=== PATIENT | male | born 1945 | race Caucasian/White ===

== ENCOUNTER 2016-04-12 14:01 | Inpatient (IN) | payer MEDICARE, OTHER ==
[~2016-04-12] VITALS: Ht 170.2 cm; Wt 56.4 kg
[2016-04-12] MEDS ORDERED: ADV50050 INHALATION (14:33)
[2016-04-12] MEDS ORDERED: ALBU2.5V3 NEB (14:33)
[2016-04-12] MEDS ORDERED: ASPI81TA3 PO (14:33)
[2016-04-12] MEDS ORDERED: ATOR10TA65 PO (14:33)
[2016-04-12] MEDS ORDERED: IPRA30SP NS (14:34)
[2016-04-12] MEDS ORDERED: CHOL100062 PO (14:36)
[2016-04-12] MEDS ORDERED: [UNRECOGNIZED DRUG - CODE] PO (14:36)
[2016-04-12] MEDS ORDERED: FLUT9.9S NASAL (14:36)
[2016-04-12] MEDS ORDERED: GUAI-637 PO (14:37)
[2016-04-12] MEDS ORDERED: IBUP-1542 PO (14:37)
[2016-04-12] MEDS ORDERED: IPRA3AMP INHALATION (14:39)
[2016-04-12] MEDS ORDERED: ENOX40DI14 SC (14:39)
[2016-04-12] MEDS ORDERED: METO25TA7 PO (14:40)
[2016-04-12] MEDS ORDERED: POLY17PO6 PO (14:40)
[2016-04-12] MEDS ORDERED: SENN-53 PO (14:41)
[2016-04-12] MEDS ORDERED: PROT946L PO (14:41)
[2016-04-12] MEDS ORDERED: MULTI PO (14:41)
[2016-04-12] MEDS ORDERED: TAMS0.4C2 PO (14:42)
--- NOTE | 2016-04-12 14:42 | ERA ---
ER Documentation Chief Complaint Date/Time DATE: 04/12/16 TIME: 14:38 Chief Complaint BIB RA FOR EVAL OF SOB. HPI The patient is 70-year-old male, presenting with acute on chronic dyspnea for the last 2 days. He normally uses 1-2 L nasal cannula due to his chronic hypoxemia from COPD. He complains of worsening cough, denies fever, chills, neck pain, chest pain, abdominal pain, vomiting, diarrhea, constipation. He used to to smoke until 6 months ago Past medical history:[place] of skin, history of DVT, dyslipidemia, BPH, anemia , GERD, rheumatoid arthritis, anxiety, hypertension, COPD Past surgical history: Right pleurodesis, left femur ROS All systems reviewed and are negative except as per history of present illness. Medications Home Meds Reported Medications Tamsulosin Hcl* (Tamsulosin Hcl*) 0.4 Mg Cap.er.24h, 0.4 MG PO HS, CAP 04/12/16 Sennosides* (Senna Lax*) 8.6 Mg Tablet, 2 TAB PO BID, TAB 04/12/16 Protein Supplement (Promod) 946 Ml Liquid, 30 ML PO BID 04/12/16 Multivitamins* (Theragran*) 1 Tab Tab, 1 TAB PO DAILY, TAB 04/12/16 Polyethylene Glycol* (Miralax*) 17 Gm Powd.pack, 17 GM PO DAILY, #30 PACKET 04/12/16 Metoprolol Succinate* (Toprol XL*) 25 Mg Tab.sr.24h, 25 MG PO DAILY, #30 TAB HOLD IF SBP<110, HR<60 04/12/16 Enoxaparin Sodium* (Lovenox*) 40 Mg/0.4 Ml Syringe, 40 MG SC DAILY, SYR 04/12/16 Ipratropium-Albuterol (Ipratropium-Albuterol) 0.5-3 Mg/3 Ml Ampul.neb, 1 VIAL INHALATION Q4 Y for WHEEZING AND SOB, #30 VIAL 04/12/16 Ibuprofen* (Ibuprofen*) 600 Mg Tablet, 600 MG PO Q6H Y for PAIN, TAB 04/12/16 Guaifenesin* (Robitussin*) 100 Mg/5 Ml Syrup, 600 MG PO Q12 Y for COUGH, ML 04/12/16 Fluticasone Propionate (Flonase Allergy Relief) 9.9 Ml [place].susp, 1 SPRAY NASAL BID, #1 BOTTLE TO EACH NOSTRIL 04/12/16 Cholecalciferol* (Vitamin D3*) 1,000 Unit Tablet, 1000 UNIT PO DAILY, TAB 04/12/16 Lactose-Free Food (Boost Plus) 237 Ml Liquid, 474 ML PO BID 04/12/16 Ipratropium Leon (Ipratropium Leon) 30 Ml [place], 2 SPRAY NS QID, SPRAY 04/12/16 Aspirin* (Aspirin* Chew) 81 Mg Tab.chew, 81 MG PO DAILY, TAB.CHEW 04/12/16 Atorvastatin Calcium (Atorvastatin Calcium) 10 Mg Tablet, 10 MG PO QHS, #30 TAB 04/12/16 Albuterol Sulfate* (Albuterol Sulfate* Neb) 0.083%-3 Ml Neb, 1.25 MG NEB Q4 Y for WHEEZING AND SOB, #30 VIAL 04/12/16 Salmeterol Xinaf-Fluticasone* (Advair*) 500/50 Diskus Inhaler, 1 INH INHALATION BID, #1 INHALER 04/12/16 Allergies Allergies: Coded Allergies: Penicillins (Verified Allergy, Severe, 04/12/16) PMhx/Soc Hx Alcohol Use: No Hx Substance Use: No Hx Tobacco Use: Yes Smoking Status: Former smoker Physical Exam Vitals Vital Signs Date Time Temp Pulse Resp B/P Pulse Ox O2 Delivery O2 Flow Rate FiO2 04/12/16 15:00 Nasal Cannula 2 04/12/16 14:10 98.2 74 19 132/122 100 Nasal Cannula 2.0 04/12/16 14:10 Nasal Cannula 2.0 04/12/16 14:07 98.2 118 19 141/85 100 Physical Exam Const: No acute distress. Head: Atraumatic. Eyes: Normal Conjunctiva. ENT: Normal External Ears, Nose and Mouth. Neck: Full range of motion. No meningismus. Resp: Mild bilateral expiratory wheezing Cardio: Regular rate and rhythm, no murmurs. Abd: Soft, non distended, normal bowel sounds, non tender. Skin: No petechiae or rashes. Back: No midline or flank tenderness. Ext: No cyanosis, or edema. Neur: Awake and alert. No focal deficit Psych: Normal Mood and Affect. Result Diagram: 04/12/16 1500 04/12/16 1500 Results 24 hrs Laboratory Tests Test 04/12/16 14:42 04/12/16 15:00 04/12/16 15:50 Arterial Blood HCO3 33.8mmol/L Arterial Blood Base Excess 6.3mmol/L Arterial Blood Oxygen Saturation 97.7mmHG [place] Test ACCEPTAB Arterial Blood Gas Puncture Site Right Radial Arterial Blood Carboxyhemoglobin 0.3% Arterial Blood Date Drawn 04/12/2016 2:46:11 PM Arterial Blood Methemoglobin 0.3% Arterial Blood pCO2 (Temp correct) 61.0mmhg Arterial Blood pH (Temp corrected) 7.361 Arterial Blood pO2 (Temp corrected) 107.4mmHG Blood Gas A-a O2 Differential 13.0mmHg Blood Gas Modality NASAL CANNULA Blood Gas Notified Time 04/12/2016 2:54:44 PM Blood Gas Notified Whom JLD Blood Gas Specimen Source Blood arterial Blood Gas Temperature 37.0C FiO2 27.0% Oxyhemoglobin Percent 97.1% Total Hemoglobin 14.2g/dl Activated Partial Thromboplast Time 32.4Sec Alanine Aminotransferase (ALT/SGPT) 16IU/L Albumin 3.8g/dl Albumin/Globulin Ratio 1.02 Alkaline Phosphatase 73IU/L Anion Gap 14 Aspartate Amino Transf (AST/SGOT) 23IU/L Basophils # 0.010^3/ul Basophils % 0.2% Blood Morphology Comment Blood Urea Nitrogen 29mg/dl Calcium Level 10.0mg/dl Carbon Dioxide Level 37mmol/L Chloride Level 99mmol/L Creatinine 0.90mg/dl Direct Bilirubin 0.00mg/dl Eosinophils # 0.410^3/ul Eosinophils % 4.8% Globulin 3.70g/dl Glucose Level 145mg/dl Hematocrit 40.4% Hemoglobin 13.4g/dl INR International Normalized Ratio 0.98 Indirect Bilirubin 0.1mg/dl Lactic Acid Level 1.6mmol/L Lymphocytes # 1.210^3/ul Lymphocytes % 13.8% Mean Corpuscular Hemoglobin 31.2pg Mean Corpuscular Hemoglobin Concent 33.1g/dl Mean Corpuscular Volume 94.1fl Mean Platelet Volume 9.1fl Monocytes # 1.110^3/ul Monocytes % 11.8% Neutrophils # 6.210^3/ul Neutrophils % 69.4% Nucleated Red Blood Cells # 0.010^3/ul Nucleated Red Blood Cells % 0.0/100WBC Platelet Count 34321^3/UL Potassium Level 4.9mmol/L Prothrombin Time 13.0Sec Prothrombin Time Ratio 1.0 Red Blood Count 4.2910^6/ul Red Cell Distribution Width 15.2% Sodium Level 145mmol/L Total Bilirubin 0.1mg/dl Total Protein 7.5g/dl Troponin I < 0.012ng/ml White Blood Count 9.010^3/ul Urine Bilirubin NEGATIVE Urine Clarity SLIGHTLY CLOUDY Urine Color LT. YELLOW Urine Glucose NEGATIVE% Urine Hemoglobin TRACE Urine Ketones NEGATIVE Urine Leukocyte Esterase 3+ Urine Microscopic RBC Pending Urine Microscopic WBC Pending Urine Nitrite POSITIVE Urine Specific [place] 1.020 Urine Total Protein TRACE Urine Urobilinogen 0.2 E.U./dL Urine pH 6.0 Current Medications Medications (Trade) Dose Ordered Sig/Wally Route PRN Reason Start Time Stop Time Status Last Admin Dose Admin Levalbuterol (Xopenex Neb) 1.25 mg ONCE ONCE HHN 04/12/16 16:00 04/12/16 16:01 DC Ipratropium Leon (Atrovent 0.02% (Neb)) 0.5 mg ONCE ONCE HHN 04/12/16 16:00 04/12/16 16:01 DC Methylprednisolone Sodium Succinate 125 mg 125 mg ONCE ONCE IV 04/12/16 16:00 04/12/16 16:01 DC Levofloxacin/ Dextrose (Levaquin 750 Mg/ D5W 150 ml (Pmx)) 150 ml @ 100 mls/hr ONCE ONCE IVPB 04/12/16 16:00 04/12/16 17:29 Procedures/MDM EKG: Read by emergency physician Rate/Rhythm: Sinus tachycardia 108 beats per min QRS, ST, T-waves: No ST elevation, no T wave inversion, PVC, septal Q waves Impression: Abnormal EKG [place] [id number] Radiology Main Line: [phone] DIAGNOSTIC IMAGING REPORT Patient: STEFANY OCONNOR : 1945 Age: 70 Sex: M MR #: [id number] DOS: 04/12/16 1442 Ordering MD: REX COBB MD Location: E/R Room/Bed: PROCEDURE: XR Chest. CLINICAL INDICATION: Shortness of breath. Sepsis. TECHNIQUE: Single frontal view. COMPARISON: None. FINDINGS: The lungs are hyperinflated. There is mild scarring at the right lung base. The lungs are otherwise clear. The heart size is normal. There is calcification in the aorta consistent with atherosclerosis. There is no pleural effusion. There is no pneumothorax. IMPRESSION: 1. Hyperinflated lungs. 2. Mild scarring at the right lung base. 3. Atherosclerosis. 4. Otherwise normal chest x-ray. RPTAT: QQ .Josh Dupont MD, MD Date Time Electronically viewed and signed by .Josh Dupont MD, MD on 04/12/2016 15:11 .R/ CC: REX COBB MD MEDICAL MAKING DECISION: The patient is a 70-year-old male, presenting with acute hypercapnic hypoxemic respiratory failure, acute severe exacerbation. He was treated with Levaquin IV, Atrovent 0.5 mg and Xopenex 1.25 mg nebulizer and Solu-Medrol multiple family IV with good response. The differential diagnoses considered include but are not limited to asthma, COPD, pneumonia, pulmonary embolus, pleural effusion, congestive heart failure. Critical Care: Time: 35 minutes excluding all billable procedures. Treatments/Evaluations: Close monitoring and treatment of unstable vital signs, cardiorespiratory, and neurologic status, while maintaining tight balance of fluid, respiratory, and cardiac interventions. Departure Diagnosis: Primary Impression: Respiratory failure with hypoxia and hypercapnia Additional Impressions: COPD exacerbation Anemia Condition: Stable Comments I discussed the findings with the patient. I discussed the patient with the on- call hospitalist Dr. Rider who was made aware of the lab, the treatment, the patient condition. The patient is admitted to telemetry at 4:15 PM REX COBB MD Apr 12, 2016 14:42
[2016-04-12 14:54] LABS: Allen Test ACCEPTAB; Arterial Base Excess 6.3 mmol/L (-3.0-3); Arterial COHb 0.3 % (0.0-3.0); Arterial Fraction of Oxyhgb 97.1 % (93.0-99.0); Arterial HCO3 33.8 mmol/L (22.0-26.0); Arterial MetHb 0.3 % (0.0-1.5); Arterial Total Hemglobin 14.2 g/dl (12.0-18.0); MODE NASAL CANNULA
--- NOTE | 2016-04-12 15:12 | RADRPT ---
PROCEDURE: XR Chest. CLINICAL INDICATION: Shortness of breath. Sepsis. TECHNIQUE: Single frontal view. COMPARISON: None. FINDINGS: The lungs are hyperinflated. There is mild scarring at the right lung base. The lungs are otherwis e clear. The heart size is normal. There is calcification in the aorta consistent with atherosclerosis. There is no pleural effusion. There is no pneumothorax. IMPRESSION: 1. Hyperinflated lungs. 2. Mild scarring at the right lung base. 3. Atherosclerosis. 4. Otherwise normal chest x-ray. RPTAT: QQ .Josh Dupont MD, Date Time Electronically viewed and signed by .Josh Dupont MD, on 04/12/2016 15:11 .R/
[2016-04-12 15:18] LABS: BASOPHILS % 0.2 % (0.0-2.0); EOSINOPHILS # 0.4 10^3/ul (0.0-0.5); EOSINOPHILS % 4.8 % (0.0-7.0); HEMATOCRIT 40.4 % (42.0-52.0); HEMOGLOBIN 13.4 g/dl (14.0-18.0); LYMPHOCYTES # 1.2 10^3/ul (0.8-2.9); LYMPHOCYTES % 13.8 % (15.0-51.0); MEAN CORPUSCULAR HEMOGLOBIN 31.2 pg (29.0-33.0); MEAN CORPUSCULAR HGB CONC 33.1 g/dl (32.0-37.0); MEAN CORPUSCULAR VOLUME 94.1 fl (82.0-101.0); MEAN PLATELET VOLUME 9.1 fl (7.4-10.4); MONOCYTE # 1.1 10^3/ul (0.3-0.9); MONOCYTES % 11.8 % (0.0-11.0); NEUTROPHIL # 6.2 10^3/ul (1.6-7.5); NEUTROPHILS % 69.4 % (39.0-77.0); PLATELET COUNT 294 10^3/UL (140-440); RED BLOOD COUNT 4.29 10^6/ul (4.70-6.10); RED CELL DISTRIBUTION WIDTH 15.2 % (11.5-14.5)
[2016-04-12 15:21] LABS: CONDITION 1; LH ANALYZER COMMENTS 1
[2016-04-12 15:26] LABS: ALBUMIN 3.8 g/dl (3.3-4.9); CHLORIDE 99 mmol/L (97-110)
[2016-04-12 15:27] LABS: INR 0.98; POTASSIUM 4.9 mmol/L (3.5-5.1); SODIUM 145 mmol/L (135-144)
[2016-04-12 15:28] LABS: PARTIAL THROMBOPLASTIN TIME 32.4 Sec (25.0-35.0)
[2016-04-12 15:29] LABS: ALBUMIN/GLOBULIN RATIO 1.02; ANION GAP 14 (8-16); ASPARTATE AMINO TRANSFERASE 23 IU/L (15-46); BILIRUBIN,INDIRECT 0.1 mg/dl (0-1.1); BILIRUBIN,TOTAL 0.1 mg/dl (0.2-1.3); BLOOD UREA NITROGEN 29 mg/dl (7-20); CARBON DIOXIDE 37 mmol/L (21-31); TOTAL PROTEIN 7.5 g/dl (6.1-8.1)
[2016-04-12 15:30] LABS: ALANINE AMINOTRANSFERASE 16 IU/L (13-69); ALKALINE PHOSPHATASE 73 IU/L (42-121); GLUCOSE 145 mg/dl (70-220)
[2016-04-12 15:43] LABS: TROPONIN-I < 0.012 ng/ml (0.00-0.12)
[2016-04-12] MEDS ORDERED: METHYLPREDNISOLONE 125 MG INJ IV ONE (16:00)
[2016-04-12] MEDS ORDERED: LEVALBUTEROL (NEB) 1.25 MG/0.5 ML AMP HHN ONE (16:00)
[2016-04-12] MEDS ORDERED: LEVOFLOXACIN 750MG/D5W (PMX) 150 ML IVPB ONE (16:00)
[2016-04-12] MEDS ORDERED: IPRATROPIUM (NEB) 0.5 MG/2.5 ML AMP HHN ONE (16:00)
[2016-04-12 16:07] LABS: ADD UMIC YES; URINE BILIRUBIN (Dip) NEGATIVE (NEGATIVE); URINE BLOOD (Dip) TRACE (NEGATIVE); URINE COLOR LT. YELLOW (YELLOW); URINE GLUCOSE (Dip) NEGATIVE (NEGATIVE); URINE KETONES (Dip) NEGATIVE (NEGATIVE); URINE LEUKOCYTE ESTERASE (Dip) 3+ (NEGATIVE); URINE NITRITE (Dip) POSITIVE (NEGATIVE); URINE TOTAL PROTEIN (Dip) TRACE (NEGATIVE); URINE UROBILINOGEN (Dip) 0.2 E.U./dL (0.1-1.0)
[2016-04-12 16:17] LABS: BACTERIA,URINE RARE; SQUAMOUS EPITHELIAL CELL,UR FEW; URINE RBCS 0-2 /HPF (0)
[2016-04-12] MEDS ORDERED: morphine 2 MG INJ IV PRN (20:00)
[2016-04-12] MEDS ORDERED: NACL 0.9% 3 ML SYG IV SCH (20:00)
[2016-04-12] MEDS ORDERED: ZOLPIDEM 5 MG TAB PO PRN (20:00)
[2016-04-12] MEDS ORDERED: DOCUSATE SODIUM 100 MG CAP PO PRN (20:00)
[2016-04-12] MEDS ORDERED: IBUPROFEN 600 MG TAB PO PRN (20:00)
[2016-04-12] MEDS ORDERED: ALBUTEROL/IPRATROPIUM (NEB) 3 ML AMP HHN PRN (20:00)
[2016-04-12] MEDS ORDERED: ACETAMINOPHEN 325 MG TAB PO PRN (20:00)
[2016-04-12] MEDS ORDERED: HYDROCODONE/APAP (5/325) TAB PO PRN (20:00)
[2016-04-12] MEDS ORDERED: ONDANSETRON 4 MG INJ IV PRN (20:00)
[2016-04-12 20:02] VITALS: TEMP 98.4
--- NOTE | 2016-04-12 20:41 | HP ---
DATE OF ADMISSION: 04/12/2016 CHIEF COMPLAINT: Shortness of breath. HISTORY OF PRESENT ILLNESS: The patient is a 70-year-old male with a history of COPD. The patient a nursing home facility. The patient presents with progressively worsening shortness of breath o arlette the past 2 weeks. He states that he has been worse over the past week. He has had hospitalizat ions for COPD exacerbation in the past. He does have a history of smoking. He has no other complai nts at this time. PAST MEDICAL HISTORY: COPD and rapid heart rate. PAST SURGICAL HISTORY: 1. Metal plate in his leg. 2. Pleurodesis. HOME MEDICATIONS: 1. Albuterol. 2. Aspirin. 3. Lipitor. 4. Vitamin D. 5. Lovenox. 6. Flonase. 7. Robitussin. 8. Ibuprofen. 9. Atrovent. 10. Metoprolol. 11. Multivitamin. 12. Advair. 13. Flomax. ALLERGIES: PENICILLIN. FAMILY HISTORY: Rheumatoid arthritis. SOCIAL HISTORY: Denies any alcohol or drug abuse. Does have a history of smoking and resides in a SNF. REVIEW OF SYSTEMS: A 12-point review of systems negative except that listed in HPI. PHYSICAL EXAMINATION: VITAL SIGNS: Temperature is 98.1, pulse 70, respiration is 18, BP is 125/98, saturation 100% on 2 l iters. GENERAL: No acute distress, alert and oriented. HEENT: Normocephalic, atraumatic. LUNGS: Clear to auscultation. CARDIOVASCULAR: Regular rate and rhythm. ABDOMEN: Nondistended, nontender, soft. EXTREMITIES: No clubbing, cyanosis, edema. SKIN: Grayish discoloration. LABORATORIES: White count 7.9, hemoglobin 15.4, platelets 294. Chemistry: Sodium is 145, potassiu m is 2.9, carbon dioxide 37, BUN is 29, lactic acid is 0.7, total bilirubin is 0.1. INR 0.98. UA, nitrites positive, WBC greater than 50. DIAGNOSTICS: Chest x-ray shows hyperinflated lungs, mild scarring in the right lung base, atheroscl erosis, otherwise normal chest x-ray. ASSESSMENT AND PLAN 1. Chronic obstructive pulmonary disease exacerbation. The patient has progressively worsening braydon rtness of breath with mucus production. Will treat for chronic obstructive of pulmonary exacerbatio n with antibiotics. Will get an influenza screen. No indication for steroids at this time. The pa tient is not wheezing. 2. Tachycardia, continue Toprol-XL 3. Benign prostatic hypertrophy. Continue Flomax. 4. Prophylaxis, Lovenox. Dictated By: CLIFFORD ZAPIEN MD BS/NTS Conf#: [id number] DID#: [id number]
[2016-04-12 20:45] VITALS: BP 127/68; PULSE 112; RESP 22
[2016-04-12 20:50] VITALS: PULSE 111
[2016-04-12 21:00] VITALS: Ht 170.2 cm; Wt 56.4 kg
[2016-04-12] MEDS ORDERED: LACTOSE FREE FOOD PO SCH (21:00)
[2016-04-12] MEDS: FLUTICASONE 0.05% 16 GM NAS SPRAY NASAL SCH (21:00)
[2016-04-12] MEDS: ATORVASTATIN 10 MG TAB PO SCH ×2 (21:00→22:36)
[2016-04-12] MEDS: IPRATROPIUM 0.03% 30 ML NASAL SPRAY NASAL SCH (21:00)
[2016-04-12] MEDS ORDERED: NON-FORMULARY/PATIENT OWN MED (Protein Supplement (Promod) 30 ML) PO SCH (21:00)
[2016-04-12] MEDS: METHYLPREDNISOLONE 125 MG INJ IV SCH (22:36)
[2016-04-12] MEDS: TAMSULOSIN (SR) 0.4 MG CAP PO SCH (22:36)
[2016-04-12] MEDS: SENNA TAB PO SCH (22:37)
[2016-04-12] MEDS: SALMETEROL/FLUTICASONE 500/50 INHA INH SCH (23:18)
[2016-04-13] VITALS (13 sets, daily range): BP systolic 114–126; BP diastolic 61–75; PULSE 96–110; RESP 18–21
[2016-04-13] MEDS ORDERED: IPRATROPIUM (NEB) 0.5 MG/2.5 ML AMP HHN SCH (01:00)
[2016-04-13] MEDS: METHYLPREDNISOLONE 125 MG INJ IV SCH ×3 (05:39→21:40)
[2016-04-13 07:49] LABS: BASOPHILS % 0.1 % (0.0-2.0); HEMATOCRIT 37.9 % (42.0-52.0); HEMOGLOBIN 12.8 g/dl (14.0-18.0); LYMPHOCYTES # 0.6 10^3/ul (0.8-2.9); LYMPHOCYTES % 9.6 % (15.0-51.0); MEAN CORPUSCULAR HEMOGLOBIN 31.6 pg (29.0-33.0); MEAN CORPUSCULAR HGB CONC 33.8 g/dl (32.0-37.0); MEAN CORPUSCULAR VOLUME 93.7 fl (82.0-101.0); MEAN PLATELET VOLUME 9.1 fl (7.4-10.4); MONOCYTE # 0.1 10^3/ul (0.3-0.9); MONOCYTES % 1.6 % (0.0-11.0); NEUTROPHIL # 5.9 10^3/ul (1.6-7.5); NEUTROPHILS % 88.7 % (39.0-77.0); PLATELET COUNT 304 10^3/UL (140-440); RED BLOOD COUNT 4.05 10^6/ul (4.70-6.10); RED CELL DISTRIBUTION WIDTH 15.1 % (11.5-14.5); UNCORRECTED WBC 6.7 10^3/ul (4.8-10.8); WHITE BLOOD COUNT 6.7 10^3/ul (4.8-10.8)
[2016-04-13 07:53] LABS: POTASSIUM 5.4 mmol/L (3.5-5.1)
[2016-04-13 07:55] LABS: CONDITION 1; CREATININE 0.92 mg/dl (0.61-1.24); LH ANALYZER COMMENTS 1
[2016-04-13 07:56] LABS: PHOSPHORUS 3.6 mg/dl (2.5-4.9)
[2016-04-13 07:57] LABS: CALCIUM 9.7 mg/dl (8.4-10.2); MAGNESIUM 2.1 mg/dl (1.7-2.5)
[2016-04-13] MEDS: FLUTICASONE 0.05% 16 GM NAS SPRAY NASAL SCH ×2 (09:00→21:00)
[2016-04-13] MEDS: ENOXAPARIN 40 MG/0.4 ML SYG SC SCH (09:00)
[2016-04-13] MEDS: IPRATROPIUM 0.03% 30 ML NASAL SPRAY NASAL SCH ×4 (09:00→21:00)
[2016-04-13] MEDS: SALMETEROL/FLUTICASONE 500/50 INHA INH SCH ×2 (09:00→21:37)
[2016-04-13] MEDS: METOPROLOL (XL) 25 MG TAB PO SCH (09:03)
[2016-04-13] MEDS: ASPIRIN 81 MG TAB PO SCH (09:03)
[2016-04-13] MEDS: MULTIVITAMINS THERAPEUTIC TAB PO SCH (09:03)
[2016-04-13] MEDS: CHOLECALCIFEROL 1,000 UNIT TAB PO SCH (09:03)
[2016-04-13] MEDS: SENNA TAB PO SCH ×2 (09:04→21:37)
[2016-04-13] MEDS: POLYETHYLENE GLYCOL 17 GM PACKET PO SCH (09:04)
[2016-04-13] MEDS: GUAIFENESIN LA 600 MG TABSR PO PRN (14:20)
[2016-04-13] MEDS ORDERED: PSEUDOEPHEDRINE 30 MG TAB PO PRN (15:00)
--- NOTE | 2016-04-13 15:09 | PN ---
Date/Time of Note Date/Time of Note DATE: 04/13/16 TIME: 15:05 Assessment/Plan VTE Prophylaxis VTE Prophylaxis Intervention: LMWH Lines/Catheters [facility] Urinary Cath still in place: No Assessment/Plan Chief Complaint/Hosp Course 1. Chronic obstructive pulmonary disease exacerbation -cont Steroids and Abx 2. Tachycardia -continue Toprol-XL 3. Benign prostatic hypertrophy - Continue Flomax. 4. Prophylaxis-Lovenox Dispo- Likely DC in AM Problems: Subjective 24 Hr Interval Summary Respiratory: shortness of breath Exam/Review of Systems Vital Signs Vitals Vital Signs Date Time Temp Pulse Resp B/P Pulse Ox O2 Delivery O2 Flow Rate FiO2 04/13/16 12:32 97.9 112 20 114/68 97 04/13/16 10:44 Nasal Cannula 2.0 04/12/16 23:31 28 Intake and Output 04/12/16 04/12/16 04/13/16 15:00 23:00 07:00 Intake Total 250 ml Output Total 500 ml Balance -250 ml Exam Constitutional: alert, oriented Respiratory: clear to auscultation Cardiovascular: regular rate and rhythm Gastrointestinal: non-tender, soft, No distended Musculoskeletal: nl extremities to inspection Results Result Diagram: 04/13/16 0640 04/13/16 0640 Results 24 hrs Laboratory Tests Test 04/12/16 15:50 04/12/16 17:40 04/12/16 21:23 04/13/16 06:40 Urine Bacteria RARE Urine Bilirubin NEGATIVE Urine Clarity SLIGHTLY CLOUDY Urine Color LT. YELLOW Urine Glucose NEGATIVE Urine Hemoglobin TRACE Urine Ketones NEGATIVE Urine Leukocyte Esterase 3+ H Urine Microscopic RBC 0-2 Urine Microscopic WBC >50 Urine Nitrite POSITIVE H Urine Specific [place] 1.020 Urine Squamous Epithelial Cells FEW Urine Total Protein TRACE Urine Urobilinogen 0.2 E.U./dL Urine pH 6.0 Lactic Acid Level 0.7 1.2 Anion Gap 17 H Basophils # 0.0 Basophils % 0.1 Blood Morphology Comment Blood Urea Nitrogen 31 H Calcium Level 9.7 Carbon Dioxide Level 31 Chloride Level 99 Creatinine 0.92 Eosinophils # 0.0 Eosinophils % 0.0 Glucose Level 119 Hematocrit 37.9 L Hemoglobin 12.8 L Hemoglobin A1c 5.3 Lymphocytes # 0.6 L Lymphocytes % 9.6 L Magnesium Level 2.1 Mean Corpuscular Hemoglobin 31.6 Mean Corpuscular Hemoglobin Concent 33.8 Mean Corpuscular Volume 93.7 Mean Platelet Volume 9.1 Monocytes # 0.1 L Monocytes % 1.6 Neutrophils # 5.9 Neutrophils % 88.7 H Nucleated Red Blood Cells # 0.0 Nucleated Red Blood Cells % 0.0 Phosphorus Level 3.6 Platelet Count 304 Potassium Level 5.4 H Red Blood Count 4.05 L Red Cell Distribution Width 15.1 H Sodium Level 142 White Blood Count 6.7 # Medications Medications Current Medications Ondansetron HCl (Zofran Inj) 4 mg Q6H PRN IV NAUSEA AND/OR VOMITING; Start at 20:00 Acetaminophen (Tylenol Tab) 650 mg Q6H PRN PO PAIN LEVEL 1-3 OR FEVER; Start at 20:00 Acetaminophen/ Hydrocodone Bitart ([place] (5/325)) 1 tab Q6H PRN PO MODERATE PAIN LEVEL 4-6; Start 04/12/16 at 20:00 Morphine Sulfate (morphine) 2 mg Q4H PRN IV SEVERE PAIN LEVEL 7-10; Start 04/12 at 20:00 Docusate Sodium (Colace) 100 mg Q12H PRN PO CONSTIPATION; Start 04/12/16 at 20: 00 Zolpidem Tartrate (Ambien) 5 mg QHS PRN PO SLEEP; Start 04/12/16 at 20:00 Enoxaparin Sodium (Lovenox) 40 mg DAILY SC ; Start 04/13/16 at 09:00 Methylprednisolone Sodium Succinate 60 mg 60 mg Q8 IV Last administered on 04/13 14:15; Admin Dose 60 MG; Start 04/12/16 at 22:00 Levofloxacin/ Dextrose (Levaquin 500mg/ D5W 100 ml (Pmx)) 100 ml @ 100 mls/hr Q24H IVPB ; Start 04/13/16 at 16:00 Aspirin (Aspirin) 81 mg DAILY PO Last administered on 04/13/16 09:03; Admin Dose 81 MG; Start 04/13/16 at 09:00 Atorvastatin Calcium (Lipitor) 10 mg QHS PO ; Start 04/12/16 at 21:00 Cholecalciferol (Vitamin D) 1,000 unit DAILY PO Last administered on 04/13/16 09:03; Admin Dose 1,000 UNIT; Start 04/13/16 at 09:00 Fluticasone Propionate (Flonase 0.05% Nasal) 1 spray BID NASAL ; Start 04/12/16 at 21:00 Guaifenesin (Mucinex) 600 mg Q12H PRN PO COUGH Last administered on 04/13/16 14:20; Admin Dose 600 MG; Start 04/12/16 at 21:00 Ibuprofen (Motrin) 600 mg Q6H PRN PO PAIN; Start 04/12/16 at 20:00 Ipratropium [place] (Atrovent Nasal) 2 spray QID NASAL ; Start 04/12/16 at 21:00 Metoprolol Succinate (Toprol Xl) 25 mg DAILY PO Last administered on 04/13/16 09:03; Admin Dose 25 MG; Start 04/13/16 at 09:00 Multivitamins Therapeutic (Theragran) 1 tab DAILY PO Last administered on 09:03; Admin Dose 1 TAB; Start 04/13/16 at 09:00 Polyethylene Glycol (Miralax) 17 gm DAILY PO Last administered on 04/13/16 09: 04; Admin Dose 17 GM; Start 04/13/16 at 09:00 Salmeterol Xinafoate/ Fluticasone (Advair 500/50 Diskus) 1 inh BID INH Last administered on 04/12/16 23:18; Admin Dose 1 INH; Start 04/12/16 at 21:00 Senna (Senokot) 2 tab BID PO Last administered on 04/13/16 09:04; Admin Dose 2 TAB; Start 04/12/16 at 21:00 Tamsulosin HCl (Flomax) 0.4 mg HS PO Last administered on 04/12/16 22:36; Admin Dose 0.4 MG; Start 04/12/16 at 21:00 Pseudoephedrine HCl (Sudogest) 30 mg Q4H PRN PO COUGH; Start 04/13/16 at 15:00 CLIFFORD ZAPIEN Apr 13, 2016 15:09
[2016-04-13] MEDS: LEVOFLOXACIN 500MG/D5W (PMX) 100 ML IVPB SCH (15:40)
[2016-04-13] MEDS: ATORVASTATIN 10 MG TAB PO SCH ×2 (21:00→21:37)
[2016-04-13] MEDS: TAMSULOSIN (SR) 0.4 MG CAP PO SCH (21:37)
[2016-04-13] MEDS: LEVALBUTEROL (NEB) 1.25 MG/0.5 ML AMP HHN PRN (21:54)
[2016-04-13] MEDS: IPRATROPIUM (NEB) 0.5 MG/2.5 ML AMP HHN PRN (21:54)
[2016-04-14] VITALS (11 sets, daily range): BP systolic 110–127; BP diastolic 60–69; PULSE 72–101; RESP 18–20
[2016-04-14] MEDS: METHYLPREDNISOLONE 125 MG INJ IV SCH ×3 (05:24→20:51)
[2016-04-14 06:16] LABS: POTASSIUM 4.9 mmol/L (3.5-5.1)
[2016-04-14 06:19] LABS: CALCIUM 9.3 mg/dl (8.4-10.2); CREATININE 0.92 mg/dl (0.61-1.24)
[2016-04-14] MEDS: CHOLECALCIFEROL 1,000 UNIT TAB PO SCH (08:54)
[2016-04-14] MEDS: ASPIRIN 81 MG TAB PO SCH (08:54)
[2016-04-14] MEDS: MULTIVITAMINS THERAPEUTIC TAB PO SCH (08:54)
[2016-04-14] MEDS: SENNA TAB PO SCH ×2 (08:54→20:50)
[2016-04-14] MEDS: POLYETHYLENE GLYCOL 17 GM PACKET PO SCH (08:55)
[2016-04-14] MEDS: METOPROLOL (XL) 25 MG TAB PO SCH (08:55)
[2016-04-14] MEDS: FLUTICASONE 0.05% 16 GM NAS SPRAY NASAL SCH ×2 (09:00→20:53)
[2016-04-14] MEDS: ENOXAPARIN 40 MG/0.4 ML SYG SC SCH (09:00)
[2016-04-14] MEDS: SALMETEROL/FLUTICASONE 500/50 INHA INH SCH ×2 (09:00→20:50)
[2016-04-14] MEDS: IPRATROPIUM 0.03% 30 ML NASAL SPRAY NASAL SCH ×4 (09:00→20:53)
[2016-04-14] MEDS: GUAIFENESIN LA 600 MG TABSR PO PRN (09:02)
--- NOTE | 2016-04-14 15:31 | PN ---
Date/Time of Note Date/Time of Note DATE: 04/14/16 TIME: 15:29 Assessment/Plan VTE Prophylaxis VTE Prophylaxis Intervention: LMWH Lines/Catheters IV Catheter Type (from Nrs): Saline Lock Urinary Cath still in place: No Assessment/Plan Chief Complaint/Hosp Course 1. Chronic obstructive pulmonary disease exacerbation -cont Steroids and Abx 2. Tachycardia -continue Toprol-XL 3. Benign prostatic hypertrophy - Continue Flomax. 4. Prophylaxis-Lovenox Dispo- pt would like to go to Health [facility] or [place] Problems: Subjective 24 Hr Interval Summary Respiratory: shortness of breath Exam/Review of Systems Vital Signs Vitals Vital Signs Date Time Temp Pulse Resp B/P Pulse Ox O2 Delivery O2 Flow Rate FiO2 04/14/16 15:11 2.0 04/14/16 12:03 101 04/14/16 11:54 97.7 19 123/68 97 04/14/16 08:00 Nasal Cannula 04/12/16 23:31 28 Intake and Output 04/13/16 04/13/16 04/14/16 15:00 23:00 07:00 Intake Total 300 ml 800 ml Output Total 200 ml 900 ml Balance 100 ml -100 ml Exam Constitutional: alert, oriented Respiratory: clear to auscultation Cardiovascular: regular rate and rhythm Gastrointestinal: soft, No distended Musculoskeletal: nl extremities to inspection Results Result Diagram: 04/13/16 0640 04/14/16 0524 Results 24 hrs Laboratory Tests Test 04/14/16 05:24 Anion Gap 15 Blood Urea Nitrogen 43 #H Calcium Level 9.3 Carbon Dioxide Level 33 H Chloride Level 98 Creatinine 0.92 Glucose Level 118 Potassium Level 4.9 Sodium Level 141 Medications Medications Current Medications Ondansetron HCl (Zofran Inj) 4 mg Q6H PRN IV NAUSEA AND/OR VOMITING; Start at 20:00 Acetaminophen (Tylenol Tab) 650 mg Q6H PRN PO PAIN LEVEL 1-3 OR FEVER; Start at 20:00 Acetaminophen/ Hydrocodone Bitart ([place] (5/325)) 1 tab Q6H PRN PO MODERATE PAIN LEVEL 4-6; Start 04/12/16 at 20:00 Morphine Sulfate (morphine) 2 mg Q4H PRN IV SEVERE PAIN LEVEL 7-10; Start 04/12 at 20:00 Docusate Sodium (Colace) 100 mg Q12H PRN PO CONSTIPATION; Start 04/12/16 at 20: 00 Zolpidem Tartrate (Ambien) 5 mg QHS PRN PO SLEEP; Start 04/12/16 at 20:00 Enoxaparin Sodium (Lovenox) 40 mg DAILY SC ; Start 04/13/16 at 09:00 Methylprednisolone Sodium Succinate 60 mg 60 mg Q8 IV Last administered on 04/14 14:18; Admin Dose 60 MG; Start 04/12/16 at 22:00 Levofloxacin/ Dextrose (Levaquin 500mg/ D5W 100 ml (Pmx)) 100 ml @ 100 mls/hr Q24H IVPB Last administered on 04/13/16 15:40; Admin Dose 100 MLS/HR; Start at 16:00 Aspirin (Aspirin) 81 mg DAILY PO Last administered on 04/14/16 08:54; Admin Dose 81 MG; Start 04/13/16 at 09:00 Atorvastatin Calcium (Lipitor) 10 mg QHS PO ; Start 04/12/16 at 21:00 Cholecalciferol (Vitamin D) 1,000 unit DAILY PO Last administered on 04/14/16 08:54; Admin Dose 1,000 UNIT; Start 04/13/16 at 09:00 Fluticasone Propionate (Flonase 0.05% Nasal) 1 spray BID NASAL ; Start 04/12/16 at 21:00 Guaifenesin (Mucinex) 600 mg Q12H PRN PO COUGH Last administered on 04/14/16 09:02; Admin Dose 600 MG; Start 04/12/16 at 21:00 Ibuprofen (Motrin) 600 mg Q6H PRN PO PAIN; Start 04/12/16 at 20:00 Ipratropium [place] (Atrovent Nasal) 2 spray QID NASAL ; Start 04/12/16 at 21:00 Metoprolol Succinate (Toprol Xl) 25 mg DAILY PO Last administered on 04/14/16 08:55; Admin Dose 25 MG; Start 04/13/16 at 09:00 Multivitamins Therapeutic (Theragran) 1 tab DAILY PO Last administered on 08:54; Admin Dose 1 TAB; Start 04/13/16 at 09:00 Polyethylene Glycol (Miralax) 17 gm DAILY PO Last administered on 04/14/16 08: 55; Admin Dose 17 GM; Start 04/13/16 at 09:00 Salmeterol Xinafoate/ Fluticasone (Advair 500/50 Diskus) 1 inh BID INH Last administered on 04/13/16 21:37; Admin Dose 1 INH; Start 04/12/16 at 21:00 Senna (Senokot) 2 tab BID PO Last administered on 04/14/16 08:54; Admin Dose 2 TAB; Start 04/12/16 at 21:00 Tamsulosin HCl (Flomax) 0.4 mg HS PO Last administered on 04/13/16 21:37; Admin Dose 0.4 MG; Start 04/12/16 at 21:00 Pseudoephedrine HCl (Sudogest) 30 mg Q4H PRN PO COUGH Last administered on 04/13 15:30; Admin Dose 30 MG; Start 04/13/16 at 15:00 CLIFFORD ZAPIEN Apr 14, 2016 15:31
[2016-04-14] MEDS: LEVOFLOXACIN 500MG/D5W (PMX) 100 ML IVPB SCH (16:09)
[2016-04-14] MEDS: TAMSULOSIN (SR) 0.4 MG CAP PO SCH (20:50)
[2016-04-14] MEDS: ATORVASTATIN 10 MG TAB PO SCH (20:50)
[2016-04-15] VITALS (11 sets, daily range): BP systolic 113–124; BP diastolic 60–73; PULSE 66–103; RESP 17–19
[2016-04-15] MEDS: METHYLPREDNISOLONE 125 MG INJ IV SCH (05:40)
[2016-04-15] MEDS: FLUTICASONE 0.05% 16 GM NAS SPRAY NASAL SCH ×2 (09:00→21:00)
[2016-04-15] MEDS: ENOXAPARIN 40 MG/0.4 ML SYG SC SCH (09:00)
[2016-04-15] MEDS: IPRATROPIUM 0.03% 30 ML NASAL SPRAY NASAL SCH ×4 (09:00→21:00)
[2016-04-15] MEDS: POLYETHYLENE GLYCOL 17 GM PACKET PO SCH (09:29)
[2016-04-15] MEDS: SALMETEROL/FLUTICASONE 500/50 INHA INH SCH ×3 (09:29→22:57)
[2016-04-15] MEDS: GUAIFENESIN LA 600 MG TABSR PO PRN (09:29)
[2016-04-15] MEDS: SENNA TAB PO SCH ×2 (09:30→21:05)
[2016-04-15] MEDS: MULTIVITAMINS THERAPEUTIC TAB PO SCH (09:31)
[2016-04-15] MEDS: METOPROLOL (XL) 25 MG TAB PO SCH (09:31)
[2016-04-15] MEDS: ASPIRIN 81 MG TAB PO SCH (09:31)
[2016-04-15] MEDS: CHOLECALCIFEROL 1,000 UNIT TAB PO SCH (09:31)
--- NOTE | 2016-04-15 13:20 | PN ---
Date/Time of Note Date/Time of Note DATE: 04/15/16 TIME: 13:18 Assessment/Plan VTE Prophylaxis VTE Prophylaxis Intervention: LMWH Lines/Catheters IV Catheter Type (from Nrs): Saline Lock Urinary Cath still in place: No Assessment/Plan Chief Complaint/Hosp Course 1. Chronic obstructive pulmonary disease exacerbation-stable -pt appears to have progression of underlying Emphysema and there is no further e/o an acute component and so will DC Abx and Steroids 2. Tachycardia -continue Toprol-XL 3. Benign prostatic hypertrophy - Continue Flomax. 4. Prophylaxis-Lovenox Dispo- pt would like to go to another [facility] or [place] Problems: Subjective 24 Hr Interval Summary Respiratory: shortness of breath Exam/Review of Systems Vital Signs Vitals Vital Signs Date Time Temp Pulse Resp B/P Pulse Ox O2 Delivery O2 Flow Rate FiO2 04/15/16 12:03 68 04/15/16 11:46 97.9 18 124/73 100 04/15/16 08:20 Nasal Cannula 2.0 04/12/16 23:31 28 Intake and Output 04/14/16 04/14/16 04/15/16 15:00 23:00 07:00 Intake Total 1000 ml 240 ml Output Total 500 ml 400 ml Balance 500 ml -160 ml Exam Constitutional: alert, oriented Respiratory: clear to auscultation Cardiovascular: regular rate and rhythm Gastrointestinal: soft, No distended Musculoskeletal: nl extremities to inspection Results Result Diagram: 04/13/16 0640 04/14/16 0524 Medications Medications Current Medications Ondansetron HCl (Zofran Inj) 4 mg Q6H PRN IV NAUSEA AND/OR VOMITING; Start at 20:00 Acetaminophen (Tylenol Tab) 650 mg Q6H PRN PO PAIN LEVEL 1-3 OR FEVER; Start at 20:00 Acetaminophen/ Hydrocodone Bitart ([place] (5/325)) 1 tab Q6H PRN PO MODERATE PAIN LEVEL 4-6; Start 04/12/16 at 20:00 Morphine Sulfate (morphine) 2 mg Q4H PRN IV SEVERE PAIN LEVEL 7-10; Start 04/12 at 20:00 Docusate Sodium (Colace) 100 mg Q12H PRN PO CONSTIPATION; Start 04/12/16 at 20: 00 Zolpidem Tartrate (Ambien) 5 mg QHS PRN PO SLEEP; Start 04/12/16 at 20:00 Enoxaparin Sodium (Lovenox) 40 mg DAILY SC ; Start 04/13/16 at 09:00 Methylprednisolone Sodium Succinate 60 mg 60 mg Q8 IV Last administered on 04/15 05:40; Admin Dose 60 MG; Start 04/12/16 at 22:00 Levofloxacin/ Dextrose (Levaquin 500mg/ D5W 100 ml (Pmx)) 100 ml @ 100 mls/hr Q24H IVPB Last administered on 04/14/16 16:09; Admin Dose 100 MLS/HR; Start at 16:00 Aspirin (Aspirin) 81 mg DAILY PO Last administered on 04/15/16 09:31; Admin Dose 81 MG; Start 04/13/16 at 09:00 Atorvastatin Calcium (Lipitor) 10 mg QHS PO Last administered on 04/14/16 20: 50; Admin Dose 10 MG; Start 04/12/16 at 21:00 Cholecalciferol (Vitamin D) 1,000 unit DAILY PO Last administered on 04/15/16 09:31; Admin Dose 1,000 UNIT; Start 04/13/16 at 09:00 Fluticasone Propionate (Flonase 0.05% Nasal) 1 spray BID NASAL ; Start 04/12/16 at 21:00 Guaifenesin (Mucinex) 600 mg Q12H PRN PO COUGH Last administered on 04/15/16 09:29; Admin Dose 600 MG; Start 04/12/16 at 21:00 Ibuprofen (Motrin) 600 mg Q6H PRN PO PAIN; Start 04/12/16 at 20:00 Ipratropium [place] (Atrovent Nasal) 2 spray QID NASAL ; Start 04/12/16 at 21:00 Metoprolol Succinate (Toprol Xl) 25 mg DAILY PO Last administered on 04/15/16 09:31; Admin Dose 25 MG; Start 04/13/16 at 09:00 Multivitamins Therapeutic (Theragran) 1 tab DAILY PO Last administered on 09:31; Admin Dose 1 TAB; Start 04/13/16 at 09:00 Polyethylene Glycol (Miralax) 17 gm DAILY PO Last administered on 04/15/16 09: 29; Admin Dose 17 GM; Start 04/13/16 at 09:00 Salmeterol Xinafoate/ Fluticasone (Advair 500/50 Diskus) 1 inh BID INH Last administered on 04/15/16 09:29; Admin Dose 1 INH; Start 04/12/16 at 21:00 Senna (Senokot) 2 tab BID PO Last administered on 04/15/16 09:30; Admin Dose 2 TAB; Start 04/12/16 at 21:00 Tamsulosin HCl (Flomax) 0.4 mg HS PO Last administered on 04/14/16 20:50; Admin Dose 0.4 MG; Start 04/12/16 at 21:00 Pseudoephedrine HCl (Sudogest) 30 mg Q4H PRN PO COUGH Last administered on 04/13 15:30; Admin Dose 30 MG; Start 04/13/16 at 15:00 CLIFFORD ZAPIEN Apr 15, 2016 13:20
[2016-04-15] MEDS: IPRATROPIUM (NEB) 0.5 MG/2.5 ML AMP HHN PRN (15:47)
[2016-04-15] MEDS: LEVALBUTEROL (NEB) 1.25 MG/0.5 ML AMP HHN PRN (15:48)
[2016-04-15] MEDS: ATORVASTATIN 10 MG TAB PO SCH (21:05)
[2016-04-15] MEDS: TAMSULOSIN (SR) 0.4 MG CAP PO SCH (21:05)
[2016-04-16 08:02] VITALS: BP 119/70; RESP 20
[2016-04-16] MEDS: SALMETEROL/FLUTICASONE 500/50 INHA INH SCH ×2 (08:51→21:21)
[2016-04-16] MEDS: SENNA TAB PO SCH ×2 (08:51→21:21)
[2016-04-16] MEDS: MULTIVITAMINS THERAPEUTIC TAB PO SCH (08:52)
[2016-04-16] MEDS: METOPROLOL (XL) 25 MG TAB PO SCH (08:52)
[2016-04-16] MEDS: ASPIRIN 81 MG TAB PO SCH ×2 (08:52→08:58)
[2016-04-16] MEDS: CHOLECALCIFEROL 1,000 UNIT TAB PO SCH (08:52)
[2016-04-16] MEDS: POLYETHYLENE GLYCOL 17 GM PACKET PO SCH (08:53)
[2016-04-16] MEDS: FLUTICASONE 0.05% 16 GM NAS SPRAY NASAL SCH ×2 (08:53→21:00)
[2016-04-16] MEDS: ENOXAPARIN 40 MG/0.4 ML SYG SC SCH (08:54)
[2016-04-16] MEDS: IPRATROPIUM 0.03% 30 ML NASAL SPRAY NASAL SCH ×4 (11:13→21:00)
--- NOTE | 2016-04-16 18:28 | PN ---
Date/Time of Note Date/Time of Note DATE: 04/16/16 TIME: 18:27 Assessment/Plan VTE Prophylaxis VTE Prophylaxis Intervention: LMWH Lines/Catheters IV Catheter Type (from Nrs): Saline Lock Urinary Cath still in place: No Assessment/Plan Chief Complaint/Hosp Course 1. Chronic obstructive pulmonary disease exacerbation-stable -pt appears to have progression of underlying Emphysema and there is no further e/o an acute component and so have DC'd Abx and Steroids 2. Tachycardia -continue Toprol-XL 3. Benign prostatic hypertrophy - Continue Flomax. 4. Prophylaxis-Lovenox Dispo- pt would like to go to another SNF or [place] to arrange Problems: Subjective 24 Hr Interval Summary Respiratory: shortness of breath Exam/Review of Systems Vital Signs Vitals Vital Signs Date Time Temp Pulse Resp B/P Pulse Ox O2 Delivery O2 Flow Rate FiO2 04/16/16 18:03 2.0 04/16/16 08:02 98.2 93 20 119/70 100 04/16/16 08:00 Nasal Cannula 04/15/16 15:54 28 Intake and Output 04/15/16 04/15/16 04/16/16 15:00 23:00 07:00 Intake Total 950 ml 480 ml Output Total 350 ml 800 ml 200 ml Balance -350 ml 150 ml 280 ml Exam Constitutional: alert Respiratory: clear to auscultation Cardiovascular: regular rate and rhythm Gastrointestinal: soft, No distended Musculoskeletal: nl extremities to inspection Results Result Diagram: 04/13/16 0640 04/14/16 0524 Medications Medications Current Medications Ondansetron HCl (Zofran Inj) 4 mg Q6H PRN IV NAUSEA AND/OR VOMITING; Start at 20:00 Acetaminophen (Tylenol Tab) 650 mg Q6H PRN PO PAIN LEVEL 1-3 OR FEVER; Start at 20:00 Acetaminophen/ Hydrocodone Bitart ([place] (5/325)) 1 tab Q6H PRN PO MODERATE PAIN LEVEL 4-6; Start 04/12/16 at 20:00 Morphine Sulfate (morphine) 2 mg Q4H PRN IV SEVERE PAIN LEVEL 7-10; Start 04/12 at 20:00 Docusate Sodium (Colace) 100 mg Q12H PRN PO CONSTIPATION; Start 04/12/16 at 20: 00 Zolpidem Tartrate (Ambien) 5 mg QHS PRN PO SLEEP; Start 04/12/16 at 20:00 Enoxaparin Sodium (Lovenox) 40 mg DAILY SC ; Start 04/13/16 at 09:00 Aspirin (Aspirin) 81 mg DAILY PO Last administered on 04/15/16 09:31; Admin Dose 81 MG; Start 04/13/16 at 09:00 Atorvastatin Calcium (Lipitor) 10 mg QHS PO Last administered on 04/15/16 21: 05; Admin Dose 10 MG; Start 04/12/16 at 21:00 Cholecalciferol (Vitamin D) 1,000 unit DAILY PO Last administered on 04/16/16 08:52; Admin Dose 1,000 UNIT; Start 04/13/16 at 09:00 Fluticasone Propionate (Flonase 0.05% Nasal) 1 spray BID NASAL ; Start 04/12/16 at 21:00 Guaifenesin (Mucinex) 600 mg Q12H PRN PO COUGH Last administered on 04/15/16 09:29; Admin Dose 600 MG; Start 04/12/16 at 21:00 Ibuprofen (Motrin) 600 mg Q6H PRN PO PAIN; Start 04/12/16 at 20:00 Ipratropium [place] (Atrovent Nasal) 2 spray QID NASAL Last administered on 11:13; Admin Dose 2 SPRAY; Start 04/12/16 at 21:00 Metoprolol Succinate (Toprol Xl) 25 mg DAILY PO Last administered on 04/16/16 08:52; Admin Dose 25 MG; Start 04/13/16 at 09:00 Multivitamins Therapeutic (Theragran) 1 tab DAILY PO Last administered on 08:52; Admin Dose 1 TAB; Start 04/13/16 at 09:00 Polyethylene Glycol (Miralax) 17 gm DAILY PO Last administered on 04/15/16 09: 29; Admin Dose 17 GM; Start 04/13/16 at 09:00 Salmeterol Xinafoate/ Fluticasone (Advair 500/50 Diskus) 1 inh BID INH Last administered on 04/16/16 08:51; Admin Dose 1 INH; Start 04/12/16 at 21:00 Senna (Senokot) 2 tab BID PO Last administered on 04/16/16 08:51; Admin Dose 2 TAB; Start 04/12/16 at 21:00 Tamsulosin HCl (Flomax) 0.4 mg HS PO Last administered on 04/15/16 21:05; Admin Dose 0.4 MG; Start 04/12/16 at 21:00 Pseudoephedrine HCl (Sudogest) 30 mg Q4H PRN PO COUGH Last administered on 04/13 15:30; Admin Dose 30 MG; Start 04/13/16 at 15:00 CLIFFORD ZAPIEN Apr 16, 2016 18:28
[2016-04-16] MEDS: LEVALBUTEROL (NEB) 1.25 MG/0.5 ML AMP HHN PRN ×2 (19:32→23:29)
[2016-04-16] MEDS: IPRATROPIUM (NEB) 0.5 MG/2.5 ML AMP HHN PRN ×2 (19:32→23:29)
[2016-04-16 20:05] VITALS: BP 146/67; RESP 18
[2016-04-16] MEDS: ATORVASTATIN 10 MG TAB PO SCH (21:21)
[2016-04-16] MEDS: TAMSULOSIN (SR) 0.4 MG CAP PO SCH (21:21)
[2016-04-17 07:58] VITALS: BP 125/67; RESP 18
[2016-04-17] MEDS: FLUTICASONE 0.05% 16 GM NAS SPRAY NASAL SCH ×2 (09:00→20:59)
[2016-04-17] MEDS: ENOXAPARIN 40 MG/0.4 ML SYG SC SCH (09:00)
[2016-04-17] MEDS: IPRATROPIUM 0.03% 30 ML NASAL SPRAY NASAL SCH ×4 (09:00→20:59)
[2016-04-17] MEDS: SALMETEROL/FLUTICASONE 500/50 INHA INH SCH ×2 (09:32→20:58)
[2016-04-17] MEDS: CHOLECALCIFEROL 1,000 UNIT TAB PO SCH (09:33)
[2016-04-17] MEDS: MULTIVITAMINS THERAPEUTIC TAB PO SCH (09:33)
[2016-04-17] MEDS: ASPIRIN 81 MG TAB PO SCH (09:33)
[2016-04-17] MEDS: SENNA TAB PO SCH ×2 (09:33→21:00)
[2016-04-17] MEDS: POLYETHYLENE GLYCOL 17 GM PACKET PO SCH (09:33)
[2016-04-17] MEDS: METOPROLOL (XL) 25 MG TAB PO SCH (09:34)
[2016-04-17] MEDS: IPRATROPIUM (NEB) 0.5 MG/2.5 ML AMP HHN PRN (12:34)
[2016-04-17] MEDS: LEVALBUTEROL (NEB) 1.25 MG/0.5 ML AMP HHN PRN (12:34)
[2016-04-17] MEDS: ALBUTEROL/IPRATROPIUM (NEB) 3 ML AMP HHN SCH ×2 (15:00→20:26)
--- NOTE | 2016-04-17 15:30 | PN ---
DATE: 04/17/2016 TIME OF EVALUATION: 1430 SUBJECTIVE DATA: Still having dyspnea. Denies any chest pain. OBJECTIVE DATA: VITAL SIGNS: Temperature 97.9, pulse rate 92, respiratory rate 20, blood pressure 125/67, oxygen saturation 98% on low flow O2. GENERAL: This is a frail looking male patient lying in bed in mild respiratory distress. HEENT: Head normocephalic and atraumatic. Eyes: Anicteric sclerae. Conjunctivae clear. ENT: Nasal septum is midline. Oral mucosa is dry. NECK: Supple. No JVD noticed. RESPIRATORY: Bilaterally diminished breath sounds. Use of accessory muscles of respiration. CARDIAC: Regular rate and rhythm. No obvious murmurs heard. ABDOMEN: Soft, nontender and nondistended. Bowel sounds positive in all 4 quadrants. GENITOURINARY: Deferred. EXTREMITIES: No cyanosis. No edema. Peripheral pulses are palpable. NEUROLOGIC: The patient is awake, alert and oriented. Cranial nerves are grossly intact. LABORATORY AND DIAGNOSTIC DATA: None from today. ASSESSMENT AND PLAN: 1. Chronic obstructive pulmonary disease exacerbation. The patient will be continued on inhaled bronchodilators. The patient will also be started on tapering dose of steroids. 2. Sinus tachycardia. Resolved with beta lakeisha therapy. 3. Benign prostatic hypertrophy. Continue Flomax. 4. Dyslipidemia. Continue statin. 5. Fluid, electrolytes and nutrition. Continue regular diet. 6. Deep venous thrombosis prophylaxis. Subcutaneous Lovenox. 7. Gastrointestinal prophylaxis. Histamine 2 receptor blockers. PLAN: Continue tapering dose of steroids. Continue supplemental oxygen and inhaled bronchodilators. The plan is to discharge the patient to a senior care facility when stable. Case discussed with Dr. Aguilar. LARA AGUILAR MD, AM/LESLIE Conf#: [id number] DID#: [id number] MTDD
[2016-04-17] MEDS: METHYLPREDNISOLONE 125 MG INJ IV SCH ×2 (16:15→21:51)
[2016-04-17 19:45] VITALS: BP 135/72; RESP 17
[2016-04-17] MEDS: ATORVASTATIN 10 MG TAB PO SCH (20:59)
[2016-04-17] MEDS: TAMSULOSIN (SR) 0.4 MG CAP PO SCH (20:59)
[2016-04-17] MEDS: FAMOTIDINE 20 MG TAB PO SCH (21:00)
[2016-04-18] MEDS: METHYLPREDNISOLONE 125 MG INJ IV SCH (05:31)
[2016-04-18 05:39] LABS: CHOL/HDL RATIO 3.2 RATIO; MAGNESIUM 2.1 mg/dl (1.7-2.5); PHOSPHORUS 3.5 mg/dl (2.5-4.9)
[2016-04-18 05:51] LABS: BASOPHILS % 0.1 % (0.0-2.0); HEMATOCRIT 37.5 % (42.0-52.0); HEMOGLOBIN 12.5 g/dl (14.0-18.0); LYMPHOCYTES # 0.6 10^3/ul (0.8-2.9); LYMPHOCYTES % 5.8 % (15.0-51.0); MEAN CORPUSCULAR HEMOGLOBIN 31.6 pg (29.0-33.0); MEAN CORPUSCULAR HGB CONC 33.4 g/dl (32.0-37.0); MEAN CORPUSCULAR VOLUME 94.6 fl (82.0-101.0); MEAN PLATELET VOLUME 9.5 fl (7.4-10.4); MONOCYTE # 0.3 10^3/ul (0.3-0.9); MONOCYTES % 2.7 % (0.0-11.0); NEUTROPHIL # 10.1 10^3/ul (1.6-7.5); NEUTROPHILS % 91.4 % (39.0-77.0); PLATELET COUNT 276 10^3/UL (140-440); RED BLOOD COUNT 3.97 10^6/ul (4.70-6.10); UNCORRECTED WBC 11.1 10^3/ul (4.8-10.8); WHITE BLOOD COUNT 11.1 10^3/ul (4.8-10.8)
[2016-04-18 05:52] LABS: ALBUMIN 3.2 g/dl (3.3-4.9); POTASSIUM 5.2 mmol/L (3.5-5.1)
[2016-04-18 05:54] LABS: CONDITION 1; CREATININE 0.67 mg/dl (0.61-1.24); LH ANALYZER COMMENTS 1; SUSPECT 1
[2016-04-18 05:55] LABS: ALBUMIN/GLOBULIN RATIO 1.06; TOTAL PROTEIN 6.2 g/dl (6.1-8.1)
[2016-04-18 06:06] LABS: THYROID STIMULATING HORMONE 0.575 MIU/L (0.465-4.680)
[2016-04-18 08:01] VITALS: BP 118/80; RESP 18
[2016-04-18] MEDS: ALBUTEROL/IPRATROPIUM (NEB) 3 ML AMP HHN SCH ×3 (08:42→15:22)
[2016-04-18] MEDS: FAMOTIDINE 20 MG TAB PO SCH ×2 (08:56→22:27)
[2016-04-18] MEDS: IPRATROPIUM 0.03% 30 ML NASAL SPRAY NASAL SCH ×5 (08:56→21:00)
[2016-04-18] MEDS: POLYETHYLENE GLYCOL 17 GM PACKET PO SCH (08:56)
[2016-04-18] MEDS: CHOLECALCIFEROL 1,000 UNIT TAB PO SCH (08:56)
[2016-04-18] MEDS: SENNA TAB PO SCH ×2 (08:56→22:27)
[2016-04-18] MEDS: MULTIVITAMINS THERAPEUTIC TAB PO SCH (08:56)
[2016-04-18] MEDS: FLUTICASONE 0.05% 16 GM NAS SPRAY NASAL SCH ×3 (08:56→09:51)
[2016-04-18] MEDS: ASPIRIN 81 MG TAB PO SCH (08:56)
[2016-04-18] MEDS: SALMETEROL/FLUTICASONE 500/50 INHA INH SCH ×3 (08:57→09:51)
[2016-04-18] MEDS: ENOXAPARIN 40 MG/0.4 ML SYG SC SCH ×3 (08:59→09:52)
[2016-04-18] MEDS: METOPROLOL (XL) 25 MG TAB PO SCH (09:09)
[2016-04-18] MEDS ORDERED: NA POLYST SULFON 15 GM/60 ML BTL PO ONE (11:30)
--- NOTE | 2016-04-18 11:43 | PN ---
Date/Time of Note Date/Time of Note DATE: 04/18/16 TIME: 11:42 Assessment/Plan VTE Prophylaxis VTE Prophylaxis Intervention: LMWH Lines/Catheters IV Catheter Type (from [facility]): Saline Lock Urinary Cath still in place: No Assessment/Plan Chief Complaint/Hosp Course 1. Chronic obstructive pulmonary disease exacerbation. The patient will be continued on inhaled bronchodilators and tapering dose of steroids. 2. Sinus tachycardia. Resolved with beta lakeisha therapy. 3. Benign prostatic hypertrophy. Continue Flomax. 4. Dyslipidemia. Continue statin. 5. Fluid, electrolytes and nutrition. Continue regular diet. 6. Deep venous thrombosis prophylaxis. Subcutaneous Lovenox. 7. Gastrointestinal prophylaxis. Histamine 2 receptor blockers. PLAN: Give a single dose of Kayexalate for hyperkalemia. Continue tapering dose of steroids. Continue supplemental oxygen and inhaled bronchodilators. The patient is stable to be discharged to a long term facility. Case discussed with Dr. Connell. Problems: Subjective 24 Hr Interval Summary Free Text/Dictation Vital signs stable. Exam/Review of Systems Vital Signs Vitals Vital Signs Date Time Temp Pulse Resp B/P Pulse Ox O2 Delivery O2 Flow Rate FiO2 04/18/16 08:44 90 18 97 Nasal Cannula 1.5 04/18/16 08:01 97.9 118/80 04/15/16 15:54 28 Intake and Output 04/17/16 04/17/16 04/18/16 15:00 23:00 07:00 Intake Total 1610 ml 360 ml Output Total 800 ml 500 ml Balance 810 ml -140 ml Exam GENERAL: This is a frail looking male patient lying in bed in mild respiratory distress. HEENT: Head normocephalic and atraumatic. Eyes: Anicteric sclerae. Conjunctivae clear. ENT: Nasal septum is midline. Oral mucosa is dry. NECK: Supple. No JVD noticed. RESPIRATORY: Bilaterally diminished breath sounds. Use of accessory muscles of respiration. CARDIAC: Regular rate and rhythm. No obvious murmurs heard. ABDOMEN: Soft, nontender and nondistended. Bowel sounds positive in all 4 quadrants. GENITOURINARY: Deferred. EXTREMITIES: No cyanosis. No edema. Peripheral pulses are palpable. NEUROLOGIC: The patient is awake, alert and oriented. Cranial nerves are grossly intact. Results Result Diagram: 04/18/165 1/24/17 0425 Results 24 hrs Laboratory Tests Test 04/18/16 04:25 Alanine Aminotransferase (ALT/SGPT) 25 Albumin 3.2 L Albumin/Globulin Ratio 1.06 Alkaline Phosphatase 56 Anion Gap 13 Aspartate Amino Transf (AST/SGOT) 28 Basophils # 0.0 Basophils % 0.1 Blood Morphology Comment Blood Urea Nitrogen 30 H Calcium Level 9.0 Carbon Dioxide Level 33 H Chloride Level 99 Cholesterol Level 128 Cholesterol/HDL Ratio 3.2 Creatinine 0.67 Direct Bilirubin 0.00 Eosinophils # 0.0 Eosinophils % 0.0 Free Thyroxine 1.25 Globulin 3.00 Glucose Level 143 HDL Cholesterol 40 Hematocrit 37.5 L Hemoglobin 12.5 L Hemoglobin A1c 5.3 Indirect Bilirubin 0.0 LDL Cholesterol, Calculated 76 Lymphocytes # 0.6 L Lymphocytes % 5.8 L Magnesium Level 2.1 Mean Corpuscular Hemoglobin 31.6 Mean Corpuscular Hemoglobin Concent 33.4 Mean Corpuscular Volume 94.6 Mean Platelet Volume 9.5 Monocytes # 0.3 Monocytes % 2.7 Neutrophils # 10.1 H Neutrophils % 91.4 H Nucleated Red Blood Cells # 0.0 Nucleated Red Blood Cells % 0.0 Phosphorus Level 3.5 Platelet Count 276 Potassium Level 5.2 H Red Blood Count 3.97 L Red Cell Distribution Width 15.0 H Sodium Level 140 Thyroid Stimulating Hormone (TSH) 0.575 Total Bilirubin 0.0 L Total Protein 6.2 Triglycerides Level 61 White Blood Count 11.1 #H Medications Medications Current Medications Ondansetron HCl (Zofran Inj) 4 mg Q6H PRN IV NAUSEA AND/OR VOMITING; Start at 20:00 Acetaminophen (Tylenol Tab) 650 mg Q6H PRN PO PAIN LEVEL 1-3 OR FEVER; Start at 20:00 Acetaminophen/ Hydrocodone Bitart ([place] (5/325)) 1 tab Q6H PRN PO MODERATE PAIN LEVEL 4-6; Start 04/12/16 at 20:00 Morphine Sulfate (morphine) 2 mg Q4H PRN IV SEVERE PAIN LEVEL 7-10; Start 04/12 at 20:00 Docusate Sodium (Colace) 100 mg Q12H PRN PO CONSTIPATION; Start 04/12/16 at 20: 00 Zolpidem Tartrate (Ambien) 5 mg QHS PRN PO SLEEP; Start 04/12/16 at 20:00 Enoxaparin Sodium (Lovenox) 40 mg DAILY SC ; Start 04/13/16 at 09:00 Aspirin (Aspirin) 81 mg DAILY PO Last administered on 04/18/16 08:56; Admin Dose 81 MG; Start 04/13/16 at 09:00 Atorvastatin Calcium (Lipitor) 10 mg QHS PO Last administered on 04/16/16 21: 21; Admin Dose 10 MG; Start 04/12/16 at 21:00 Cholecalciferol (Vitamin D) 1,000 unit DAILY PO Last administered on 04/18/16 08:56; Admin Dose 1,000 UNIT; Start 04/13/16 at 09:00 Fluticasone Propionate (Flonase 0.05% Nasal) 1 spray BID NASAL ; Start 04/12/16 at 21:00 Guaifenesin (Mucinex) 600 mg Q12H PRN PO COUGH Last administered on 04/15/16 09:29; Admin Dose 600 MG; Start 04/12/16 at 21:00 Ibuprofen (Motrin) 600 mg Q6H PRN PO PAIN; Start 04/12/16 at 20:00 Ipratropium [place] (Atrovent Nasal) 2 spray QID NASAL Last administered on 20:59; Admin Dose 2 SPRAY; Start 04/12/16 at 21:00 Metoprolol Succinate (Toprol Xl) 25 mg DAILY PO Last administered on 04/18/16 09:09; Admin Dose 25 MG; Start 04/13/16 at 09:00 Multivitamins Therapeutic (Theragran) 1 tab DAILY PO Last administered on 08:56; Admin Dose 1 TAB; Start 04/13/16 at 09:00 Polyethylene Glycol (Miralax) 17 gm DAILY PO Last administered on 04/18/16 08: 56; Admin Dose 17 GM; Start 04/13/16 at 09:00 Salmeterol Xinafoate/ Fluticasone (Advair 500/50 Diskus) 1 inh BID INH Last administered on 04/17/16 20:58; Admin Dose 1 INH; Start 04/12/16 at 21:00 Senna (Senokot) 2 tab BID PO Last administered on 04/18/16 08:56; Admin Dose 2 TAB; Start 1/18/17 at 21:00 Tamsulosin HCl (Flomax) 0.4 mg HS PO Last administered on 04/17/16 20:59; Admin Dose 0.4 MG; Start 04/12/16 at 21:00 Pseudoephedrine HCl (Sudogest) 30 mg Q4H PRN PO COUGH Last administered on 04/13 15:30; Admin Dose 30 MG; Start 04/13/16 at 15:00 Famotidine (Pepcid) 20 mg BID PO Last administered on 04/18/16 08:56; Admin Dose 20 MG; Start 04/17/16 at 21:00 Prednisone (Prednisone) 40 mg DAILY PO ; Start 04/19/16 at 09:00 LARA CHOWDHURY NP Apr 18, 2016 11:43
--- NOTE | 2016-04-18 11:45 | PDOCDIS ---
Discharge Instructions DIAGNOSIS Discharge Diagnosis: COPD exacerbation CONDITION Patient Condition: Stable HOME CARE INSTRUCTIONS: Diet Instructions: RegularSpecial Diet: REGULAR OTHER ORDERS: Other Orders: 1. Regular diet as tolerated. 2. Medications as per medication list. 3. Activities as tolerated. LARA CHOWDHURY NP Apr 18, 2016 11:45
[2016-04-18] MEDS ORDERED: PRED20 PO (11:48)
[2016-04-18] MEDS ORDERED: LEVA1.2523 HHN (11:48)
[2016-04-18] MEDS ORDERED: IPRA3AMP HHN (11:48)
[2016-04-18] MEDS ORDERED: Ipratropium 0.02% (Neb) HHN (11:48)
[2016-04-18] MEDS ORDERED: Hydrocodone/Apap (5/325) PO (11:48)
[2016-04-18] MEDS ORDERED: ZOLP5TAB6 PO (11:48)
[2016-04-18] MEDS: LEVALBUTEROL (NEB) 1.25 MG/0.5 ML AMP HHN SCH (19:25)
[2016-04-18] MEDS: IPRATROPIUM (NEB) 0.5 MG/2.5 ML AMP HHN SCH (19:26)
[2016-04-18 20:03] VITALS: BP 128/75; RESP 18
[2016-04-18] MEDS: IPRATROPIUM (NEB) 0.5 MG/2.5 ML AMP HHN PRN (21:05)
[2016-04-18] MEDS: LEVALBUTEROL (NEB) 1.25 MG/0.5 ML AMP HHN PRN (21:05)
[2016-04-18] MEDS: TAMSULOSIN (SR) 0.4 MG CAP PO SCH (22:26)
[2016-04-18] MEDS: ATORVASTATIN 10 MG TAB PO SCH (22:27)
[2016-04-19] MEDS: LEVALBUTEROL (NEB) 1.25 MG/0.5 ML AMP HHN SCH ×4 (01:56→20:00)
[2016-04-19] MEDS: IPRATROPIUM (NEB) 0.5 MG/2.5 ML AMP HHN SCH ×4 (01:56→20:00)
[2016-04-19 06:06] LABS: BASOPHILS % 0.2 % (0.0-2.0); EOSINOPHILS # 0.1 10^3/ul (0.0-0.5); EOSINOPHILS % 0.5 % (0.0-7.0); HEMATOCRIT 35.2 % (42.0-52.0); LYMPHOCYTES # 1.9 10^3/ul (0.8-2.9); LYMPHOCYTES % 13.9 % (15.0-51.0); MEAN CORPUSCULAR HEMOGLOBIN 31.8 pg (29.0-33.0); MEAN CORPUSCULAR HGB CONC 34.1 g/dl (32.0-37.0); MEAN CORPUSCULAR VOLUME 93.2 fl (82.0-101.0); MEAN PLATELET VOLUME 9.4 fl (7.4-10.4); MONOCYTE # 1.8 10^3/ul (0.3-0.9); MONOCYTES % 13.6 % (0.0-11.0); NEUTROPHIL # 9.7 10^3/ul (1.6-7.5); NEUTROPHILS % 71.8 % (39.0-77.0); PLATELET COUNT 269 10^3/UL (140-440); RED BLOOD COUNT 3.78 10^6/ul (4.70-6.10); RED CELL DISTRIBUTION WIDTH 15.1 % (11.5-14.5); UNCORRECTED WBC 13.5 10^3/ul (4.8-10.8); WHITE BLOOD COUNT 13.5 10^3/ul (4.8-10.8)
[2016-04-19 06:20] LABS: CONDITION 1; LH ANALYZER COMMENTS 1
[2016-04-19 06:24] LABS: POTASSIUM 4.2 mmol/L (3.5-5.1)
[2016-04-19 06:27] LABS: CREATININE 0.81 mg/dl (0.61-1.24)
[2016-04-19 06:29] LABS: PHOSPHORUS 3.5 mg/dl (2.5-4.9)
[2016-04-19 07:30] VITALS: BP 128/72; RESP 18
[2016-04-19] MEDS: CHOLECALCIFEROL 1,000 UNIT TAB PO SCH (08:35)
[2016-04-19] MEDS: FLUTICASONE 0.05% 16 GM NAS SPRAY NASAL SCH ×4 (08:35→21:48)
[2016-04-19] MEDS: SALMETEROL/FLUTICASONE 500/50 INHA INH SCH ×2 (08:35→21:47)
[2016-04-19] MEDS: MULTIVITAMINS THERAPEUTIC TAB PO SCH (08:35)
[2016-04-19] MEDS: ASPIRIN 81 MG TAB PO SCH (08:35)
[2016-04-19] MEDS: FAMOTIDINE 20 MG TAB PO SCH ×2 (08:35→21:48)
[2016-04-19] MEDS: IPRATROPIUM 0.03% 30 ML NASAL SPRAY NASAL SCH ×6 (08:35→21:48)
[2016-04-19] MEDS: SENNA TAB PO SCH ×2 (08:36→21:49)
[2016-04-19] MEDS: POLYETHYLENE GLYCOL 17 GM PACKET PO SCH (08:36)
[2016-04-19] MEDS: ENOXAPARIN 40 MG/0.4 ML SYG SC SCH (08:37)
[2016-04-19] MEDS: METOPROLOL (XL) 25 MG TAB PO SCH (08:38)
[2016-04-19] MEDS: predniSONE 20 MG TAB PO SCH (08:46)
[2016-04-19] MEDS: LEVALBUTEROL (NEB) 1.25 MG/0.5 ML AMP HHN PRN (10:39)
[2016-04-19] MEDS: IPRATROPIUM (NEB) 0.5 MG/2.5 ML AMP HHN PRN (10:39)
--- NOTE | 2016-04-19 11:23 | PN ---
Date/Time of Note Date/Time of Note DATE: 04/19/16 TIME: 11:21 Assessment/Plan VTE Prophylaxis VTE Prophylaxis Intervention: LMWH Lines/Catheters IV [facility]from [facility] Saline Lock Urinary Cath still in place: No Assessment/Plan Chief Complaint/Hosp Course 1. Chronic obstructive pulmonary disease exacerbation. The patient will be continued on inhaled bronchodilators and tapering dose of steroids. 2. Sinus tachycardia. Resolved with beta lakeisha therapy. 3. Benign prostatic hypertrophy. Continue Flomax. 4. Dyslipidemia. Continue statin. 5. Fluid, electrolytes and nutrition. Continue regular diet. 6. Deep venous thrombosis prophylaxis. Subcutaneous Lovenox. 7. Gastrointestinal prophylaxis. Histamine 2 receptor blockers. PLAN: Continue tapering dose of steroids. Continue supplemental oxygen and inhaled bronchodilators. The patient is stable to be discharged to a group home facility. Case discussed with Dr. Connell. Problems: Subjective 24 Hr Interval Summary Free Text/Dictation Awaiting placement. Vital signs stable. Exam/Review of Systems Vital Signs Vitals Vital Signs Date Time Temp Pulse Resp B/P Pulse Ox O2 Delivery O2 Flow Rate FiO2 04/19/16 10:40 93 18 99 Nasal Cannula 1.5 04/19/16 07:30 98.8 128/72 04/15/16 15:54 28 Intake and Output 04/18/16 04/18/16 04/19/16 15:00 23:00 07:00 Intake Total 1420 ml 350 ml Output Total 500 ml Balance 1420 ml -150 ml Exam GENERAL: This is a frail looking male patient lying in bed in mild respiratory distress. HEENT: Head normocephalic and atraumatic. Eyes: Anicteric sclerae. Conjunctivae clear. ENT: Nasal septum is midline. Oral mucosa is dry. NECK: Supple. No JVD noticed. RESPIRATORY: Bilaterally diminished breath sounds. Use of accessory muscles of respiration. CARDIAC: Regular rate and rhythm. No obvious murmurs heard. ABDOMEN: Soft, nontender and nondistended. Bowel sounds positive in all 4 quadrants. GENITOURINARY: Deferred. EXTREMITIES: No cyanosis. No edema. Peripheral pulses are palpable. NEUROLOGIC: The patient is awake, alert and oriented. Cranial nerves are grossly in Results Result Diagram: 04/19/16 0500 04/19/16 0500 Results 24 hrs Laboratory Tests Test 04/19/16 05:00 Anion Gap 9 Basophils # 0.0 Basophils % 0.2 Blood Morphology Comment Blood Urea Nitrogen 39 H Calcium Level 9.0 Carbon Dioxide Level 36 H Chloride Level 101 Creatinine 0.81 Eosinophils # 0.1 Eosinophils % 0.5 Glucose Level 84 # Hematocrit 35.2 L Hemoglobin 12.0 L Lymphocytes # 1.9 Lymphocytes % 13.9 L Magnesium Level 2.0 Mean Corpuscular Hemoglobin 31.8 Mean Corpuscular Hemoglobin Concent 34.1 Mean Corpuscular Volume 93.2 Mean Platelet Volume 9.4 Monocytes # 1.8 H Monocytes % 13.6 H Neutrophils # 9.7 H Neutrophils % 71.8 Nucleated Red Blood Cells # 0.0 Nucleated Red Blood Cells % 0.0 Phosphorus Level 3.5 Platelet Count 269 Potassium Level 4.2 Red Blood Count 3.78 L Red Cell Distribution Width 15.1 H Sodium Level 142 White Blood Count 13.5 #H Medications Medications Current Medications Ondansetron HCl (Zofran Inj) 4 mg Q6H PRN IV NAUSEA AND/OR VOMITING; Start at 20:00 Acetaminophen (Tylenol Tab) 650 mg Q6H PRN PO PAIN LEVEL 1-3 OR FEVER; Start at 20:00 Acetaminophen/ Hydrocodone Bitart ([place] (5/325)) 1 tab Q6H PRN PO MODERATE PAIN LEVEL 4-6; Start 04/12/16 at 20:00 Morphine Sulfate (morphine) 2 mg Q4H PRN IV SEVERE PAIN LEVEL 7-10; Start 04/12 at 20:00 Docusate Sodium (Colace) 100 mg Q12H PRN PO CONSTIPATION; Start 04/12/16 at 20: 00 Zolpidem Tartrate (Ambien) 5 mg QHS PRN PO SLEEP; Start 04/12/16 at 20:00 Enoxaparin Sodium (Lovenox) 40 mg DAILY SC ; Start 04/13/16 at 09:00 Aspirin (Aspirin) 81 mg DAILY PO Last administered on 04/19/16 08:35; Admin Dose 81 MG; Start 04/13/16 at 09:00 Atorvastatin Calcium (Lipitor) 10 mg QHS PO Last administered on 04/18/16 22: 27; Admin Dose 10 MG; Start 04/12/16 at 21:00 Cholecalciferol (Vitamin D) 1,000 unit DAILY PO Last administered on 04/19/16 08:35; Admin Dose 1,000 UNIT; Start 04/13/16 at 09:00 Fluticasone Propionate (Flonase 0.05% Nasal) 1 spray BID NASAL ; Start 04/12/16 at 21:00 Guaifenesin (Mucinex) 600 mg Q12H PRN PO COUGH Last administered on 04/15/16 09:29; Admin Dose 600 MG; Start 04/12/16 at 21:00 Ibuprofen (Motrin) 600 mg Q6H PRN PO PAIN; Start 04/12/16 at 20:00 Ipratropium [place] (Atrovent Nasal) 2 spray QID NASAL Last administered on 20:59; Admin Dose 2 SPRAY; Start 04/12/16 at 21:00 Metoprolol Succinate (Toprol Xl) 25 mg DAILY PO Last administered on 04/19/16 08:38; Admin Dose 25 MG; Start 04/13/16 at 09:00 Multivitamins Therapeutic (Theragran) 1 tab DAILY PO Last administered on 08:35; Admin Dose 1 TAB; Start 04/13/16 at 09:00 Polyethylene Glycol (Miralax) 17 gm DAILY PO Last administered on 04/18/16 08: 56; Admin Dose 17 GM; Start 04/13/16 at 09:00 Salmeterol Xinafoate/ Fluticasone (Advair 500/50 Diskus) 1 inh BID INH Last administered on 04/19/16 08:35; Admin Dose 1 INH; Start 04/12/16 at 21:00 Senna (Senokot) 2 tab BID PO Last administered on 04/19/16 08:36; Admin Dose 2 TAB; Start 04/12/16 at 21:00 Tamsulosin HCl (Flomax) 0.4 mg HS PO Last administered on 04/18/16 22:26; Admin Dose 0.4 MG; Start 04/12/16 at 21:00 Pseudoephedrine HCl (Sudogest) 30 mg Q4H PRN PO COUGH Last administered on 04/13 15:30; Admin Dose 30 MG; Start 04/13/16 at 15:00 Famotidine (Pepcid) 20 mg BID PO Last administered on 04/19/16 08:35; Admin Dose 20 MG; Start 04/17/16 at 21:00 Prednisone (Prednisone) 40 mg DAILY PO Last administered on 04/19/16 08:46; Admin Dose 40 MG; Start 04/19/16 at 09:00 LARA CHOWDHURY NP Apr 19, 2016 11:23
[2016-04-19 20:12] VITALS: BP 145/69; RESP 18
[2016-04-19] MEDS: ATORVASTATIN 10 MG TAB PO SCH (21:49)
[2016-04-19] MEDS: TAMSULOSIN (SR) 0.4 MG CAP PO SCH (21:49)
[2016-04-20] MEDS: IPRATROPIUM (NEB) 0.5 MG/2.5 ML AMP HHN SCH ×5 (02:00→20:34)
[2016-04-20] MEDS: LEVALBUTEROL (NEB) 1.25 MG/0.5 ML AMP HHN SCH ×4 (02:00→20:34)
[2016-04-20 08:19] VITALS: BP 149/79; RESP 20
[2016-04-20] MEDS: POLYETHYLENE GLYCOL 17 GM PACKET PO SCH (08:53)
[2016-04-20] MEDS: IPRATROPIUM 0.03% 30 ML NASAL SPRAY NASAL SCH ×4 (08:53→21:00)
[2016-04-20] MEDS: FLUTICASONE 0.05% 16 GM NAS SPRAY NASAL SCH ×2 (08:53→21:00)
[2016-04-20] MEDS: ENOXAPARIN 40 MG/0.4 ML SYG SC SCH (08:54)
[2016-04-20] MEDS: SENNA TAB PO SCH ×2 (08:55→21:54)
[2016-04-20] MEDS: predniSONE 20 MG TAB PO SCH (08:55)
[2016-04-20] MEDS: ASPIRIN 81 MG TAB PO SCH (08:55)
[2016-04-20] MEDS: MULTIVITAMINS THERAPEUTIC TAB PO SCH (08:57)
[2016-04-20] MEDS: SALMETEROL/FLUTICASONE 500/50 INHA INH SCH ×2 (08:57→21:54)
[2016-04-20] MEDS: FAMOTIDINE 20 MG TAB PO SCH ×2 (08:57→21:54)
[2016-04-20] MEDS: METOPROLOL (XL) 25 MG TAB PO SCH (08:57)
[2016-04-20] MEDS: CHOLECALCIFEROL 1,000 UNIT TAB PO SCH (08:57)
--- NOTE | 2016-04-20 14:15 | PN ---
Date/Time of Note Date/Time of Note DATE: 04/20/16 TIME: 14:14 Assessment/Plan VTE Prophylaxis VTE Prophylaxis Intervention: LMWH Lines/Catheters IV Catheter Type (from [facility]): Saline Lock Urinary Cath still in place: No Assessment/Plan Chief Complaint/Hosp Course 1. Chronic obstructive pulmonary disease exacerbation. The patient will be continued on inhaled bronchodilators and tapering dose of steroids. 2. Sinus tachycardia. Resolved with beta lakeisha therapy. 3. Benign prostatic hypertrophy. Continue Flomax. 4. Dyslipidemia. Continue statin. 5. Fluid, electrolytes and nutrition. Continue regular diet. 6. Deep venous thrombosis prophylaxis. Subcutaneous Lovenox. 7. Gastrointestinal prophylaxis. Histamine 2 receptor blockers. PLAN: Continue tapering dose of steroids. Continue supplemental oxygen and inhaled bronchodilators. The patient is stable to be discharged to a care home facility. Case discussed with Dr. Connell. Problems: Subjective 24 Hr Interval Summary Free Text/Dictation "Feeling better." Exam/Review of Systems Vital Signs Vitals Vital Signs Date Time Temp Pulse Resp B/P Pulse Ox O2 Delivery O2 Flow Rate FiO2 04/20/16 13:44 1.5 04/20/16 13:41 92 22 98 Nasal Cannula 04/20/16 08:19 98.2 149/79 Intake and Output 04/19/16 04/19/16 04/20/16 14:59 22:59 06:59 Intake Total 960 ml 640 ml Output Total 1300 ml 800 ml Balance -340 ml -160 ml Exam GENERAL: This is a frail looking male patient lying in bed in mild respiratory distress. HEENT: Head normocephalic and atraumatic. Eyes: Anicteric sclerae. Conjunctivae clear. ENT: Nasal septum is midline. Oral mucosa is dry. NECK: Supple. No JVD noticed. RESPIRATORY: Bilaterally diminished breath sounds. Use of accessory muscles of respiration. CARDIAC: Regular rate and rhythm. No obvious murmurs heard. ABDOMEN: Soft, nontender and nondistended. Bowel sounds positive in all 4 quadrants. GENITOURINARY: Deferred. EXTREMITIES: No cyanosis. No edema. Peripheral pulses are palpable. NEUROLOGIC: The patient is awake, alert and oriented. Cranial nerves are grossly normal. Results Result Diagram: 04/19/16 0500 04/19/16 0500 Medications Medications Current Medications Ondansetron HCl (Zofran Inj) 4 mg Q6H PRN IV NAUSEA AND/OR VOMITING; Start at 20:00 Acetaminophen (Tylenol Tab) 650 mg Q6H PRN PO PAIN LEVEL 1-3 OR FEVER; Start at 20:00 Acetaminophen/ Hydrocodone Bitart ([place] (5/325)) 1 tab Q6H PRN PO MODERATE PAIN LEVEL 4-6; Start 04/12/16 at 20:00 Morphine Sulfate (morphine) 2 mg Q4H PRN IV SEVERE PAIN LEVEL 7-10; Start 04/12 at 20:00 Docusate Sodium (Colace) 100 mg Q12H PRN PO CONSTIPATION; Start 04/12/16 at 20: 00 Zolpidem Tartrate (Ambien) 5 mg QHS PRN PO SLEEP; Start 04/12/16 at 20:00 Enoxaparin Sodium (Lovenox) 40 mg DAILY SC ; Start 04/13/16 at 09:00 Aspirin (Aspirin) 81 mg DAILY PO Last administered on 04/20/16 08:55; Admin Dose 81 MG; Start 04/13/16 at 09:00 Atorvastatin Calcium (Lipitor) 10 mg QHS PO Last administered on 04/19/16 21: 49; Admin Dose 10 MG; Start 04/12/16 at 21:00 Cholecalciferol (Vitamin D) 1,000 unit DAILY PO Last administered on 04/20/16 08:57; Admin Dose 1,000 UNIT; Start 04/13/16 at 09:00 Fluticasone Propionate (Flonase 0.05% Nasal) 1 spray BID NASAL ; Start 04/12/16 at 21:00 Guaifenesin (Mucinex) 600 mg Q12H PRN PO COUGH Last administered on 04/15/16 09:29; Admin Dose 600 MG; Start 04/12/16 at 21:00 Ibuprofen (Motrin) 600 mg Q6H PRN PO PAIN; Start 04/12/16 at 20:00 Ipratropium [place] (Atrovent Nasal) 2 spray QID NASAL Last administered on 20:59; Admin Dose 2 SPRAY; Start 04/12/16 at 21:00 Metoprolol Succinate (Toprol Xl) 25 mg DAILY PO Last administered on 04/20/16 08:57; Admin Dose 25 MG; Start 04/13/16 at 09:00 Multivitamins Therapeutic (Theragran) 1 tab DAILY PO Last administered on 08:57; Admin Dose 1 TAB; Start 04/13/16 at 09:00 Polyethylene Glycol (Miralax) 17 gm DAILY PO Last administered on 04/18/16 08: 56; Admin Dose 17 GM; Start 04/13/16 at 09:00 Salmeterol Xinafoate/ Fluticasone (Advair 500/50 Diskus) 1 inh BID INH Last administered on 04/20/16 08:57; Admin Dose 1 INH; Start 04/12/16 at 21:00 Senna (Senokot) 2 tab BID PO Last administered on 04/20/16 08:55; Admin Dose 2 TAB; Start 04/12/16 at 21:00 Tamsulosin HCl (Flomax) 0.4 mg HS PO Last administered on 04/19/16 21:49; Admin Dose 0.4 MG; Start 04/12/16 at 21:00 Pseudoephedrine HCl (Sudogest) 30 mg Q4H PRN PO COUGH Last administered on 04/13 15:30; Admin Dose 30 MG; Start 04/13/16 at 15:00 Famotidine (Pepcid) 20 mg BID PO Last administered on 04/20/16 08:57; Admin Dose 20 MG; Start 04/17/16 at 21:00 Prednisone (Prednisone) 40 mg DAILY PO Last administered on 04/20/16 08:55; Admin Dose 40 MG; Start 04/19/16 at 09:00 LARA CHOWDHURY NP Apr 20, 2016 14:15
[2016-04-20] MEDS ORDERED: LEVALBUTEROL (HFA) 15 GM INHALER INH PRN (16:00)
[2016-04-20 20:06] VITALS: BP 136/73; RESP 21
[2016-04-20] MEDS: TAMSULOSIN (SR) 0.4 MG CAP PO SCH (21:55)
[2016-04-20] MEDS: ATORVASTATIN 10 MG TAB PO SCH (21:55)
[2016-04-21] MEDS: IPRATROPIUM (NEB) 0.5 MG/2.5 ML AMP HHN SCH ×4 (01:56→19:50)
[2016-04-21] MEDS: LEVALBUTEROL (NEB) 1.25 MG/0.5 ML AMP HHN SCH ×4 (01:56→19:50)
[2016-04-21 07:23] VITALS: BP 138/72; RESP 20
[2016-04-21] MEDS: FLUTICASONE 0.05% 16 GM NAS SPRAY NASAL SCH ×2 (09:00→20:32)
[2016-04-21] MEDS: POLYETHYLENE GLYCOL 17 GM PACKET PO SCH (09:00)
[2016-04-21] MEDS: IPRATROPIUM 0.03% 30 ML NASAL SPRAY NASAL SCH ×4 (09:00→20:32)
[2016-04-21] MEDS ORDERED: predniSONE 20 MG TAB PO SCH (09:00)
[2016-04-21] MEDS: ENOXAPARIN 40 MG/0.4 ML SYG SC SCH (09:00)
[2016-04-21] MEDS: ASPIRIN 81 MG TAB PO SCH (09:16)
[2016-04-21] MEDS: SENNA TAB PO SCH ×2 (09:16→20:33)
[2016-04-21] MEDS: MULTIVITAMINS THERAPEUTIC TAB PO SCH (09:16)
[2016-04-21] MEDS: SALMETEROL/FLUTICASONE 500/50 INHA INH SCH ×2 (09:17→20:32)
[2016-04-21] MEDS: METOPROLOL (XL) 25 MG TAB PO SCH (09:17)
[2016-04-21] MEDS: FAMOTIDINE 20 MG TAB PO SCH ×2 (09:17→20:33)
[2016-04-21] MEDS: CHOLECALCIFEROL 1,000 UNIT TAB PO SCH (09:17)
--- NOTE | 2016-04-21 13:54 | PN ---
Date/Time of Note Date/Time of Note DATE: 04/21/16 TIME: 13:53 Assessment/Plan VTE Prophylaxis VTE Prophylaxis Intervention: LMWH Lines/Catheters IV Catheter Type (from [facility]): Saline Lock Urinary Cath still in place: No Assessment/Plan Chief Complaint/Hosp Course 1. Chronic obstructive pulmonary disease exacerbation. The patient will be continued on inhaled bronchodilators and tapering dose of steroids. 2. Sinus tachycardia. Resolved with beta lakeisha therapy. 3. Benign prostatic hypertrophy. Continue Flomax. 4. Dyslipidemia. Continue statin. 5. Fluid, electrolytes and nutrition. Continue regular diet. 6. Deep venous thrombosis prophylaxis. Subcutaneous Lovenox. 7. Gastrointestinal prophylaxis. Histamine 2 receptor blockers. PLAN: Continue tapering dose of steroids. Continue supplemental oxygen and inhaled bronchodilators. The patient is stable to be [facility]. Case discussed with Dr. Connell. Problems: Subjective 24 Hr Interval Summary Free Text/Dictation Denies an complaints. Awaiting placement. Exam/Review of Systems Vital Signs Vitals Vital Signs Date Time Temp Pulse Resp B/P Pulse Ox O2 Delivery O2 Flow Rate FiO2 04/21/16 09:00 Nasal Cannula 2.0 04/21/16 07:23 98.6 80 20 138/72 96 Intake and Output 04/20/16 04/20/16 04/21/16 15:00 23:00 07:00 Intake Total 1140 ml 660 ml Output Total 900 ml 500 ml Balance 240 ml 160 ml Exam GENERAL: This is a frail looking male patient lying in bed in mild respiratory distress. HEENT: Head normocephalic and atraumatic. Eyes: Anicteric sclerae. Conjunctivae clear. ENT: Nasal septum is midline. Oral mucosa is dry. NECK: Supple. No JVD noticed. RESPIRATORY: Bilaterally diminished breath sounds. Use of accessory muscles of respiration. CARDIAC: Regular rate and rhythm. No obvious murmurs heard. ABDOMEN: Soft, nontender and nondistended. Bowel sounds positive in all 4 quadrants. GENITOURINARY: Deferred. EXTREMITIES: No cyanosis. No edema. Peripheral pulses are palpable. NEUROLOGIC: The patient is awake, alert and oriented. Cranial nerves are grossly normal. Results Result Diagram: 04/19/16 0500 04/19/16 0500 Medications Medications Current Medications Ondansetron HCl (Zofran Inj) 4 mg Q6H PRN IV NAUSEA AND/OR VOMITING; Start 1/ 18/17 at 20:00 Acetaminophen (Tylenol Tab) 650 mg Q6H PRN PO PAIN LEVEL 1-3 OR FEVER; Start at 20:00 Acetaminophen/ Hydrocodone Bitart ([place] (5/325)) 1 tab Q6H PRN PO MODERATE PAIN LEVEL 4-6; Start 04/12/16 at 20:00 Morphine Sulfate (morphine) 2 mg Q4H PRN IV SEVERE PAIN LEVEL 7-10; Start 04/12 at 20:00 Docusate Sodium (Colace) 100 mg Q12H PRN PO CONSTIPATION; Start 04/12/16 at 20: 00 Zolpidem Tartrate (Ambien) 5 mg QHS PRN PO SLEEP; Start 04/12/16 at 20:00 Enoxaparin Sodium (Lovenox) 40 mg DAILY SC ; Start 04/13/16 at 09:00 Aspirin (Aspirin) 81 mg DAILY PO Last administered on 04/21/16 09:16; Admin Dose 81 MG; Start 04/13/16 at 09:00 Atorvastatin Calcium (Lipitor) 10 mg QHS PO Last administered on 04/20/16 21: 55; Admin Dose 10 MG; Start 04/12/16 at 21:00 Cholecalciferol (Vitamin D) 1,000 unit DAILY PO Last administered on 04/21/16 09:17; Admin Dose 1,000 UNIT; Start 04/13/16 at 09:00 Fluticasone Propionate (Flonase 0.05% Nasal) 1 spray BID NASAL ; Start 04/12/16 at 21:00 Guaifenesin (Mucinex) 600 mg Q12H PRN PO COUGH Last administered on 04/15/16 09:29; Admin Dose 600 MG; Start 04/12/16 at 21:00 Ibuprofen (Motrin) 600 mg Q6H PRN PO PAIN; Start 04/12/16 at 20:00 Ipratropium [place] (Atrovent Nasal) 2 spray QID NASAL Last administered on 20:59; Admin Dose 2 SPRAY; Start 04/12/16 at 21:00 Metoprolol Succinate (Toprol Xl) 25 mg DAILY PO Last administered on 04/21/16 09:17; Admin Dose 25 MG; Start 04/13/16 at 09:00 Multivitamins Therapeutic (Theragran) 1 tab DAILY PO Last administered on 09:16; Admin Dose 1 TAB; Start 04/13/16 at 09:00 Polyethylene Glycol (Miralax) 17 gm DAILY PO Last administered on 04/18/16 08: 56; Admin Dose 17 GM; Start 04/13/16 at 09:00 Salmeterol Xinafoate/ Fluticasone (Advair 500/50 Diskus) 1 inh BID INH Last administered on 04/21/16 09:17; Admin Dose 1 INH; Start 04/12/16 at 21:00 Senna (Senokot) 2 tab BID PO Last administered on 04/21/16 09:16; Admin Dose 2 TAB; Start 04/12/16 at 21:00 Tamsulosin HCl (Flomax) 0.4 mg HS PO Last administered on 04/20/16 21:55; Admin Dose 0.4 MG; Start 04/12/16 at 21:00 Pseudoephedrine HCl (Sudogest) 30 mg Q4H PRN PO COUGH Last administered on 04/13 15:30; Admin Dose 30 MG; Start 04/13/16 at 15:00 Famotidine (Pepcid) 20 mg BID PO Last administered on 04/21/16 09:17; Admin Dose 20 MG; Start 04/17/16 at 21:00 Prednisone (Prednisone) 10 mg DAILY PO ; Start 04/22/16 at 09:00 LARA CHOWDHURY NP Apr 21, 2016 13:54
[2016-04-21 20:18] VITALS: BP 135/73; RESP 20
[2016-04-21] MEDS: TAMSULOSIN (SR) 0.4 MG CAP PO SCH (20:33)
[2016-04-21] MEDS: ATORVASTATIN 10 MG TAB PO SCH (20:34)
[2016-04-21] MEDS: GUAIFENESIN LA 600 MG TABSR PO PRN (20:42)
[2016-04-22] MEDS: LEVALBUTEROL (NEB) 1.25 MG/0.5 ML AMP HHN SCH ×4 (01:24→20:10)
[2016-04-22] MEDS: IPRATROPIUM (NEB) 0.5 MG/2.5 ML AMP HHN SCH ×4 (01:24→20:09)
[2016-04-22 07:24] VITALS: BP 112/61; RESP 20
[2016-04-22] MEDS: SENNA TAB PO SCH ×2 (08:23→20:00)
[2016-04-22] MEDS: CHOLECALCIFEROL 1,000 UNIT TAB PO SCH (08:23)
[2016-04-22] MEDS: ASPIRIN 81 MG TAB PO SCH (08:23)
[2016-04-22] MEDS: MULTIVITAMINS THERAPEUTIC TAB PO SCH (08:23)
[2016-04-22] MEDS: SALMETEROL/FLUTICASONE 500/50 INHA INH SCH ×2 (08:23→20:01)
[2016-04-22] MEDS: METOPROLOL (XL) 25 MG TAB PO SCH (08:24)
[2016-04-22] MEDS: FAMOTIDINE 20 MG TAB PO SCH ×2 (08:24→20:01)
[2016-04-22] MEDS: ENOXAPARIN 40 MG/0.4 ML SYG SC SCH (08:25)
[2016-04-22] MEDS: POLYETHYLENE GLYCOL 17 GM PACKET PO SCH (08:25)
[2016-04-22] MEDS: FLUTICASONE 0.05% 16 GM NAS SPRAY NASAL SCH ×2 (08:25→20:01)
[2016-04-22] MEDS: IPRATROPIUM 0.03% 30 ML NASAL SPRAY NASAL SCH ×4 (08:26→20:01)
[2016-04-22] MEDS: predniSONE 10 MG TAB PO SCH (08:34)
--- NOTE | 2016-04-22 11:42 | PN ---
Date/Time of Note Date/Time of Note DATE: 04/22/16 TIME: 11:40 Assessment/Plan VTE Prophylaxis VTE Prophylaxis Intervention: LMWH Lines/Catheters IV [facility] Saline Lock Urinary Cath still in place: No Assessment/Plan Chief Complaint/Hosp Course 1. Chronic obstructive pulmonary disease exacerbation. The patient will be continued on inhaled bronchodilators and tapering dose of steroids. 2. Sinus tachycardia. Resolved with beta lakeisha therapy. 3. Benign prostatic hypertrophy. Continue Flomax. 4. Dyslipidemia. Continue statin. 5. Fluid, electrolytes and nutrition. Continue regular diet. 6. Deep venous thrombosis prophylaxis. Subcutaneous Lovenox. 7. Gastrointestinal prophylaxis. Histamine 2 receptor blockers. PLAN: Continue tapering dose of steroids. Continue supplemental oxygen and inhaled bronchodilators. The patient is stable to be discharged to a care home facility. Case discussed with Dr. Connell. Problems: Subjective 24 Hr Interval Summary Free Text/Dictation Vital signs stable. Exam/Review of Systems Vital Signs Vitals Vital Signs Date Time Temp Pulse Resp B/P Pulse Ox O2 Delivery O2 Flow Rate FiO2 04/22/16 11:33 Nasal Cannula 2.0 04/22/16 08:23 82 18 100 04/22/16 07:24 97.2 112/61 Intake and Output 04/21/16 04/21/16 04/22/16 15:00 23:00 07:00 Intake Total 700 ml 320 ml Output Total 400 ml Balance 700 ml -80 ml Exam GENERAL: This is a frail looking male patient lying in bed in mild respiratory distress. HEENT: Head normocephalic and atraumatic. Eyes: Anicteric sclerae. Conjunctivae clear. ENT: Nasal septum is midline. Oral mucosa is dry. NECK: Supple. No JVD noticed. RESPIRATORY: Bilaterally diminished breath sounds. Minimal use of accessory muscles of respiration. CARDIAC: Regular rate and rhythm. No obvious murmurs heard. ABDOMEN: Soft, nontender and nondistended. Bowel sounds positive in all 4 quadrants. GENITOURINARY: Deferred. EXTREMITIES: No cyanosis. No edema. Peripheral pulses are palpable. NEUROLOGIC: The patient is awake, alert and oriented. Cranial nerves are grossly normal. Results Result Diagram: 04/19/16 0500 04/19/16 0500 Medications Medications Current Medications Ondansetron HCl (Zofran Inj) 4 mg Q6H PRN IV NAUSEA AND/OR VOMITING; Start at 20:00 Acetaminophen (Tylenol Tab) 650 mg Q6H PRN PO PAIN LEVEL 1-3 OR FEVER; Start at 20:00 Acetaminophen/ Hydrocodone Bitart ([place] (5/325)) 1 tab Q6H PRN PO MODERATE PAIN LEVEL 4-6; Start 04/12/16 at 20:00 Morphine Sulfate (morphine) 2 mg Q4H PRN IV SEVERE PAIN LEVEL 7-10; Start 04/12 at 20:00 Docusate Sodium (Colace) 100 mg Q12H PRN PO CONSTIPATION; Start 04/12/16 at 20: 00 Zolpidem Tartrate (Ambien) 5 mg QHS PRN PO SLEEP; Start 04/12/16 at 20:00 Enoxaparin Sodium (Lovenox) 40 mg DAILY SC ; Start 04/13/16 at 09:00 Aspirin (Aspirin) 81 mg DAILY PO Last administered on 04/22/16 08:23; Admin Dose 81 MG; Start 04/13/16 at 09:00 Atorvastatin Calcium (Lipitor) 10 mg QHS PO Last administered on 04/20/16 21: 55; Admin Dose 10 MG; Start 04/12/16 at 21:00 Cholecalciferol (Vitamin D) 1,000 unit DAILY PO Last administered on 04/22/16 08:23; Admin Dose 1,000 UNIT; Start 04/13/16 at 09:00 Fluticasone Propionate (Flonase 0.05% Nasal) 1 spray BID NASAL ; Start 04/12/16 at 21:00 Guaifenesin (Mucinex) 600 mg Q12H PRN PO COUGH Last administered on 04/21/16 20:42; Admin Dose 600 MG; Start 04/12/16 at 21:00 Ibuprofen (Motrin) 600 mg Q6H PRN PO PAIN; Start 04/12/16 at 20:00 Ipratropium [place] (Atrovent Nasal) 2 spray QID NASAL Last administered on 20:59; Admin Dose 2 SPRAY; Start 04/12/16 at 21:00 Metoprolol Succinate (Toprol Xl) 25 mg DAILY PO Last administered on 04/22/16 08:24; Admin Dose 25 MG; Start 04/13/16 at 09:00 Multivitamins Therapeutic (Theragran) 1 tab DAILY PO Last administered on 08:23; Admin Dose 1 TAB; Start 04/13/16 at 09:00 Polyethylene Glycol (Miralax) 17 gm DAILY PO Last administered on 04/18/16 08: 56; Admin Dose 17 GM; Start 04/13/16 at 09:00 Salmeterol Xinafoate/ Fluticasone (Advair 500/50 Diskus) 1 inh BID INH Last administered on 04/22/16 08:23; Admin Dose 1 INH; Start 04/12/16 at 21:00 Senna (Senokot) 2 tab BID PO Last administered on 04/22/16 08:23; Admin Dose 2 TAB; Start 04/12/16 at 21:00 Tamsulosin HCl (Flomax) 0.4 mg HS PO Last administered on 04/21/16 20:33; Admin Dose 0.4 MG; Start 04/12/16 at 21:00 Pseudoephedrine HCl (Sudogest) 30 mg Q4H PRN PO COUGH Last administered on 04/13 15:30; Admin Dose 30 MG; Start 04/13/16 at 15:00 Famotidine (Pepcid) 20 mg BID PO Last administered on 04/22/16 08:24; Admin Dose 20 MG; Start 04/17/16 at 21:00 Prednisone (Prednisone) 10 mg DAILY PO Last administered on 04/22/16 08:34; Admin Dose 10 MG; Start 04/22/16 at 09:00 LARA CHOWDHURY NP Apr 22, 2016 11:42
[2016-04-22] MEDS ORDERED: LORAZEPAM 2 MG INJ IV PRN (13:30)
[2016-04-22 19:19] VITALS: BP 143/70; RESP 18
[2016-04-22] MEDS: TAMSULOSIN (SR) 0.4 MG CAP PO SCH (20:00)
[2016-04-22] MEDS: ATORVASTATIN 10 MG TAB PO SCH (20:00)
[2016-04-23] MEDS: LEVALBUTEROL (NEB) 1.25 MG/0.5 ML AMP HHN SCH ×3 (01:54→14:13)
[2016-04-23] MEDS: IPRATROPIUM (NEB) 0.5 MG/2.5 ML AMP HHN SCH ×3 (01:54→14:13)
[2016-04-23 07:43] VITALS: BP 131/69; RESP 16
[2016-04-23] MEDS: SALMETEROL/FLUTICASONE 500/50 INHA INH SCH ×2 (08:36→20:04)
[2016-04-23] MEDS: CHOLECALCIFEROL 1,000 UNIT TAB PO SCH (08:37)
[2016-04-23] MEDS: SENNA TAB PO SCH ×2 (08:37→20:05)
[2016-04-23] MEDS: predniSONE 10 MG TAB PO SCH (08:37)
[2016-04-23] MEDS: FAMOTIDINE 20 MG TAB PO SCH (08:37)
[2016-04-23] MEDS: ASPIRIN 81 MG TAB PO SCH (08:37)
[2016-04-23] MEDS: MULTIVITAMINS THERAPEUTIC TAB PO SCH (08:37)
[2016-04-23] MEDS: FLUTICASONE 0.05% 16 GM NAS SPRAY NASAL SCH ×2 (08:39→20:04)
[2016-04-23] MEDS: IPRATROPIUM 0.03% 30 ML NASAL SPRAY NASAL SCH ×4 (08:39→20:04)
[2016-04-23] MEDS: ENOXAPARIN 40 MG/0.4 ML SYG SC SCH (08:39)
[2016-04-23] MEDS: METOPROLOL (XL) 25 MG TAB PO SCH (08:39)
[2016-04-23] MEDS: POLYETHYLENE GLYCOL 17 GM PACKET PO SCH (08:39)
[2016-04-23] MEDS: GUAIFENESIN LA 600 MG TABSR PO PRN (19:11)
[2016-04-23 19:54] VITALS: BP 137/83; RESP 20
[2016-04-23] MEDS: TAMSULOSIN (SR) 0.4 MG CAP PO SCH (20:04)
[2016-04-23] MEDS: ATORVASTATIN 10 MG TAB PO SCH (20:04)
--- NOTE | 2016-04-24 07:02 | DS ---
DATE OF ADMISSION: 04/12/2016 DATE OF DISCHARGE: 04/23/2016 FINAL DIAGNOSES: 1. Chronic obstructive pulmonary disease exacerbation. 2. Sinus tachycardia, resolved. 3. Benign prostatic hypertrophy. 4. Dyslipidemia. 5. Essential hypertension. 6. Acute on chronic respiratory failure, hypoxic and hypercapnic, secondary to chronic obstructive pulmonary disease exacerbation. HOSPITAL COURSE: This is a 70-year-old male with past medical history of COPD who uses oxygen continuously, essential hypertension and dyslipidemia, who stays in a long-term facility and was brought to the emergency room because of worsening shortness of breath. The patient has history of multiple hospitalizations because of chronic obstructive pulmonary disease exacerbation. Provided the patient's history of present illness and his comorbidities, a clinical decision was made to admit the patient to inpatient setting to have him further evaluated. The patient was admitted to inpatient medical/surgical floor. The patient was maintained on supplemental oxygen. The patient was started on inhaled bronchodilators around the clock and on a p.r.n. basis. The patient was started on empiric antibiotics for any underlying tracheobronchitis. The patient's respiratory status improved with treatment strategies. The patient has underlying sinus tachycardia that resolved further with initiation of beta lakeisha therapy. The patient also has underlying hypertension that is well controlled with beta blockers. He also has history of benign prostatic hypertrophy. The patient was maintained on Flomax for the same. The patient has history of dyslipidemia. The patient was continued on statins for the same. The patient's symptomatology improved and the patient was clinically stable to be discharged on 04/18/2016. However, the patient did not want to go back to the same long-term facility. Instead, the patient was asking for a long-term facility close to his residence at [place]. The patient also had discussed stringent requirements regarding the assisted menu. Because of this, placement of this patient was very difficult. Finally, the patient has a bed available at [facility] in [place]. The patient initially resisted to go there because it was not close to his residence. Nevertheless, after talking to the patient, he finally agreed to go to the long-term facility. The patient had a stable hospital course. The patient was cleared to be discharged back to a long-term facility. DISCHARGE DISPOSITION/PLAN: The patient will be discharged back to a long-term facility. The patient will take medications as per medication list. Activities will be as tolerated. The patient will continue to use oxygen 24/7. The patient was instructed to follow up with her primary care physician in 2 weeks. He was instructed to follow a regular, preferably low-cholesterol diet. The patient verbalized understanding of his discharge instructions. CONDITION AT DISCHARGE: Stable. DISCHARGE MEDICATIONS: 1. Atrovent 0.5 mg mL inhaled q.4 to q.6 hours around the clock while awake. 2. Xopenex 1.25 mg HHN q.4 hours p.r.n. shortness of breath. 3. Ambien 5 mg p.o. at bedtime p.r.n. sleep. 4. [place] 5/325 one tablet p.o. q.6 hours p.r.n. moderate pain. 5. Aspirin 81 mg p.o. daily. 6. Atorvastatin 10 mg p.o. at bedtime. 7. Cholecalciferol 1000 units p.o. daily. 8. Lovenox 40 mg subcutaneous daily. 9. Toprol-XL 25 mg p.o. daily. 10. Multivitamins 1 tablet p.o. daily. 11. Polyethylene glycol 17 gram powder pack p.o. daily. 12. Advair Diskus 500/50 one inhalation b.i.d. 13. Senna-Lax 2 tablets p.o. b.i.d. 14. Tamsulosin 0.4 mg p.o. at bedtime. PERTINENT LABORATORY AND DIAGNOSTIC DATA: 1. Chest x-ray on admission. Hyperinflated lungs. Mild scarring at the right lung base. Atherosclerosis. Otherwise, normal chest x-ray. 2. ABG that was done on low-flow O2, pH 7.361, pCO2 of 61.0, pO2 of 61.0, oxygen saturation 97.7, base excess 6.3 3. Latest CBC: WBC 13.5, hemoglobin 12.0, hematocrit 35.2, platelet count 269. 4. Latest BMP: Sodium 142, potassium 4.2, chloride 101, carbon dioxide 36, anion gap 9, BUN 39, creatinine 0.84, glucose 84, calcium 9.0, phosphorus 2.7, magnesium 2.0. 5. Fasting Lipid Panel: Triglycerides 61, total cholesterol 128, LDL 76, HDL 40. 6. Hemoglobin A1c 5.3. The case and management of this patient was fully discussed with Dr. Aguilar. Approximately 40 minutes was spent on coordinating discharge on this patient. LARA AGUILAR MD, AM/LESLIE Conf#: [id number] DID#: [id number] MTDD
== END 2016-04-23 20:20 | DRG 190 ==
LOC: E/R 14:01 → MS4 16:15 → PP2 04-15 20:02
PROVIDERS: ADMIT Internal Medicine; ATTEND Internal Medicine
PROC: 3E0F73Z Introduction of Anti-inflammatory into Respiratory Tract, Via Natural or Artificial Opening (ICD-10-PCS; principal; 2016-04-16)
PROC: 3E0F7GC Introduction of Other Therapeutic Substance into Respiratory Tract, Via Natural or Artificial Opening (ICD-10-PCS; 2016-04-17)
DX: J44.1 Chronic obstructive pulmonary disease with (acute) exacerbation (principal); J96.21 Acute and chronic respiratory failure with hypoxia; R00.0 Tachycardia, unspecified; N40.0 Benign prostatic hyperplasia without lower urinary tract symptoms; E78.5 Hyperlipidemia, unspecified; I10 Essential (primary) hypertension; Z79.82 Long term (current) use of aspirin
CPT/HCPCS: 36415; 36600; 71010; 80048; 80053; 80061; 81001; 81003; 82803; 83036; 83605; 83735; 84100; 84439; 84443; 84484; 85025; 85610; 85730; 87040; 87081; 87086; 93005; 94640; 94664; 96374; 96375; J1650; J1956; J2060; J2930; J7512

== ENCOUNTER 2016-05-19 15:19 | Inpatient (IN) | payer MEDICARE, OTHER ==
[~2016-05-19] VITALS: Ht 170.2 cm; Wt 56.0 kg
[~2016-05-19 15:19] MED LIST: ADV50050 INHALATION; ASPI81TA3 PO; ATOR10TA65 PO; CHOL100062 PO; ENOX40DI14 SC; FLUT9.9S NASAL; GUAI-637 PO; Hydrocodone/Apap (5/325) PO; IPRA30SP NS; IPRA3AMP HHN; Ipratropium 0.02% (Neb) HHN; LEVA1.2523 HHN; METO25TA7 PO; MULTI PO; POLY17PO6 PO; PROT946L PO; SENN-53 PO; TAMS0.4C2 PO; ZOLP5TAB6 PO; [UNRECOGNIZED DRUG - CODE] PO
[2016-05-19] MEDS ORDERED: ALBUTEROL 0.5% (NEB) 2.5 MG/0.5 ML AMP INH STA (15:38)
[2016-05-19] MEDS ORDERED: IPRATROPIUM (NEB) 0.5 MG/2.5 ML AMP INH STA (15:38)
[2016-05-19] MEDS ORDERED: LEVOFLOXACIN 750MG/D5W (PMX) 150 ML IVPB STA (15:38)
[2016-05-19] MEDS ORDERED: SOD CHLORIDE 0.9% 1,000 ML IV STA (15:38)
[2016-05-19] MEDS ORDERED: SOD CHLORIDE 0.9% 100 ML ONE (15:48)
[2016-05-19] MEDS ORDERED: IOHEXOL 100 ML ONE (15:48)
[2016-05-19] MEDS ORDERED: DEXAMETHASONE 10 MG/ML 1 ML INJ IV ONE (16:00)
[2016-05-19 16:03] LABS: ADD SCAN DIFF NO
[2016-05-19 16:05] LABS: ABNORMAL IP MESSAGE 1; HEMOGLOBIN 13.4 g/dl (14.0-18.0); MEAN CORPUSCULAR HEMOGLOBIN 30.1 pg (29.0-33.0); MEAN CORPUSCULAR HGB CONC 31.9 g/dl (32.0-37.0); MEAN CORPUSCULAR VOLUME 94.4 fl (82.0-101.0); MEAN PLATELET VOLUME 10.4 fl (7.4-10.4); PLATELET COUNT 267 10^3/UL (140-415); RED BLOOD COUNT 4.45 10^6/ul (4.70-6.10); RED CELL DISTRIBUTION WIDTH 13.6 % (11.5-14.5); WHITE BLOOD COUNT 9.4 10^3/ul (4.8-10.8)
--- NOTE | 2016-05-19 16:10 | ERA ---
ER Documentation Chief Complaint Date/Time DATE: 05/19/16 TIME: 16:09 Chief Complaint cough/ congestion x 10 days HPI Patient is a pleasant 70-year-old male who reports cough and congestion for the last 10 days. He states it has worsened over the last 2-3 days and particularly worse last night. He says he occasionally coughs up clear phlegm. He does not know if he has been running a fever or not. He has had a sore throat and runny nose as well. [facility] is currently [facility] the [facility]. He denies any earache although he has had nausea but no vomiting. He has not had any diarrhea. He does not know if he has been around anyone who has been ill. He says he feels like he should have been seen sooner than this. He has had respiratory distress in the past and states this is not his worst episode. He has been on steroids in the past but has not currently been on steroids. The remainder review systems are negative. ROS All systems reviewed and are negative except as per history of present illness. Medications Home Meds Active Scripts Zolpidem Tartrate* (Zolpidem Tartrate*) 5 Mg Tablet, 5 MG PO QHS Y for SLEEP for 30 Days, TAB Prov:LARA CHOWDHURY NP 04/18/16 Levalbuterol Hcl* (Xopenex*) 1.25 Mg/0.5 Ml Vial.neb, 1.25 MG HHN Q4H RESP THERAPY Y for SHORTNESS OF BREATH for 30 Days Prov:LARA CHOWDHURY NP 04/18/16 Ipratropium-Albuterol (Ipratropium-Albuterol) 0.5-3 Mg/3 Ml Ampul.neb, 3 ML HHN Q6HWA RESP THERAPY for 30 Days Prov:LARA CHOWDHURY NP 04/18/16 [Ipratropium 0.02% (Neb)] 0.5 MG/2.5 ML NEBU No Conflict Check, 0.5 MG HHN Q4H RESP THERAPY Y for SHORTNESS OF BREATH for 30 Days Prov:LARA CHOWDHURY NP 04/18/16 [Hydrocodone/Apap (5/325)] 1 TAB TAB No Conflict Check, 1 TAB PO Q6H Y for MODERATE PAIN LEVEL 4-6 for 30 Days Prov:LARA CHOWDHURY NP 04/18/16 Reported Medications Tamsulosin Hcl* (Tamsulosin Hcl*) 0.4 Mg Cap.er.24h, 0.4 MG PO HS, CAP 04/12/16 Sennosides* (Senna Lax*) 8.6 Mg Tablet, 2 TAB PO BID, TAB 04/12/16 Protein Supplement (Promod) 946 Ml Liquid, 30 ML PO BID 04/12/16 Multivitamins* (Theragran*) 1 Tab Tab, 1 TAB PO DAILY, TAB 04/12/16 Polyethylene Glycol* (Miralax*) 17 Gm Powd.pack, 17 GM PO DAILY, #30 PACKET 04/12/16 Metoprolol Succinate* (Toprol XL*) 25 Mg Tab.sr.24h, 25 MG PO DAILY, #30 TAB HOLD IF SBP<110, HR<60 04/12/16 Enoxaparin Sodium* (Lovenox*) 40 Mg/0.4 Ml Syringe, 40 MG SC DAILY, SYR 04/12/16 Guaifenesin* (Robitussin*) 100 Mg/5 Ml Syrup, 600 MG PO Q12 Y for COUGH, ML 04/12/16 Fluticasone Propionate (Flonase Allergy Relief) 9.9 Ml [place].susp, 1 SPRAY NASAL BID, #1 BOTTLE TO EACH NOSTRIL 04/12/16 Cholecalciferol* (Vitamin D3*) 1,000 Unit Tablet, 1000 UNIT PO DAILY, TAB 04/12/16 Lactose-Free Food (Boost Plus) 237 Ml Liquid, 474 ML PO BID 04/12/16 Ipratropium [place] (Ipratropium [place]) 30 Ml [place], 2 SPRAY NS QID, SPRAY 04/12/16 Aspirin* (Aspirin* Chew) 81 Mg Tab.chew, 81 MG PO DAILY, TAB.CHEW 04/12/16 Atorvastatin Calcium (Atorvastatin Calcium) 10 Mg Tablet, 10 MG PO QHS, #30 TAB 04/12/16 Salmeterol Xinaf-Fluticasone* (Advair*) 500/50 Diskus Inhaler, 1 INH INHALATION BID, #1 INHALER 04/12/16 Allergies Allergies: Coded Allergies: Penicillins (Verified Allergy, Severe, 05/19/16) PMhx/Soc History of Surgery: Yes (joint implants) Anesthesia Reaction: No Hx Neurological Disorder: No Hx Respiratory Disorders: Yes (ARF with hypoxia, ARF with Hypercapnia, COPD) Hx Cardiac Disorders: Yes (HTN) Hx Psychiatric Problems: No Hx Miscellaneous Medical Probl: Yes (Hyperlipidemia, BPH, PROTEIN CALORIE MALNUTRITION) Hx Alcohol Use: No Hx Substance Use: No Hx Tobacco Use: Yes Smoking Status: Light tobacco smoker FmHx Family History: coronary disease Physical Exam Vitals Vital Signs Date Time Temp Pulse Resp B/P Pulse Ox O2 Delivery O2 Flow Rate FiO2 05/19/16 16:34 108 22 97 Nasal Cannula 2.0 28 05/19/16 16:04 Nasal Cannula 05/19/16 15:29 98.6 118 20 125/74 98 Physical Exam Const: [] Well-developed well-nourished male sitting on the bed with mild to moderate respiratory distress. Most notable he has a silver discoloration to his skin which is from prior silver treatment in the 40s. Head: Atraumatic normocephalic Eyes: Normal Conjunctiva ENT: Normal External Ears, Nose and Mouth. Neck: Full range of motion..~ No meningismus. Resp: Patient has decreased breath sounds throughout with prolonged expiratory phase. He has pursed lip breathing. He has mild retractions. Cardio: Regular rate and rhythm, no murmurs Abd: Soft, non tender, non distended. Normal bowel sounds Skin: No petechiae or rashes Back: No midline or flank tenderness Ext: Silver discoloration to the skin., or edema Neur: Awake and alert, oriented 3, GCS equals 15, moves all extremities equally Psych: Normal Mood and Affect Result Diagram: 05/19/16 1600 05/19/16 1600 Results 24 hrs Laboratory Tests Test 05/19/16 15:38 05/19/16 16:00 Arterial Blood HCO3 30.2mmol/L Arterial Blood Base Excess 2.8mmol/L Arterial Blood Oxygen Saturation 91.6mmHG [place] Test ACCEPTAB Arterial Blood Gas Puncture Site Left Radial Arterial Blood Carboxyhemoglobin 0.2% Arterial Blood Date Drawn 05/19/2016 6:24:20 PM Arterial Blood Methemoglobin 0.4% Arterial Blood pCO2 (Temp correct) 58.9mmhg Arterial Blood pH (Temp corrected) 7.328 Arterial Blood pO2 (Temp corrected) 63.9mmHG Blood Gas A-a O2 Differential 59.0mmHg Blood Gas Modality NASAL CANNULA Blood Gas Notified Time 05/19/2016 6:33:23 PM Blood Gas Notified Whom ab Blood Gas Specimen Source Blood arterial Blood Gas Temperature 37.0C FiO2 27.0% Oxyhemoglobin Percent 91.1% Total Hemoglobin 13.7g/dl Activated Partial Thromboplast Time 32.0Sec Alanine Aminotransferase (ALT/SGPT) 22IU/L Albumin 3.8g/dl Albumin/Globulin Ratio 1.05 Alkaline Phosphatase 73IU/L Anion Gap 17 Aspartate Amino Transf (AST/SGOT) 37IU/L Band Neutrophils % 4.0% Blood Urea Nitrogen 22mg/dl Calcium Level 9.8mg/dl Carbon Dioxide Level 34mmol/L Chloride Level 92mmol/L Creatinine 0.85mg/dl Direct Bilirubin 0.00mg/dl Eosinophils # 0.110^3/ul Eosinophils % 1.0% Globulin 3.60g/dl Glucose Level 103mg/dl Hematocrit 42.0% Hemoglobin 13.4g/dl INR International Normalized Ratio 0.95 Indirect Bilirubin 0.1mg/dl Large Platelets FEW Lymphocytes # 1.410^3/ul Lymphocytes % 15.0% Mean Corpuscular Hemoglobin 30.1pg Mean Corpuscular Hemoglobin Concent 31.9g/dl Mean Corpuscular Volume 94.4fl Mean Platelet Volume 10.4fl Monocytes # 1.410^3/ul Monocytes % 15.0% Neutrophils # 6.110^3/ul Neutrophils % 65.0% Platelet Count 58676^3/UL Platelet Estimate PLT APPEAR ADEQUATE Potassium Level 4.9mmol/L Prothrombin Time 12.7Sec Prothrombin Time Ratio 1.0 Red Blood Count 4.4510^6/ul Red Cell Distribution Width 13.6% Sodium Level 138mmol/L Total Bilirubin 0.1mg/dl Total Protein 7.4g/dl Troponin I < 0.010ng/ml White Blood Count 9.410^3/ul Current Medications Medications (Trade) Dose Ordered Sig/Wally Route PRN Reason Start Time Stop Time Status Last Admin Dose Admin Sodium Chloride (NS) 1,000 ml @ 1,000 mls/hr Q1H STAT IV 05/19/16 15:38 05/19/16 16:37 DC 05/19/16 16:12 Albuterol (Proventil 0.5% (Neb)) 15 mg ONCE STAT INH 05/19/16 15:38 05/19/16 15:41 DC 05/19/16 16:27 Ipratropium [place] 2 mg 2 mg ONCE STAT INH 05/19/16 15:38 05/19/16 15:42 DC 05/19/16 16:27 Levofloxacin/ Dextrose (Levaquin 750 Mg/ D5W 150 ml (Pmx)) 150 ml @ 100 mls/hr ONCE STAT IVPB 05/19/16 15:38 05/19/16 17:07 DC 05/19/16 16:12 Dexamethasone (Decadron) 6 mg ONCE ONCE IV 05/19/16 16:00 05/19/16 16:01 DC 05/19/16 16:12 IV Flush 10 ml 10 ml STK-MED ONCE .ROUTE 05/19/16 15:48 05/19/16 15:49 DC Sodium Chloride 100 ml @ ud STK-MED ONCE .ROUTE 05/19/16 15:48 05/19/16 15:49 DC Iohexol (Omnipaque) 100 ml @ ud STK-MED ONCE .ROUTE 05/19/16 15:48 05/19/16 15:49 DC Procedures/MDM Differential includes but is not limited to COPD exacerbation, bronchitis, pneumonia, pulmonary embolus, respiratory failure EKG: Rate/Rhythm: Sinus tachycardia at a rate of 115 bpm QRS, ST, T-waves: Q waves noted in leads V1 and V2, no acute ST elevation noted, no old EKG available for comparison Impression: No evidence of acute ischemia, evidence for possible old septal infarct Chest x-ray was consistent with COPD. It did not show any acute cardiopulmonary process. Patient refused a CTA of his chest. It is unclear if he has had a pulmonary embolus. Patient continues to complain of shortness of breath. He does have improved air movement after his breathing treatment although he claims that it made him worse. His blood gas was obtained after his hour long breathing treatment. And he was able to be titrated down to his baseline of 2 L oxygen nasal cannula. Given his precarious lung disease and the fact that he is still subjective and objectively short of breath I feel it is most prudent to admit him at least for observation overnight. I have a call to Dr. Connell to have him admitted. Departure Diagnosis: Primary Impression: Decompensated COPD with exacerbation (chronic obstructive pulmonary disease) Additional Impressions: Dyspnea Qualified Code: R06.02 - Shortness of breath [place] of skin Qualified Code: T56.891S - [place] of skin, accidental or unintentional, sequela Condition: NEL Acosta May 19, 2016 16:09
[2016-05-19 16:23] LABS: INR 0.95; PROTIME 12.7 Sec (12.2-14.2)
[2016-05-19 16:24] LABS: ALBUMIN 3.8 g/dl (3.3-4.9); CHLORIDE 92 mmol/L (97-110); POTASSIUM 4.9 mmol/L (3.5-5.1); SODIUM 138 mmol/L (135-144)
[2016-05-19 16:26] LABS: ANION GAP 17 (8-16); ASPARTATE AMINO TRANSFERASE 37 IU/L (15-46); BILIRUBIN,INDIRECT 0.1 mg/dl (0-1.1); BILIRUBIN,TOTAL 0.1 mg/dl (0.2-1.3); CARBON DIOXIDE 34 mmol/L (21-31); CREATININE 0.85 mg/dl (0.61-1.24)
[2016-05-19 16:27] LABS: ALANINE AMINOTRANSFERASE 22 IU/L (13-69); ALBUMIN/GLOBULIN RATIO 1.05; ALKALINE PHOSPHATASE 73 IU/L (42-121); BLOOD UREA NITROGEN 22 mg/dl (7-20); GLUCOSE 103 mg/dl (70-220); TOTAL PROTEIN 7.4 g/dl (6.1-8.1)
[2016-05-19 16:28] LABS: CALCIUM 9.8 mg/dl (8.4-10.2)
--- NOTE | 2016-05-19 16:43 | RADRPT ---
PROCEDURE: Chest x-ray CLINICAL INDICATION: Shortness of breath TECHNIQUE: Chest single view COMPARISON: 04/12/2016 FINDINGS: The heart is normal in size. The pulmonary vessels are normal in caliber. There is stable atherosc lerotic aortic calcification. As before there is hyperinflation lungs suggesting underlying COPD. There is stable scarring in both lung bases. No acute infiltrates are identified. No large pleural fluid is seen. The bones are osteopenic. IMPRESSION: 1. Stable hyperinflation lungs suggesting underlying COPD. 2. No acute pneumonia or CHF. 3. Atherosclerotic aortic calcification RPTAT: HH .Shakir Santa MD, MD Date Time Electronically viewed and signed by .Shakir Santa MD, on 05/19/2016 16:43 .W/
[2016-05-19 17:06] LABS: PLATELET ESTIMATE PLT APPEAR ADEQUATE
[2016-05-19 17:10] LABS: TROPONIN-I < 0.010 ng/ml (0.00-0.12)
[2016-05-19 17:18] LABS: EOSINOPHILS # 0.1 10^3/ul (0.0-0.5); LYMPHOCYTES # 1.4 10^3/ul (0.8-2.9); MONOCYTE # 1.4 10^3/ul (0.3-0.9); NEUTROPHIL # 6.1 10^3/ul (1.6-7.5)
[2016-05-19 18:33] LABS: Allen Test ACCEPTAB; Arterial Base Excess 2.8 mmol/L (-3.0-3); Arterial COHb 0.2 % (0.0-3.0); Arterial Fraction of Oxyhgb 91.1 % (93.0-99.0); Arterial HCO3 30.2 mmol/L (22.0-26.0); Arterial MetHb 0.4 % (0.0-1.5); Arterial Total Hemglobin 13.7 g/dl (12.0-18.0); MODE NASAL CANNULA
[2016-05-19] MEDS ORDERED: ONDANSETRON 4 MG INJ IV PRN ×2 (19:30→20:00)
[2016-05-19] MEDS ORDERED: ACETAMINOPHEN 325 MG TAB PO PRN ×2 (19:30→20:00)
[2016-05-19] MEDS ORDERED: SOD CHLORIDE 0.9% 1,000 ML IV SCH (19:39)
--- NOTE | 2016-05-19 19:54 | HP ---
Date/Time of Note Date/Time of Note DATE: 05/19/16 TIME: 19:44 Assessment/Plan VTE Prophylaxis VTE Prophylaxis Intervention: LMWH Assessment/Plan Assessment/Plan 70 yo male with a past medical history of COPD with emphysema, Pulmonary Hypertension, Rheumatoid Arthritis, Argyria, who was recently hospitalized here on 04/12/2016 for similar presentation of shortness of breath. 1. SOB 2/2 to COPD exacerbation - will admit the patient to telemetry, continue with supplemental oxygen, IV steroids, Pulm Consult, CT chest, duonebs q4h and q2h prn, monitor acute changes, hold antibiotics for now 2. Acute hypoxemic respiratory failure 04/27 #1 - see #1 3. Pulmonary Hypertension - possible start of revatio or other PDE5 inhibitor drugs - will defer to pulm 4. 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 BPH - continue with flomax 7. GI ppx - pepcid 8. DVT ppx - heparin answered all of his questions. as per clinical course. this history and physical took greater then 45 minutes to complete HPI/ROS Admit Date/Time Admit Date/Time 05/19/2016, 7:44 pm Hx of Present Illness 70 yo male with a past medical history of COPD with emphysema, Pulmonary Hypertension, Rheumatoid Arthritis, Argyria, who was recently hospitalized here on 04/12/2016 for similar presentation of shortness of breath. For the last several days, the shortness of breath has progressively gotten worse. He is unable to speak in full sentences. Associated with this is nausea. He otherwise denies any chest pain, loss of consciousness, headaches, urinary/bowel irregularities, fevers, chills or other constitutional symptoms. He was taking levaquin at the outside facility, with no oral steroid therapy. ED course: patient was given continuous breathing treatments, and supplemental oxygen and dexamethasone ROS 14 point review of systems completed, please refer to HPI for any positive findings PMH/Family/Social Past Medical History COPD w/ emphysema, Pulmonary Hypertension, Rheumatoid Arthritis, Argyria Past Surgical History pleurodesis, plate placement Family History Significant Family History: lung disease (all 5 brothers and sisters of lung disease) Social History Alcohol Use: none Smoking Status: Former smoker (1 ppd x 50 years, quit 8 months ago) Drug Use: none Exam/Review of Systems Vital Signs Vitals Vital Signs Date Time Temp Pulse Resp B/P Pulse Ox O2 Delivery O2 Flow Rate FiO2 05/19/16 16:34 108 22 97 Nasal Cannula 2.0 28 05/19/16 15:29 98.6 125/74 Exam Exam Gen Nasima: moderate respiratory distress, AAOx4, cachetic body habitus HEENT: NC/AT, PERRLA, EOMI, no pharyngeal erythema, no tonsillar exudates, no lymphadenopathy, no JVD, no carotid bruits NECK: supple, no thyromegaly THORAX: symmetrical, barrel hoop CV: S1S2, tachycardiac, no M/G/R Lungs: diminished breath sounds, inspiratory/expiratory wheezing, no crackles Abd: soft, NT/ND, +BS, no rebound, no guarding, neg HSM EXT: no edema, no ecchymosis, no clubbing, FROM Neuro: CN II-XII grossly intact, no focal deficits Psych: good mentation, alert and oriented, good mood and affect Skin: silverish hue to skin all over Labs Result Diagram: 05/19/16 1600 05/19/16 1600 Procedures Procedures CXR IMPRESSION: 1. Stable hyperinflation lungs suggesting underlying COPD. 2. No acute pneumonia or CHF. 3. Atherosclerotic aortic calcification HARVEY FRIAS MD May 19, 2016 19:54
[2016-05-19] MEDS ORDERED: DOCUSATE SODIUM 100 MG CAP PO PRN (20:00)
[2016-05-19] MEDS ORDERED: HYDROCODONE/APAP (5/325) TAB PO PRN (20:00)
[2016-05-19] MEDS ORDERED: NITROGLYCERIN (SL) 0.4 MG TAB SL PRN (20:00)
[2016-05-19] MEDS ORDERED: NON-FORMULARY/PATIENT OWN MED ([Ipratropium 0.02% (Neb)] (Atrovent 0.02% (Neb)) 0.5 MG) HHN PRN (20:00)
[2016-05-19] MEDS ORDERED: ZOLPIDEM 5 MG TAB PO PRN (20:00)
[2016-05-19] MEDS ORDERED: NACL 0.9% 3 ML SYG IV SCH (20:00)
[2016-05-19] MEDS ORDERED: GUAIFENESIN 20 MG/ML 5ML CUP PO PRN (20:00)
[2016-05-19 20:10] LABS: MAGNESIUM 2.1 mg/dl (1.7-2.5)
[2016-05-19] MEDS: METHYLPREDNISOLONE 125 MG INJ IV SCH ×2 (20:27→23:31)
[2016-05-19 20:42] LABS: THYROID STIMULATING HORMONE 2.83 MIU/L (0.465-4.680)
[2016-05-19] MEDS: ATORVASTATIN 10 MG TAB PO SCH (21:00)
[2016-05-19] MEDS: SENNA TAB PO SCH (21:00)
[2016-05-19] MEDS: ALBUTEROL/IPRATROPIUM (NEB) 3 ML AMP HHN SCH (21:00)
[2016-05-19] MEDS ORDERED: NON-FORMULARY/PATIENT OWN MED (Protein Supplement (Promod) 30 ML) PO SCH (21:00)
[2016-05-19] MEDS ORDERED: LACTOSE FREE FOOD PO SCH (21:00)
[2016-05-19] MEDS: FAMOTIDINE 20 MG TAB PO SCH (21:21)
[2016-05-19] MEDS: TAMSULOSIN (SR) 0.4 MG CAP PO SCH (21:21)
[2016-05-19] MEDS: SALMETEROL/FLUTICASONE 500/50 INHA INH SCH (21:22)
[2016-05-19] MEDS: FLUTICASONE 0.05% 16 GM NAS SPRAY NASAL SCH (21:22)
[2016-05-19] MEDS: IPRATROPIUM 0.03% 30 ML NASAL SPRAY NASAL SCH (21:22)
[2016-05-19 21:31] LABS: CK-MB 4.91 ng/ml (0.0-2.4); TROPONIN-I 0.026 ng/ml (0.00-0.12)
[2016-05-19 21:55] VITALS: PULSE 120
[2016-05-19 22:00] VITALS: BP 159/82; PULSE 105; RESP 20; Ht 170.2 cm; Wt 56.0 kg
[2016-05-19] MEDS: ALBUTEROL/IPRATROPIUM (NEB) 3 ML AMP HHN PRN (22:56)
[2016-05-20] VITALS (11 sets, daily range): BP systolic 106–161; BP diastolic 62–87; PULSE 99–120; RESP 18–22
[2016-05-20] MEDS: LORAZEPAM 2 MG INJ IV PRN (00:18)
[2016-05-20] MEDS: ALBUTEROL/IPRATROPIUM (NEB) 3 ML AMP HHN SCH ×6 (01:00→21:49)
[2016-05-20 03:38] LABS: TROPONIN-I 0.018 ng/ml (0.00-0.12)
[2016-05-20 04:16] LABS: CK-MB 9.11 ng/ml (0.0-2.4)
[2016-05-20] MEDS: METHYLPREDNISOLONE 125 MG INJ IV SCH (05:23)
[2016-05-20 07:48] LABS: ADD SCAN DIFF NO
[2016-05-20 07:51] LABS: ABNORMAL IP MESSAGE 1; BASOPHILS % 0.1 % (0.0-2.0); HEMATOCRIT 38.5 % (42.0-52.0); HEMOGLOBIN 12.4 g/dl (14.0-18.0); LYMPHOCYTES # 0.6 10^3/ul (0.8-2.9); LYMPHOCYTES % 7.1 % (15.0-51.0); MEAN CORPUSCULAR HEMOGLOBIN 30.6 pg (29.0-33.0); MEAN CORPUSCULAR HGB CONC 32.2 g/dl (32.0-37.0); MEAN CORPUSCULAR VOLUME 95.1 fl (82.0-101.0); MEAN PLATELET VOLUME 10.6 fl (7.4-10.4); MONOCYTE # 0.3 10^3/ul (0.3-0.9); MONOCYTES % 3.4 % (0.0-11.0); NEUTROPHIL # 7.3 10^3/ul (1.6-7.5); NEUTROPHILS % 88.9 % (39.0-77.0); PLATELET COUNT 260 10^3/UL (140-415); RED BLOOD COUNT 4.05 10^6/ul (4.70-6.10); RED CELL DISTRIBUTION WIDTH 13.3 % (11.5-14.5); WHITE BLOOD COUNT 8.3 10^3/ul (4.8-10.8)
[2016-05-20 08:13] LABS: POTASSIUM 5.2 mmol/L (3.5-5.1)
[2016-05-20 08:16] LABS: CALCIUM 9.4 mg/dl (8.4-10.2); CREATININE 0.73 mg/dl (0.61-1.24)
[2016-05-20] MEDS: FAMOTIDINE 20 MG TAB PO SCH ×3 (09:00→20:36)
[2016-05-20] MEDS: FLUTICASONE 0.05% 16 GM NAS SPRAY NASAL SCH ×3 (09:00→22:02)
[2016-05-20] MEDS: IPRATROPIUM 0.03% 30 ML NASAL SPRAY NASAL SCH ×5 (09:00→21:00)
[2016-05-20] MEDS: ENOXAPARIN 40 MG/0.4 ML SYG SC SCH (09:00)
[2016-05-20] MEDS: SENNA TAB PO SCH ×2 (09:53→20:36)
[2016-05-20] MEDS: ASPIRIN 81 MG TAB PO SCH (09:53)
[2016-05-20] MEDS: POLYETHYLENE GLYCOL 17 GM PACKET PO SCH (09:54)
[2016-05-20] MEDS: METOPROLOL (XL) 25 MG TAB PO SCH (09:54)
[2016-05-20] MEDS: CHOLECALCIFEROL 1,000 UNIT TAB PO SCH (09:54)
[2016-05-20] MEDS: MULTIVITAMINS THERAPEUTIC TAB PO SCH (09:54)
[2016-05-20] MEDS: SALMETEROL/FLUTICASONE 500/50 INHA INH SCH ×2 (09:55→22:03)
--- NOTE | 2016-05-20 11:31 | CONS ---
Date/Time of Note Date/Time of Note DATE: 05/20/16 TIME: 11:23 Assessment/Plan Assessment/Plan Additional Assessment/Plan Chest x-ray was reviewed from yesterday which is showing severe emphysematous changes bilaterally. EKG also was reviewed on 2 L nasal cannula showing hypercapnic hypoxemic respiratory failure which is partially compensated. Assessment and recommendations; 1. Patient with history of severe COPD with hypoxemic/hypercapnic respiratory failure. Next 2. History of significant sleepiness and fatigue likely on account of underlying hypercapnia. 3. Stable hypertension. 4. Chronic s sinus symptoms and postnasal drip. 5. Stable BPH. Start BiPAP 10/5 with 30% FiO2 to keep O2 sat above 88%, to be used as tolerated. Add Mucinex 600 mg twice daily for relief of nasal symptoms. Decrease Solu-Medrol dosing to 40 mg every 8 hours. Continue current antibiotic. Patient will need to have BiPAP machine to be used at home nocturnally. On account of hypercapnic respiratory failure the patient would qualify for it without a sleep study. Consultation Date/Type/Reason Admit Date/Time 05/19/2016, 7:44 pm Date of Consultation: May 20, 2016 Type of Consultation: Pulmonary Reason for Consultation Pulmonary consultation obtained for evaluation of hypercapnic/hypoxemic respiratory failure. History of present illness; patient is a pleasant 70-year-old white male who was admitted yesterday when the patient came into the ER with progressive shortness of breath going on for the last couple of months. Patient also was admitted in March of this year to [facility] were discharged home in stable condition however according to him he did not improve much and is complaining of severe shortness of breath on minimal exertion. Also complains of cough with production of very scant yellow sputum production. Denies any chest pain, fever or chills. Any body aches, arthralgias or myalgias. Upon evaluation evaluation, an ABG was done which is showing hypercapnic/hypoxemic respiratory failure. Patient is somewhat improved since admission.He is complaining of significant postnasal drip and according to him the only medicine that helps his Mucinex. Patient had been tried on various antiallergy medications to no avail. He denies any heartburn. Past medical history; 1. History of severe COPD, O2 dependent. 2. History of recent admission to [facility] for similar symptoms. 3. History of BPH. 4. History of hypertension. 5. History of rheumatoid arthritis. 6. History of pleurodesis, it is not clear which side. 7. No shift any surgeries or any coronary artery disease. Medications; were reviewed. Allergies; not to penicillin. Social history; patient is a [id number] smoking history quit smoking 8 months ago. Most of alcohol or drug abuse. Family history; patient is single. Does not have any children. 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 Review of systems; denies any headache, any visual changes. Any hearing loss. Complaint of sinus congestion and postnasal drip. Denies any sore throat, dysphagia, denies any chest pain, angina, complaint of mild wheezing. Denies any hemoptysis. Complains of cough with scant yellow sputum production. Complains of dyspnea on minimal exertion. Complains of significant fatigue and daytime sleepiness. Lost little weight. Denies any urinary symptoms. Does complain of chronic constipation. Denies any melena hematochezia. Denies any edema. Denies any orthopnea. General examination; elderly male, currently in no distress, awake and alert. Social History Alcohol Use: none Smoking Status: Former smoker Drug Use: none Exam/Review of Systems Vital Signs Vitals Vital Signs Date Time Temp Pulse Resp B/P Pulse Ox O2 Delivery O2 Flow Rate FiO2 05/20/16 08:21 116 05/20/16 08:11 97.8 18 150/86 94 05/20/16 07:46 Nasal Cannula 3.0 05/19/16 23:00 32 Intake and Output 05/19/16 05/19/16 05/20/16 15:00 23:00 07:00 Intake Total 450 ml Output Total 650 ml Balance -200 ml Exam HEENT examination; supple neck, no JVD. No lymphadenopathy. Midline trachea. Pupils are small bilaterally. No neck masses. No thyromegaly. No neck bruits. Pharynx is clear. Patient has fair dentition. Chest examination; very poor breath sounds bilaterally with very minimal expiratory wheezing in upper lobes. S1-S2 audible, no murmurs. Regular rhythm. Abdomen examination; soft, nondistended, no organomegaly. Bowel sounds audible. Extremity examination; no peripheral edema. There is no clubbing. Pulses 1+ bilaterally. ADDICTIONS THERAPIST examination; cranial nerves are intact there is no motor deficit. Results Result Diagram: 05/20/16 0720 05/20/16 0720 Results 24 hrs Laboratory Tests Test 05/19/16 15:38 05/19/16 16:00 05/19/16 20:40 05/20/16 02:15 Arterial Blood HCO3 30.2 H Arterial Blood Base Excess 2.8 Arterial Blood Oxygen Saturation 91.6 L [place] Test ACCEPTAB Arterial Blood Gas Puncture Site Left Radial Arterial Blood Carboxyhemoglobin 0.2 Arterial Blood Date Drawn 05/19/2016 6:24:20 PM Arterial Blood Methemoglobin 0.4 Arterial Blood pCO2 (Temp correct) 58.9 H Arterial Blood pH (Temp corrected) 7.328 L Arterial Blood pO2 (Temp corrected) 63.9 L Blood Gas A-a O2 Differential 59.0 H Blood Gas Modality NASAL CANNULA Blood Gas Notified Time 05/19/2016 6:33:23 PM Blood Gas Notified Whom ab Blood Gas Specimen Source Blood arterial Blood Gas Temperature 37.0 FiO2 27.0 Oxyhemoglobin Percent 91.1 L Total Hemoglobin 13.7 Activated Partial Thromboplast Time 32.0 Alanine Aminotransferase (ALT/SGPT) 22 Albumin 3.8 Albumin/Globulin Ratio 1.05 Alkaline Phosphatase 73 Anion Gap 17 H Aspartate Amino Transf (AST/SGOT) 37 Band Neutrophils % 4.0 Blood Urea Nitrogen 22 H Calcium Level 9.8 Carbon Dioxide Level 34 H Chloride Level 92 L Creatinine 0.85 Direct Bilirubin 0.00 Eosinophils # 0.1 Eosinophils % 1.0 Globulin 3.60 H Glucose Level 103 Hematocrit 42.0 Hemoglobin 13.4 L INR International Normalized Ratio 0.95 Indirect Bilirubin 0.1 Large Platelets FEW Lymphocytes # 1.4 Lymphocytes % 15.0 Magnesium Level 2.1 Mean Corpuscular Hemoglobin 30.1 Mean Corpuscular Hemoglobin Concent 31.9 L Mean Corpuscular Volume 94.4 Mean Platelet Volume 10.4 Monocytes # 1.4 H Monocytes % 15.0 H Neutrophils # 6.1 Neutrophils % 65.0 Platelet Count 267 Platelet Estimate PLT APPEAR ADEQUATE Potassium Level 4.9 Prothrombin Time 12.7 Prothrombin Time Ratio 1.0 Red Blood Count 4.45 L Red Cell Distribution Width 13.6 Sodium Level 138 Thyroid Stimulating Hormone (TSH) 2.830 Total Bilirubin 0.1 L Total Protein 7.4 Troponin I < 0.010 0.026 0.018 White Blood Count 9.4 # Creatine Kinase 80 113 Creatine Kinase Index 6.1 8.1 Creatinine Kinase MB (Mass) 4.91 H 9.11 H Test 05/20/16 07:20 Anion Gap 16 Basophils # 0.0 Basophils % 0.1 Blood Urea Nitrogen 22 H Calcium Level 9.4 Carbon Dioxide Level 31 Chloride Level 94 L Creatinine 0.73 Eosinophils # 0.0 Eosinophils % 0.0 Glucose Level 150 Hematocrit 38.5 L Hemoglobin 12.4 L Lymphocytes # 0.6 L Lymphocytes % 7.1 L Mean Corpuscular Hemoglobin 30.6 Mean Corpuscular Hemoglobin Concent 32.2 Mean Corpuscular Volume 95.1 Mean Platelet Volume 10.6 H Monocytes # 0.3 Monocytes % 3.4 Neutrophils # 7.3 Neutrophils % 88.9 H Nucleated Red Blood Cells # 0.0 Nucleated Red Blood Cells % 0.0 Platelet Count 260 Potassium Level 5.2 H Red Blood Count 4.05 L Red Cell Distribution Width 13.3 Sodium Level 136 White Blood Count 8.3 Medications Medications Current Medications Lorazepam (Ativan) 0.5 mg Q6H PRN IV ANXIETY Last administered on 05/20/16 00: 18; Admin Dose 0.5 MG; Start 05/19/16 at 20:00 Ondansetron HCl (Zofran Inj) 4 mg Q6H PRN IV NAUSEA AND/OR VOMITING; Start at 20:00 Nitroglycerin (Nitroglycerin (Sl Tab) 0.4 Mg) 1 tab Q5M PRN SL CHEST PAIN; Start 05/19/16 at 20:00 Acetaminophen (Tylenol Tab) 650 mg Q6H PRN PO PAIN LEVEL 1-3 OR FEVER; Start at 20:00 Morphine Sulfate (morphine) 2 mg Q4H PRN IV PAIN LEVEL 7-10; Start 05/19/16 at 20:00 Docusate Sodium (Colace) 100 mg Q12H PRN PO CONSTIPATION; Start 05/19/16 at 20: 00 Famotidine (Pepcid) 20 mg Q12 PO Last administered on 05/19/16 21:21; Admin Dose 20 MG; Start 05/19/16 at 21:00 Enoxaparin Sodium (Lovenox) 40 mg DAILY SC ; Start 05/20/16 at 09:00 Methylprednisolone Sodium Succinate (Solu-Medrol) 60 mg Q6 IV Last administered on 05/20/16 05:23; Admin Dose 60 MG; Start 05/19/16 at 20:00 Aspirin (Aspirin) 81 mg DAILY PO Last administered on 05/20/16 09:53; Admin Dose 81 MG; Start 05/20/16 at 09:00 Atorvastatin Calcium (Lipitor) 10 mg QHS PO ; Start 05/19/16 at 21:00 Cholecalciferol (Vitamin D) 1,000 unit DAILY PO Last administered on 05/20/16 09:54; Admin Dose 1,000 UNIT; Start 05/20/16 at 09:00 Fluticasone Propionate (Flonase 0.05% Nasal) 1 spray BID NASAL Last administered on 05/19/16 21:22; Admin Dose 1 SPRAY; Start 05/19/16 at 21:00 Guaifenesin (Robitussin Liquid Cup) 600 mg Q12 PRN PO COUGH; Start 05/19/16 at 20:00 Metoprolol Succinate (Toprol Xl) 25 mg DAILY PO Last administered on 05/20/16 09:54; Admin Dose 25 MG; Start 05/20/16 at 09:00 Multivitamins Therapeutic (Theragran) 1 tab DAILY PO Last administered on 09:54; Admin Dose 1 TAB; Start 05/20/16 at 09:00 Polyethylene Glycol (Miralax) 17 gm DAILY PO Last administered on 05/20/16 09: 54; Admin Dose 17 GM; Start 05/20/16 at 09:00 Salmeterol Xinafoate/ Fluticasone (Advair 500/50 Diskus) 1 inh BID INH Last administered on 05/20/16 09:55; Admin Dose 1 INH; Start 05/19/16 at 21:00 Senna (Senokot) 2 tab BID PO Last administered on 05/20/16 09:53; Admin Dose 2 TAB; Start 05/19/16 at 21:00 Tamsulosin HCl (Flomax) 0.4 mg HS PO Last administered on 05/19/16 21:21; Admin Dose 0.4 MG; Start 05/19/16 at 21:00 Zolpidem Tartrate (Ambien) 5 mg QHS PRN PO SLEEP; Start 05/19/16 at 20:00 Acetaminophen/ Hydrocodone Bitart ([place] (5/325)) 1 tab Q6H PRN PO MODERATE PAIN LEVEL 4-6; Start 05/19/16 at 20:00 Ipratropium [place] (Atrovent Nasal) 2 spray QID NASAL Last administered on t 21:22; Admin Dose 2 SPRAY; Start 05/19/16 at 21:00 WATSON FISCHER May 20, 2016 11:31
--- NOTE | 2016-05-20 13:25 | PN ---
Date/Time of Note Date/Time of Note DATE: 05/20/16 TIME: 13:22 Assessment/Plan VTE Prophylaxis VTE Prophylaxis Intervention: heparin Lines/Catheters IV Catheter Type (from Nrsg): Saline Lock Urinary Cath still in place: No Assessment/Plan Assessment/Plan 1. acute COPD exacerbation 2. Acute hypoxemic respiratory failure / #1 3. Pulmonary Hypertension - possible start of revatio or other PDE5 inhibitor drugs - will defer to pulm 4. 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 BPH - continue with flomax 7. GI ppx - pepcid 8. DVT ppx - heparin Plan' IV solu-medrol pulmonary consult nebulizer treatment BP stable s/p IVF bolus in ED-d/c IVF due to pul HTN Pulmonary to decide for revatio or other PDE5 inhibitor drugs Subjective 24 Hr Interval Summary Free Text/Dictation stable after Breathing rx pulmonary evaluated pt, Exam/Review of Systems Vital Signs Vitals Vital Signs Date Time Temp Pulse Resp B/P Pulse Ox O2 Delivery O2 Flow Rate FiO2 05/20/16 12:53 105 16 98 Nasal Cannula 3.0 05/20/16 12:04 97.8 155/84 05/19/16 23:00 32 Intake and Output 05/19/16 05/19/16 05/20/16 15:00 23:00 07:00 Intake Total 450 ml Output Total 650 ml Balance -200 ml Exam Gen Nasima: moderate respiratory distress, AAOx4, cachetic body habitus HEENT: PEERLA< EOMI CV: S1S2, tachycardiac, no M/G/R Lungs: diminished breath sounds, inspiratory/expiratory wheezing, no crackles Abd: soft, NT/ND, +BS, no rebound, no guarding, neg HSM EXT: no edema, no ecchymosis, no clubbing, FROM Skin: silverish hue to skin all over Results Result Diagram: 05/20/16 0720 05/20/16 0720 Results 24 hrs Laboratory Tests Test 05/19/16 15:38 05/19/16 16:00 05/19/16 20:40 05/20/16 02:15 Arterial Blood HCO3 30.2 H Arterial Blood Base Excess 2.8 Arterial Blood Oxygen Saturation 91.6 L [place] Test ACCEPTAB Arterial Blood Gas Puncture Site Left Radial Arterial Blood Carboxyhemoglobin 0.2 Arterial Blood Date Drawn 05/19/2016 6:24:20 PM Arterial Blood Methemoglobin 0.4 Arterial Blood pCO2 (Temp correct) 58.9 H Arterial Blood pH (Temp corrected) 7.328 L Arterial Blood pO2 (Temp corrected) 63.9 L Blood Gas A-a O2 Differential 59.0 H Blood Gas Modality NASAL CANNULA Blood Gas Notified Time 05/19/2016 6:33:23 PM Blood Gas Notified Whom ab Blood Gas Specimen Source Blood arterial Blood Gas Temperature 37.0 FiO2 27.0 Oxyhemoglobin Percent 91.1 L Total Hemoglobin 13.7 Activated Partial Thromboplast Time 32.0 Alanine Aminotransferase (ALT/SGPT) 22 Albumin 3.8 Albumin/Globulin Ratio 1.05 Alkaline Phosphatase 73 Anion Gap 17 H Aspartate Amino Transf (AST/SGOT) 37 Band Neutrophils % 4.0 Blood Urea Nitrogen 22 H Calcium Level 9.8 Carbon Dioxide Level 34 H Chloride Level 92 L Creatinine 0.85 Direct Bilirubin 0.00 Eosinophils # 0.1 Eosinophils % 1.0 Globulin 3.60 H Glucose Level 103 Hematocrit 42.0 Hemoglobin 13.4 L INR International Normalized Ratio 0.95 Indirect Bilirubin 0.1 Large Platelets FEW Lymphocytes # 1.4 Lymphocytes % 15.0 Magnesium Level 2.1 Mean Corpuscular Hemoglobin 30.1 Mean Corpuscular Hemoglobin Concent 31.9 L Mean Corpuscular Volume 94.4 Mean Platelet Volume 10.4 Monocytes # 1.4 H Monocytes % 15.0 H Neutrophils # 6.1 Neutrophils % 65.0 Platelet Count 267 Platelet Estimate PLT APPEAR ADEQUATE Potassium Level 4.9 Prothrombin Time 12.7 Prothrombin Time Ratio 1.0 Red Blood Count 4.45 L Red Cell Distribution Width 13.6 Sodium Level 138 Thyroid Stimulating Hormone (TSH) 2.830 Total Bilirubin 0.1 L Total Protein 7.4 Troponin I < 0.010 0.026 0.018 White Blood Count 9.4 # Creatine Kinase 80 113 Creatine Kinase Index 6.1 8.1 Creatinine Kinase MB (Mass) 4.91 H 9.11 H Test 05/20/16 07:20 Anion Gap 16 Basophils # 0.0 Basophils % 0.1 Blood Urea Nitrogen 22 H Calcium Level 9.4 Carbon Dioxide Level 31 Chloride Level 94 L Creatinine 0.73 Eosinophils # 0.0 Eosinophils % 0.0 Glucose Level 150 Hematocrit 38.5 L Hemoglobin 12.4 L Lymphocytes # 0.6 L Lymphocytes % 7.1 L Mean Corpuscular Hemoglobin 30.6 Mean Corpuscular Hemoglobin Concent 32.2 Mean Corpuscular Volume 95.1 Mean Platelet Volume 10.6 H Monocytes # 0.3 Monocytes % 3.4 Neutrophils # 7.3 Neutrophils % 88.9 H Nucleated Red Blood Cells # 0.0 Nucleated Red Blood Cells % 0.0 Platelet Count 260 Potassium Level 5.2 H Red Blood Count 4.05 L Red Cell Distribution Width 13.3 Sodium Level 136 White Blood Count 8.3 Medications Medications Current Medications Lorazepam (Ativan) 0.5 mg Q6H PRN IV ANXIETY Last administered on 05/20/16 00: 18; Admin Dose 0.5 MG; Start 05/19/16 at 20:00 Ondansetron HCl (Zofran Inj) 4 mg Q6H PRN IV NAUSEA AND/OR VOMITING; Start at 20:00 Nitroglycerin (Nitroglycerin (Sl Tab) 0.4 Mg) 1 tab Q5M PRN SL CHEST PAIN; Start 05/19/16 at 20:00 Acetaminophen (Tylenol Tab) 650 mg Q6H PRN PO PAIN LEVEL 1-3 OR FEVER; Start at 20:00 Morphine Sulfate (morphine) 2 mg Q4H PRN IV PAIN LEVEL 7-10; Start 05/19/16 at 20:00 Docusate Sodium (Colace) 100 mg Q12H PRN PO CONSTIPATION; Start 05/19/16 at 20: 00 Famotidine (Pepcid) 20 mg Q12 PO Last administered on 05/19/16 21:21; Admin Dose 20 MG; Start 05/19/16 at 21:00 Enoxaparin Sodium (Lovenox) 40 mg DAILY SC ; Start 05/20/16 at 09:00 Aspirin (Aspirin) 81 mg DAILY PO Last administered on 05/20/16 09:53; Admin Dose 81 MG; Start 05/20/16 at 09:00 Atorvastatin Calcium (Lipitor) 10 mg QHS PO ; Start 05/19/16 at 21:00 Cholecalciferol (Vitamin D) 1,000 unit DAILY PO Last administered on 05/20/16 09:54; Admin Dose 1,000 UNIT; Start 05/20/16 at 09:00 Fluticasone Propionate (Flonase 0.05% Nasal) 1 spray BID NASAL Last administered on 05/19/16 21:22; Admin Dose 1 SPRAY; Start 05/19/16 at 21:00 Guaifenesin (Robitussin Liquid Cup) 600 mg Q12 PRN PO COUGH; Start 05/19/16 at 20:00 Metoprolol Succinate (Toprol Xl) 25 mg DAILY PO Last administered on 05/20/16 09:54; Admin Dose 25 MG; Start 05/20/16 at 09:00 Multivitamins Therapeutic (Theragran) 1 tab DAILY PO Last administered on 09:54; Admin Dose 1 TAB; Start 05/20/16 at 09:00 Polyethylene Glycol (Miralax) 17 gm DAILY PO Last administered on 05/20/16 09: 54; Admin Dose 17 GM; Start 05/20/16 at 09:00 Salmeterol Xinafoate/ Fluticasone (Advair 500/50 Diskus) 1 inh BID INH Last administered on 05/20/16 09:55; Admin Dose 1 INH; Start 05/19/16 at 21:00 Senna (Senokot) 2 tab BID PO Last administered on 05/20/16 09:53; Admin Dose 2 TAB; Start 05/19/16 at 21:00 Tamsulosin HCl (Flomax) 0.4 mg HS PO Last administered on 05/19/16 21:21; Admin Dose 0.4 MG; Start 05/19/16 at 21:00 Zolpidem Tartrate (Ambien) 5 mg QHS PRN PO SLEEP; Start 05/19/16 at 20:00 Acetaminophen/ Hydrocodone Bitart ([place] (5/325)) 1 tab Q6H PRN PO MODERATE PAIN LEVEL 4-6; Start 05/19/16 at 20:00 Ipratropium [place] (Atrovent Nasal) 2 spray QID NASAL Last administered on 21:22; Admin Dose 2 SPRAY; Start 05/19/16 at 21:00 Methylprednisolone Sodium Succinate (Solu-Medrol) 40 mg Q8 IV ; Start 05/20/16 at 14:00 Guaifenesin (Mucinex) 600 mg BID PO ; Start 05/20/16 at 21:00 JANIS VAZQUEZ MD May 20, 2016 13:25
[2016-05-20] MEDS: METHYLPREDNISOLONE 40 MG INJ IV SCH ×2 (14:17→22:03)
[2016-05-20] MEDS: ATORVASTATIN 10 MG TAB PO SCH (20:36)
[2016-05-20] MEDS: GUAIFENESIN LA 600 MG TABSR PO SCH (20:36)
[2016-05-20] MEDS: TAMSULOSIN (SR) 0.4 MG CAP PO SCH (20:36)
[2016-05-21] VITALS (13 sets, daily range): BP systolic 109–128; BP diastolic 58–77; PULSE 90–120; RESP 18–20
[2016-05-21] MEDS: ALBUTEROL/IPRATROPIUM (NEB) 3 ML AMP HHN SCH ×6 (00:34→20:53)
[2016-05-21] MEDS: METHYLPREDNISOLONE 40 MG INJ IV SCH (05:25)
[2016-05-21 06:18] LABS: ADD SCAN DIFF NO
[2016-05-21 06:25] LABS: BASOPHILS % 0.1 % (0.0-2.0); HEMATOCRIT 38.4 % (42.0-52.0); HEMOGLOBIN 12.2 g/dl (14.0-18.0); LYMPHOCYTES % 9.1 % (15.0-51.0); MEAN CORPUSCULAR HEMOGLOBIN 30.6 pg (29.0-33.0); MEAN CORPUSCULAR HGB CONC 31.8 g/dl (32.0-37.0); MEAN CORPUSCULAR VOLUME 96.2 fl (82.0-101.0); MEAN PLATELET VOLUME 10.9 fl (7.4-10.4); MONOCYTES % 9.1 % (0.0-11.0); NEUTROPHIL # 9.2 10^3/ul (1.6-7.5); NEUTROPHILS % 81.2 % (39.0-77.0); PLATELET COUNT 262 10^3/UL (140-415); RED BLOOD COUNT 3.99 10^6/ul (4.70-6.10); RED CELL DISTRIBUTION WIDTH 13.3 % (11.5-14.5); WHITE BLOOD COUNT 11.3 10^3/ul (4.8-10.8)
[2016-05-21 06:28] LABS: POTASSIUM 5.4 mmol/L (3.5-5.1)
[2016-05-21 06:29] LABS: INR 0.95; PROTIME 12.7 Sec (12.2-14.2)
[2016-05-21 06:31] LABS: CREATININE 0.9 mg/dl (0.61-1.24)
[2016-05-21 06:32] LABS: CALCIUM 9.6 mg/dl (8.4-10.2)
[2016-05-21] MEDS: IPRATROPIUM 0.03% 30 ML NASAL SPRAY NASAL SCH ×4 (09:00→21:15)
[2016-05-21] MEDS: ENOXAPARIN 40 MG/0.4 ML SYG SC SCH (09:00)
[2016-05-21] MEDS: FAMOTIDINE 20 MG TAB PO SCH ×2 (10:10→21:00)
[2016-05-21] MEDS: FLUTICASONE 0.05% 16 GM NAS SPRAY NASAL SCH ×2 (10:10→21:15)
[2016-05-21] MEDS: POLYETHYLENE GLYCOL 17 GM PACKET PO SCH (10:10)
[2016-05-21] MEDS: CHOLECALCIFEROL 1,000 UNIT TAB PO SCH (10:11)
[2016-05-21] MEDS: GUAIFENESIN LA 600 MG TABSR PO SCH ×2 (10:12→21:16)
[2016-05-21] MEDS: MULTIVITAMINS THERAPEUTIC TAB PO SCH (10:14)
[2016-05-21] MEDS: SALMETEROL/FLUTICASONE 500/50 INHA INH SCH ×2 (10:14→21:15)
[2016-05-21] MEDS: METOPROLOL (XL) 25 MG TAB PO SCH (10:14)
[2016-05-21] MEDS: ASPIRIN 81 MG TAB PO SCH (10:14)
[2016-05-21] MEDS: SENNA TAB PO SCH ×2 (10:15→21:16)
--- NOTE | 2016-05-21 12:53 | PN ---
Date/Time of Note Date/Time of Note DATE: 05/21/16 TIME: 12:52 Assessment/Plan VTE Prophylaxis VTE Prophylaxis Intervention: heparin, SCD's Lines/Catheters IV Catheter Type (from Nrs): Saline Lock Urinary Cath still in place: No Assessment/Plan Assessment/Plan 1. acute COPD exacerbation 2. Acute hypoxemic respiratory failure 04/27 #1 3. Pulmonary Hypertension - possible start of revatio or other PDE5 inhibitor drugs - will defer to pulm 4. 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 BPH - continue with flomax 7. GI ppx - pepcid 8. DVT ppx - heparin Plan' IV solu-medrol pulmonary consult nebulizer treatment BP stable s/p IVF bolus in ED-d/c IVF due to pul HTN Pulmonary to decide for revatio or other PDE5 inhibitor drugs Subjective 24 Hr Interval Summary Free Text/Dictation stable, SOB better, but still wheezing Exam/Review of Systems Vital Signs Vitals Vital Signs Date Time Temp Pulse Resp B/P Pulse Ox O2 Delivery O2 Flow Rate FiO2 05/21/16 12:38 90 05/21/16 11:55 98.0 18 125/67 96 05/21/16 09:31 Nasal Cannula 3.0 05/19/16 23:00 32 Intake and Output 05/20/16 05/20/16 05/21/16 15:00 23:00 07:00 Intake Total 250 ml 200 ml Output Total 300 ml 460 ml Balance -50 ml -260 ml Exam Gen Nasima: no acute distress HEENT: PEERLA< EOMI CV: S1S2, tachycardiac, no M/G/R Lungs: diminished breath sounds, inspiratory/expiratory wheezing, no crackles Abd: soft, NT/ND, +BS, no rebound, no guarding, neg HSM EXT: no edema, no ecchymosis, no clubbing, FROM Skin: silverish hue to skin all over Results Result Diagram: 05/21/16 0555 05/21/16 0545 Results 24 hrs Laboratory Tests Test 05/21/16 05:45 05/21/16 05:55 Anion Gap 13 Blood Urea Nitrogen 35 #H Calcium Level 9.6 Carbon Dioxide Level 34 H Chloride Level 97 Creatinine 0.90 Glucose Level 150 Potassium Level 5.4 H Sodium Level 139 Activated Partial Thromboplast Time 27.0 Basophils # 0.0 Basophils % 0.1 Eosinophils # 0.0 Eosinophils % 0.0 Hematocrit 38.4 L Hemoglobin 12.2 L INR International Normalized Ratio 0.95 Lymphocytes # 1.0 Lymphocytes % 9.1 L Mean Corpuscular Hemoglobin 30.6 Mean Corpuscular Hemoglobin Concent 31.8 L Mean Corpuscular Volume 96.2 Mean Platelet Volume 10.9 H Monocytes # 1.0 H Monocytes % 9.1 Neutrophils # 9.2 H Neutrophils % 81.2 H Nucleated Red Blood Cells # 0.0 Nucleated Red Blood Cells % 0.0 Platelet Count 262 Prothrombin Time 12.7 Prothrombin Time Ratio 1.0 Red Blood Count 3.99 L Red Cell Distribution Width 13.3 White Blood Count 11.3 #H Medications Medications Current Medications Lorazepam (Ativan) 0.5 mg Q6H PRN IV ANXIETY Last administered on 05/20/16 00: 18; Admin Dose 0.5 MG; Start 05/19/16 at 20:00 Ondansetron HCl (Zofran Inj) 4 mg Q6H PRN IV NAUSEA AND/OR VOMITING; Start at 20:00 Nitroglycerin (Nitroglycerin (Sl Tab) 0.4 Mg) 1 tab Q5M PRN SL CHEST PAIN; Start 05/19/16 at 20:00 Acetaminophen (Tylenol Tab) 650 mg Q6H PRN PO PAIN LEVEL 1-3 OR FEVER; Start at 20:00 Morphine Sulfate (morphine) 2 mg Q4H PRN IV PAIN LEVEL 7-10; Start 05/19/16 at 20:00 Docusate Sodium (Colace) 100 mg Q12H PRN PO CONSTIPATION; Start 05/19/16 at 20: 00 Famotidine (Pepcid) 20 mg Q12 PO Last administered on 05/21/16 10:10; Admin Dose 20 MG; Start 05/19/16 at 21:00 Enoxaparin Sodium (Lovenox) 40 mg DAILY SC ; Start 05/20/16 at 09:00 Aspirin (Aspirin) 81 mg DAILY PO Last administered on 05/21/16 10:14; Admin Dose 81 MG; Start 05/20/16 at 09:00 Atorvastatin Calcium (Lipitor) 10 mg QHS PO Last administered on 05/20/16 20: 36; Admin Dose 10 MG; Start 05/19/16 at 21:00 Cholecalciferol (Vitamin D) 1,000 unit DAILY PO Last administered on 05/21/16 10:11; Admin Dose 1,000 UNIT; Start 05/20/16 at 09:00 Fluticasone Propionate (Flonase 0.05% Nasal) 1 spray BID NASAL Last administered on 05/21/16 10:10; Admin Dose 1 SPRAY; Start 05/19/16 at 21:00 Guaifenesin (Robitussin Liquid Cup) 600 mg Q12 PRN PO COUGH; Start 05/19/16 at 20:00 Metoprolol Succinate (Toprol Xl) 25 mg DAILY PO Last administered on 05/21/16 10:14; Admin Dose 25 MG; Start 05/20/16 at 09:00 Multivitamins Therapeutic (Theragran) 1 tab DAILY PO Last administered on 10:14; Admin Dose 1 TAB; Start 05/20/16 at 09:00 Polyethylene Glycol (Miralax) 17 gm DAILY PO Last administered on 05/21/16 10: 10; Admin Dose 17 GM; Start 05/20/16 at 09:00 Salmeterol Xinafoate/ Fluticasone (Advair 500/50 Diskus) 1 inh BID INH Last administered on 05/21/16 10:14; Admin Dose 1 INH; Start 05/19/16 at 21:00 Senna (Senokot) 2 tab BID PO Last administered on 05/21/16 10:15; Admin Dose 2 TAB; Start 05/19/16 at 21:00 Tamsulosin HCl (Flomax) 0.4 mg HS PO Last administered on 05/20/16 20:36; Admin Dose 0.4 MG; Start 05/19/16 at 21:00 Zolpidem Tartrate (Ambien) 5 mg QHS PRN PO SLEEP; Start 05/19/16 at 20:00 Acetaminophen/ Hydrocodone Bitart ([place] (5/325)) 1 tab Q6H PRN PO MODERATE PAIN LEVEL 4-6; Start 05/19/16 at 20:00 Ipratropium [place] (Atrovent Nasal) 2 spray QID NASAL Last administered on 17:00; Admin Dose 2 SPRAY; Start 05/19/16 at 21:00 Methylprednisolone Sodium Succinate (Solu-Medrol) 40 mg Q8 IV Last administered on 05/21/16 05:25; Admin Dose 40 MG; Start 05/20/16 at 14:00 Guaifenesin (Mucinex) 600 mg BID PO Last administered on 05/21/16 10:12; Admin Dose 600 MG; Start 05/20/16 at 21:00 JANIS VAZQUEZ MD May 21, 2016 12:53
--- NOTE | 2016-05-21 13:06 | CONS ---
Date/Time of Note Date/Time of Note DATE: 05/21/16 TIME: 13:04 Assessment/Plan Assessment/Plan Additional Assessment/Plan Assessment and recommendations; next 1. Patient admitted with severe COPD exacerbation with hypercapnic respiratory failure with marked clinical improvement. Next 2. Stable hypertension. 3. Likely underlying sleep apnea. Next Continue current treatment for now change Solu Medrol to prednisone 15 mg twice daily. On outpatient basis patient likely would need to have a systole performed however on account of underlying hypercapnic respiratory failure the patient will qualify for BiPAP machine. Consultation Date/Type/Reason Admit Date/Time May 19, 2016 at 19:29 Initial Consult Date 05/20/16 Type of Consultation: Pulmonary 24 HR Interval Summary Free Text/Dictation Patient condition is markedly improved. He is completely awake alert. Denies any cough. Sinus symptoms have improved. Denies any wheezing, chest pain, fever, chills. General examination; elderly male, currently in no distress awake and alert. Exam/Review of Systems Vital Signs Vitals Vital Signs Date Time Temp Pulse Resp B/P Pulse Ox O2 Delivery O2 Flow Rate FiO2 05/21/16 12:38 90 05/21/16 11:55 98.0 18 125/67 96 05/21/16 09:31 Nasal Cannula 3.0 05/19/16 23:00 32 Intake and Output 05/20/16 05/20/16 05/21/16 15:00 23:00 07:00 Intake Total 250 ml 200 ml Output Total 300 ml 460 ml Balance -50 ml -260 ml Exam HEENT examination; supple neck, no JVD. No lymphadenopathy. Midline trachea. Pupils are small bilaterally. Pharynx is clear. Chest examination; diminished but clear breath sounds bilaterally. S1-S2 audible, no murmurs. Regular rhythm. Abdomen examination; soft, nontender. No organomegaly. Bowel sounds audible. Extremity examination; no peripheral edema. 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 Results Result Diagram: 05/21/16 0555 05/21/16 0545 Results 24 hrs Laboratory Tests Test 05/21/16 05:45 05/21/16 05:55 Anion Gap 13 Blood Urea Nitrogen 35 #H Calcium Level 9.6 Carbon Dioxide Level 34 H Chloride Level 97 Creatinine 0.90 Glucose Level 150 Potassium Level 5.4 H Sodium Level 139 Activated Partial Thromboplast Time 27.0 Basophils # 0.0 Basophils % 0.1 Eosinophils # 0.0 Eosinophils % 0.0 Hematocrit 38.4 L Hemoglobin 12.2 L INR International Normalized Ratio 0.95 Lymphocytes # 1.0 Lymphocytes % 9.1 L Mean Corpuscular Hemoglobin 30.6 Mean Corpuscular Hemoglobin Concent 31.8 L Mean Corpuscular Volume 96.2 Mean Platelet Volume 10.9 H Monocytes # 1.0 H Monocytes % 9.1 Neutrophils # 9.2 H Neutrophils % 81.2 H Nucleated Red Blood Cells # 0.0 Nucleated Red Blood Cells % 0.0 Platelet Count 262 Prothrombin Time 12.7 Prothrombin Time Ratio 1.0 Red Blood Count 3.99 L Red Cell Distribution Width 13.3 White Blood Count 11.3 #H Medications Medications Current Medications Lorazepam (Ativan) 0.5 mg Q6H PRN IV ANXIETY Last administered on 05/20/16 00: 18; Admin Dose 0.5 MG; Start 05/19/16 at 20:00 Ondansetron HCl (Zofran Inj) 4 mg Q6H PRN IV NAUSEA AND/OR VOMITING; Start at 20:00 Nitroglycerin (Nitroglycerin (Sl Tab) 0.4 Mg) 1 tab Q5M PRN SL CHEST PAIN; Start 05/19/16 at 20:00 Acetaminophen (Tylenol Tab) 650 mg Q6H PRN PO PAIN LEVEL 1-3 OR FEVER; Start at 20:00 Morphine Sulfate (morphine) 2 mg Q4H PRN IV PAIN LEVEL 7-10; Start 05/19/16 at 20:00 Docusate Sodium (Colace) 100 mg Q12H PRN PO CONSTIPATION; Start 05/19/16 at 20: 00 Famotidine (Pepcid) 20 mg Q12 PO Last administered on 05/21/16 10:10; Admin Dose 20 MG; Start 05/19/16 at 21:00 Enoxaparin Sodium (Lovenox) 40 mg DAILY SC ; Start 05/20/16 at 09:00 Aspirin (Aspirin) 81 mg DAILY PO Last administered on 05/21/16 10:14; Admin Dose 81 MG; Start 05/20/16 at 09:00 Atorvastatin Calcium (Lipitor) 10 mg QHS PO Last administered on 05/20/16 20: 36; Admin Dose 10 MG; Start 05/19/16 at 21:00 Cholecalciferol (Vitamin D) 1,000 unit DAILY PO Last administered on 05/21/16 10:11; Admin Dose 1,000 UNIT; Start 05/20/16 at 09:00 Fluticasone Propionate (Flonase 0.05% Nasal) 1 spray BID NASAL Last administered on 05/21/16 10:10; Admin Dose 1 SPRAY; Start 05/19/16 at 21:00 Guaifenesin (Robitussin Liquid Cup) 600 mg Q12 PRN PO COUGH; Start 05/19/16 at 20:00 Metoprolol Succinate (Toprol Xl) 25 mg DAILY PO Last administered on 05/21/16 10:14; Admin Dose 25 MG; Start 05/20/16 at 09:00 Multivitamins Therapeutic (Theragran) 1 tab DAILY PO Last administered on 10:14; Admin Dose 1 TAB; Start 05/20/16 at 09:00 Polyethylene Glycol (Miralax) 17 gm DAILY PO Last administered on 05/21/16 10: 10; Admin Dose 17 GM; Start 05/20/16 at 09:00 Salmeterol Xinafoate/ Fluticasone (Advair 500/50 Diskus) 1 inh BID INH Last administered on 05/21/16 10:14; Admin Dose 1 INH; Start 05/19/16 at 21:00 Senna (Senokot) 2 tab BID PO Last administered on 05/21/16 10:15; Admin Dose 2 TAB; Start 05/19/16 at 21:00 Tamsulosin HCl (Flomax) 0.4 mg HS PO Last administered on 05/20/16 20:36; Admin Dose 0.4 MG; Start 05/19/16 at 21:00 Zolpidem Tartrate (Ambien) 5 mg QHS PRN PO SLEEP; Start 05/19/16 at 20:00 Acetaminophen/ Hydrocodone Bitart ([place] (5/325)) 1 tab Q6H PRN PO MODERATE PAIN LEVEL 4-6; Start 05/19/16 at 20:00 Ipratropium [place] (Atrovent Nasal) 2 spray QID NASAL Last administered on 17:00; Admin Dose 2 SPRAY; Start 05/19/16 at 21:00 Methylprednisolone Sodium Succinate (Solu-Medrol) 40 mg Q8 IV Last administered on 05/21/16 05:25; Admin Dose 40 MG; Start 05/20/16 at 14:00 Guaifenesin (Mucinex) 600 mg BID PO Last administered on 05/21/16 10:12; Admin Dose 600 MG; Start 05/20/16 at 21:00 WATSON FISCHER May 21, 2016 13:06
[2016-05-21] MEDS ORDERED: NA POLYST SULFON 15 GM/60 ML BTL PO ONE (15:00)
[2016-05-21 17:30] LABS: ADD UMIC YES; URINE BILIRUBIN (Dip) NEGATIVE (NEGATIVE); URINE BLOOD (Dip) 3+ (NEGATIVE); URINE COLOR LT. YELLOW (YELLOW); URINE GLUCOSE (Dip) NEGATIVE (NEGATIVE); URINE KETONES (Dip) NEGATIVE (NEGATIVE); URINE LEUKOCYTE ESTERASE (Dip) TRACE (NEGATIVE); URINE NITRITE (Dip) NEGATIVE (NEGATIVE); URINE TOTAL PROTEIN (Dip) 1+ (NEGATIVE); URINE UROBILINOGEN (Dip) 0.2 E.U./dL (0.1-1.0)
[2016-05-21 17:44] LABS: SQUAMOUS EPITHELIAL CELL,UR FEW; URINE RBCS >200 /HPF (0)
[2016-05-21] MEDS ORDERED: CALCIUM CARBONATE 1.25 GM TAB PO ONE (18:30)
[2016-05-21] MEDS: MAGNESIUM OXIDE 400 MG TAB PO SCH (19:08)
[2016-05-21] MEDS: ATORVASTATIN 10 MG TAB PO SCH (21:00)
[2016-05-21] MEDS: TAMSULOSIN (SR) 0.4 MG CAP PO SCH (21:16)
[2016-05-21] MEDS: LORAZEPAM 2 MG INJ IV PRN (21:39)
[2016-05-22] VITALS (10 sets, daily range): BP systolic 122–154; BP diastolic 70–89; PULSE 80–120; RESP 18–22
[2016-05-22] MEDS: ALBUTEROL/IPRATROPIUM (NEB) 3 ML AMP HHN SCH ×6 (02:24→20:30)
[2016-05-22 07:40] LABS: ADD SCAN DIFF NO
[2016-05-22 07:55] LABS: ABNORMAL IP MESSAGE 1; BASOPHILS % 0.2 % (0.0-2.0); HEMATOCRIT 39.8 % (42.0-52.0); HEMOGLOBIN 12.7 g/dl (14.0-18.0); LYMPHOCYTES # 1.8 10^3/ul (0.8-2.9); MEAN CORPUSCULAR HEMOGLOBIN 31.1 pg (29.0-33.0); MEAN CORPUSCULAR HGB CONC 31.9 g/dl (32.0-37.0); MEAN CORPUSCULAR VOLUME 97.3 fl (82.0-101.0); MEAN PLATELET VOLUME 10.8 fl (7.4-10.4); MONOCYTE # 2.5 10^3/ul (0.3-0.9); MONOCYTES % 18.8 % (0.0-11.0); NEUTROPHIL # 8.7 10^3/ul (1.6-7.5); NEUTROPHILS % 66.5 % (39.0-77.0); PLATELET COUNT 301 10^3/UL (140-415); RED BLOOD COUNT 4.09 10^6/ul (4.70-6.10); RED CELL DISTRIBUTION WIDTH 13.8 % (11.5-14.5)
[2016-05-22 08:00] LABS: INR 0.99; PROTIME 13.1 Sec (12.2-14.2)
[2016-05-22 08:01] LABS: PARTIAL THROMBOPLASTIN TIME 29.7 Sec (25.0-35.0)
[2016-05-22 08:02] LABS: POTASSIUM 4.5 mmol/L (3.5-5.1)
[2016-05-22 08:05] LABS: CREATININE 0.84 mg/dl (0.61-1.24)
[2016-05-22 08:06] LABS: CALCIUM 9.6 mg/dl (8.4-10.2)
[2016-05-22] MEDS: FAMOTIDINE 20 MG TAB PO SCH ×2 (09:00→21:06)
[2016-05-22] MEDS: FLUTICASONE 0.05% 16 GM NAS SPRAY NASAL SCH ×2 (09:00→21:05)
[2016-05-22] MEDS: SALMETEROL/FLUTICASONE 500/50 INHA INH SCH ×2 (09:15→21:00)
[2016-05-22] MEDS: IPRATROPIUM 0.03% 30 ML NASAL SPRAY NASAL SCH ×4 (09:15→21:01)
[2016-05-22] MEDS: ASPIRIN 81 MG TAB PO SCH (09:16)
--- NOTE | 2016-05-22 09:16 | PQ ---
Date/Time of Note Date/Time of Note DATE: 05/22/16 TIME: 09:12 Physician Query Documentation Clarification Dear Dr. Vazquez, A review of the medical record found a need for documentation clarification. progress note documentation of " Argyria" Please clarify/ specify ( if known) diagnosis being monitored. 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 You may also document your response on your progress notes. Thank you for your time. Carlos Jerez RN, BSN, CCS, CCDS Clinical [employer] Agent [employer] Health Information Management, [employer] and Coding Services [phone] Room # [id number] - [address]~ [id number] CARLOS JEREZ May 22, 2016 09:16 JANIS VAZQUEZ MD May 22, 2016 11:32
[2016-05-22] MEDS: MAGNESIUM OXIDE 400 MG TAB PO SCH (09:17)
[2016-05-22] MEDS: TAMSULOSIN (SR) 0.4 MG CAP PO SCH ×2 (09:17→21:06)
[2016-05-22] MEDS: POLYETHYLENE GLYCOL 17 GM PACKET PO SCH (09:18)
[2016-05-22] MEDS: GUAIFENESIN LA 600 MG TABSR PO SCH ×2 (09:18→21:06)
[2016-05-22] MEDS: predniSONE 10 MG TAB PO SCH (09:19)
[2016-05-22] MEDS: SENNA TAB PO SCH ×2 (09:20→21:06)
[2016-05-22] MEDS: METOPROLOL (XL) 25 MG TAB PO SCH (09:20)
[2016-05-22] MEDS: MULTIVITAMINS THERAPEUTIC TAB PO SCH (09:20)
[2016-05-22] MEDS: CHOLECALCIFEROL 1,000 UNIT TAB PO SCH (09:21)
--- NOTE | 2016-05-22 11:48 | CONS ---
Date/Time of Note Date/Time of Note DATE: 05/22/16 TIME: 11:46 Assessment/Plan Assessment/Plan Additional Assessment/Plan Assessment and recommendations; next 1. Patient admitted with COPD exacerbation and acute bronchitis with some clinical improvement. 2. History of BPH. Patient having difficulty voiding. 3. History of hypertension. Next Continue current treatment patient has been weaned down to 30 mg prednisone daily. At this time I would recommend adding Zithromax 5 mg orally daily. Patient also need to have a Ramires catheter placed. Consultation Date/Type/Reason Admit Date/Time May 19, 2016 at 19:29 Initial Consult Date 05/20/16 Type of Consultation: Pulmonary 24 HR Interval Summary Free Text/Dictation Patient condition is improving. Still complains of cough and chest congestion. With very scant sputum production. She is having difficulty urinating. He also had undergone straight catheterization yesterday with the patient is still having recurrent problems. Denies any wheezing. General examination; early male currently in no distress. Awake and alert. Exam/Review of Systems Vital Signs Vitals Vital Signs Date Time Temp Pulse Resp B/P Pulse Ox O2 Delivery O2 Flow Rate FiO2 05/22/16 08:57 110 05/22/16 08:24 97.8 20 122/70 98 05/22/16 08:00 Nasal Cannula 2.0 05/19/16 23:00 32 Intake and Output 05/21/16 05/21/16 05/22/16 15:00 23:00 07:00 Intake Total 450 ml Output Total 700 ml Balance -250 ml Exam HEENT examination; supple neck, no JVD. No lymphadenopathy. Midline trachea. No thyromegaly. Pharynx is clear. Chest examination; diminished but clear breath sounds bilaterally. S1-S2 audible, no murmurs. Regular rhythm. Abdomen examination; soft, nondistended. No organomegaly. Bowel sounds audible. Extremity examination; no peripheral edema. 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 Results Result Diagram: 05/22/16 0645 05/22/16 0645 Results 24 hrs Laboratory Tests Test 05/21/16 15:45 05/22/16 06:45 Urine Bilirubin NEGATIVE Urine Clarity SLIGHTLY CLOUDY Urine Color LT. YELLOW Urine Glucose NEGATIVE Urine Hemoglobin 3+ H Urine Hyaline Casts FEW Urine Ketones NEGATIVE Urine Leukocyte Esterase TRACE H Urine Microscopic RBC >200 Urine Microscopic WBC 5-10 Urine Nitrite NEGATIVE Urine Specific [place] 1.010 Urine Squamous Epithelial Cells FEW Urine Total Protein 1+ H Urine Urobilinogen 0.2 E.U./dL Urine pH 6.0 Activated Partial Thromboplast Time 29.7 Anion Gap 11 Basophils # 0.0 Basophils % 0.2 Blood Urea Nitrogen 38 H Calcium Level 9.6 Carbon Dioxide Level 39 H Chloride Level 96 L Creatinine 0.84 Eosinophils # 0.0 Eosinophils % 0.0 Glucose Level 90 # Hematocrit 39.8 L Hemoglobin 12.7 L INR International Normalized Ratio 0.99 Lymphocytes # 1.8 Lymphocytes % 14.0 L Mean Corpuscular Hemoglobin 31.1 Mean Corpuscular Hemoglobin Concent 31.9 L Mean Corpuscular Volume 97.3 Mean Platelet Volume 10.8 H Monocytes # 2.5 H Monocytes % 18.8 H Neutrophils # 8.7 H Neutrophils % 66.5 Nucleated Red Blood Cells # 0.0 Nucleated Red Blood Cells % 0.0 Platelet Count 301 Potassium Level 4.5 Prothrombin Time 13.1 Prothrombin Time Ratio 1.0 Red Blood Count 4.09 L Red Cell Distribution Width 13.8 Sodium Level 141 White Blood Count 13.0 H Medications Medications Current Medications Lorazepam (Ativan) 0.5 mg Q6H PRN IV ANXIETY Last administered on 05/21/16 21: 39; Admin Dose 0.5 MG; Start 05/19/16 at 20:00 Ondansetron HCl (Zofran Inj) 4 mg Q6H PRN IV NAUSEA AND/OR VOMITING; Start at 20:00 Nitroglycerin (Nitroglycerin (Sl Tab) 0.4 Mg) 1 tab Q5M PRN SL CHEST PAIN; Start 05/19/16 at 20:00 Acetaminophen (Tylenol Tab) 650 mg Q6H PRN PO PAIN LEVEL 1-3 OR FEVER; Start at 20:00 Morphine Sulfate (morphine) 2 mg Q4H PRN IV PAIN LEVEL 7-10; Start 05/19/16 at 20:00 Docusate Sodium (Colace) 100 mg Q12H PRN PO CONSTIPATION; Start 05/19/16 at 20: 00 Famotidine (Pepcid) 20 mg Q12 PO Last administered on 05/21/16 10:10; Admin Dose 20 MG; Start 05/19/16 at 21:00 Aspirin (Aspirin) 81 mg DAILY PO Last administered on 05/22/16 09:16; Admin Dose 81 MG; Start 05/20/16 at 09:00 Atorvastatin Calcium (Lipitor) 10 mg QHS PO Last administered on 05/20/16 20: 36; Admin Dose 10 MG; Start 05/19/16 at 21:00 Cholecalciferol (Vitamin D) 1,000 unit DAILY PO Last administered on 05/22/16 09:21; Admin Dose 1,000 UNIT; Start 05/20/16 at 09:00 Fluticasone Propionate (Flonase 0.05% Nasal) 1 spray BID NASAL Last administered on 05/21/16 21:15; Admin Dose 1 SPRAY; Start 05/19/16 at 21:00 Guaifenesin (Robitussin Liquid Cup) 600 mg Q12 PRN PO COUGH; Start 05/19/16 at 20:00 Metoprolol Succinate (Toprol Xl) 25 mg DAILY PO Last administered on 05/22/16 09:20; Admin Dose 25 MG; Start 05/20/16 at 09:00 Multivitamins Therapeutic (Theragran) 1 tab DAILY PO Last administered on 09:20; Admin Dose 1 TAB; Start 05/20/16 at 09:00 Polyethylene Glycol (Miralax) 17 gm DAILY PO Last administered on 05/22/16 09: 18; Admin Dose 17 GM; Start 05/20/16 at 09:00 Salmeterol Xinafoate/ Fluticasone (Advair 500/50 Diskus) 1 inh BID INH Last administered on 05/22/16 09:15; Admin Dose 1 INH; Start 05/19/16 at 21:00 Senna (Senokot) 2 tab BID PO Last administered on 05/22/16 09:20; Admin Dose 2 TAB; Start 05/19/16 at 21:00 Zolpidem Tartrate (Ambien) 5 mg QHS PRN PO SLEEP; Start 05/19/16 at 20:00 Acetaminophen/ Hydrocodone Bitart ([place] (5/325)) 1 tab Q6H PRN PO MODERATE PAIN LEVEL 4-6; Start 05/19/16 at 20:00 Ipratropium [place] (Atrovent Nasal) 2 spray QID NASAL Last administered on 09:15; Admin Dose 2 SPRAY; Start 05/19/16 at 21:00 Guaifenesin (Mucinex) 600 mg BID PO Last administered on 05/22/16 09:18; Admin Dose 600 MG; Start 05/20/16 at 21:00 Prednisone (Prednisone) 30 mg DAILY PO Last administered on 05/22/16 09:19; Admin Dose 30 MG; Start 05/22/16 at 09:00 Tamsulosin HCl (Flomax) 0.4 mg BID PO Last administered on 05/22/16 09:17; Admin Dose 0.4 MG; Start 05/21/16 at 21:00 Magnesium Oxide (Mag-Ox 400) 400 mg DAILY PO Last administered on 05/22/16 09: 17; Admin Dose 400 MG; Start 05/21/16 at 18:30 WATSON FISCHER May 22, 2016 11:48
--- NOTE | 2016-05-22 13:08 | PN ---
Date/Time of Note Date/Time of Note DATE: 05/22/16 TIME: 13:04 Assessment/Plan VTE Prophylaxis VTE Prophylaxis Intervention: heparin Lines/Catheters IV Catheter Type (from Nrs): Sal[place] Lock Urinary Cath still in place: No Assessment/Plan Assessment/Plan 1. Acute COPD exacerbation, improving slowly, on neb/zithromax and prednisone 2. Acute hypoxemic respiratory failure 04/27 #1 3. Pulmonary Hypertension, COPD related 4. 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 BPH - continue with flomax 7. GI ppx - pepcid 8. DVT ppx - heparin Subjective 24 Hr Interval Summary Free Text/Dictation still SOB Exam/Review of Systems Vital Signs Vitals Vital Signs Date Time Temp Pulse Resp B/P Pulse Ox O2 Delivery O2 Flow Rate FiO2 05/22/16 12:40 114 05/22/16 08:24 97.8 20 122/70 98 05/22/16 08:00 Nasal Cannula 2.0 05/19/16 23:00 32 Intake and Output 05/21/16 05/21/16 05/22/16 15:00 23:00 07:00 Intake Total 450 ml Output Total 700 ml Balance -250 ml Exam Constitutional: alert, oriented, well developed Psych: nl mood/affect, no complaints Head: atraumatic, normocephalic Eyes: EOMI, PERRL, nl conjunctiva, nl lids ENMT: nl external ears & nose, nl lips & teeth, nl nasal mucosa & septum Neck: non-tender, supple Respiratory: diminished breath sounds Cardiovascular: nl pulses, regular rate and rhythm, No S3, No S4, No bruits, No diastolic murmur, No edema, No gallop, No irregular rhythm, No jugular venous distention (JVD), No murmurs/extra sounds, No other, No rub, No systolic murmur Gastrointestinal: nl liver, spleen, non-tender, soft, No ascites, No bowel sounds, No distended, No firm, No hepatomegaly, No mass , No other, No rebound or guarding, No splenomegaly, No surgical scars, No tender Musculoskeletal: nl extremities to inspection 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 YELLOW Urine Glucose NEGATIVE Urine Hemoglobin 3+ H Urine Hyaline Casts FEW Urine Ketones NEGATIVE Urine Leukocyte Esterase TRACE H Urine Microscopic RBC >200 Urine Microscopic WBC 5-10 Urine Nitrite NEGATIVE Urine Specific [place] 1.010 Urine Squamous Epithelial Cells FEW Urine Total Protein 1+ H Urine Urobilinogen 0.2 E.U./dL Urine pH 6.0 Activated Partial Thromboplast Time 29.7 Anion Gap 11 Basophils # 0.0 Basophils % 0.2 Blood Urea Nitrogen 38 H Calcium Level 9.6 Carbon Dioxide Level 39 H Chloride Level 96 L Creatinine 0.84 Eosinophils # 0.0 Eosinophils % 0.0 Glucose Level 90 # Hematocrit 39.8 L Hemoglobin 12.7 L INR International Normalized Ratio 0.99 Lymphocytes # 1.8 Lymphocytes % 14.0 L Mean Corpuscular Hemoglobin 31.1 Mean Corpuscular Hemoglobin Concent 31.9 L Mean Corpuscular Volume 97.3 Mean Platelet Volume 10.8 H Monocytes # 2.5 H Monocytes % 18.8 H Neutrophils # 8.7 H Neutrophils % 66.5 Nucleated Red Blood Cells # 0.0 Nucleated Red Blood Cells % 0.0 Platelet Count 301 Potassium Level 4.5 Prothrombin Time 13.1 Prothrombin Time Ratio 1.0 Red Blood Count 4.09 L Red Cell Distribution Width 13.8 Sodium Level 141 White Blood Count 13.0 H Medications Medications Current Medications Lorazepam (Ativan) 0.5 mg Q6H PRN IV ANXIETY Last administered on 05/21/16t 21: 39; Admin Dose 0.5 MG; Start 05/19/16 at 20:00 Ondansetron HCl (Zofran Inj) 4 mg Q6H PRN IV NAUSEA AND/OR VOMITING; Start at 20:00 Nitroglycerin (Nitroglycerin (Sl Tab) 0.4 Mg) 1 tab Q5M PRN SL CHEST PAIN; Start 05/19/16 at 20:00 Acetaminophen (Tylenol Tab) 650 mg Q6H PRN PO PAIN LEVEL 1-3 OR FEVER; Start at 20:00 Morphine Sulfate (morphine) 2 mg Q4H PRN IV PAIN LEVEL 7-10; Start 05/19/16 at 20:00 Docusate Sodium (Colace) 100 mg Q12H PRN PO CONSTIPATION; Start 05/19/16 at 20: 00 Famotidine (Pepcid) 20 mg Q12 PO Last administered on 05/21/16 10:10; Admin Dose 20 MG; Start 05/19/16 at 21:00 Aspirin (Aspirin) 81 mg DAILY PO Last administered on 05/22/16 09:16; Admin Dose 81 MG; Start 05/20/16 at 09:00 Atorvastatin Calcium (Lipitor) 10 mg QHS PO Last administered on 05/20/16 20: 36; Admin Dose 10 MG; Start 05/19/16 at 21:00 Cholecalciferol (Vitamin D) 1,000 unit DAILY PO Last administered on 05/22/16 09:21; Admin Dose 1,000 UNIT; Start 05/20/16 at 09:00 Fluticasone Propionate (Flonase 0.05% Nasal) 1 spray BID NASAL Last administered on 05/21/16 21:15; Admin Dose 1 SPRAY; Start 05/19/16 at 21:00 Guaifenesin (Robitussin Liquid Cup) 600 mg Q12 PRN PO COUGH; Start 05/19/16 at 20:00 Metoprolol Succinate (Toprol Xl) 25 mg DAILY PO Last administered on 05/22/16 09:20; Admin Dose 25 MG; Start 05/20/16 at 09:00 Multivitamins Therapeutic (Theragran) 1 tab DAILY PO Last administered on 09:20; Admin Dose 1 TAB; Start 05/20/16 at 09:00 Polyethylene Glycol (Miralax) 17 gm DAILY PO Last administered on 05/22/16 09: 18; Admin Dose 17 GM; Start 05/20/16 at 09:00 Salmeterol Xinafoate/ Fluticasone (Advair 500/50 Diskus) 1 inh BID INH Last administered on 05/22/16 09:15; Admin Dose 1 INH; Start 05/19/16 at 21:00 Senna (Senokot) 2 tab BID PO Last administered on 05/22/16 09:20; Admin Dose 2 TAB; Start 05/19/16 at 21:00 Zolpidem Tartrate (Ambien) 5 mg QHS PRN PO SLEEP; Start 05/19/16 at 20:00 Acetaminophen/ Hydrocodone Bitart ([place] (5/325)) 1 tab Q6H PRN PO MODERATE PAIN LEVEL 4-6; Start 05/19/16 at 20:00 Ipratropium [place] (Atrovent Nasal) 2 spray QID NASAL Last administered on 09:15; Admin Dose 2 SPRAY; Start 05/19/16 at 21:00 Guaifenesin (Mucinex) 600 mg BID PO Last administered on 05/22/16 09:18; Admin Dose 600 MG; Start 05/20/16 at 21:00 Prednisone (Prednisone) 30 mg DAILY PO Last administered on 05/22/16 09:19; Admin Dose 30 MG; Start 05/22/16 at 09:00 Tamsulosin HCl (Flomax) 0.4 mg BID PO Last administered on 05/22/16 09:17; Admin Dose 0.4 MG; Start 05/21/16 at 21:00 Magnesium Oxide (Mag-Ox 400) 400 mg DAILY PO Last administered on 05/22/16 09: 17; Admin Dose 400 MG; Start 05/21/16 at 18:30 Azithromycin (Zithromax) 500 mg DAILY PO ; Start 05/23/16 at 09:00 IGNACIO HENRIQUEZ MD May 22, 2016 13:08
[2016-05-22] MEDS: CALCIUM CARBONATE 750 MG CHEW TAB PO SCH ×2 (13:54→19:05)
[2016-05-22] MEDS: LORAZEPAM 2 MG INJ IV PRN (17:54)
--- NOTE | 2016-05-22 18:33 | CONS ---
DATE OF ADMISSION: 05/19/2016 DATE OF CONSULTATION: 05/22/2016 TYPE OF CONSULTATION: Nephrology. REASON FOR CONSULTATION: Acute hyperkalemia, metabolic alkalosis, hematuria and low proteinuric chronic kidney disease. REFERRING PHYSICIAN: KAITLYN HENRIQUEZ MD HISTORY OF PRESENT ILLNESS: This is a 70-year-old male with a past medical history of COPD with emphysema, pulmonary hypertension, rheumatoid arthritis and argyria, who was admitted with a complaint of shortness of breath on 2016. He gets admitted for acute COPD exacerbations. The patient is noted to have acute hyperkalemia with a potassium of 5.4 on 05/21/2016. He is also metabolic alkalotic with a bicarbonate level of 39. The patient had a very severe hematuria with blood clot in his Ramires catheter. He required a Ramires catheter for acute urinary retention. His urinalysis was done which revealed trace leukocyte esterase with 3+ hemoglobin, 1+ total protein. There was also a few hyaline casts and significant hematuria on the urinalysis. His coagulation panel was unremarkable and he was slightly anemic with hemoglobin of 12.7. No iron panel is available. Nephrology was consulted for acute hyperkalemia, metabolic alkalosis and also to rule out any chronic kidney disease. PAST MEDICAL HISTORY: Hypertension, hyperlipidemia, rheumatoid arthritis, acute respiratory failure with hypoxia secondary to chronic obstructive pulmonary disease exacerbation, history of COPD, history of gastroesophageal reflux disease, history of argyria skin disease, benign prostatic hypertrophy and protein calorie malnutrition. PAST SURGICAL HISTORY: History of joint implants before. SOCIAL HISTORY: No smoking, alcohol or recreational drug use. FAMILY HISTORY: Noncontributory. PHYSICAL EXAMINATION: VITAL SIGNS: Temperature 97.8, heart rate 114, respiration 19, blood pressure 154/80, saturation is 94% on 2 liters nasal cannula. GENERAL: Awake, alert, in no distress. HEENT: Normal. Oropharynx clear. NECK: Supple, no JVD, no lymphadenopathy. LUNGS: Clear to auscultation. No basilar crackles present. HEART: S1, S2, tachycardia, no murmur. ABDOMEN: Soft, nontender, nondistended. Bowel sounds are present. EXTREMITIES: No clubbing, cyanosis, or edema. NEUROLOGICAL: Nonfocal, intact. PSYCHIATRIC: Appropriate affect and mood. LABORATORY DATA/DIAGNOSTIC IMAGING: Sodium 139, potassium 5.4, chloride 97, bicarbonate 39, BUN is 38, creatinine is 0.8, glucose is 90, calcium is 9.6. Urinalysis shows trace leukocyte esterase, 3+ hemoglobin, 1+ total protein. WBC is 13, hemoglobin 12.7, platelet count is 301. ABG shows a pH of 7.32, pCO2 of 58, pO2 of 63, bicarbonate of 30. IMPRESSION: This is a 70-year-old male with: 1. Acute hyperkalemia. 2. Severe metabolic alkalosis with a bicarbonate of 39, which could be compensatory for his respiratory acidosis. 3. Acute prerenal azotemia likely secondary to decreased p.o. intake. 4. Acute urinary retention requiring a Ramires catheter with hematuria. 5. History of benign prostatic hypertrophy. 6. History of hypertension. 7. History of hyperlipidemia. 8. History of chronic obstructive pulmonary disease. 9. History of argyria skin disease. 10. 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 PLAN: 1. Thank you, Dr. Kaitlyn Baker for this consultation. I will order the Kayexalate for his hyperkalemia. The patient is currently on a prednisone 30 mg p.o. daily which was likely contributing to his metabolic alkalosis. 2. Morning labs including the CBC, CMP has been ordered. I will order some urine studies including a urine protein, urine creatinine ratio. Currently, he has a significant hematuria requiring a Ramires catheter, so he will need a urology consultation. 3. Meanwhile, I will increase his Flomax 0.4 mg p.o. b.i.d. 4. The patient currently seen in the telemetry floor and he will be followed up along with his course in the hospital. Total Time Spent in this patient Evaluation, making Assessment/Plan, Updating patient about Plan and communicating Nursing staff is More than 90 minutes. Dictated By: JANIS VAZQUEZ MD, KP/LESLIE Conf#: [id number] DID#: [id number] ILIANA
[2016-05-22] MEDS: ATORVASTATIN 10 MG TAB PO SCH (21:06)
[2016-05-22] MEDS: morphine 2 MG INJ IV PRN (23:27)
[2016-05-23] VITALS (10 sets, daily range): BP systolic 97–140; BP diastolic 51–79; PULSE 93–129; RESP 18–20
[2016-05-23] MEDS: ALBUTEROL/IPRATROPIUM (NEB) 3 ML AMP HHN SCH ×6 (00:05→21:00)
[2016-05-23] MEDS: LORAZEPAM 2 MG INJ IV PRN (01:16)
[2016-05-23] MEDS: ALBUTEROL/IPRATROPIUM (NEB) 3 ML AMP HHN PRN ×2 (03:10→13:20)
[2016-05-23] MEDS: morphine 2 MG INJ IV PRN (03:35)
[2016-05-23] MEDS: METOPROLOL (XL) 25 MG TAB PO SCH (09:00)
[2016-05-23] MEDS: FLUTICASONE 0.05% 16 GM NAS SPRAY NASAL SCH ×2 (09:00→21:00)
[2016-05-23] MEDS: FAMOTIDINE 20 MG TAB PO SCH ×2 (09:00→21:13)
[2016-05-23 09:40] LABS: AADO2 Arterial 19.8 mmHg (7.0-24.0); Allen Test ACCEPTAB; Arterial Base Excess 7.1 mmol/L (-3.0-3); Arterial COHb 0.3 % (0.0-3.0); Arterial Fraction of Oxyhgb 95.5 % (93.0-99.0); Arterial HCO3 35.6 mmol/L (22.0-26.0); Arterial MetHb 0.5 % (0.0-1.5); Arterial Total Hemglobin 12.7 g/dl (12.0-18.0); MODE NASAL CANNULA
--- NOTE | 2016-05-23 09:42 | CONS ---
Date/Time of Note Date/Time of Note DATE: 05/23/16 TIME: 09:31 Assessment/Plan Assessment/Plan Additional Assessment/Plan 1. Acute hyperkalemia. 2. Severe metabolic alkalosis with a bicarbonate of 39, which could be compensatory for his respiratory acidosis. 3. Acute prerenal azotemia likely secondary to decreased p.o. intake. 4. Acute urinary retention requiring a Ramos catheter with hematuria. 5. History of benign prostatic hypertrophy. 6. History of hypertension. 7. History of hyperlipidemia. 8. History of chronic obstructive pulmonary disease. 9. History of argyria skin disease. 10. 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 PLAN: pt HCO3 getting worse, I orderd ABG to asses for PCO2 Hematuria cleared with reinsertion of ramos catheter BP stable I will order repeat UA, urine studies with clear urine, urine cytology Renal Us has been ordered to assess for kidney size, to rule out hydronephrosis , to rule out bladder mass Consultation Date/Type/Reason Admit Date/Time May 19, 2016 at 19:29 Initial Consult Date 05/20/16 Type of Consultation: NEPHROLOGY Referring Provider: SMITA AGUILAR 24 HR Interval Summary Free Text/Dictation HCO3 getting worse , required ramos for urinary retention Exam/Review of Systems Vital Signs Vitals Vital Signs Date Time Temp Pulse Resp B/P Pulse Ox O2 Delivery O2 Flow Rate FiO2 05/23/16 08:03 97.8 101 20 97/51 91 05/23/16 03:10 Nasal Cannula 2.0 05/19/16 23:00 32 Intake and Output 05/22/16 05/22/16 05/23/16 15:00 23:00 07:00 Intake Total 550 ml 500 ml Output Total 750 ml 950 ml Balance -200 ml -450 ml Exam GENERAL: Awake, alert, in no distress. HEENT: Normal. Oropharynx clear. NECK: Supple, no JVD, no lymphadenopathy. LUNGS: Clear to auscultation. No basilar crackles present. HEART: S1, S2, tachycardia, no murmur. ABDOMEN: Soft, nontender, nondistended. Bowel sounds are present. EXTREMITIES: No clubbing, cyanosis, or edema., + ramos catheter NEUROLOGICAL: Nonfocal, intact. PSYCHIATRIC: Appropriate affect and mood. Results Result Diagram: 05/22/1645 05/22/1645 Medications Medications Current Medications Lorazepam (Ativan) 0.5 mg Q6H PRN IV ANXIETY Last administered on 05/23/16 01: 16; Admin Dose 0.5 MG; Start 05/19/16 at 20:00 Ondansetron HCl (Zofran Inj) 4 mg Q6H PRN IV NAUSEA AND/OR VOMITING; Start at 20:00 Nitroglycerin (Nitroglycerin (Sl Tab) 0.4 Mg) 1 tab Q5M PRN SL CHEST PAIN; Start 05/19/16 at 20:00 Acetaminophen (Tylenol Tab) 650 mg Q6H PRN PO PAIN LEVEL 1-3 OR FEVER; Start at 20:00 Morphine Sulfate (morphine) 2 mg Q4H PRN IV PAIN LEVEL 7-10 Last administered on 05/23/16 03:35; Admin Dose 2 MG; Start 05/19/16 at 20:00 Docusate Sodium (Colace) 100 mg Q12H PRN PO CONSTIPATION; Start 05/19/16 at 20: 00 Famotidine (Pepcid) 20 mg Q12 PO Last administered on 05/22/16 21:06; Admin Dose 20 MG; Start 05/19/16 at 21:00 Aspirin (Aspirin) 81 mg DAILY PO Last administered on 05/22/16 09:16; Admin Dose 81 MG; Start 05/20/16 at 09:00 Atorvastatin Calcium (Lipitor) 10 mg QHS PO Last administered on 05/22/16 21: 06; Admin Dose 10 MG; Start 05/19/16 at 21:00 Cholecalciferol (Vitamin D) 1,000 unit DAILY PO Last administered on 05/22/16 09:21; Admin Dose 1,000 UNIT; Start 05/20/16 at 09:00 Fluticasone Propionate (Flonase 0.05% Nasal) 1 spray BID NASAL Last administered on 05/22/16 21:05; Admin Dose 1 SPRAY; Start 05/19/16 at 21:00 Guaifenesin (Robitussin Liquid Cup) 600 mg Q12 PRN PO COUGH; Start 05/19/16 at 20:00 Metoprolol Succinate (Toprol Xl) 25 mg DAILY PO Last administered on 05/22/16 09:20; Admin Dose 25 MG; Start 05/20/16 at 09:00 Multivitamins Therapeutic (Theragran) 1 tab DAILY PO Last administered on 09:20; Admin Dose 1 TAB; Start 05/20/16 at 09:00 Polyethylene Glycol (Miralax) 17 gm DAILY PO Last administered on 05/22/16 09: 18; Admin Dose 17 GM; Start 05/20/16 at 09:00 Salmeterol Xinafoate/ Fluticasone (Advair 500/50 Diskus) 1 inh BID INH Last administered on 05/22/16 21:00; Admin Dose 1 INH; Start 05/19/16 at 21:00 Senna (Senokot) 2 tab BID PO Last administered on 05/22/16 21:06; Admin Dose 2 TAB; Start 05/19/16 at 21:00 Zolpidem Tartrate (Ambien) 5 mg QHS PRN PO SLEEP; Start 05/19/16 at 20:00 Acetaminophen/ Hydrocodone Bitart ([place] (5/325)) 1 tab Q6H PRN PO MODERATE PAIN LEVEL 4-6 Last administered on 05/23/16 02:49; Admin Dose 1 TAB; Start at 20:00 Ipratropium [place] (Atrovent Nasal) 2 spray QID NASAL Last administered on 21:01; Admin Dose 2 SPRAY; Start 05/19/16 at 21:00 Guaifenesin (Mucinex) 600 mg BID PO Last administered on 05/22/16 21:06; Admin Dose 600 MG; Start 05/20/16 at 21:00 Prednisone (Prednisone) 30 mg DAILY PO Last administered on 05/22/16 09:19; Admin Dose 30 MG; Start 05/22/16 at 09:00 Tamsulosin HCl (Flomax) 0.4 mg BID PO Last administered on 05/22/16 21:06; Admin Dose 0.4 MG; Start 05/21/16 at 21:00 Magnesium Oxide (Mag-Ox 400) 400 mg DAILY PO Last administered on 05/22/16 09: 17; Admin Dose 400 MG; Start 05/21/16 at 18:30 Azithromycin (Zithromax) 500 mg DAILY PO ; Start 05/23/16 at 09:00 Finasteride (Proscar) 5 mg DAILY PO ; Start 05/23/16 at 09:00 JANIS VAZQUEZ MD May 23, 2016 09:41
[2016-05-23] MEDS: SALMETEROL/FLUTICASONE 500/50 INHA INH SCH ×2 (09:47→21:12)
[2016-05-23] MEDS: IPRATROPIUM 0.03% 30 ML NASAL SPRAY NASAL SCH ×4 (09:47→21:12)
[2016-05-23] MEDS: ASPIRIN 81 MG TAB PO SCH (09:48)
[2016-05-23] MEDS: TAMSULOSIN (SR) 0.4 MG CAP PO SCH ×2 (09:48→21:12)
[2016-05-23] MEDS: POLYETHYLENE GLYCOL 17 GM PACKET PO SCH (09:49)
[2016-05-23] MEDS: MAGNESIUM OXIDE 400 MG TAB PO SCH (09:49)
[2016-05-23] MEDS: GUAIFENESIN LA 600 MG TABSR PO SCH ×2 (09:49→21:13)
[2016-05-23] MEDS: predniSONE 10 MG TAB PO SCH (09:50)
[2016-05-23] MEDS: SENNA TAB PO SCH ×2 (09:51→21:13)
[2016-05-23] MEDS: FINASTERIDE 5 MG TAB PO SCH ×2 (09:51→14:01)
[2016-05-23] MEDS: MULTIVITAMINS THERAPEUTIC TAB PO SCH (09:52)
[2016-05-23] MEDS: CALCIUM CARBONATE 750 MG CHEW TAB PO SCH ×3 (09:53→19:05)
[2016-05-23] MEDS: CHOLECALCIFEROL 1,000 UNIT TAB PO SCH (09:53)
[2016-05-23] MEDS: AZITHROMYCIN 250 MG TAB PO SCH (09:54)
--- NOTE | 2016-05-23 10:29 | RADRPT ---
PROCEDURE: US Renal CLINICAL INDICATION: Hematuria. TECHNIQUE: Multiple sonographic images of the kidneys and bladder were obtained. Evaluation of th e kidneys and bladder was performed as well with jiménez scale and color and Doppler evaluation using a curved array transducer. The images were reviewed on a high-resolution PACS workstation. COMPARISON: No prior studies are available for comparison. FINDINGS: The right kidney measures 12.4 cm. The left kidney measures 10.2 cm. The left kidney appears normal in size and echotexture without mass or hydronephrosis. The right ki dney demonstrates marked multicystic appearance this could represent multiple cysts versus severe hy dronephrosis with renal cortical thinning. Bladder was not distended and therefore was not well evaluated. IMPRESSION: 1. Multicystic appearance to the right kidney which suggests severe hydronephrosis with renal corti yuan thinning. This could be evaluated further with CT if appropriate clinically. RPTAT: [facility] Physician Jess Date Time Electronically viewed and signed by Physician Jess on 05/23/2016 10:29 /
--- NOTE | 2016-05-23 13:09 | PN ---
Date/Time of Note Date/Time of Note DATE: 05/23/16 TIME: 13:05 Assessment/Plan VTE Prophylaxis VTE Prophylaxis Intervention: heparin Lines/Catheters IV Catheter Type (from Nrsg): Saline Lock Urinary Cath still in place: Yes Reason Cath still needed: urinary retention Assessment/Plan Assessment/Plan 1. Acute COPD exacerbation, still with SOB, on neb/zithromax and SoluMedrol 2. Acute on chronic respiratory failure, O2 3. Pulmonary Hypertension, COPD related 4. 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 BPH - continue with flomax, add proscar, Ramires for urinary retention 7. GI ppx - pepcid 8. DVT ppx - heparin Subjective 24 Hr Interval Summary Free Text/Dictation SOB, urinary retention Exam/Review of Systems Vital Signs Vitals Vital Signs Date Time Temp Pulse Resp B/P Pulse Ox O2 Delivery O2 Flow Rate FiO2 05/23/16 12:26 Nasal Cannula 2.0 05/23/16 12:16 97.5 105 20 114/71 98 05/19/16 23:00 32 Intake and Output 05/22/16 05/22/16 05/23/16 15:00 23:00 07:00 Intake Total 550 ml 500 ml Output Total 750 ml 950 ml Balance -200 ml -450 ml Exam Constitutional: alert, oriented, well developed Psych: nl mood/affect, no complaints Head: atraumatic, normocephalic Eyes: EOMI, PERRL, nl conjunctiva ENMT: nl external ears & nose, nl lips & teeth, nl nasal mucosa & septum Neck: non-tender, supple Respiratory: diminished breath sounds Cardiovascular: regular rate and rhythm, No S3, No S4, No bruits, No diastolic murmur, No edema, No gallop, No irregular rhythm, No jugular venous distention (JVD), No murmurs/extra sounds, No nl pulses, No other, No rub, No systolic murmur Gastrointestinal: nl liver, spleen, non-tender, soft, No ascites, No bowel sounds, No distended, No firm, No hepatomegaly, No mass , No other, No rebound or guarding, No splenomegaly, No surgical scars, No tender Musculoskeletal: nl extremities to inspection Extremities: cyanosis, normal pulses, No calf tenderness, No clubbing, No edema, No other, No palpable cord, No pitting pedal edema, No tenderness Neurological: CASINO CASHIER II-XII intact, nl mental status, nl speech, nl strength Skin: other (cyanotic) Results Result Diagram: 05/22/1664405/22/16644 Results 24 hrs Laboratory Tests Test 05/23/16 09:20 Arterial Blood HCO3 35.6 H Arterial Blood Base Excess 7.1 H Arterial Blood Oxygen Saturation 96.3 [place] Test ACCEPTAB Arterial Blood Gas Puncture Site Right Radial Arterial Blood Carboxyhemoglobin 0.3 Arterial Blood Date Drawn 05/23/2016 9:31:51 AM Arterial Blood Methemoglobin 0.5 Arterial Blood pCO2 (Temp correct) 71.1 H Arterial Blood pH (Temp corrected) 7.317 L Arterial Blood pO2 (Temp corrected) 88.6 Blood Gas A-a O2 Differential 19.8 Blood Gas Modality NASAL CANNULA Blood Gas Notified Time 05/23/2016 9:40:28 AM Blood Gas Notified Whom TM Blood Gas Specimen Source Blood arterial Blood Gas Temperature 37.0 FiO2 27.0 Oxyhemoglobin Percent 95.5 Total Hemoglobin 12.7 Medications Medications Current Medications Lorazepam (Ativan) 0.5 mg Q6H PRN IV ANXIETY Last administered on 05/23/16 01: 16; Admin Dose 0.5 MG; Start 05/19/16 at 20:00 Ondansetron HCl (Zofran Inj) 4 mg Q6H PRN IV NAUSEA AND/OR VOMITING; Start at 20:00 Nitroglycerin (Nitroglycerin (Sl Tab) 0.4 Mg) 1 tab Q5M PRN SL CHEST PAIN; Start 05/19/16 at 20:00 Acetaminophen (Tylenol Tab) 650 mg Q6H PRN PO PAIN LEVEL 1-3 OR FEVER; Start at 20:00 Morphine Sulfate (morphine) 2 mg Q4H PRN IV PAIN LEVEL 7-10 Last administered on 05/23/16 03:35; Admin Dose 2 MG; Start 05/19/16 at 20:00 Docusate Sodium (Colace) 100 mg Q12H PRN PO CONSTIPATION; Start 05/19/16 at 20: 00 Famotidine (Pepcid) 20 mg Q12 PO Last administered on 05/22/16 21:06; Admin Dose 20 MG; Start 05/19/16 at 21:00 Aspirin (Aspirin) 81 mg DAILY PO Last administered on 05/23/16 09:48; Admin Dose 81 MG; Start 05/20/16 at 09:00 Atorvastatin Calcium (Lipitor) 10 mg QHS PO Last administered on 05/22/16 21: 06; Admin Dose 10 MG; Start 05/19/16 at 21:00 Cholecalciferol (Vitamin D) 1,000 unit DAILY PO Last administered on 05/23/16 09:53; Admin Dose 1,000 UNIT; Start 05/20/16 at 09:00 Fluticasone Propionate (Flonase 0.05% Nasal) 1 spray BID NASAL Last administered on 05/22/16 21:05; Admin Dose 1 SPRAY; Start 05/19/16 at 21:00 Guaifenesin (Robitussin Liquid Cup) 600 mg Q12 PRN PO COUGH; Start 05/19/16 at 20:00 Metoprolol Succinate (Toprol Xl) 25 mg DAILY PO Last administered on 05/22/16 09:20; Admin Dose 25 MG; Start 05/20/16 at 09:00 Multivitamins Therapeutic (Theragran) 1 tab DAILY PO Last administered on 09:52; Admin Dose 1 TAB; Start 05/20/16 at 09:00 Polyethylene Glycol (Miralax) 17 gm DAILY PO Last administered on 05/23/16 09: 49; Admin Dose 17 GM; Start 05/20/16 at 09:00 Salmeterol Xinafoate/ Fluticasone (Advair 500/50 Diskus) 1 inh BID INH Last administered on 05/23/16 09:47; Admin Dose 1 INH; Start 05/19/16 at 21:00 Senna (Senokot) 2 tab BID PO Last administered on 05/23/16 09:51; Admin Dose 2 TAB; Start 05/19/16 at 21:00 Zolpidem Tartrate (Ambien) 5 mg QHS PRN PO SLEEP; Start 05/19/16 at 20:00 Acetaminophen/ Hydrocodone Bitart ([place] (5/325)) 1 tab Q6H PRN PO MODERATE PAIN LEVEL 4-6 Last administered on 05/23/16 02:49; Admin Dose 1 TAB; Start at 20:00 Ipratropium [place] (Atrovent Nasal) 2 spray QID NASAL Last administered on 09:47; Admin Dose 2 SPRAY; Start 05/19/16 at 21:00 Guaifenesin (Mucinex) 600 mg BID PO Last administered on 05/23/16 09:49; Admin Dose 600 MG; Start 05/20/16 at 21:00 Prednisone (Prednisone) 30 mg DAILY PO Last administered on 05/23/16 09:50; Admin Dose 30 MG; Start 05/22/16 at 09:00 Tamsulosin HCl (Flomax) 0.4 mg BID PO Last administered on 05/23/16 09:48; Admin Dose 0.4 MG; Start 05/21/16 at 21:00 Magnesium Oxide (Mag-Ox 400) 400 mg DAILY PO Last administered on 05/23/16 09: 49; Admin Dose 400 MG; Start 05/21/16 at 18:30 Azithromycin (Zithromax) 500 mg DAILY PO Last administered on 05/23/16 09:54; Admin Dose 500 MG; Start 05/23/16 at 09:00 Finasteride (Proscar) 5 mg DAILY PO Last administered on 05/23/16 09:51; Admin Dose 5 MG; Start 05/23/16 at 09:00 IGNACIO HENRIQUEZ MD May 23, 2016 13:09
[2016-05-23] MEDS: METHYLPREDNISOLONE 40 MG INJ IV SCH ×2 (14:01→17:52)
--- NOTE | 2016-05-23 14:44 | CONS ---
Date/Time of Note Date/Time of Note DATE: 05/23/16 TIME: 14:42 Assessment/Plan Assessment/Plan Additional Assessment/Plan Assessment recommendations; next 1. Patient admitted with severe COPD exacerbation and acute bronchitis. 2. BPH with urinary obstruction requiring Ramires catheter placement. 3 stable hypertension. Continue current treatment. Increase prednisone to 40 mg daily. Consultation Date/Type/Reason Admit Date/Time May 19, 2016 at 19:29 Initial Consult Date 05/20/16 Type of Consultation: Pulmonary Referring Provider: SMITA AGUILAR 24 HR Interval Summary Free Text/Dictation Patient condition is stable. Still complains of chest congestion, wheezing. Shortness of breath is slightly improved. Patient also was having difficulty urinating yesterday which required a Ramires catheter placement. He denies any fever, chest pain. General examination; elderly male currently in no distress awake and alert. Exam/Review of Systems Vital Signs Vitals Vital Signs Date Time Temp Pulse Resp B/P Pulse Ox O2 Delivery O2 Flow Rate FiO2 05/23/16 13:23 115 24 95 Nasal Cannula 2.0 05/23/16 12:16 97.5 114/71 05/19/16 23:00 32 Intake and Output 05/22/16 05/22/16 05/23/16 15:00 23:00 07:00 Intake Total 550 ml 500 ml Output Total 750 ml 950 ml Balance -200 ml -450 ml Exam HEENT examination; supple neck, no JVD. No lymphadenopathy. Midline trachea. No thyromegaly. Pharynx is clear. Pupils are small bilaterally. Chest examination; diminished breath sounds throughout with mild bilateral expiratory wheezing. S1-S2 audible, no murmurs. Regular rhythm. Abdomen examination; soft, nontender. No organomegaly. Bowel sounds audible. Extremity examination; no peripheral edema. MARKETING DESIGNER examination; no focal deficit. Results Result Diagram: 05/22/16 0645 05/22/16 0645 Results 24 hrs Laboratory Tests Test 05/23/16 09:20 Arterial Blood HCO3 35.6 H Arterial Blood Base Excess 7.1 H Arterial Blood Oxygen Saturation 96.3 [place] Test ACCEPTAB Arterial Blood Gas Puncture Site Right Radial Arterial Blood Carboxyhemoglobin 0.3 Arterial Blood Date Drawn 05/23/2016 9:31:51 AM Arterial Blood Methemoglobin 0.5 Arterial Blood pCO2 (Temp correct) 71.1 H Arterial Blood pH (Temp corrected) 7.317 L Arterial Blood pO2 (Temp corrected) 88.6 Blood Gas A-a O2 Differential 19.8 Blood Gas Modality NASAL CANNULA Blood Gas Notified Time 05/23/2016 9:40:28 AM Blood Gas Notified Whom TM Blood Gas Specimen Source Blood arterial Blood Gas Temperature 37.0 FiO2 27.0 Oxyhemoglobin Percent 95.5 Total Hemoglobin 12.7 Medications Medications Current Medications Lorazepam (Ativan) 0.5 mg Q6H PRN IV ANXIETY Last administered on 05/23/16 01: 16; Admin Dose 0.5 MG; Start 05/19/16 at 20:00 Ondansetron HCl (Zofran Inj) 4 mg Q6H PRN IV NAUSEA AND/OR VOMITING; Start at 20:00 Nitroglycerin (Nitroglycerin (Sl Tab) 0.4 Mg) 1 tab Q5M PRN SL CHEST PAIN; Start 05/19/16 at 20:00 Acetaminophen (Tylenol Tab) 650 mg Q6H PRN PO PAIN LEVEL 1-3 OR FEVER; Start at 20:00 Morphine Sulfate (morphine) 2 mg Q4H PRN IV PAIN LEVEL 7-10 Last administered on 05/23/16 03:35; Admin Dose 2 MG; Start 05/19/16 at 20:00 Docusate Sodium (Colace) 100 mg Q12H PRN PO CONSTIPATION; Start 05/19/16 at 20: 00 Famotidine (Pepcid) 20 mg Q12 PO Last administered on 05/22/16 21:06; Admin Dose 20 MG; Start 05/19/16 at 21:00 Aspirin (Aspirin) 81 mg DAILY PO Last administered on 05/23/16 09:48; Admin Dose 81 MG; Start 05/20/16 at 09:00 Atorvastatin Calcium (Lipitor) 10 mg QHS PO Last administered on 05/22/16 21: 06; Admin Dose 10 MG; Start 05/19/16 at 21:00 Cholecalciferol (Vitamin D) 1,000 unit DAILY PO Last administered on 05/23/16 09:53; Admin Dose 1,000 UNIT; Start 05/20/16 at 09:00 Fluticasone Propionate (Flonase 0.05% Nasal) 1 spray BID NASAL Last administered on 05/22/16 21:05; Admin Dose 1 SPRAY; Start 05/19/16 at 21:00 Guaifenesin (Robitussin Liquid Cup) 600 mg Q12 PRN PO COUGH; Start 05/19/16 at 20:00 Metoprolol Succinate (Toprol Xl) 25 mg DAILY PO Last administered on 05/22/16 09:20; Admin Dose 25 MG; Start 05/20/16 at 09:00 Multivitamins Therapeutic (Theragran) 1 tab DAILY PO Last administered on 09:52; Admin Dose 1 TAB; Start 05/20/16 at 09:00 Polyethylene Glycol (Miralax) 17 gm DAILY PO Last administered on 05/23/16 09: 49; Admin Dose 17 GM; Start 05/20/16 at 09:00 Salmeterol Xinafoate/ Fluticasone (Advair 500/50 Diskus) 1 inh BID INH Last administered on 05/23/16 09:47; Admin Dose 1 INH; Start 05/19/16 at 21:00 Senna (Senokot) 2 tab BID PO Last administered on 05/23/16 09:51; Admin Dose 2 TAB; Start 05/19/16 at 21:00 Zolpidem Tartrate (Ambien) 5 mg QHS PRN PO SLEEP; Start 05/19/16 at 20:00 Acetaminophen/ Hydrocodone Bitart ([place] (5/325)) 1 tab Q6H PRN PO MODERATE PAIN LEVEL 4-6 Last administered on 05/23/16 02:49; Admin Dose 1 TAB; Start at 20:00 Ipratropium [place] (Atrovent Nasal) 2 spray QID NASAL Last administered on 13:58; Admin Dose 2 SPRAY; Start 05/19/16 at 21:00 Guaifenesin (Mucinex) 600 mg BID PO Last administered on 05/23/16 09:49; Admin Dose 600 MG; Start 05/20/16 at 21:00 Prednisone (Prednisone) 30 mg DAILY PO Last administered on 05/23/16 09:50; Admin Dose 30 MG; Start 05/22/16 at 09:00 Tamsulosin HCl (Flomax) 0.4 mg BID PO Last administered on 05/23/16 09:48; Admin Dose 0.4 MG; Start 05/21/16 at 21:00 Magnesium Oxide (Mag-Ox 400) 400 mg DAILY PO Last administered on 05/23/16 09: 49; Admin Dose 400 MG; Start 05/21/16 at 18:30 Azithromycin (Zithromax) 500 mg DAILY PO Last administered on 05/23/16 09:54; Admin Dose 500 MG; Start 05/23/16 at 09:00 Finasteride (Proscar) 5 mg DAILY PO Last administered on 05/23/16 09:51; Admin Dose 5 MG; Start 05/23/16 at 09:00 Methylprednisolone Sodium Succinate (Solu-Medrol) 40 mg Q6 IV Last administered on 05/23/16 14:01; Admin Dose 40 MG; Start 05/23/16 at 13:30 Finasteride (Proscar) 5 mg DAILY PO Last administered on 05/23/16 14:01; Admin Dose 5 MG; Start 05/23/16 at 13:30 WATSON FISCHER May 23, 2016 14:44
[2016-05-23] MEDS: predniSONE 20 MG TAB PO SCH (15:00)
[2016-05-23 16:12] LABS: ADD UMIC YES; URINE BILIRUBIN (Dip) NEGATIVE (NEGATIVE); URINE BLOOD (Dip) 3+ (NEGATIVE); URINE COLOR LT. YELLOW (YELLOW); URINE GLUCOSE (Dip) NEGATIVE (NEGATIVE); URINE KETONES (Dip) NEGATIVE (NEGATIVE); URINE LEUKOCYTE ESTERASE (Dip) 2+ (NEGATIVE); URINE NITRITE (Dip) NEGATIVE (NEGATIVE); URINE TOTAL PROTEIN (Dip) 2+ (NEGATIVE); URINE UROBILINOGEN (Dip) 0.2 E.U./dL (0.1-1.0)
[2016-05-23 16:36] LABS: PROTEIN URINE 74.3 mg/dl (0.0-9.9); PROTEIN/CREAT RATIO 0.99 RATIO
[2016-05-23 16:38] LABS: BACTERIA,URINE MANY; SQUAMOUS EPITHELIAL CELL,UR RARE; URINE RBCS >200 /HPF (0)
[2016-05-23] MEDS: LEVALBUTEROL (NEB) 1.25 MG/0.5 ML AMP HHN PRN ×2 (18:02→21:15)
[2016-05-23] MEDS: ATORVASTATIN 10 MG TAB PO SCH (21:13)
[2016-05-24] VITALS (12 sets, daily range): BP systolic 106–133; BP diastolic 57–83; PULSE 108–127; RESP 18–20
[2016-05-24] MEDS: METHYLPREDNISOLONE 40 MG INJ IV SCH ×4 (00:24→18:00)
[2016-05-24] MEDS: ALBUTEROL/IPRATROPIUM (NEB) 3 ML AMP HHN SCH ×6 (01:00→20:16)
[2016-05-24] MEDS: LEVALBUTEROL (NEB) 1.25 MG/0.5 ML AMP HHN PRN ×2 (01:28→13:40)
[2016-05-24] MEDS: morphine 2 MG INJ IV PRN (03:59)
[2016-05-24 08:13] LABS: ADD SCAN DIFF NO
[2016-05-24 08:16] LABS: BASOPHILS % 0.1 % (0.0-2.0); HEMATOCRIT 38.1 % (42.0-52.0); HEMOGLOBIN 11.9 g/dl (14.0-18.0); LYMPHOCYTES # 0.6 10^3/ul (0.8-2.9); LYMPHOCYTES % 6.2 % (15.0-51.0); MEAN CORPUSCULAR HEMOGLOBIN 30.2 pg (29.0-33.0); MEAN CORPUSCULAR HGB CONC 31.2 g/dl (32.0-37.0); MEAN CORPUSCULAR VOLUME 96.7 fl (82.0-101.0); MEAN PLATELET VOLUME 10.7 fl (7.4-10.4); MONOCYTES % 9.9 % (0.0-11.0); NEUTROPHIL # 8.1 10^3/ul (1.6-7.5); NEUTROPHILS % 82.6 % (39.0-77.0); PLATELET COUNT 262 10^3/UL (140-415); RED BLOOD COUNT 3.94 10^6/ul (4.70-6.10); RED CELL DISTRIBUTION WIDTH 13.6 % (11.5-14.5); WHITE BLOOD COUNT 9.8 10^3/ul (4.8-10.8)
[2016-05-24 08:33] LABS: POTASSIUM 5.2 mmol/L (3.5-5.1)
[2016-05-24 08:35] LABS: URIC ACID 3.3 mg/dl (3.1-7.9)
[2016-05-24 08:36] LABS: CREATININE 0.8 mg/dl (0.61-1.24)
[2016-05-24 08:37] LABS: CALCIUM 9.3 mg/dl (8.4-10.2)
[2016-05-24] MEDS: POLYETHYLENE GLYCOL 17 GM PACKET PO SCH (09:00)
[2016-05-24] MEDS: FINASTERIDE 5 MG TAB PO SCH ×2 (09:00→10:05)
[2016-05-24] MEDS: CALCIUM CARBONATE 750 MG CHEW TAB PO SCH ×3 (09:00→19:05)
[2016-05-24] MEDS: FAMOTIDINE 20 MG TAB PO SCH ×2 (09:00→20:39)
[2016-05-24] MEDS: FLUTICASONE 0.05% 16 GM NAS SPRAY NASAL SCH ×2 (09:00→20:38)
[2016-05-24] MEDS: SALMETEROL/FLUTICASONE 500/50 INHA INH SCH ×2 (09:56→20:37)
[2016-05-24] MEDS: IPRATROPIUM 0.03% 30 ML NASAL SPRAY NASAL SCH ×4 (09:57→20:37)
[2016-05-24] MEDS: ASPIRIN 81 MG TAB PO SCH (09:57)
[2016-05-24] MEDS: MAGNESIUM OXIDE 400 MG TAB PO SCH (09:58)
[2016-05-24] MEDS: GUAIFENESIN LA 600 MG TABSR PO SCH ×2 (10:01→20:38)
[2016-05-24] MEDS: predniSONE 20 MG TAB PO SCH (10:02)
[2016-05-24] MEDS: CHOLECALCIFEROL 1,000 UNIT TAB PO SCH (10:03)
[2016-05-24] MEDS: METOPROLOL (XL) 25 MG TAB PO SCH (10:03)
[2016-05-24] MEDS: MULTIVITAMINS THERAPEUTIC TAB PO SCH (10:04)
[2016-05-24] MEDS: SENNA TAB PO SCH ×2 (10:04→20:37)
[2016-05-24] MEDS: AZITHROMYCIN 250 MG TAB PO SCH (10:06)
[2016-05-24] MEDS: TAMSULOSIN (SR) 0.4 MG CAP PO SCH ×2 (10:10→20:37)
--- NOTE | 2016-05-24 11:44 | CONS ---
Date/Time of Note Date/Time of Note DATE: 05/24/16 TIME: 11:34 Assessment/Plan Assessment/Plan Additional Assessment/Plan 1. Acute hyperkalemia. 2. Severe metabolic alkalosis with a bicarbonate of 39, which could be compensatory for his respiratory acidosis.PCO2 71 on ABG 3. Acute prerenal azotemia likely secondary to decreased p.o. intake. 4. Acute urinary retention requiring a Ramos catheter with hematuria. 5. History of benign prostatic hypertrophy. 6. History of hypertension. 7. History of hyperlipidemia. 8. History of chronic obstructive pulmonary disease. 9. History of argyria skin disease. 10. 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 PLAN: pt HCO3 getting worse,ABG showed PCO2 71 Hematuria cleared with reinsertion of ramos catheter Renal Us showed severe hydronephrosis with renal cortical thinning- will order CT abdomen +pelvis without contrast pt refused BIPAP he said he need pillow under his back for CT scan will follow up Consultation Date/Type/Reason Admit Date/Time May 19, 2016 at 19:29 Initial Consult Date 05/20/16 Type of Consultation: NEPHROLOGY Reason for Consultation Hematuria, prerenal azotemia Referring Provider: SMITA AGUILAR 24 HR Interval Summary Free Text/Dictation pt stable, hematuria improving Exam/Review of Systems Vital Signs Vitals Vital Signs Date Time Temp Pulse Resp B/P Pulse Ox O2 Delivery O2 Flow Rate FiO2 05/24/16 10:30 Nasal Cannula 2.0 05/24/16 08:36 108 05/24/16 07:52 98.1 20 106/57 95 Intake and Output 05/23/16 05/23/16 05/24/16 15:00 23:00 07:00 Intake Total 800 ml 500 ml Output Total 1100 ml 800 ml Balance -300 ml -300 ml Exam GENERAL: Awake, alert, in no distress. HEENT: Normal. Oropharynx clear. NECK: Supple, no JVD, no lymphadenopathy. LUNGS: Clear to auscultation. No basilar crackles present. HEART: S1, S2, tachycardia, no murmur. ABDOMEN: Soft, nontender, nondistended. Bowel sounds are present. EXTREMITIES: No clubbing, cyanosis, or edema., + ramos catheter NEUROLOGICAL: Nonfocal, intact. PSYCHIATRIC: Appropriate affect and mood. Results Result Diagram: 05/24/16 0737 05/24/16 0737 Results 24 hrs Laboratory Tests Test 05/23/16 14:00 05/23/16 14:10 05/24/16 07:37 Urine Total Protein 78.6 H 2+ H Urine Bacteria MANY Urine Bilirubin NEGATIVE Urine Clarity SLIGHTLY CLOUDY Urine Color LT. YELLOW Urine Eosinophils % 0.0 Urine Glucose NEGATIVE Urine Hemoglobin 3+ H Urine Ketones NEGATIVE Urine Leukocyte Esterase 2+ H Urine Microscopic RBC >200 Urine Microscopic WBC 10-25 Urine Nitrite NEGATIVE Urine Protein/Creatinine Ratio 0.99 Urine Random Creatinine 74.60 Urine Random Sodium 18 L Urine Specific [place] 1.015 Urine Squamous Epithelial Cells RARE Urine Urobilinogen 0.2 E.U./dL Urine pH 6.0 Anion Gap 10 Basophils # 0.0 Basophils % 0.1 Blood Urea Nitrogen 30 H Calcium Level 9.3 Carbon Dioxide Level Chloride Level 93 L Creatine Kinase 20 L Creatinine 0.80 Eosinophils # 0.0 Eosinophils % 0.0 Glucose Level 152 Hematocrit 38.1 L Hemoglobin 11.9 L Lymphocytes # 0.6 L Lymphocytes % 6.2 L Mean Corpuscular Hemoglobin 30.2 Mean Corpuscular Hemoglobin Concent 31.2 L Mean Corpuscular Volume 96.7 Mean Platelet Volume 10.7 H Monocytes # 1.0 H Monocytes % 9.9 Neutrophils # 8.1 H Neutrophils % 82.6 H Nucleated Red Blood Cells # 0.0 Nucleated Red Blood Cells % 0.0 Platelet Count 262 Potassium Level 5.2 H Red Blood Count 3.94 L Red Cell Distribution Width 13.6 Sodium Level 140 Uric Acid 3.3 White Blood Count 9.8 # Medications Medications Current Medications Lorazepam (Ativan) 0.5 mg Q6H PRN IV ANXIETY Last administered on 05/23/16t 01: 16; Admin Dose 0.5 MG; Start 05/19/16 at 20:00 Ondansetron HCl (Zofran Inj) 4 mg Q6H PRN IV NAUSEA AND/OR VOMITING; Start at 20:00 Nitroglycerin (Nitroglycerin (Sl Tab) 0.4 Mg) 1 tab Q5M PRN SL CHEST PAIN; Start 05/19/16 at 20:00 Acetaminophen (Tylenol Tab) 650 mg Q6H PRN PO PAIN LEVEL 1-3 OR FEVER; Start at 20:00 Morphine Sulfate (morphine) 2 mg Q4H PRN IV PAIN LEVEL 7-10 Last administered on 05/24/16 03:59; Admin Dose 2 MG; Start 05/19/16 at 20:00 Docusate Sodium (Colace) 100 mg Q12H PRN PO CONSTIPATION; Start 05/19/16 at 20: 00 Famotidine (Pepcid) 20 mg Q12 PO Last administered on 05/23/16 21:13; Admin Dose 20 MG; Start 05/19/16 at 21:00 Aspirin (Aspirin) 81 mg DAILY PO Last administered on 05/24/16 09:57; Admin Dose 81 MG; Start 05/20/16 at 09:00 Atorvastatin Calcium (Lipitor) 10 mg QHS PO Last administered on 05/23/16 21: 13; Admin Dose 10 MG; Start 05/19/16 at 21:00 Cholecalciferol (Vitamin D) 1,000 unit DAILY PO Last administered on 05/24/16 10:03; Admin Dose 1,000 UNIT; Start 05/20/16 at 09:00 Fluticasone Propionate (Flonase 0.05% Nasal) 1 spray BID NASAL Last administered on 05/22/16 21:05; Admin Dose 1 SPRAY; Start 05/19/16 at 21:00 Guaifenesin (Robitussin Liquid Cup) 600 mg Q12 PRN PO COUGH; Start 05/19/16 at 20:00 Metoprolol Succinate (Toprol Xl) 25 mg DAILY PO Last administered on 05/24/16 10:03; Admin Dose 25 MG; Start 05/20/16 at 09:00 Multivitamins Therapeutic (Theragran) 1 tab DAILY PO Last administered on 10:04; Admin Dose 1 TAB; Start 05/20/16 at 09:00 Polyethylene Glycol (Miralax) 17 gm DAILY PO Last administered on 05/23/16 09: 49; Admin Dose 17 GM; Start 05/20/16 at 09:00 Salmeterol Xinafoate/ Fluticasone (Advair 500/50 Diskus) 1 inh BID INH Last administered on 05/24/16 09:56; Admin Dose 1 INH; Start 05/19/16 at 21:00 Senna (Senokot) 2 tab BID PO Last administered on 05/24/16 10:04; Admin Dose 2 TAB; Start 05/19/16 at 21:00 Zolpidem Tartrate (Ambien) 5 mg QHS PRN PO SLEEP; Start 05/19/16 at 20:00 Acetaminophen/ Hydrocodone Bitart ([place] (5/325)) 1 tab Q6H PRN PO MODERATE PAIN LEVEL 4-6 Last administered on 05/23/16 02:49; Admin Dose 1 TAB; Start at 20:00 Ipratropium [place] (Atrovent Nasal) 2 spray QID NASAL Last administered on 05/24 09:57; Admin Dose 2 SPRAY; Start 05/19/16 at 21:00 Guaifenesin (Mucinex) 600 mg BID PO Last administered on 05/24/16 10:01; Admin Dose 600 MG; Start 05/20/16 at 21:00 Tamsulosin HCl (Flomax) 0.4 mg BID PO Last administered on 05/24/16 10:10; Admin Dose 0.4 MG; Start 05/21/16 at 21:00 Magnesium Oxide (Mag-Ox 400) 400 mg DAILY PO Last administered on 05/24/16 09: 58; Admin Dose 400 MG; Start 05/21/16 at 18:30 Azithromycin (Zithromax) 500 mg DAILY PO Last administered on 05/24/16 10:06; Admin Dose 500 MG; Start 05/23/16 at 09:00 Finasteride (Proscar) 5 mg DAILY PO Last administered on 05/24/16 10:05; Admin Dose 5 MG; Start 05/23/16 at 09:00 Methylprednisolone Sodium Succinate (Solu-Medrol) 40 mg Q6 IV Last administered on 05/24/16 05:49; Admin Dose 40 MG; Start 05/23/16 at 13:30 Finasteride (Proscar) 5 mg DAILY PO Last administered on 05/23/16 14:01; Admin Dose 5 MG; Start 05/23/16 at 13:30 Prednisone (Prednisone) 40 mg DAILY PO Last administered on 05/24/16 10:02; Admin Dose 40 MG; Start 05/23/16 at 15:00 JANIS VAZQUEZ MD May 24, 2016 11:44
--- NOTE | 2016-05-24 11:55 | PN ---
DATE: 05/24/2016 SUBJECTIVE: Patient Saucedo remains stable this morning, comfortable, no respiratory distress. PHYSICAL EXAMINATION: VITAL SIGNS: Temperature 98, pulse is 108, blood pressure 106/57, O2 saturation 96% on 2 liters [place] al cannula. NECK: Supple. No JVD or lymphadenopathy. CARDIAC: S1, S2, no added sounds or murmurs. CHEST: Diminished air entry bilaterally with a few rales. ABDOMEN: Soft, nontender, no guarding. EXTREMITIES: No cyanosis, clubbing or edema. NEUROLOGIC: Grossly intact. No focal deficits. LABORATORY DATA: White count 9.8, hemoglobin 11.9, platelets of 262. BUN 30, creatinine 0.8. INR was 0.99, pH 7.31, pCO2 of 71, pO2 of 88. IMPRESSION AND PLAN: 1. Acute on chronic hypoxemic and hypercapnic respiratory failure. 2. History of BPH with obstruction. 3. History of hypertension. The patient to continue with bronchodilators. 4. Supplemental O2. 5. Probable need for nocturnal noninvasive positive pressure ventilation. Dictated By: JARVIS INGRAM/LESLIE Conf#: [id number] DID#: [id number]
[2016-05-24 12:22] LABS: AADO2 Arterial 21.5 mmHg (7.0-24.0); Allen Test ACCEPTAB; Arterial Base Excess 10.9 mmol/L (-3.0-3); Arterial COHb 0.3 % (0.0-3.0); Arterial Fraction of Oxyhgb 96.6 % (93.0-99.0); Arterial HCO3 38.4 mmol/L (22.0-26.0); Arterial MetHb 0.5 % (0.0-1.5); Arterial Total Hemglobin 13.9 g/dl (12.0-18.0); MODE NASAL CANNULA
[2016-05-24] MEDS ORDERED: BARIUM SULF 2% 450 ML BTL (BERRY SMOOTHIE) PO SCH (13:00)
--- NOTE | 2016-05-24 13:22 | PN ---
Date/Time of Note Date/Time of Note DATE: 05/24/16 TIME: 13:19 Assessment/Plan VTE Prophylaxis VTE Prophylaxis Intervention: heparin Lines/Catheters IV Catheter Type (from Nrsg): Saline Lock Urinary Cath still in place: Yes Reason Cath still needed: other (indicate) Assessment/Plan Assessment/Plan 1. Acute COPD exacerbation, still with SOB, on neb/levaquin and SoluMedrol 2. Acute on chronic respiratory failure, O2 3. Pulmonary Hypertension, COPD related 4. Rheumatoid Arthritis - continue with pain management 5. Argyria 6. BPH - continue with flomax, add proscar, Ramires for urinary retention 7. GI ppx - pepcid 8. DVT ppx - hep Subjective 24 Hr Interval Summary Free Text/Dictation still SOB Exam/Review of Systems Vital Signs Vitals Vital Signs Date Time Temp Pulse Resp B/P Pulse Ox O2 Delivery O2 Flow Rate FiO2 05/24/16 12:34 109 05/24/16 12:01 98.8 18 129/78 98 05/24/16 10:30 Nasal Cannula 2.0 Intake and Output 05/23/16 05/23/16 05/24/16 15:00 23:00 07:00 Intake Total 800 ml 500 ml Output Total 1100 ml 800 ml Balance -300 ml -300 ml Exam Constitutional: alert, oriented, well developed Psych: nl mood/affect, no complaints Head: atraumatic, normocephalic Eyes: EOMI, PERRL, nl lids ENMT: nl external ears & nose, nl lips & teeth, nl nasal mucosa & septum Neck: non-tender, supple Respiratory: diminished breath sounds Cardiovascular: nl pulses, regular rate and rhythm, No S3, No S4, No bruits, No diastolic murmur, No edema, No gallop, No irregular rhythm, No jugular venous distention (JVD), No murmurs/extra sounds, No other, No rub, No systolic murmur Gastrointestinal: nl liver, spleen, non-tender, soft, No ascites, No bowel sounds, No distended, No firm, No hepatomegaly, No mass , No other, No rebound or guarding, No splenomegaly, No surgical scars, No tender Musculoskeletal: nl extremities to inspection Extremities: normal pulses, No calf tenderness, No clubbing, No cyanosis, No edema, No other, No palpable cord, No pitting pedal edema, No tenderness 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 YELLOW Urine Eosinophils % 0.0 Urine Glucose NEGATIVE Urine Hemoglobin 3+ H Urine Ketones NEGATIVE Urine Leukocyte Esterase 2+ H Urine Microscopic RBC >200 Urine Microscopic WBC 10-25 Urine Nitrite NEGATIVE Urine Protein/Creatinine Ratio 0.99 Urine Random Creatinine 74.60 Urine Random Sodium 18 L Urine Specific [place] 1.015 Urine Squamous Epithelial Cells RARE Urine Urobilinogen 0.2 E.U./dL Urine pH 6.0 Anion Gap 10 Basophils # 0.0 Basophils % 0.1 Blood Urea Nitrogen 30 H Calcium Level 9.3 Carbon Dioxide Level Chloride Level 93 L Creatine Kinase 20 L Creatinine 0.80 Eosinophils # 0.0 Eosinophils % 0.0 Glucose Level 152 Hematocrit 38.1 L Hemoglobin 11.9 L Lymphocytes # 0.6 L Lymphocytes % 6.2 L Mean Corpuscular Hemoglobin 30.2 Mean Corpuscular Hemoglobin Concent 31.2 L Mean Corpuscular Volume 96.7 Mean Platelet Volume 10.7 H Monocytes # 1.0 H Monocytes % 9.9 Neutrophils # 8.1 H Neutrophils % 82.6 H Nucleated Red Blood Cells # 0.0 Nucleated Red Blood Cells % 0.0 Platelet Count 262 Potassium Level 5.2 H Red Blood Count 3.94 L Red Cell Distribution Width 13.6 Sodium Level 140 Uric Acid 3.3 White Blood Count 9.8 # Arterial Blood HCO3 38.4 H Arterial Blood Base Excess 10.9 H Arterial Blood Oxygen Saturation 97.4 [place] Test ACCEPTAB Arterial Blood Gas Puncture Site Right Radial Arterial Blood Carboxyhemoglobin 0.3 Arterial Blood Date Drawn 05/24/2016 12:05:13 PM Arterial Blood Methemoglobin 0.5 Arterial Blood pCO2 (Temp correct) 63.4 H Arterial Blood pH (Temp corrected) 7.400 Arterial Blood pO2 (Temp corrected) 96.0 Blood Gas A-a O2 Differential 21.5 Blood Gas Modality NASAL CANNULA Blood Gas Notified Time 05/24/2016 12:21:53 PM Blood Gas Notified Whom M.DRichy Blood Gas Specimen Source Blood arterial Blood Gas Temperature 37.0 FiO2 27.0 Oxyhemoglobin Percent 96.6 Total Hemoglobin 13.9 Medications Medications Current Medications Lorazepam (Ativan) 0.5 mg Q6H PRN IV ANXIETY Last administered on 05/23/16 01: 16; Admin Dose 0.5 MG; Start 05/19/16 at 20:00 Ondansetron HCl (Zofran Inj) 4 mg Q6H PRN IV NAUSEA AND/OR VOMITING; Start at 20:00 Nitroglycerin (Nitroglycerin (Sl Tab) 0.4 Mg) 1 tab Q5M PRN SL CHEST PAIN; Start 05/19/16 at 20:00 Acetaminophen (Tylenol Tab) 650 mg Q6H PRN PO PAIN LEVEL 1-3 OR FEVER; Start at 20:00 Morphine Sulfate (morphine) 2 mg Q4H PRN IV PAIN LEVEL 7-10 Last administered on 05/24/16 03:59; Admin Dose 2 MG; Start 05/19/16 at 20:00 Docusate Sodium (Colace) 100 mg Q12H PRN PO CONSTIPATION; Start 05/19/16 at 20: 00 Famotidine (Pepcid) 20 mg Q12 PO Last administered on 05/23/16 21:13; Admin Dose 20 MG; Start 05/19/16 at 21:00 Aspirin (Aspirin) 81 mg DAILY PO Last administered on 05/24/16 09:57; Admin Dose 81 MG; Start 05/20/16 at 09:00 Atorvastatin Calcium (Lipitor) 10 mg QHS PO Last administered on 05/23/16 21: 13; Admin Dose 10 MG; Start 05/19/16 at 21:00 Cholecalciferol (Vitamin D) 1,000 unit DAILY PO Last administered on 05/24/16 10:03; Admin Dose 1,000 UNIT; Start 05/20/16 at 09:00 Fluticasone Propionate (Flonase 0.05% Nasal) 1 spray BID NASAL Last administered on 05/22/16 21:05; Admin Dose 1 SPRAY; Start 05/19/16 at 21:00 Guaifenesin (Robitussin Liquid Cup) 600 mg Q12 PRN PO COUGH; Start 05/19/16 at 20:00 Metoprolol Succinate (Toprol Xl) 25 mg DAILY PO Last administered on 05/24/16 10:03; Admin Dose 25 MG; Start 05/20/16 at 09:00 Multivitamins Therapeutic (Theragran) 1 tab DAILY PO Last administered on 10:04; Admin Dose 1 TAB; Start 05/20/16 at 09:00 Polyethylene Glycol (Miralax) 17 gm DAILY PO Last administered on 05/23/16 09: 49; Admin Dose 17 GM; Start 05/20/16 at 09:00 Salmeterol Xinafoate/ Fluticasone (Advair 500/50 Diskus) 1 inh BID INH Last administered on 05/24/16 09:56; Admin Dose 1 INH; Start 05/19/16 at 21:00 Senna (Senokot) 2 tab BID PO Last administered on 05/24/16 10:04; Admin Dose 2 TAB; Start 05/19/16 at 21:00 Zolpidem Tartrate (Ambien) 5 mg QHS PRN PO SLEEP; Start 05/19/16 at 20:00 Acetaminophen/ Hydrocodone Bitart ([place] (5/325)) 1 tab Q6H PRN PO MODERATE PAIN LEVEL 4-6 Last administered on 05/23/16 02:49; Admin Dose 1 TAB; Start at 20:00 Ipratropium [place] (Atrovent Nasal) 2 spray QID NASAL Last administered on 05/24 12:02; Admin Dose 2 SPRAY; Start 05/19/16 at 21:00 Guaifenesin (Mucinex) 600 mg BID PO Last administered on 05/24/16 10:01; Admin Dose 600 MG; Start 05/20/16 at 21:00 Tamsulosin HCl (Flomax) 0.4 mg BID PO Last administered on 05/24/16 10:10; Admin Dose 0.4 MG; Start 05/21/16 at 21:00 Magnesium Oxide (Mag-Ox 400) 400 mg DAILY PO Last administered on 05/24/16 09: 58; Admin Dose 400 MG; Start 05/21/16 at 18:30 Azithromycin (Zithromax) 500 mg DAILY PO Last administered on 05/24/16 10:06; Admin Dose 500 MG; Start 05/23/16 at 09:00 Finasteride (Proscar) 5 mg DAILY PO Last administered on 05/24/16 10:05; Admin Dose 5 MG; Start 05/23/16 at 09:00 Methylprednisolone Sodium Succinate (Solu-Medrol) 40 mg Q6 IV Last administered on 05/24/16 12:02; Admin Dose 40 MG; Start 05/23/16 at 13:30 Finasteride (Proscar) 5 mg DAILY PO Last administered on 05/23/16 14:01; Admin Dose 5 MG; Start 05/23/16 at 13:30 Prednisone (Prednisone) 40 mg DAILY PO Last administered on 05/24/16 10:02; Admin Dose 40 MG; Start 05/23/16 at 15:00 IGNACIO HENRIQUEZ MD May 24, 2016 13:22
--- NOTE | 2016-05-24 18:54 | CONS ---
DATE OF ADMISSION: 05/19/2016 DATE OF CONSULTATION: 05/24/2016 REQUESTING PHYSICIAN: Kaitlyn Lee MD HISTORY OF PRESENT ILLNESS: This is a 70-year-old male who was admitted to [facility] on 05/19/2016 with the main complaint of difficulty breathing and he had exacerbation of his CO PD. He was having shortness of breath and these have been getting gradually worse. He was not able to even talk in a full sentence because of his shortness of breath. He was also nauseated. There was no history of chest pain or loss of consciousness. The patient had similar problem before and h lonnie was in the hospital here also on 04/12/2016 and was treated for similar problem. The urological c onsultation was requested because of difficulty urinating. The patient states that this goes back t o about 2 years ago when he was admitted to [facility]. He was not able to uri alan, they put the catheter in, and then when they removed it, he was not able to urinate again, so they left it in. Then they sent him home with a catheter for 1 week. Then they removed the cathete r and he was able to urinate. Had similar problem about 1 year ago and similar problem now. He sta jihan that they told him that his bladder was empty and he was not having a high postvoid residual onc e they removed the catheter, but he was urinating small amount each time. PAST MEDICAL HISTORY: Very significant for COPD with emphysema, pulmonary hypertension. He also arauz s rheumatoid arthritis, argyria, and hypoxemic respiratory failure. The patient is on oxygen at the facility where he lives, and also has been on steroids. The question of benign prostatic hypertrop hy and has been raised multiple times in his history, but he said that his prostate was not big. SOCIAL HISTORY: He is a smoker. He smoked 1 pack of cigarettes daily for 50 years. He just quit a bout a month ago. No history of alcohol or drug abuse. He is single. He does not have any childre n. 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 ALLERGIES: PENICILLIN. MEDICATIONS: He is presently on include: 1. Levaquin. 2. Prednisone. 3. Solu-Medrol 4. Proscar 5 mg. 5. He is on ____. 6. Flomax. 7. Magnesium oxide. 8. Mucinex. 9. Aspirin. 10. Vitamin D. 11. Toprol-XL. 12. Multivitamins. 13. MiraLax. 14. Pepcid. 15. Albuterol. 16. Ipratropium. 17. Atorvastatin. 18. Flonase. 19. Senokot. 20. Ipratropium bromide 4 times a day. 21. Zofran. 22. Nitroglycerin p.r.n. 23. Tylenol. 24. Morphine sulfate p.r.n. 25. Colace p.r.n. 26. Robitussin p.r.n. 27. Ambien p.r.n. 28. Xopenex p.r.n. 29. [place] p.r.n. PHYSICAL EXAMINATION: GENERAL: Reveals a 70-year-old male. Looking at his face and the skin over his face and neck, he h as silverfish hue. He has dyspnea even with him in a semi sitting position. The patient weighs abo ut 56 kg. He is 67 inches tall. VITAL SIGNS: His temperature is 97.9, pulse is 119, respirations 20, blood pressure 127/74. NECK: Supple. There is no adenopathy. HEART AND LUNGS: Were checked by the primary physicians. ABDOMEN: Soft. There is no abdominal mass palpable. GENITALIA: External genitalia: His testicles are very sensitive. Penis does have an indwelling Fo glenn catheter that is draining clear urine. He does have a large left inguinal hernia. EXTREMITIES: No edema. RECTAL: Revealed a prostate that is hard, but not enlarged. LABORATORY DATA: His CBC shows a white count of 9.8, hemoglobin 11.9, hematocrit 38.1. The BUN is 30, creatinine 0.8, sodium 140, potassium 5.2, chloride 93, CO2 is 39. The urinalysis on admission showed more than 200 RBCs, 10 to 25 WBCs, many bacteria. Urine culture: No growth after 48 hours. IMPRESSION: Urinary retention and this is most likely secondary to his respiratory medications. Th e prostate is hard and raises the possibility of prostate cancer. The patient did have a renal ultr asound and that showed that the right kidney has hardly any parenchyma and is completely hydronephro tic. Left kidney is normal. During that ultrasound, the bladder appeared to be empty. Therefore, he did not have urinary retention when the ultrasound was done. RECOMMENDATION: At the present, is: 1. To do urine cytology, as there is high risk of bladder cancer in a smoker. 2. He is going to have a CT scan of the abdomen and pelvis to check on the right kidney. I also wo uld clamp the Ramires catheter for 2 hours prior to the CT scan to have the bladder distended, so one could see the bladder and the prostate better. 3. I will also order PSA for him to be done on the blood that was drawn on admission. 4. I would continue him on the Flomax and the finasteride. They would not hurt if he is on just to facilitate his voiding. 5. Further recommendation will be done as we get the result of the PSA and the CT scan. Dictated By: OSBALDO KRISHNA MD BB/LESLIE Conf#: [id number] DID#: [id number] CC: SMITA AGUILAR MD;*[facility]*
--- NOTE | 2016-05-24 20:08 | RADRPT ---
PROCEDURE: CT abdomen and pelvis without contrast. CLINICAL INDICATION: Hematuria. TECHNIQUE: CT scan of the abdomen and pelvis without contrast was performed and is reconstructed a t 2.5 mm contiguous axial intervals from the dome of the diaphragm to the inferior pubic rami.. The patient was scanned without intravenous contrast. Sagittal and coronal reformatted images were obt ained from the axial source images. The calculated radiation dose measures 332 mGy centimeters. The CTDI measures 7 mGy. COMPARISON: None. FINDINGS: The lung bases are clear of any infiltrate or nodule. No effusion is seen. There is fibrosis at the lung bases. Coronary artery calcifications are present and there are calcified azygos esophageal r ecess nodes. There is calcified right pleural plaque. The liver is of normal size, contour and attenuation with no mass or ductal dilatation. No gallston es are visualized. No splenic, adrenal or pancreatic abnormalities present. Noted is severe right hydronephrosis with near complete atrophy of the parenchyma. No solid mass or stone is present and there is a sharp transition at the ureteropelvic junction. The right ureter i s of normal course and caliber with no stone. The left kidney is unremarkable with no hydronephrosi s, calculus or solid mass. There is a 1 cm left cortical cyst. The left ureter is of normal course and caliber with no stone. Ramires catheter is seen in the urinary bladder. Prostate and seminal ve sicles are normal. The There is no aneurysm. There are is calcified plaque in the aorta and iliac arteries. No adenopat hy is present. No bowel mass or obstruction is present. Noted is a left inguinal and scrotal hernia containing n onobstructed colon. The appendix is normal. No phlegmon, ascites or pneumoperitoneum is visualized . There are chronic compression fractures in the lumbar spine. IMPRESSION: Severe right hydronephrosis with atrophy of the parenchyma and abrupt transition at the ureteropelvi c junction. Rule out UPJ stenosis. Left renal cyst. Old granulomatous disease. Left inguinal hernia containing nonobstructed colon. Vascular calcifications. Bibasilar lung scarring. Old granulomatous disease. Calcified right pleural plaque. Chronic compression fractures lumbar spine. .Sreekanth Cruz MD, MD Date Time Electronically viewed and signed by .Sreekanth Cruz MD, MD on 05/24/2016 20:07 .A/
[2016-05-24] MEDS: ATORVASTATIN 10 MG TAB PO SCH (20:39)
[2016-05-25] VITALS (10 sets, daily range): BP systolic 104–123; BP diastolic 66–73; PULSE 78–106; RESP 18–20
[2016-05-25] MEDS: ALBUTEROL/IPRATROPIUM (NEB) 3 ML AMP HHN SCH ×6 (04:44→21:00)
[2016-05-25] MEDS: LEVOFLOXACIN 500 MG TAB PO SCH (05:56)
[2016-05-25 07:39] LABS: POTASSIUM 4.3 mmol/L (3.5-5.1)
[2016-05-25 07:42] LABS: CREATININE 0.84 mg/dl (0.61-1.24)
[2016-05-25 07:43] LABS: CALCIUM 9.2 mg/dl (8.4-10.2)
[2016-05-25] MEDS: FLUTICASONE 0.05% 16 GM NAS SPRAY NASAL SCH ×2 (08:51→20:43)
[2016-05-25] MEDS: IPRATROPIUM 0.03% 30 ML NASAL SPRAY NASAL SCH ×4 (08:53→21:00)
[2016-05-25] MEDS: SALMETEROL/FLUTICASONE 500/50 INHA INH SCH ×2 (08:53→20:43)
[2016-05-25] MEDS: POLYETHYLENE GLYCOL 17 GM PACKET PO SCH (09:00)
[2016-05-25] MEDS: FAMOTIDINE 20 MG TAB PO SCH ×3 (09:00→22:32)
[2016-05-25] MEDS: FINASTERIDE 5 MG TAB PO SCH ×2 (09:00→09:12)
[2016-05-25] MEDS: SENNA TAB PO SCH ×3 (09:09→22:32)
[2016-05-25] MEDS: ASPIRIN 81 MG TAB PO SCH (09:09)
[2016-05-25] MEDS: CHOLECALCIFEROL 1,000 UNIT TAB PO SCH (09:09)
[2016-05-25] MEDS: CALCIUM CARBONATE 750 MG CHEW TAB PO SCH ×3 (09:09→19:05)
[2016-05-25] MEDS: MULTIVITAMINS THERAPEUTIC TAB PO SCH (09:10)
[2016-05-25] MEDS: predniSONE 20 MG TAB PO SCH (09:10)
[2016-05-25] MEDS: TAMSULOSIN (SR) 0.4 MG CAP PO SCH ×2 (09:11→22:31)
[2016-05-25] MEDS: METOPROLOL (XL) 25 MG TAB PO SCH (09:11)
[2016-05-25] MEDS: MAGNESIUM OXIDE 400 MG TAB PO SCH (09:11)
[2016-05-25] MEDS: GUAIFENESIN LA 600 MG TABSR PO SCH ×3 (09:15→22:32)
--- NOTE | 2016-05-25 09:35 | CONS ---
Date/Time of Note Date/Time of Note DATE: 05/25/16 TIME: 09:32 Assessment/Plan Assessment/Plan Additional Assessment/Plan 1. Acute hyperkalemia. resolved 2. Severe metabolic alkalosis with a bicarbonate of 39, which could be compensatory for his respiratory acidosis.PCO2 71 on ABG 3. Acute prerenal azotemia likely secondary to decreased p.o. intake. 4. Acute urinary retention requiring a Ramos catheter with hematuria. 5. History of benign prostatic hypertrophy. 6. History of hypertension. 7. History of hyperlipidemia. 8. History of chronic obstructive pulmonary disease. 9. History of argyria skin disease. 10. 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 PLAN: PCo2 improving, CT abd showed severe right hdyronephrosi wth right UPJ stenosis , urology following PSA 127 need urology follow up about Right UVJ stenosis and also very elevated PSA will continue to followu p Consultation Date/Type/Reason Admit Date/Time May 19, 2016 at 19:29 Initial Consult Date 05/20/16 Type of Consultation: NEPHROLOGY Reason for Consultation Obstructive uropathy, converned abotu right kidney parenchymal necrosis Referring Provider: SMITA AGUILAR 24 HR Interval Summary Free Text/Dictation CT showed severe Right hydronephrosis with Right UVJ stenosis Exam/Review of Systems Vital Signs Vitals Vital Signs Date Time Temp Pulse Resp B/P Pulse Ox O2 Delivery O2 Flow Rate FiO2 05/25/16 09:27 97 05/25/16 07:43 97.7 20 104/73 96 05/25/16 00:03 2.0 05/25/16 00:00 Nasal Cannula Intake and Output 05/24/16 05/24/16 05/25/16 15:00 23:00 07:00 Intake Total 720 ml 500 ml Output Total 700 ml 700 ml Balance 20 ml -200 ml Exam GENERAL: Awake, alert, in no distress. HEENT: Normal. Oropharynx clear. NECK: Supple, no JVD, no lymphadenopathy. LUNGS: Clear to auscultation. No basilar crackles present. HEART: S1, S2, tachycardia, no murmur. ABDOMEN: Soft, nontender, nondistended. Bowel sounds are present. EXTREMITIES: No clubbing, cyanosis, or edema., + ramos catheter NEUROLOGICAL: Nonfocal, intact. PSYCHIATRIC: Appropriate affect and mood. Results Result Diagram: 05/24/16 0737 05/25/16 0620 Results 24 hrs Laboratory Tests Test 05/25/16 06:20 Anion Gap 11 Blood Urea Nitrogen 34 H Calcium Level 9.2 Carbon Dioxide Level 40 H Chloride Level 95 L Creatinine 0.84 Glucose Level 89 # Potassium Level 4.3 Sodium Level 142 Medications Medications Current Medications Lorazepam (Ativan) 0.5 mg Q6H PRN IV ANXIETY Last administered on 05/23/16 01: 16; Admin Dose 0.5 MG; Start 05/19/16 at 20:00 Ondansetron HCl (Zofran Inj) 4 mg Q6H PRN IV NAUSEA AND/OR VOMITING; Start at 20:00 Nitroglycerin (Nitroglycerin (Sl Tab) 0.4 Mg) 1 tab Q5M PRN SL CHEST PAIN; Start 05/19/16 at 20:00 Acetaminophen (Tylenol Tab) 650 mg Q6H PRN PO PAIN LEVEL 1-3 OR FEVER; Start at 20:00 Morphine Sulfate (morphine) 2 mg Q4H PRN IV PAIN LEVEL 7-10 Last administered on 05/24/16 03:59; Admin Dose 2 MG; Start 05/19/16 at 20:00 Docusate Sodium (Colace) 100 mg Q12H PRN PO CONSTIPATION; Start 05/19/16 at 20: 00 Famotidine (Pepcid) 20 mg Q12 PO Last administered on 05/23/16 21:13; Admin Dose 20 MG; Start 05/19/16 at 21:00 Aspirin (Aspirin) 81 mg DAILY PO Last administered on 05/25/16 09:09; Admin Dose 81 MG; Start 05/20/16 at 09:00 Atorvastatin Calcium (Lipitor) 10 mg QHS PO Last administered on 05/23/16 21: 13; Admin Dose 10 MG; Start 05/19/16 at 21:00 Cholecalciferol (Vitamin D) 1,000 unit DAILY PO Last administered on 05/25/16 09:09; Admin Dose 1,000 UNIT; Start 05/20/16 at 09:00 Fluticasone Propionate (Flonase 0.05% Nasal) 1 spray BID NASAL Last administered on 05/25/16 08:51; Admin Dose 1 SPRAY; Start 05/19/16 at 21:00 Guaifenesin (Robitussin Liquid Cup) 600 mg Q12 PRN PO COUGH; Start 05/19/16 at 20:00 Metoprolol Succinate (Toprol Xl) 25 mg DAILY PO Last administered on 05/25/16 09:11; Admin Dose 25 MG; Start 05/20/16 at 09:00 Multivitamins Therapeutic (Theragran) 1 tab DAILY PO Last administered on 09:10; Admin Dose 1 TAB; Start 05/20/16 at 09:00 Polyethylene Glycol (Miralax) 17 gm DAILY PO Last administered on 05/23/16 09: 49; Admin Dose 17 GM; Start 05/20/16 at 09:00 Salmeterol Xinafoate/ Fluticasone (Advair 500/50 Diskus) 1 inh BID INH Last administered on 05/25/16 08:53; Admin Dose 1 INH; Start 05/19/16 at 21:00 Senna (Senokot) 2 tab BID PO Last administered on 05/25/16 09:09; Admin Dose 2 TAB; Start 05/19/16 at 21:00 Zolpidem Tartrate (Ambien) 5 mg QHS PRN PO SLEEP; Start 05/19/16 at 20:00 Acetaminophen/ Hydrocodone Bitart ([place] (5/325)) 1 tab Q6H PRN PO MODERATE PAIN LEVEL 4-6 Last administered on 05/23/16 02:49; Admin Dose 1 TAB; Start at 20:00 Ipratropium [place] (Atrovent Nasal) 2 spray QID NASAL Last administered on 05/25 08:53; Admin Dose 2 SPRAY; Start 05/19/16 at 21:00 Guaifenesin (Mucinex) 600 mg BID PO Last administered on 05/25/16 09:15; Admin Dose 600 MG; Start 05/20/16 at 21:00 Tamsulosin HCl (Flomax) 0.4 mg BID PO Last administered on 05/25/16 09:11; Admin Dose 0.4 MG; Start 05/21/16 at 21:00 Magnesium Oxide (Mag-Ox 400) 400 mg DAILY PO Last administered on 05/25/16 09: 11; Admin Dose 400 MG; Start 05/21/16 at 18:30 Finasteride (Proscar) 5 mg DAILY PO Last administered on 05/25/16 09:12; Admin Dose 5 MG; Start 05/23/16 at 09:00 Finasteride (Proscar) 5 mg DAILY PO Last administered on 05/23/16 14:01; Admin Dose 5 MG; Start 05/23/16 at 13:30 Prednisone (Prednisone) 40 mg DAILY PO Last administered on 05/25/16 09:10; Admin Dose 40 MG; Start 05/23/16 at 15:00 Levofloxacin (Levaquin) 500 mg DAILY@06 PO Last administered on 05/25/16 05:56 ; Admin Dose 500 MG; Start 05/25/16 at 06:00 JANIS VAZQUEZ MD May 25, 2016 09:35
--- NOTE | 2016-05-25 13:23 | PN ---
DATE: 05/25/2016 SUBJECTIVE: Patient has remained confused, but no evidence of respiratory distress. PHYSICAL EXAMINATION: VITAL SIGNS: Temperature 97, pulse is 95, blood pressure 115/72, O2 saturation 98% on 2 L nasal can nula. NECK: Supple. No JVD or lymphadenopathy. CARDIAC: S1, S2. No added sounds or murmurs. CHEST: Diminished air entry bilaterally. ABDOMEN: Soft, nontender. No guarding or rebound. EXTREMITIES: No cyanosis, clubbing, edema. NEUROLOGIC: Generalized weakness, but no focal deficits. LABORATORY DATA: White count 9.8, hemoglobin 11.9, platelets 262, BUN 34, creatinine 0.84, PaO2 was 96 on 2 L nasal cannula. IMPRESSION AND PLAN: 1. Chronic hypercapnia. 2. Right hydronephrosis. 3. History of benign prostatic hypertrophy. 4. History of hypertension. PLAN: 1. Continue supplemental O2. 2. Continue to ambulate and record oxygen saturation on ambulation as patient may require supplemen sathish O2 prior to discharge for exertion. Dictated By: JARVIS INGRAM/LESLIE Conf#: [id number] DID#: [id number]
--- NOTE | 2016-05-25 14:26 | PN ---
Date/Time of Note Date/Time of Note DATE: 05/25/16 TIME: 14:18 Assessment/Plan VTE Prophylaxis VTE Prophylaxis Intervention: heparin Lines/Catheters IV Catheter Type (from Nrsg): Saline Lock Urinary Cath still in place: Yes Reason Cath still needed: urinary retention Assessment/Plan Assessment/Plan 1. Acute COPD exacerbation, still with SOB, on neb/levaquin and SoluMedrol 2. Acute on chronic respiratory failure, O2 3. Pulmonary Hypertension, COPD related 4. Rheumatoid Arthritis - continue with pain management 5. Argyria 6. BPH - continue with flomax and proscar, Ramires for urinary retention 7. Right UPJ obstruction, follow up with urology 8. GI ppx - pepcid 9. DVT ppx - hep Subjective 24 Hr Interval Summary Free Text/Dictation less SOB Exam/Review of Systems Vital Signs Vitals Vital Signs Date Time Temp Pulse Resp B/P Pulse Ox O2 Delivery O2 Flow Rate FiO2 05/25/16 12:57 78 05/25/16 11:54 97.8 19 115/72 98 05/25/16 10:04 Nasal Cannula 2.0 Intake and Output 05/24/16 05/24/16 05/25/16 15:00 23:00 07:00 Intake Total 720 ml 500 ml Output Total 700 ml 700 ml Balance 20 ml -200 ml Exam Constitutional: alert, oriented, well developed Psych: nl mood/affect, no complaints Head: atraumatic, normocephalic Eyes: EOMI, PERRL, nl conjunctiva, nl lids ENMT: nl external ears & nose, nl lips & teeth, nl nasal mucosa & septum Neck: non-tender, supple Respiratory: clear to auscultation, diminished breath sounds Cardiovascular: nl pulses, regular rate and rhythm, No S3, No S4, No bruits, No diastolic murmur, No edema, No gallop, No irregular rhythm, No jugular venous distention (JVD), No murmurs/extra sounds, No other, No rub, No systolic murmur Gastrointestinal: nl liver, spleen, non-tender, soft, No ascites, No bowel sounds, No distended, No firm, No hepatomegaly, No mass , No other, No rebound or guarding, No splenomegaly, No surgical scars, No tender Musculoskeletal: nl extremities to inspection Extremities: normal pulses, No calf tenderness, No clubbing, No cyanosis, No edema, No other, No palpable cord, No pitting pedal edema, No tenderness 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, nl mental status, nl speech, nl strength Results Result Diagram: 05/24/16 0737 05/25/16 0620 Results 24 hrs Laboratory Tests Test 05/25/16 06:20 Anion Gap 11 Blood Urea Nitrogen 34 H Calcium Level 9.2 Carbon Dioxide Level 40 H Chloride Level 95 L Creatinine 0.84 Glucose Level 89 # Potassium Level 4.3 Sodium Level 142 Medications Medications Current Medications Lorazepam (Ativan) 0.5 mg Q6H PRN IV ANXIETY Last administered on 05/23/16 01: 16; Admin Dose 0.5 MG; Start 05/19/16 at 20:00 Ondansetron HCl (Zofran Inj) 4 mg Q6H PRN IV NAUSEA AND/OR VOMITING; Start at 20:00 Nitroglycerin (Nitroglycerin (Sl Tab) 0.4 Mg) 1 tab Q5M PRN SL CHEST PAIN; Start 05/19/16 at 20:00 Acetaminophen (Tylenol Tab) 650 mg Q6H PRN PO PAIN LEVEL 1-3 OR FEVER; Start at 20:00 Morphine Sulfate (morphine) 2 mg Q4H PRN IV PAIN LEVEL 7-10 Last administered on 05/24/16 03:59; Admin Dose 2 MG; Start 05/19/16 at 20:00 Docusate Sodium (Colace) 100 mg Q12H PRN PO CONSTIPATION; Start 05/19/16 at 20: 00 Famotidine (Pepcid) 20 mg Q12 PO Last administered on 05/23/16 21:13; Admin Dose 20 MG; Start 05/19/16 at 21:00 Aspirin (Aspirin) 81 mg DAILY PO Last administered on 05/25/16 09:09; Admin Dose 81 MG; Start 05/20/16 at 09:00 Atorvastatin Calcium (Lipitor) 10 mg QHS PO Last administered on 05/23/16 21: 13; Admin Dose 10 MG; Start 05/19/16 at 21:00 Cholecalciferol (Vitamin D) 1,000 unit DAILY PO Last administered on 05/25/16 09:09; Admin Dose 1,000 UNIT; Start 05/20/16 at 09:00 Fluticasone Propionate (Flonase 0.05% Nasal) 1 spray BID NASAL Last administered on 05/25/16 08:51; Admin Dose 1 SPRAY; Start 05/19/16 at 21:00 Guaifenesin (Robitussin Liquid Cup) 600 mg Q12 PRN PO COUGH; Start 05/19/16 at 20:00 Metoprolol Succinate (Toprol Xl) 25 mg DAILY PO Last administered on 05/25/16 09:11; Admin Dose 25 MG; Start 05/20/16 at 09:00 Multivitamins Therapeutic (Theragran) 1 tab DAILY PO Last administered on 09:10; Admin Dose 1 TAB; Start 05/20/16 at 09:00 Polyethylene Glycol (Miralax) 17 gm DAILY PO Last administered on 05/23/16 09: 49; Admin Dose 17 GM; Start 05/20/16 at 09:00 Salmeterol Xinafoate/ Fluticasone (Advair 500/50 Diskus) 1 inh BID INH Last administered on 05/25/16 08:53; Admin Dose 1 INH; Start 05/19/16 at 21:00 Senna (Senokot) 2 tab BID PO Last administered on 05/25/16 09:09; Admin Dose 2 TAB; Start 05/19/16 at 21:00 Zolpidem Tartrate (Ambien) 5 mg QHS PRN PO SLEEP; Start 05/19/16 at 20:00 Acetaminophen/ Hydrocodone Bitart ([place] (5/325)) 1 tab Q6H PRN PO MODERATE PAIN LEVEL 4-6 Last administered on 05/23/16 02:49; Admin Dose 1 TAB; Start at 20:00 Ipratropium [place] (Atrovent Nasal) 2 spray QID NASAL Last administered on 05/25 08:53; Admin Dose 2 SPRAY; Start 05/19/16 at 21:00 Guaifenesin (Mucinex) 600 mg BID PO Last administered on 05/25/16 09:15; Admin Dose 600 MG; Start 05/20/16 at 21:00 Tamsulosin HCl (Flomax) 0.4 mg BID PO Last administered on 05/25/16 09:11; Admin Dose 0.4 MG; Start 05/21/16 at 21:00 Magnesium Oxide (Mag-Ox 400) 400 mg DAILY PO Last administered on 05/25/16 09: 11; Admin Dose 400 MG; Start 05/21/16 at 18:30 Finasteride (Proscar) 5 mg DAILY PO Last administered on 05/25/16 09:12; Admin Dose 5 MG; Start 05/23/16 at 09:00 Finasteride (Proscar) 5 mg DAILY PO Last administered on 05/23/16 14:01; Admin Dose 5 MG; Start 05/23/16 at 13:30 Prednisone (Prednisone) 40 mg DAILY PO Last administered on 05/25/16 09:10; Admin Dose 40 MG; Start 05/23/16 at 15:00 Levofloxacin (Levaquin) 500 mg DAILY@06 PO Last administered on 05/25/16 05:56 ; Admin Dose 500 MG; Start 05/25/16 at 06:00 IGNACIO HENRIQUEZ MD May 25, 2016 14:25
[2016-05-25] MEDS: ATORVASTATIN 10 MG TAB PO SCH (21:00)
--- NOTE | 2016-05-25 21:17 | PN ---
DATE: 05/25/2016 SUBJECTIVE: Urinary retention and right hydronephrosis. The patient has been complaining of urinat ing around the catheter and most likely having bladder spasms. The patient has severe COPD and exac erbation. OBJECTIVE: GENERAL: His face looks a silver hue color, and the patient is in semi-sitting position in the bed. VITAL SIGNS: The temperature is 97.8, pulse is 99, respirations 20, blood pressure 120/69. GENITOURINARY: The Ramires catheter is draining clear urine. LABORATORY DATA: His last CBC shows a white count of 9.8, hemoglobin 11.9. The BUN is 34, creatini ne 0.84. The patient had a PSA done as I ordered yesterday and the PSA 127. He also had a CT scan of the abdomen and pelvis, and that CT scan was reported as severe right hydro nephrosis with atrophy of the parenchyma and abrupt transition at the ureteropelvic junction, so pat jorge most likely has ureteropelvic junction obstruction, and this is a chronic problem, and there is no renal parenchyma left for any function. The CT scan also showed old granulomatous disease, left inguinal hernia containing nonobstructed colon, vascular calcification, bibasilar lung scarring, ol d granulomatous disease, calcified right pleural plaque and chronic compression fractures of lumbar spine. The prostate was also visualized and the seminal vesicles, and they both are normal. The pr ostate did not seem to be enlarged. IMPRESSION: The patient's urinary retention is unlikely to be from an enlarged prostate, but he quiñones s most likely have prostate cancer since the PSA is elevated at 127. Also, on the rectal exam, his prostate is hard, and it is possible that his retention could be also secondary to his prostate canc er, but we do not have a tissue diagnosis for that. The most likely reason for his urinary retentio n is the side effect of medications that he has to take for his lung problem and mainly the Atrovent and the fact that he is in bed and also the DuoNeb, ipratropium bromide, the Ativan and any pain me dications and ____, and Ambien could also be affecting him. The patient stated that he has had martin lar problem in the past and he was able to urinate after awhile. IMPRESSION: Urinary retention and possible cancer of the prostate. PLAN: Remove the Ramires catheter tomorrow morning and then check his voiding and his postvoid residu al and do straight cath on him for a postvoid residual of 300 mL or if bladder scan over 500 and he does not urinate. I discussed with him about the possibility of prostate cancer, and if we were to have a tissue diagnosis, we have to do biopsy, and that usually is done as an outpatient, and even i f he does have prostate cancer, I think the danger to his life is from his lung problems rather than from prostate cancer. He understood that. Therefore, we just try to see if he could urinate on hi s own. Dictated By: OSBALDO FARRAR/LESLIE Conf#: [id number] DID#: [id number]
[2016-05-25] MEDS: LEVALBUTEROL (NEB) 1.25 MG/0.5 ML AMP HHN PRN (21:55)
[2016-05-25] MEDS: IPRATROPIUM (NEB) 0.5 MG/2.5 ML AMP HHN PRN (21:56)
[2016-05-26] VITALS (11 sets, daily range): BP systolic 120–135; BP diastolic 63–77; PULSE 95–115; RESP 17–20
[2016-05-26] MEDS: ALBUTEROL/IPRATROPIUM (NEB) 3 ML AMP HHN SCH (01:00)
[2016-05-26] MEDS: LEVALBUTEROL (NEB) 1.25 MG/0.5 ML AMP HHN PRN (01:23)
[2016-05-26] MEDS: IPRATROPIUM (NEB) 0.5 MG/2.5 ML AMP HHN PRN (01:23)
[2016-05-26] MEDS ORDERED: LEVALBUTEROL (NEB) 0.63 MG/3 ML AMP ONE (01:27)
[2016-05-26] MEDS: LEVALBUTEROL (NEB) 0.63 MG/3 ML AMP HHN SCH ×5 (05:00→21:44)
[2016-05-26] MEDS: IPRATROPIUM (NEB) 0.5 MG/2.5 ML AMP HHN SCH ×5 (05:00→21:45)
[2016-05-26] MEDS: LEVOFLOXACIN 500 MG TAB PO SCH (06:20)
[2016-05-26 07:44] LABS: AADO2 Arterial 28.1 mmHg (7.0-24.0); Allen Test ACCEPTAB; Arterial Base Excess 11.6 mmol/L (-3.0-3); Arterial COHb 0.3 % (0.0-3.0); Arterial Fraction of Oxyhgb 96.2 % (93.0-99.0); Arterial HCO3 39.3 mmol/L (22.0-26.0); Arterial MetHb 0.4 % (0.0-1.5); Arterial Total Hemglobin 13.2 g/dl (12.0-18.0); MODE NASAL CANNULA
[2016-05-26] MEDS: IPRATROPIUM 0.03% 30 ML NASAL SPRAY NASAL SCH ×4 (08:55→21:00)
[2016-05-26] MEDS: SALMETEROL/FLUTICASONE 500/50 INHA INH SCH ×2 (08:56→21:00)
[2016-05-26] MEDS: FLUTICASONE 0.05% 16 GM NAS SPRAY NASAL SCH ×2 (08:57→21:00)
[2016-05-26] MEDS: TAMSULOSIN (SR) 0.4 MG CAP PO SCH ×2 (08:59→21:58)
[2016-05-26] MEDS: ASPIRIN 81 MG TAB PO SCH (08:59)
[2016-05-26] MEDS: MAGNESIUM OXIDE 400 MG TAB PO SCH (09:00)
[2016-05-26] MEDS: POLYETHYLENE GLYCOL 17 GM PACKET PO SCH (09:00)
[2016-05-26] MEDS: predniSONE 20 MG TAB PO SCH (09:00)
[2016-05-26] MEDS: FINASTERIDE 5 MG TAB PO SCH ×2 (09:00)
[2016-05-26] MEDS: MULTIVITAMINS THERAPEUTIC TAB PO SCH (09:01)
[2016-05-26] MEDS: CHOLECALCIFEROL 1,000 UNIT TAB PO SCH (09:02)
[2016-05-26] MEDS: CALCIUM CARBONATE 750 MG CHEW TAB PO SCH ×3 (09:02→18:05)
[2016-05-26] MEDS: METOPROLOL (XL) 25 MG TAB PO SCH (09:02)
--- NOTE | 2016-05-26 11:09 | PN ---
DATE: 05/26/2016 The patient has been stable this morning, still has occasional productive cough, but no fever, no ch ills. PHYSICAL EXAMINATION VITAL SIGNS: Temperature 98, pulse is 98, blood pressure 135/77, O2 saturation 96% on 2 L nasal can nula. NECK: Supple. No JVD or lymphadenopathy. CARDIAC: S1, S2, no added sounds or murmurs. CHEST: Diminished air entry bilaterally. ABDOMEN: Soft, nontender. No guarding or rebound. EXTREMITIES: No cyanosis, clubbing or edema. NEUROLOGIC: Generalized weakness. LABORATORY DATA: White count 9.8, hemoglobin 11.9, platelets of 216. Arterial blood gas pH 7.38, p CO2 of 66, PaO2 of 92. IMPRESSION AND PLAN: 1. Status post acute on chronic hypoxemic or hypercapnic respiratory failure. 2. History of urinary retention, now removal of Ramires catheter. 3. Hypoxemia secondary to chronic obstructive pulmonary disease exacerbation. 4. Pulmonary hypertension. 5. Rheumatoid arthritis. PLAN: 1. Continue p.o. prednisone. 2. Urology recommendations. 3. Discharge planning okay from pulmonary standpoint. Dictated By: JARVIS INGRAM/LESLIE Conf#: [id number] DID#: [id number]
--- NOTE | 2016-05-26 12:04 | CONS ---
Date/Time of Note Date/Time of Note DATE: 05/26/16 TIME: 11:58 Assessment/Plan Assessment/Plan Additional Assessment/Plan 1. Acute hyperkalemia. resolved 2. Severe metabolic alkalosis with a bicarbonate of 39, which could be compensatory for his respiratory acidosis.PCO2 71 on ABG 3. Acute prerenal azotemia likely secondary to decreased p.o. intake. 4. 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 History of benign prostatic hypertrophy. 6. History of hypertension. 7. History of hyperlipidemia. 8. History of chronic obstructive pulmonary disease. 9. History of argyria skin disease. 10. 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 will continue to followu p Consultation Date/Type/Reason Admit Date/Time May 19, 2016 at 19:29 Initial Consult Date 05/20/16 Type of Consultation: NEPHROLOGY Reason for Consultation Hematuria, Urinary obstruction, Right kidney necrosis with UPJ obstruction Referring Provider: SMITA AGUILAR 24 HR Interval Summary Free Text/Dictation pt has no functioning right kidney, high PSA suspicious for prostate CA Exam/Review of Systems Vital Signs Vitals Vital Signs Date Time Temp Pulse Resp B/P Pulse Ox O2 Delivery O2 Flow Rate FiO2 05/26/16 11:40 97.8 93 17 120/65 97 05/26/16 09:39 3.0 05/26/16 09:39 Nasal Cannula Intake and Output 05/25/16 05/25/16 05/26/16 15:00 23:00 07:00 Intake Total 800 ml 120 ml Output Total 600 ml 450 ml Balance 200 ml -330 ml Exam GENERAL: Awake, alert, in no distress. HEENT: Normal. Oropharynx clear. NECK: Supple, no JVD, no lymphadenopathy. LUNGS: Clear to auscultation. No basilar crackles present. HEART: S1, S2, tachycardia, no murmur. ABDOMEN: Soft, nontender, nondistended. Bowel sounds are present. EXTREMITIES: No clubbing, cyanosis, or edema., + ramos catheter NEUROLOGICAL: Nonfocal, intact. PSYCHIATRIC: Appropriate affect and mood. Results Result Diagram: 05/24/16 0737 05/25/16 0620 Medications Medications Current Medications Lorazepam (Ativan) 0.5 mg Q6H PRN IV ANXIETY Last administered on 05/23/16 01: 16; Admin Dose 0.5 MG; Start 05/19/16 at 20:00 Ondansetron HCl (Zofran Inj) 4 mg Q6H PRN IV NAUSEA AND/OR VOMITING; Start at 20:00 Nitroglycerin (Nitroglycerin (Sl Tab) 0.4 Mg) 1 tab Q5M PRN SL CHEST PAIN; Start 05/19/16 at 20:00 Acetaminophen (Tylenol Tab) 650 mg Q6H PRN PO PAIN LEVEL 1-3 OR FEVER; Start at 20:00 Morphine Sulfate (morphine) 2 mg Q4H PRN IV PAIN LEVEL 7-10 Last administered on 05/24/16 03:59; Admin Dose 2 MG; Start 05/19/16 at 20:00 Docusate Sodium (Colace) 100 mg Q12H PRN PO CONSTIPATION; Start 05/19/16 at 20: 00 Famotidine (Pepcid) 20 mg Q12 PO Last administered on 05/25/16 22:32; Admin Dose 20 MG; Start 05/19/16 at 21:00 Aspirin (Aspirin) 81 mg DAILY PO Last administered on 05/26/16 08:59; Admin Dose 81 MG; Start 05/20/16 at 09:00 Atorvastatin Calcium (Lipitor) 10 mg QHS PO Last administered on 05/23/16 21: 13; Admin Dose 10 MG; Start 05/19/16 at 21:00 Cholecalciferol (Vitamin D) 1,000 unit DAILY PO Last administered on 05/26/16 09:02; Admin Dose 1,000 UNIT; Start 05/20/16 at 09:00 Fluticasone Propionate (Flonase 0.05% Nasal) 1 spray BID NASAL Last administered on 05/26/16 08:57; Admin Dose 1 SPRAY; Start 05/19/16 at 21:00 Guaifenesin (Robitussin Liquid Cup) 600 mg Q12 PRN PO COUGH; Start 05/19/16 at 20:00 Metoprolol Succinate (Toprol Xl) 25 mg DAILY PO Last administered on 05/26/16 09:02; Admin Dose 25 MG; Start 05/20/16 at 09:00 Multivitamins Therapeutic (Theragran) 1 tab DAILY PO Last administered on 09:01; Admin Dose 1 TAB; Start 05/20/16 at 09:00 Polyethylene Glycol (Miralax) 17 gm DAILY PO Last administered on 05/23/16 09: 49; Admin Dose 17 GM; Start 05/20/16 at 09:00 Salmeterol Xinafoate/ Fluticasone (Advair 500/50 Diskus) 1 inh BID INH Last administered on 05/26/16 08:56; Admin Dose 1 INH; Start 05/19/16 at 21:00 Senna (Senokot) 2 tab BID PO Last administered on 05/25/16 22:32; Admin Dose 2 TAB; Start 05/19/16 at 21:00 Zolpidem Tartrate (Ambien) 5 mg QHS PRN PO SLEEP; Start 05/19/16 at 20:00 Acetaminophen/ Hydrocodone Bitart ([place] (5/325)) 1 tab Q6H PRN PO MODERATE PAIN LEVEL 4-6 Last administered on 05/23/16 02:49; Admin Dose 1 TAB; Start at 20:00 Ipratropium [place] (Atrovent Nasal) 2 spray QID NASAL Last administered on 05/26 08:55; Admin Dose 2 SPRAY; Start 05/19/16 at 21:00 Guaifenesin (Mucinex) 600 mg BID PO Last administered on 05/25/16 22:32; Admin Dose 600 MG; Start 05/20/16 at 21:00 Tamsulosin HCl (Flomax) 0.4 mg BID PO Last administered on 05/26/16 08:59; Admin Dose 0.4 MG; Start 05/21/16 at 21:00 Magnesium Oxide (Mag-Ox 400) 400 mg DAILY PO Last administered on 05/26/16 09: 00; Admin Dose 400 MG; Start 05/21/16 at 18:30 Finasteride (Proscar) 5 mg DAILY PO Last administered on 05/26/16 09:00; Admin Dose 5 MG; Start 05/23/16 at 09:00 Finasteride (Proscar) 5 mg DAILY PO Last administered on 05/23/16 14:01; Admin Dose 5 MG; Start 05/23/16 at 13:30 Prednisone (Prednisone) 40 mg DAILY PO Last administered on 05/26/16 09:00; Admin Dose 40 MG; Start 05/23/16 at 15:00 Levofloxacin (Levaquin) 500 mg DAILY@06 PO Last administered on 05/26/16 06:20 ; Admin Dose 500 MG; Start 05/25/16 at 06:00 JANIS VAZQUEZ MD May 26, 2016 12:04
--- NOTE | 2016-05-26 14:29 | PN ---
Date/Time of Note Date/Time of Note DATE: 05/26/16 TIME: 14:26 Assessment/Plan VTE Prophylaxis VTE Prophylaxis Intervention: heparin Lines/Catheters IV Catheter Type (from Nrs): Saline Lock Urinary Cath still in place: No Assessment/Plan Assessment/Plan 1. Acute COPD exacerbation, still with SOB, on neb/levaquin and SoluMedrol 2. Acute on chronic respiratory failure, O2 3. Pulmonary Hypertension, COPD related 4. Rheumatoid Arthritis - continue with pain management 5. Argyria 6. BPH - continue with flomax and proscar, Ramires for urinary retention, high PSA 127, follow up with urology 7. Right UPJ obstruction, chronic, no intervention per urology 8. GI ppx - pepcid 9. DVT ppx - hep Subjective 24 Hr Interval Summary Free Text/Dictation still with SOB, better Exam/Review of Systems Vital Signs Vitals Vital Signs Date Time Temp Pulse Resp B/P Pulse Ox O2 Delivery O2 Flow Rate FiO2 05/26/16 12:41 101 05/26/16 11:40 97.8 17 120/65 97 05/26/16 09:39 3.0 05/26/16 09:39 Nasal Cannula Intake and Output 05/25/16 05/25/16 05/26/16 15:00 23:00 07:00 Intake Total 800 ml 120 ml Output Total 600 ml 450 ml Balance 200 ml -330 ml Exam Constitutional: alert, oriented, well developed Psych: nl mood/affect, no complaints Head: atraumatic, normocephalic Eyes: EOMI, nl conjunctiva, nl lids ENMT: nl external ears & nose, nl lips & teeth, nl nasal mucosa & septum Neck: non-tender, supple Respiratory: diminished breath sounds Cardiovascular: nl pulses, regular rate and rhythm, No S3, No S4, No bruits, No diastolic murmur, No edema, No gallop, No irregular rhythm, No jugular venous distention (JVD), No murmurs/extra sounds, No other, No rub, No systolic murmur Gastrointestinal: nl liver, spleen, non-tender, soft, No ascites, No bowel sounds, No distended, No firm, No hepatomegaly, No mass , No other, No rebound or guarding, No splenomegaly, No surgical scars, No tender Musculoskeletal: nl extremities to inspection Extremities: normal pulses, No calf tenderness, No clubbing, No cyanosis, No edema, No other, No palpable cord, No pitting pedal edema, No tenderness Neurological: ADMIN ASST II-XII intact, nl mental status, nl speech, nl strength Skin: nl turgor Lymph: nl lymph nodes Results Result Diagram: 05/24/16 0737 05/25/16 0620 Medications Medications Current Medications Lorazepam (Ativan) 0.5 mg Q6H PRN IV ANXIETY Last administered on 05/23/16 01: 16; Admin Dose 0.5 MG; Start 05/19/16 at 20:00 Ondansetron HCl (Zofran Inj) 4 mg Q6H PRN IV NAUSEA AND/OR VOMITING; Start at 20:00 Nitroglycerin (Nitroglycerin (Sl Tab) 0.4 Mg) 1 tab Q5M PRN SL CHEST PAIN; Start 05/19/16 at 20:00 Acetaminophen (Tylenol Tab) 650 mg Q6H PRN PO PAIN LEVEL 1-3 OR FEVER; Start at 20:00 Morphine Sulfate (morphine) 2 mg Q4H PRN IV PAIN LEVEL 7-10 Last administered on 05/24/16 03:59; Admin Dose 2 MG; Start 05/19/16 at 20:00 Docusate Sodium (Colace) 100 mg Q12H PRN PO CONSTIPATION; Start 05/19/16 at 20: 00 Famotidine (Pepcid) 20 mg Q12 PO Last administered on 05/25/16 22:32; Admin Dose 20 MG; Start 05/19/16 at 21:00 Aspirin (Aspirin) 81 mg DAILY PO Last administered on 05/26/16 08:59; Admin Dose 81 MG; Start 05/20/16 at 09:00 Atorvastatin Calcium (Lipitor) 10 mg QHS PO Last administered on 05/23/16 21: 13; Admin Dose 10 MG; Start 05/19/16 at 21:00 Cholecalciferol (Vitamin D) 1,000 unit DAILY PO Last administered on 05/26/16 09:02; Admin Dose 1,000 UNIT; Start 05/20/16 at 09:00 Fluticasone Propionate (Flonase 0.05% Nasal) 1 spray BID NASAL Last administered on 05/26/16 08:57; Admin Dose 1 SPRAY; Start 05/19/16 at 21:00 Guaifenesin (Robitussin Liquid Cup) 600 mg Q12 PRN PO COUGH; Start 05/19/16 at 20:00 Metoprolol Succinate (Toprol Xl) 25 mg DAILY PO Last administered on 05/26/16 09:02; Admin Dose 25 MG; Start 05/20/16 at 09:00 Multivitamins Therapeutic (Theragran) 1 tab DAILY PO Last administered on 09:01; Admin Dose 1 TAB; Start 05/20/16 at 09:00 Polyethylene Glycol (Miralax) 17 gm DAILY PO Last administered on 05/23/16 09: 49; Admin Dose 17 GM; Start 05/20/16 at 09:00 Salmeterol Xinafoate/ Fluticasone (Advair 500/50 Diskus) 1 inh BID INH Last administered on 05/26/16 08:56; Admin Dose 1 INH; Start 05/19/16 at 21:00 Senna (Senokot) 2 tab BID PO Last administered on 05/25/16 22:32; Admin Dose 2 TAB; Start 05/19/16 at 21:00 Zolpidem Tartrate (Ambien) 5 mg QHS PRN PO SLEEP; Start 05/19/16 at 20:00 Acetaminophen/ Hydrocodone Bitart ([place] (5/325)) 1 tab Q6H PRN PO MODERATE PAIN LEVEL 4-6 Last administered on 05/23/16 02:49; Admin Dose 1 TAB; Start at 20:00 Ipratropium [place] (Atrovent Nasal) 2 spray QID NASAL Last administered on 05/26 12:27; Admin Dose 2 SPRAY; Start 05/19/16 at 21:00 Guaifenesin (Mucinex) 600 mg BID PO Last administered on 05/25/16 22:32; Admin Dose 600 MG; Start 05/20/16 at 21:00 Tamsulosin HCl (Flomax) 0.4 mg BID PO Last administered on 05/26/16 08:59; Admin Dose 0.4 MG; Start 05/21/16 at 21:00 Magnesium Oxide (Mag-Ox 400) 400 mg DAILY PO Last administered on 05/26/16 09: 00; Admin Dose 400 MG; Start 05/21/16 at 18:30 Finasteride (Proscar) 5 mg DAILY PO Last administered on 05/26/16 09:00; Admin Dose 5 MG; Start 05/23/16 at 09:00 Finasteride (Proscar) 5 mg DAILY PO Last administered on 05/23/16 14:01; Admin Dose 5 MG; Start 05/23/16 at 13:30 Prednisone (Prednisone) 40 mg DAILY PO Last administered on 05/26/16 09:00; Admin Dose 40 MG; Start 05/23/16 at 15:00 Levofloxacin (Levaquin) 500 mg DAILY@06 PO Last administered on 05/26/16 06:20 ; Admin Dose 500 MG; Start 05/25/16 at 06:00 IGNACIO HENRIQUEZ MD May 26, 2016 14:29
[2016-05-26] MEDS: ATORVASTATIN 10 MG TAB PO SCH (21:00)
[2016-05-26] MEDS: GUAIFENESIN LA 600 MG TABSR PO SCH ×2 (21:00→22:49)
[2016-05-26] MEDS: FAMOTIDINE 20 MG TAB PO SCH (21:58)
[2016-05-26] MEDS: SENNA TAB PO SCH (22:06)
[2016-05-27] MEDS: LEVALBUTEROL (NEB) 0.63 MG/3 ML AMP HHN SCH ×6 (01:00→20:34)
[2016-05-27] MEDS: IPRATROPIUM (NEB) 0.5 MG/2.5 ML AMP HHN SCH ×6 (01:00→20:34)
--- NOTE | 2016-05-27 06:25 | PN ---
DATE: 05/26/2016 SUBJECTIVE: Urinary retention and urinary frequency. The patient states he has been voiding small a brooke and frequently. OBJECTIVE FINDINGS: VITAL SIGNS: His temperature is 97.7, pulse is 97, respirations 18, blood pressure 122/63. The patient has been voiding, about 100 to 150 mL; however, his postvoid residual has been low. One time today he was checked with a bladder scan and his postvoid residual by bladder scan was 345; ho wever, when the straight catheterization done only 60 mL drained out. The patient tolerated it well and therefore the plan is to continue to monitor his voiding and his postvoid residual, and if his postvoid residual is over 300, do the straight catheterization on him. Otherwise, will just watch h im. Dictated By: OSBALDO FARRAR/LESLIE Conf#: [id number] DID#: [id number]
[2016-05-27] MEDS ORDERED: MONTELUKAST 10 MG TAB PO ONE (07:00)
[2016-05-27] MEDS: LEVOFLOXACIN 500 MG TAB PO SCH (07:01)
--- NOTE | 2016-05-27 07:11 | PN ---
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 No other complications presently Qualifiers: Encounter type: sequela Injury intent: accidental or unintentional Qualified Code: T56.891S - [place] of skin, accidental or unintentional, sequela (2) Decompensated COPD with exacerbation (chronic obstructive pulmonary disease) Status: Acute Comment: His breathing is reportedly improving slowly. While other notes indicate pulmonary hypertension we do not have an echocardiogram to show that. It would be consistent with a physical exam. I will get an echocardiogram as if he does have pulmonary hypertension in the usage of sildenafil may have a position in this rather end-stage gentleman. Furthermore he is not receiving nocturnal BiPAP. I will defer off to the pulmonary consultants about ordering this which I believe would be in his best interest. (3) Elevated PSA, greater than or equal to 20 ng/ml Status: Acute Comment: Please see the notes from Dr. Stover; I concur with this assessment. He is already on full treatment. Please note the finasteride was ordered for twice a day of reduce that back down to once a day. (4) BPH (benign prostatic hypertrophy) with urinary obstruction Status: Chronic Comment: Labeling this benign may be not quite most consistent thing. Regardless he does have urinary symptoms which are aggravated by the anticholinergics. Some of the anticholinergics are being used for allergic rhinitis. I am going to add to his medications for allergic rhinitis so that we can then decrease the and inhaled nasal ipratropium and see if we can improve him that way. (5) Essential hypertension Status: Chronic Comment: Controlled (6) Hyperlipidemia Status: Chronic Comment: On treatment Qualifiers: Hyperlipidemia type: pure hypercholesterolemia Qualified Code: E78.00 - Pure hypercholesterolemia (7) Allergic rhinitis Status: Chronic Comment: We are going to add in Montella cast both for this issue as well as to see if there is any possibly having it help his lung disease. Qualifiers: Allergic rhinitis seasonality: unspecified seasonality Allergic rhinitis trigger: unspecified Qualified Code: J30.9 - Allergic rhinitis, unspecified allergic rhinitis trigger, unspecified rhinitis seasonality (8) Left inguinal hernia Status: Chronic Comment: This is noted. Ultimately this may need some intervention but I can be done as an outpatient later. (9) Hydronephrosis of right kidney Status: Chronic Comment: This is a chronic issue based on what is left of the kidney on imaging. We will try and work with him as best we can. I did not see results of urine cytology and will defer off to Dr. Stover (10) Tobacco abuse Status: Resolved Comment: Counseled Subjective 24 Hr Interval Summary Free Text/Dictation Patient reports his breathing is gradually better. Please note he is not receiving nocturnal BiPAP Constitutional: no complaints (Denies fevers chills or sweats) Respiratory: no complaints (Denies wheezing), shortness of breath Cardiovascular: no complaints Gastrointestinal: no complaints Musculoskeletal: back pain Exam/Review of Systems Vital Signs Vitals Vital Signs Date Time Temp Pulse Resp B/P Pulse Ox O2 Delivery O2 Flow Rate FiO2 05/27/16 05:12 103 20 96 Nasal Cannula 2.0 05/26/16 21:56 97.4 124/67 Intake and Output 05/26/16 05/26/16 05/27/16 15:00 23:00 07:00 Intake Total 1200 ml 250 ml Output Total 800 ml 200 ml Balance 400 ml 50 ml Exam Silver tint to the skin Constitutional: alert, oriented Neck: non-tender, supple Respiratory: clear to auscultation, diminished breath sounds Cardiovascular: nl pulses, regular rate and rhythm Gastrointestinal: nl liver, spleen, non-tender, soft Results Result Diagram: 05/24/16 0737 05/25/16 0620 Medications Medications Current Medications Lorazepam (Ativan) 0.5 mg Q6H PRN IV ANXIETY Last administered on 05/23/16t 01: 16; Admin Dose 0.5 MG; Start 05/19/16 at 20:00 Ondansetron HCl (Zofran Inj) 4 mg Q6H PRN IV NAUSEA AND/OR VOMITING; Start at 20:00 Nitroglycerin (Nitroglycerin (Sl Tab) 0.4 Mg) 1 tab Q5M PRN SL CHEST PAIN; Start 05/19/16 at 20:00 Acetaminophen (Tylenol Tab) 650 mg Q6H PRN PO PAIN LEVEL 1-3 OR FEVER; Start at 20:00 Morphine Sulfate (morphine) 2 mg Q4H PRN IV PAIN LEVEL 7-10 Last administered on 05/24/16 03:59; Admin Dose 2 MG; Start 05/19/16 at 20:00 Docusate Sodium (Colace) 100 mg Q12H PRN PO CONSTIPATION; Start 05/19/16 at 20: 00 Famotidine (Pepcid) 20 mg Q12 PO Last administered on 05/26/16 21:58; Admin Dose 20 MG; Start 05/19/16 at 21:00 Aspirin (Aspirin) 81 mg DAILY PO Last administered on 05/26/16 08:59; Admin Dose 81 MG; Start 05/20/16 at 09:00 Atorvastatin Calcium (Lipitor) 10 mg QHS PO Last administered on 05/23/16 21: 13; Admin Dose 10 MG; Start 05/19/16 at 21:00 Cholecalciferol (Vitamin D) 1,000 unit DAILY PO Last administered on 05/26/16 09:02; Admin Dose 1,000 UNIT; Start 05/20/16 at 09:00 Fluticasone Propionate (Flonase 0.05% Nasal) 1 spray BID NASAL Last administered on 05/26/16 08:57; Admin Dose 1 SPRAY; Start 05/19/16 at 21:00 Guaifenesin (Robitussin Liquid Cup) 600 mg Q12 PRN PO COUGH; Start 05/19/16 at 20:00 Metoprolol Succinate (Toprol Xl) 25 mg DAILY PO Last administered on 05/26/16 09:02; Admin Dose 25 MG; Start 05/20/16 at 09:00 Multivitamins Therapeutic (Theragran) 1 tab DAILY PO Last administered on 09:01; Admin Dose 1 TAB; Start 05/20/16 at 09:00 Polyethylene Glycol (Miralax) 17 gm DAILY PO Last administered on 05/23/16 09: 49; Admin Dose 17 GM; Start 05/20/16 at 09:00 Salmeterol Xinafoate/ Fluticasone (Advair 500/50 Diskus) 1 inh BID INH Last administered on 05/26/16 08:56; Admin Dose 1 INH; Start 05/19/16 at 21:00 Senna (Senokot) 2 tab BID PO Last administered on 05/26/16 22:06; Admin Dose 2 TAB; Start 05/19/16 at 21:00 Zolpidem Tartrate (Ambien) 5 mg QHS PRN PO SLEEP; Start 05/19/16 at 20:00 Acetaminophen/ Hydrocodone Bitart ([place] (5/325)) 1 tab Q6H PRN PO MODERATE PAIN LEVEL 4-6 Last administered on 05/23/16 02:49; Admin Dose 1 TAB; Start at 20:00 Ipratropium [place] (Atrovent Nasal) 2 spray QID NASAL Last administered on 05/26 17:59; Admin Dose 2 SPRAY; Start 05/19/16 at 21:00 Guaifenesin (Mucinex) 600 mg BID PO Last administered on 05/26/16 22:49; Admin Dose 600 MG; Start 05/20/16 at 21:00 Tamsulosin HCl (Flomax) 0.4 mg BID PO Last administered on 05/26/16 21:58; Admin Dose 0.4 MG; Start 05/21/16 at 21:00 Magnesium Oxide (Mag-Ox 400) 400 mg DAILY PO Last administered on 05/26/16 09: 00; Admin Dose 400 MG; Start 05/21/16 at 18:30 Finasteride (Proscar) 5 mg DAILY PO Last administered on 05/26/16 09:00; Admin Dose 5 MG; Start 05/23/16 at 09:00 Prednisone (Prednisone) 40 mg DAILY PO Last administered on 05/26/16 09:00; Admin Dose 40 MG; Start 05/23/16 at 15:00 Levofloxacin (Levaquin) 500 mg DAILY@06 PO Last administered on 05/27/16 07:01 ; Admin Dose 500 MG; Start 05/25/16 at 06:00 Montelukast Sodium (Singulair) 10 mg HS PO ; Start 05/27/16 at 21:00; Status UNV Montelukast Sodium (Singulair) 10 mg ONCE ONCE PO ; Start 05/27/16 at 07:00; Stop 05/27/16 at 07:01; Status UNV Theophylline (Jamaal-24) 200 mg DAILY PO ; Start 05/27/16 at 09:00; Status MING FLORES MD May 27, 2016 07:11
[2016-05-27 07:45] VITALS: BP 128/67; RESP 18
[2016-05-27] MEDS: FAMOTIDINE 20 MG TAB PO SCH ×2 (08:53→20:54)
[2016-05-27] MEDS: POLYETHYLENE GLYCOL 17 GM PACKET PO SCH (08:53)
[2016-05-27] MEDS: CALCIUM CARBONATE 750 MG CHEW TAB PO SCH ×3 (08:53→18:06)
[2016-05-27] MEDS: predniSONE 20 MG TAB PO SCH (08:54)
[2016-05-27] MEDS: GUAIFENESIN LA 600 MG TABSR PO SCH ×2 (08:54→20:54)
[2016-05-27] MEDS: ASPIRIN 81 MG TAB PO SCH (08:54)
[2016-05-27] MEDS: MAGNESIUM OXIDE 400 MG TAB PO SCH (08:54)
[2016-05-27] MEDS: CHOLECALCIFEROL 1,000 UNIT TAB PO SCH (08:54)
[2016-05-27] MEDS: TAMSULOSIN (SR) 0.4 MG CAP PO SCH ×2 (08:55→20:54)
[2016-05-27] MEDS: METOPROLOL (XL) 25 MG TAB PO SCH (08:55)
[2016-05-27] MEDS: FINASTERIDE 5 MG TAB PO SCH (08:55)
[2016-05-27] MEDS: MULTIVITAMINS THERAPEUTIC TAB PO SCH (08:55)
[2016-05-27] MEDS: SENNA TAB PO SCH ×2 (08:55→20:54)
[2016-05-27] MEDS: FLUTICASONE 0.05% 16 GM NAS SPRAY NASAL SCH ×2 (08:59→21:00)
[2016-05-27] MEDS: SALMETEROL/FLUTICASONE 500/50 INHA INH SCH ×2 (09:00→20:55)
[2016-05-27] MEDS: IPRATROPIUM 0.03% 30 ML NASAL SPRAY NASAL SCH ×4 (09:00→20:55)
[2016-05-27] MEDS: THEOPHYLLINE (SR) 200 MG CAPSR PO SCH (09:53)
[2016-05-27] MEDS: ALBUTEROL/IPRATROPIUM (NEB) 3 ML AMP HHN PRN (13:36)
--- NOTE | 2016-05-27 16:59 | CONS ---
Date/Time of Note Date/Time of Note DATE: 05/27/16 TIME: 16:58 Consult Date/Type/Reason Admit Date/Time May 19, 2016 at 19:29 Initial Consult Date 05/20/16 Type of Consultation: Pulm Ordering Provider: SMITA AGUILAR Subjective No events. Slightly better. Objective Vital Signs Date Time Temp Pulse Resp B/P Pulse Ox O2 Delivery O2 Flow Rate FiO2 05/27/16 13:39 107 20 97 Nasal Cannula 2.0 05/27/16 07:45 97.8 128/67 Intake and Output 05/26/16 05/26/16 05/27/16 15:00 23:00 07:00 Intake Total 1200 ml 250 ml Output Total 800 ml 200 ml Balance 400 ml 50 ml HEENT: Neck supple; no JVD; no LAD CVS: RRR, S1 and S2 CHEST: Clear; occ wheezing ABD: Soft, NT, + BS EXT: No c/c/e Results/Medications Result Diagram: 05/24/16 0737 05/25/16 0620 Medications Current Medications Lorazepam (Ativan) 0.5 mg Q6H PRN IV ANXIETY Last administered on 05/23/16 01: 16; Admin Dose 0.5 MG; Start 05/19/16 at 20:00 Ondansetron HCl (Zofran Inj) 4 mg Q6H PRN IV NAUSEA AND/OR VOMITING; Start at 20:00 Nitroglycerin (Nitroglycerin (Sl Tab) 0.4 Mg) 1 tab Q5M PRN SL CHEST PAIN; Start 05/19/16 at 20:00 Acetaminophen (Tylenol Tab) 650 mg Q6H PRN PO PAIN LEVEL 1-3 OR FEVER; Start at 20:00 Morphine Sulfate (morphine) 2 mg Q4H PRN IV PAIN LEVEL 7-10 Last administered on 05/24/16 03:59; Admin Dose 2 MG; Start 05/19/16 at 20:00 Docusate Sodium (Colace) 100 mg Q12H PRN PO CONSTIPATION; Start 05/19/16 at 20: 00 Famotidine (Pepcid) 20 mg Q12 PO Last administered on 05/26/16 21:58; Admin Dose 20 MG; Start 05/19/16 at 21:00 Aspirin (Aspirin) 81 mg DAILY PO Last administered on 05/27/16 08:54; Admin Dose 81 MG; Start 05/20/16 at 09:00 Atorvastatin Calcium (Lipitor) 10 mg QHS PO Last administered on 05/23/16 21: 13; Admin Dose 10 MG; Start 05/19/16 at 21:00 Cholecalciferol (Vitamin D) 1,000 unit DAILY PO Last administered on 05/27/16 08:54; Admin Dose 1,000 UNIT; Start 05/20/16 at 09:00 Fluticasone Propionate (Flonase 0.05% Nasal) 1 spray BID NASAL Last administered on 05/26/16 08:57; Admin Dose 1 SPRAY; Start 05/19/16 at 21:00 Guaifenesin (Robitussin Liquid Cup) 600 mg Q12 PRN PO COUGH; Start 05/19/16 at 20:00 Metoprolol Succinate (Toprol Xl) 25 mg DAILY PO Last administered on 05/27/16 08:55; Admin Dose 25 MG; Start 05/20/16 at 09:00 Multivitamins Therapeutic (Theragran) 1 tab DAILY PO Last administered on 08:55; Admin Dose 1 TAB; Start 05/20/16 at 09:00 Polyethylene Glycol (Miralax) 17 gm DAILY PO Last administered on 05/23/16 09: 49; Admin Dose 17 GM; Start 05/20/16 at 09:00 Salmeterol Xinafoate/ Fluticasone (Advair 500/50 Diskus) 1 inh BID INH Last administered on 05/27/16 09:00; Admin Dose 1 INH; Start 05/19/16 at 21:00 Senna (Senokot) 2 tab BID PO Last administered on 05/27/16 08:55; Admin Dose 2 TAB; Start 05/19/16 at 21:00 Zolpidem Tartrate (Ambien) 5 mg QHS PRN PO SLEEP; Start 05/19/16 at 20:00 Acetaminophen/ Hydrocodone Bitart ([place] (5/325)) 1 tab Q6H PRN PO MODERATE PAIN LEVEL 4-6 Last administered on 05/23/16 02:49; Admin Dose 1 TAB; Start at 20:00 Ipratropium [place] (Atrovent Nasal) 2 spray QID NASAL Last administered on 05/27 09:00; Admin Dose 2 SPRAY; Start 05/19/16 at 21:00; Stop 05/28/16 at 05:00 Guaifenesin (Mucinex) 600 mg BID PO Last administered on 05/27/16 08:54; Admin Dose 600 MG; Start 05/20/16 at 21:00 Tamsulosin HCl (Flomax) 0.4 mg BID PO Last administered on 05/27/16 08:55; Admin Dose 0.4 MG; Start 05/21/16 at 21:00 Magnesium Oxide (Mag-Ox 400) 400 mg DAILY PO Last administered on 05/27/16 08: 54; Admin Dose 400 MG; Start 05/21/16 at 18:30 Finasteride (Proscar) 5 mg DAILY PO Last administered on 05/27/16 08:55; Admin Dose 5 MG; Start 05/23/16 at 09:00 Prednisone (Prednisone) 40 mg DAILY PO Last administered on 05/27/16 08:54; Admin Dose 40 MG; Start 05/23/16 at 15:00 Levofloxacin (Levaquin) 500 mg DAILY@06 PO Last administered on 05/27/16 07:01 ; Admin Dose 500 MG; Start 05/25/16 at 06:00 Montelukast Sodium (Singulair) 10 mg HS PO ; Start 05/27/16 at 21:00 Theophylline (Jamaal-24) 200 mg DAILY PO Last administered on 05/27/16 09:53; Admin Dose 200 MG; Start 05/27/16 at 09:00 Assessment/Plan Additional Assessment/Plan IMPRESSION: 1. Status post acute on chronic hypoxemic or hypercapnic respiratory failure. 2. History of urinary retention, now removal of Ramires catheter. 3. Hypoxemia secondary to chronic obstructive pulmonary disease exacerbation. 4. Pulmonary hypertension. 5. Rheumatoid arthritis. RECS: 1. CS taper 2. Mobilize OOB 3. BD's 4. Titrate FiO2 to SpO2 88-92% SANDRA MAYBERRY MD May 27, 2016 16:59
[2016-05-27 20:00] VITALS: BP 110/65; RESP 21
[2016-05-27] MEDS: MONTELUKAST 10 MG TAB PO SCH (20:54)
[2016-05-27] MEDS: ATORVASTATIN 10 MG TAB PO SCH (20:59)
--- NOTE | 2016-05-27 22:35 | CONS ---
Date/Time of Note Date/Time of Note DATE: 05/27/16 TIME: 22:33 Assessment/Plan Assessment/Plan Additional Assessment/Plan 1. Acute hyperkalemia. resolved 2. Severe metabolic alkalosis with a bicarbonate of 39, which could be compensatory for his respiratory acidosis.PCO2 71 on ABG 3. Acute prerenal azotemia likely secondary to decreased p.o. intake. 4. 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 History of benign prostatic hypertrophy. 6. History of hypertension. 7. History of hyperlipidemia. 8. History of chronic obstructive pulmonary disease. 9. History of argyria skin disease. 10. 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 will continue to followu p Consultation Date/Type/Reason Admit Date/Time May 19, 2016 at 19:29 Initial Consult Date 05/20/16 Type of Consultation: NEPHROLOGY Reason for Consultation hematuria, acute kidney injury, metabolic alkalosis, Right hydronephrosis Referring Provider: SMITA AGUILAR Exam/Review of Systems Vital Signs Vitals Vital Signs Date Time Temp Pulse Resp B/P Pulse Ox O2 Delivery O2 Flow Rate FiO2 05/27/16 20:34 2.0 05/27/16 20:00 Nasal Cannula 05/27/16 20:00 98.1 79 21 110/65 98 Intake and Output 05/26/16 05/26/16 05/27/16 15:00 23:00 07:00 Intake Total 1200 ml 250 ml Output Total 800 ml 200 ml Balance 400 ml 50 ml Exam GENERAL: Awake, alert, in no distress. HEENT: Normal. Oropharynx clear. NECK: Supple, no JVD, no lymphadenopathy. LUNGS: Clear to auscultation. No basilar crackles present. HEART: S1, S2, tachycardia, no murmur. ABDOMEN: Soft, nontender, nondistended. Bowel sounds are present. EXTREMITIES: No clubbing, cyanosis, or edema., + ramos catheter NEUROLOGICAL: Nonfocal, intact. PSYCHIATRIC: Appropriate affect and mood. Results Result Diagram: 05/24/16 0737 05/25/16 0620 Medications Medications Current Medications Lorazepam (Ativan) 0.5 mg Q6H PRN IV ANXIETY Last administered on 05/23/16 01: 16; Admin Dose 0.5 MG; Start 05/19/16 at 20:00 Ondansetron HCl (Zofran Inj) 4 mg Q6H PRN IV NAUSEA AND/OR VOMITING; Start at 20:00 Nitroglycerin (Nitroglycerin (Sl Tab) 0.4 Mg) 1 tab Q5M PRN SL CHEST PAIN; Start 05/19/16 at 20:00 Acetaminophen (Tylenol Tab) 650 mg Q6H PRN PO PAIN LEVEL 1-3 OR FEVER; Start at 20:00 Morphine Sulfate (morphine) 2 mg Q4H PRN IV PAIN LEVEL 7-10 Last administered on 05/24/16 03:59; Admin Dose 2 MG; Start 05/19/16 at 20:00 Docusate Sodium (Colace) 100 mg Q12H PRN PO CONSTIPATION; Start 05/19/16 at 20: 00 Famotidine (Pepcid) 20 mg Q12 PO Last administered on 05/27/16 20:54; Admin Dose 20 MG; Start 05/19/16 at 21:00 Aspirin (Aspirin) 81 mg DAILY PO Last administered on 05/27/16 08:54; Admin Dose 81 MG; Start 05/20/16 at 09:00 Atorvastatin Calcium (Lipitor) 10 mg QHS PO Last administered on 05/23/16 21: 13; Admin Dose 10 MG; Start 05/19/16 at 21:00 Cholecalciferol (Vitamin D) 1,000 unit DAILY PO Last administered on 05/27/16 08:54; Admin Dose 1,000 UNIT; Start 05/20/16 at 09:00 Fluticasone Propionate (Flonase 0.05% Nasal) 1 spray BID NASAL Last administered on 05/26/16 08:57; Admin Dose 1 SPRAY; Start 05/19/16 at 21:00 Guaifenesin (Robitussin Liquid Cup) 600 mg Q12 PRN PO COUGH; Start 05/19/16 at 20:00 Metoprolol Succinate (Toprol Xl) 25 mg DAILY PO Last administered on 05/27/16 08:55; Admin Dose 25 MG; Start 05/20/16 at 09:00 Multivitamins Therapeutic (Theragran) 1 tab DAILY PO Last administered on 08:55; Admin Dose 1 TAB; Start 05/20/16 at 09:00 Polyethylene Glycol (Miralax) 17 gm DAILY PO Last administered on 05/23/16 09: 49; Admin Dose 17 GM; Start 05/20/16 at 09:00 Salmeterol Xinafoate/ Fluticasone (Advair 500/50 Diskus) 1 inh BID INH Last administered on 05/27/16 20:55; Admin Dose 1 INH; Start 05/19/16 at 21:00 Senna (Senokot) 2 tab BID PO Last administered on 05/27/16 20:54; Admin Dose 2 TAB; Start 05/19/16 at 21:00 Zolpidem Tartrate (Ambien) 5 mg QHS PRN PO SLEEP; Start 05/19/16 at 20:00 Acetaminophen/ Hydrocodone Bitart ([place] (5/325)) 1 tab Q6H PRN PO MODERATE PAIN LEVEL 4-6 Last administered on 05/23/16 02:49; Admin Dose 1 TAB; Start at 20:00 Ipratropium [place] (Atrovent Nasal) 2 spray QID NASAL Last administered on 05/27 20:55; Admin Dose 2 SPRAY; Start 05/19/16 at 21:00; Stop 05/28/16 at 05:00 Guaifenesin (Mucinex) 600 mg BID PO Last administered on 05/27/16 20:54; Admin Dose 600 MG; Start 05/20/16 at 21:00 Tamsulosin HCl (Flomax) 0.4 mg BID PO Last administered on 05/27/16 20:54; Admin Dose 0.4 MG; Start 05/21/16 at 21:00 Magnesium Oxide (Mag-Ox 400) 400 mg DAILY PO Last administered on 05/27/16 08: 54; Admin Dose 400 MG; Start 05/21/16 at 18:30 Finasteride (Proscar) 5 mg DAILY PO Last administered on 05/27/16 08:55; Admin Dose 5 MG; Start 05/23/16 at 09:00 Prednisone (Prednisone) 40 mg DAILY PO Last administered on 05/27/16 08:54; Admin Dose 40 MG; Start 05/23/16 at 15:00 Levofloxacin (Levaquin) 500 mg DAILY@06 PO Last administered on 05/27/16 07:01 ; Admin Dose 500 MG; Start 05/25/16 at 06:00 Montelukast Sodium (Singulair) 10 mg HS PO Last administered on 05/27/16 20:54 ; Admin Dose 10 MG; Start 05/27/16 at 21:00 Theophylline (Jamaal-24) 200 mg DAILY PO Last administered on 05/27/16 09:53; Admin Dose 200 MG; Start 05/27/16 at 09:00 JANIS VAZQUEZ MD May 27, 2016 22:34
[2016-05-28] MEDS: LEVALBUTEROL (NEB) 0.63 MG/3 ML AMP HHN SCH ×6 (01:00→20:39)
[2016-05-28] MEDS: IPRATROPIUM (NEB) 0.5 MG/2.5 ML AMP HHN SCH ×6 (01:00→20:39)
[2016-05-28] MEDS: LEVOFLOXACIN 500 MG TAB PO SCH (05:33)
--- NOTE | 2016-05-28 07:53 | PN ---
Date/Time of Note Date/Time of Note DATE: 05/28/16 TIME: 07:50 Assessment/Plan VTE Prophylaxis VTE Prophylaxis Intervention: LMWH Lines/Catheters IV [facility] Saline Lock Urinary Cath still in place: No Assessment/Plan Problems: (1) Decompensated COPD with exacerbation (chronic obstructive pulmonary disease) Status: Chronic Comment: At this time he is approaching a steady state. He is ready for discharge if he can get all the arrangements made for his home equipment. This will be oxygen and nocturnal BiPAP. Please see the note from Dr. Tan, May 24, 2016 (2) Elevated PSA, greater than or equal to 20 ng/ml Status: Acute Comment: As noted by the other specialist. He is to remain on medications for this. (3) Essential hypertension Status: Chronic Comment: Controlled (4) BPH (benign prostatic hypertrophy) with urinary obstruction Status: Chronic Comment: He is on medications for this. Please note that the term benign may not necessarily imply in this case however he is stable on his medicines (5) Hyperlipidemia Status: Chronic Comment: On treatment Qualifiers: Hyperlipidemia type: pure hypercholesterolemia Qualified Code: E78.00 - Pure hypercholesterolemia (6) Allergic rhinitis Status: Chronic Comment: Improved with adjustment in medications. Qualifiers: Allergic rhinitis seasonality: unspecified seasonality Allergic rhinitis trigger: unspecified Qualified Code: J30.9 - Allergic rhinitis, unspecified allergic rhinitis trigger, unspecified rhinitis seasonality (7) Left inguinal hernia Status: Chronic Comment: Can be followed up as an outpatient (8) Hydronephrosis of right kidney Status: Chronic Comment: Please see the note from the esthetician and manager [facility] which I fully agree with. (9) Tobacco abuse Status: Resolved Comment: Noted and resolved Subjective 24 Hr Interval Summary Free Text/Dictation Patient reports is relatively stable but would like to have the BiPAP overnight. Constitutional: no complaints (No fever chills or sweats) Respiratory: shortness of breath (At baseline) Cardiovascular: no complaints Gastrointestinal: no complaints Genitourinary: no complaints Exam/Review of Systems Vital Signs Vitals Vital Signs Date Time Temp Pulse Resp B/P Pulse Ox O2 Delivery O2 Flow Rate FiO2 05/28/16 01:07 2.0 05/27/16 20:00 Nasal Cannula 05/27/16 20:00 98.1 79 21 110/65 98 Intake and Output 3/07/1005/27/16 05/28/16 15:00 23:00 07:00 Intake Total 450 ml 200 ml Output Total 300 ml 375 ml Balance 150 ml -175 ml Exam Pleasant male Constitutional: alert, oriented Neck: non-tender, supple Respiratory: clear to auscultation, diminished breath sounds Cardiovascular: nl pulses, regular rate and rhythm Gastrointestinal: nl liver, spleen, non-tender, soft Results Result Diagram: 05/24/16 0737 05/25/16 0620 Medications Medications Current Medications Lorazepam (Ativan) 0.5 mg Q6H PRN IV ANXIETY Last administered on 05/23/16 01: 16; Admin Dose 0.5 MG; Start 05/19/16 at 20:00 Ondansetron HCl (Zofran Inj) 4 mg Q6H PRN IV NAUSEA AND/OR VOMITING; Start at 20:00 Nitroglycerin (Nitroglycerin (Sl Tab) 0.4 Mg) 1 tab Q5M PRN SL CHEST PAIN; Start 05/19/16 at 20:00 Acetaminophen (Tylenol Tab) 650 mg Q6H PRN PO PAIN LEVEL 1-3 OR FEVER; Start at 20:00 Morphine Sulfate (morphine) 2 mg Q4H PRN IV PAIN LEVEL 7-10 Last administered on 05/24/16 03:59; Admin Dose 2 MG; Start 05/19/16 at 20:00 Docusate Sodium (Colace) 100 mg Q12H PRN PO CONSTIPATION; Start 05/19/16 at 20: 00 Famotidine (Pepcid) 20 mg Q12 PO Last administered on 05/27/16 20:54; Admin Dose 20 MG; Start 05/19/16 at 21:00 Aspirin (Aspirin) 81 mg DAILY PO Last administered on 05/27/16 08:54; Admin Dose 81 MG; Start 05/20/16 at 09:00 Atorvastatin Calcium (Lipitor) 10 mg QHS PO Last administered on 05/23/16 21: 13; Admin Dose 10 MG; Start 05/19/16 at 21:00 Cholecalciferol (Vitamin D) 1,000 unit DAILY PO Last administered on 05/27/16 08:54; Admin Dose 1,000 UNIT; Start 05/20/16 at 09:00 Fluticasone Propionate (Flonase 0.05% Nasal) 1 spray BID NASAL Last administered on 05/26/16 08:57; Admin Dose 1 SPRAY; Start 05/19/16 at 21:00 Guaifenesin (Robitussin Liquid Cup) 600 mg Q12 PRN PO COUGH; Start 05/19/16 at 20:00 Metoprolol Succinate (Toprol Xl) 25 mg DAILY PO Last administered on 05/27/16 08:55; Admin Dose 25 MG; Start 05/20/16 at 09:00 Multivitamins Therapeutic (Theragran) 1 tab DAILY PO Last administered on 08:55; Admin Dose 1 TAB; Start 05/20/16 at 09:00 Polyethylene Glycol (Miralax) 17 gm DAILY PO Last administered on 05/23/16 09: 49; Admin Dose 17 GM; Start 05/20/16 at 09:00 Salmeterol Xinafoate/ Fluticasone (Advair 500/50 Diskus) 1 inh BID INH Last administered on 05/27/16 20:55; Admin Dose 1 INH; Start 05/19/16 at 21:00 Senna (Senokot) 2 tab BID PO Last administered on 05/27/16 20:54; Admin Dose 2 TAB; Start 05/19/16 at 21:00 Zolpidem Tartrate (Ambien) 5 mg QHS PRN PO SLEEP; Start 05/19/16 at 20:00 Acetaminophen/ Hydrocodone Bitart ([place] (5/325)) 1 tab Q6H PRN PO MODERATE PAIN LEVEL 4-6 Last administered on 05/23/16 02:49; Admin Dose 1 TAB; Start at 20:00 Guaifenesin (Mucinex) 600 mg BID PO Last administered on 05/27/16 20:54; Admin Dose 600 MG; Start 05/20/16 at 21:00 Tamsulosin HCl (Flomax) 0.4 mg BID PO Last administered on 05/27/16 20:54; Admin Dose 0.4 MG; Start 05/21/16 at 21:00 Magnesium Oxide (Mag-Ox 400) 400 mg DAILY PO Last administered on 05/27/16 08: 54; Admin Dose 400 MG; Start 05/21/16 at 18:30 Finasteride (Proscar) 5 mg DAILY PO Last administered on 05/27/16 08:55; Admin Dose 5 MG; Start 05/23/16 at 09:00 Prednisone (Prednisone) 40 mg DAILY PO Last administered on 05/27/16 08:54; Admin Dose 40 MG; Start 05/23/16 at 15:00 Levofloxacin (Levaquin) 500 mg DAILY@06 PO Last administered on 05/28/16 05:33 ; Admin Dose 500 MG; Start 05/25/16 at 06:00 Montelukast Sodium (Singulair) 10 mg HS PO Last administered on 05/27/16 20:54 ; Admin Dose 10 MG; Start 05/27/16 at 21:00 Theophylline (Jamaal-24) 200 mg DAILY PO Last administered on 05/27/16 09:53; Admin Dose 200 MG; Start 05/27/16 at 09:00 MING FELICIANO MD May 28, 2016 07:53
[2016-05-28 08:04] VITALS: BP 129/61; RESP 22
[2016-05-28] MEDS: FAMOTIDINE 20 MG TAB PO SCH ×2 (08:41→21:26)
[2016-05-28] MEDS: THEOPHYLLINE (SR) 200 MG CAPSR PO SCH (08:42)
[2016-05-28] MEDS: MAGNESIUM OXIDE 400 MG TAB PO SCH (08:42)
[2016-05-28] MEDS: SENNA TAB PO SCH ×2 (08:42→21:26)
[2016-05-28] MEDS: CHOLECALCIFEROL 1,000 UNIT TAB PO SCH (08:42)
[2016-05-28] MEDS: ASPIRIN 81 MG TAB PO SCH (08:42)
[2016-05-28] MEDS: predniSONE 20 MG TAB PO SCH (08:43)
[2016-05-28] MEDS: FINASTERIDE 5 MG TAB PO SCH (08:43)
[2016-05-28] MEDS: MULTIVITAMINS THERAPEUTIC TAB PO SCH (08:44)
[2016-05-28] MEDS: TAMSULOSIN (SR) 0.4 MG CAP PO SCH ×2 (08:44→21:26)
[2016-05-28] MEDS: METOPROLOL (XL) 25 MG TAB PO SCH (08:44)
[2016-05-28] MEDS: CALCIUM CARBONATE 750 MG CHEW TAB PO SCH ×3 (08:45→17:16)
[2016-05-28] MEDS: POLYETHYLENE GLYCOL 17 GM PACKET PO SCH (08:45)
[2016-05-28] MEDS: SALMETEROL/FLUTICASONE 500/50 INHA INH SCH ×2 (08:45→21:27)
[2016-05-28] MEDS: GUAIFENESIN LA 600 MG TABSR PO SCH ×2 (08:51→21:26)
[2016-05-28] MEDS: FLUTICASONE 0.05% 16 GM NAS SPRAY NASAL SCH ×2 (08:52→21:00)
[2016-05-28] MEDS: IPRATROPIUM 0.03% 30 ML NASAL SPRAY NASAL SCH ×4 (09:16→21:00)
--- NOTE | 2016-05-28 11:42 | CONS ---
Date/Time of Note Date/Time of Note DATE: 05/28/16 TIME: 11:38 Assessment/Plan Assessment/Plan Additional Assessment/Plan 1. Acute hyperkalemia. resolved -now not a issue in house 2. Severe metabolic alkalosis with a bicarbonate of 39, which could be compensatory for his respiratory acidosis.PCO2 71 on ABG 3. Acute prerenal azotemia likely secondary to decreased p.o. intake. 4. 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 History of benign prostatic hypertrophy. 6. History of hypertension. 7. History of hyperlipidemia. 8. History of chronic obstructive pulmonary disease. 9. History of argyria skin disease. 10. 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 will continue to followu p Consultation Date/Type/Reason Admit Date/Time May 19, 2016 at 19:29 Initial Consult Date 05/20/16 Type of Consultation: NEPHROLOGY Referring Provider: SMITA AGUILAR 24 HR Interval Summary Free Text/Dictation no acute events overnight Bps table Exam/Review of Systems Vital Signs Vitals Vital Signs Date Time Temp Pulse Resp B/P Pulse Ox O2 Delivery O2 Flow Rate FiO2 05/28/16 08:04 97.9 78 22 129/61 100 05/28/16 01:07 2.0 05/27/16 20:00 Nasal Cannula Intake and Output 05/27/16 05/27/16 05/28/16 15:00 23:00 07:00 Intake Total 450 ml 200 ml Output Total 300 ml 375 ml Balance 150 ml -175 ml Exam GENERAL: Awake, alert, in no distress. HEENT: Normal. Oropharynx clear. NECK: Supple, no JVD, no lymphadenopathy. LUNGS: Clear to auscultation. No basilar crackles present. HEART: S1, S2, tachycardia, no murmur. ABDOMEN: Soft, nontender, nondistended. Bowel sounds are present. EXTREMITIES: No clubbing, cyanosis, or edema., + ramos catheter NEUROLOGICAL: Nonfocal, intact. PSYCHIATRIC: Appropriate affect and mood. Results Result Diagram: 05/24/16 0737 05/25/16 0620 Medications Medications Current Medications Lorazepam (Ativan) 0.5 mg Q6H PRN IV ANXIETY Last administered on 05/23/16 01: 16; Admin Dose 0.5 MG; Start 05/19/16 at 20:00 Ondansetron HCl (Zofran Inj) 4 mg Q6H PRN IV NAUSEA AND/OR VOMITING; Start at 20:00 Nitroglycerin (Nitroglycerin (Sl Tab) 0.4 Mg) 1 tab Q5M PRN SL CHEST PAIN; Start 05/19/16 at 20:00 Acetaminophen (Tylenol Tab) 650 mg Q6H PRN PO PAIN LEVEL 1-3 OR FEVER; Start at 20:00 Morphine Sulfate (morphine) 2 mg Q4H PRN IV PAIN LEVEL 7-10 Last administered on 05/24/16 03:59; Admin Dose 2 MG; Start 05/19/16 at 20:00 Docusate Sodium (Colace) 100 mg Q12H PRN PO CONSTIPATION; Start 05/19/16 at 20: 00 Famotidine (Pepcid) 20 mg Q12 PO Last administered on 05/27/16 20:54; Admin Dose 20 MG; Start 05/19/16 at 21:00 Aspirin (Aspirin) 81 mg DAILY PO Last administered on 05/28/16 08:42; Admin Dose 81 MG; Start 05/20/16 at 09:00 Atorvastatin Calcium (Lipitor) 10 mg QHS PO Last administered on 05/23/16 21: 13; Admin Dose 10 MG; Start 05/19/16 at 21:00 Cholecalciferol (Vitamin D) 1,000 unit DAILY PO Last administered on 05/28/16 08:42; Admin Dose 1,000 UNIT; Start 05/20/16 at 09:00 Fluticasone Propionate (Flonase 0.05% Nasal) 1 spray BID NASAL Last administered on 05/26/16 08:57; Admin Dose 1 SPRAY; Start 05/19/16 at 21:00 Guaifenesin (Robitussin Liquid Cup) 600 mg Q12 PRN PO COUGH; Start 05/19/16 at 20:00 Metoprolol Succinate (Toprol Xl) 25 mg DAILY PO Last administered on 05/28/16 08:44; Admin Dose 25 MG; Start 05/20/16 at 09:00 Multivitamins Therapeutic (Theragran) 1 tab DAILY PO Last administered on 08:44; Admin Dose 1 TAB; Start 05/20/16 at 09:00 Polyethylene Glycol (Miralax) 17 gm DAILY PO Last administered on 05/23/16 09: 49; Admin Dose 17 GM; Start 05/20/16 at 09:00 Salmeterol Xinafoate/ Fluticasone (Advair 500/50 Diskus) 1 inh BID INH Last administered on 05/28/16 08:45; Admin Dose 1 INH; Start 05/19/16 at 21:00 Senna (Senokot) 2 tab BID PO Last administered on 05/28/16 08:42; Admin Dose 2 TAB; Start 05/19/16 at 21:00 Zolpidem Tartrate (Ambien) 5 mg QHS PRN PO SLEEP; Start 05/19/16 at 20:00 Acetaminophen/ Hydrocodone Bitart ([place] (5/325)) 1 tab Q6H PRN PO MODERATE PAIN LEVEL 4-6 Last administered on 05/23/16 02:49; Admin Dose 1 TAB; Start at 20:00 Guaifenesin (Mucinex) 600 mg BID PO Last administered on 05/28/16 08:51; Admin Dose 600 MG; Start 05/20/16 at 21:00 Tamsulosin HCl (Flomax) 0.4 mg BID PO Last administered on 05/28/16 08:44; Admin Dose 0.4 MG; Start 05/21/16 at 21:00 Magnesium Oxide (Mag-Ox 400) 400 mg DAILY PO Last administered on 05/28/16 08: 42; Admin Dose 400 MG; Start 05/21/16 at 18:30 Finasteride (Proscar) 5 mg DAILY PO Last administered on 05/28/16 08:43; Admin Dose 5 MG; Start 05/23/16 at 09:00 Prednisone (Prednisone) 40 mg DAILY PO Last administered on 05/28/16 08:43; Admin Dose 40 MG; Start 05/23/16 at 15:00 Levofloxacin (Levaquin) 500 mg DAILY@06 PO Last administered on 05/28/16 05:33 ; Admin Dose 500 MG; Start 05/25/16 at 06:00 Montelukast Sodium (Singulair) 10 mg HS PO Last administered on 05/27/16 20:54 ; Admin Dose 10 MG; Start 05/27/16 at 21:00 Theophylline (Jamaal-24) 200 mg DAILY PO Last administered on 05/28/16 08:42; Admin Dose 200 MG; Start 05/27/16 at 09:00 Ipratropium [place] (Atrovent Nasal) 2 spray QID NASAL Last administered on 05/28 09:16; Admin Dose 2 SPRAY; Start 05/28/16 at 09:30 JANIS VAZQUEZ MD May 28, 2016 11:42
[2016-05-28] MEDS: ALBUTEROL/IPRATROPIUM (NEB) 3 ML AMP HHN PRN ×2 (13:05→16:44)
--- NOTE | 2016-05-28 13:17 | RADRPT ---
Echocardiogram Report Patient Name: STEFANY OCONNOR Gender: Male Date: 1945 Study Date: 27-May-2016 Tobacco Roller: ESTELLA Location: I Ref. Physician: MING FELICIANO Quality: Technically Difficult Study Procedures: Transthoracic echocardiogram examination. Indications: Evaluate for Pulmonary Hypertension. 2D/M Mode Doppler Measurement Value Normal Range Measurement Value Normal Range LA Dimen 2D 4.0 2.3 - 4.0 cm AV Peak Juma 1.1 m/sec AV Peak PG 5.0 mmHg LVOT Peak Juma 0.8 m/sec TR Peak Juma 1.4 m/sec TR Peak PG 8.2 mmHg RVSP 11.2 mmHg Findings Left Ventricle: Normal left ventricular cavity size. Probably lower limits of normal left ventricular systolic function, limited views not all [place] imaged. Normal left ventricular wall thickness. The left ventricular ejection fraction is visually estimated at 50 %. Right Ventricle: Normal right ventricular size. Normal right ventricular systolic function. Left Atrium: Upper limit of normal left atrial size. Right Atrium: The right atrium is normal in size and appearance. Mitral Valve: Anterior mitral valve leaflet appear mildly thickened. Posterior mitral valve leaflet appear mildly thickened. Mild mitral regurgitation. No mitral stenosis. Aortic Valve: Normal appearance and function of the aortic valve as seen from limited subcostal images only. No hemodynamically significant aortic stenosis by Doppler. No aortic regurgitation. Tricuspid Valve: Normal appearance of the tricuspid valve. The estimated Peak RVSP is 11 mmHg. There is trivial tricuspid regurgitation. Pulmonic Valve: The pulmonic valve is not well visualized. Pericardium: Normal pericardium with no significant pericardial effusion. Aorta: The aorta is not well visualized. IVC: Normal inferior vena cava appearance. Pulmonary Artery: Pulmonary artery is not well visualized. Conclusions 1.Normal left ventricular cavity size. Probably lower limits of normal left ventricular systolic function, limited views not all [place] imaged. Normal left ventricular wall thickness. The left ventricular ejection fraction is visually estimated at 50 %. 2.Normal right ventricular size. Normal right ventricular systolic function. 3.Upper limit of normal left atrial size. 4.The right atrium is normal in size and appearance. 5.Mild mitral regurgitation. 6.The estimated Peak RVSP is 11 mmHg. There is trivial tricuspid regurgitation. 7.No hemodynamically significant aortic stenosis by Doppler. No aortic regurgitation. 8.Normal pericardium with no significant pericardial effusion. Electronically Signed By: Hussein Antoine 28-May-2016 13:16:45 -0800 Patient Name: STEFANY OCONNOR Study Date: 27-May-[id number]
--- NOTE | 2016-05-28 14:51 | CONS ---
Date/Time of Note Date/Time of Note DATE: 05/28/16 TIME: 14:49 Consult Date/Type/Reason Admit Date/Time May 19, 2016 at 19:29 Initial Consult Date 05/20/16 Type of Consultation: Pulm Ordering Provider: SMITA AGUILAR Subjective No events. Requesting nocturnal BiPAP. Objective Vital Signs Date Time Temp Pulse Resp B/P Pulse Ox O2 Delivery O2 Flow Rate FiO2 05/28/16 13:07 89 20 96 Nasal Cannula 2.0 05/28/16 08:04 97.9 129/61 Intake and Output 05/27/16 05/27/16 05/28/16 15:00 23:00 07:00 Intake Total 450 ml 200 ml Output Total 300 ml 375 ml Balance 150 ml -175 ml HEENT: Neck supple; no JVD; no LAD CVS: RRR, S1 and S2 CHEST: Clear; occ wheezing ABD: Soft, NT, + BS EXT: No c/c/e Results/Medications Result Diagram: 05/24/16 0737 05/25/16 0620 Medications Current Medications Lorazepam (Ativan) 0.5 mg Q6H PRN IV ANXIETY Last administered on 05/23/16 01: 16; Admin Dose 0.5 MG; Start 05/19/16 at 20:00 Ondansetron HCl (Zofran Inj) 4 mg Q6H PRN IV NAUSEA AND/OR VOMITING; Start at 20:00 Nitroglycerin (Nitroglycerin (Sl Tab) 0.4 Mg) 1 tab Q5M PRN SL CHEST PAIN; Start 05/19/16 at 20:00 Acetaminophen (Tylenol Tab) 650 mg Q6H PRN PO PAIN LEVEL 1-3 OR FEVER; Start at 20:00 Morphine Sulfate (morphine) 2 mg Q4H PRN IV PAIN LEVEL 7-10 Last administered on 05/24/16 03:59; Admin Dose 2 MG; Start 05/19/16 at 20:00 Docusate Sodium (Colace) 100 mg Q12H PRN PO CONSTIPATION; Start 05/19/16 at 20: 00 Famotidine (Pepcid) 20 mg Q12 PO Last administered on 05/27/16 20:54; Admin Dose 20 MG; Start 05/19/16 at 21:00 Aspirin (Aspirin) 81 mg DAILY PO Last administered on 05/28/16 08:42; Admin Dose 81 MG; Start 05/20/16 at 09:00 Atorvastatin Calcium (Lipitor) 10 mg QHS PO Last administered on 05/23/16 21: 13; Admin Dose 10 MG; Start 05/19/16 at 21:00 Cholecalciferol (Vitamin D) 1,000 unit DAILY PO Last administered on 05/28/16 08:42; Admin Dose 1,000 UNIT; Start 05/20/16 at 09:00 Fluticasone Propionate (Flonase 0.05% Nasal) 1 spray BID NASAL Last administered on 05/26/16 08:57; Admin Dose 1 SPRAY; Start 05/19/16 at 21:00 Guaifenesin (Robitussin Liquid Cup) 600 mg Q12 PRN PO COUGH; Start 05/19/16 at 20:00 Metoprolol Succinate (Toprol Xl) 25 mg DAILY PO Last administered on 05/28/16 08:44; Admin Dose 25 MG; Start 05/20/16 at 09:00 Multivitamins Therapeutic (Theragran) 1 tab DAILY PO Last administered on 08:44; Admin Dose 1 TAB; Start 05/20/16 at 09:00 Polyethylene Glycol (Miralax) 17 gm DAILY PO Last administered on 05/23/16 09: 49; Admin Dose 17 GM; Start 05/20/16 at 09:00 Salmeterol Xinafoate/ Fluticasone (Advair 500/50 Diskus) 1 inh BID INH Last administered on 05/28/16 08:45; Admin Dose 1 INH; Start 05/19/16 at 21:00 Senna (Senokot) 2 tab BID PO Last administered on 05/28/16 08:42; Admin Dose 2 TAB; Start 05/19/16 at 21:00 Zolpidem Tartrate (Ambien) 5 mg QHS PRN PO SLEEP; Start 05/19/16 at 20:00 Acetaminophen/ Hydrocodone Bitart ([place] (5/325)) 1 tab Q6H PRN PO MODERATE PAIN LEVEL 4-6 Last administered on 05/23/16 02:49; Admin Dose 1 TAB; Start at 20:00 Guaifenesin (Mucinex) 600 mg BID PO Last administered on 05/28/16 08:51; Admin Dose 600 MG; Start 05/20/16 at 21:00 Tamsulosin HCl (Flomax) 0.4 mg BID PO Last administered on 05/28/16 08:44; Admin Dose 0.4 MG; Start 05/21/16 at 21:00 Magnesium Oxide (Mag-Ox 400) 400 mg DAILY PO Last administered on 05/28/16 08: 42; Admin Dose 400 MG; Start 05/21/16 at 18:30 Finasteride (Proscar) 5 mg DAILY PO Last administered on 05/28/16 08:43; Admin Dose 5 MG; Start 05/23/16 at 09:00 Prednisone (Prednisone) 40 mg DAILY PO Last administered on 05/28/16 08:43; Admin Dose 40 MG; Start 05/23/16 at 15:00 Levofloxacin (Levaquin) 500 mg DAILY@06 PO Last administered on 05/28/16 05:33 ; Admin Dose 500 MG; Start 05/25/16 at 06:00 Montelukast Sodium (Singulair) 10 mg HS PO Last administered on 05/27/16 20:54 ; Admin Dose 10 MG; Start 05/27/16 at 21:00 Theophylline (Jamaal-24) 200 mg DAILY PO Last administered on 05/28/16 08:42; Admin Dose 200 MG; Start 05/27/16 at 09:00 Ipratropium [place] (Atrovent Nasal) 2 spray QID NASAL Last administered on 05/28 12:52; Admin Dose 2 SPRAY; Start 05/28/16 at 09:30 Assessment/Plan Additional Assessment/Plan IMPRESSION: 1. Acute on chronic hypercapnic resp insufficiency 2. History of urinary retention/elevated PSA 3. Hypoxemia secondary to chronic obstructive pulmonary disease exacerbation. 4. Pulmonary hypertension. 5. Rheumatoid arthritis. RECS: 1. Okay to use nocturnal BiPAP 2. Mobilize OOB 3. BD's 4. Titrate FiO2 to SpO2 88-92% 5. Check ABG in am SANDRA MAYBERRY MD May 28, 2016 14:51
--- NOTE | 2016-05-28 16:20 | PN ---
DATE: 05/28/2016 SUBJECTIVE: Urinary frequency, dysuria, and urinary retention. However, the patient has been voidi ng better. He is voiding about 100-125 mL each time, and the patient denies any pain or discomfort at the present. Patient does have aggravated COPD and exacerbation of the COPD, and has been on med ications for that. OBJECTIVE: VITAL SIGNS: His temperature is 97.9, pulse is 89, respiration 20, blood pressure 129/61. He has been voiding. He voided 100-200 mL. Postvoid residual about 76. Another time, he voided 10 0 mL, and the postvoid residual was 28 mL. IMPRESSION: The patient not in urinary retention. His postvoid residual is not bad, and therefore, we will just watch him and continue the present treatment. Dictated By: OSBALDO FARRAR/LESLIE Conf#: [id number] DID#: [id number]
[2016-05-28 20:00] VITALS: BP 112/63; RESP 21
[2016-05-28] MEDS: ATORVASTATIN 10 MG TAB PO SCH (21:00)
[2016-05-28] MEDS: MONTELUKAST 10 MG TAB PO SCH (21:26)
[2016-05-29] MEDS: LEVALBUTEROL (NEB) 0.63 MG/3 ML AMP HHN SCH ×6 (00:25→20:24)
[2016-05-29] MEDS: IPRATROPIUM (NEB) 0.5 MG/2.5 ML AMP HHN SCH ×6 (00:25→20:24)
[2016-05-29 00:45] VITALS: PULSE 105
[2016-05-29 05:23] LABS: AADO2 Arterial 81.3 mmHg (7.0-24.0); Allen Test ACCEPTAB; Arterial COHb 0.4 % (0.0-3.0); Arterial Fraction of Oxyhgb 93.1 % (93.0-99.0); Arterial HCO3 32.6 mmol/L (22.0-26.0); Arterial MetHb 0.5 % (0.0-1.5); MODE NASAL CANNULA
[2016-05-29] MEDS: LEVOFLOXACIN 500 MG TAB PO SCH (05:36)
[2016-05-29 07:40] VITALS: BP 103/54; RESP 16
[2016-05-29] MEDS: CALCIUM CARBONATE 750 MG CHEW TAB PO SCH ×3 (09:00→19:05)
[2016-05-29] MEDS: POLYETHYLENE GLYCOL 17 GM PACKET PO SCH (09:00)
[2016-05-29] MEDS: FAMOTIDINE 20 MG TAB PO SCH ×2 (09:00→20:39)
[2016-05-29] MEDS: FLUTICASONE 0.05% 16 GM NAS SPRAY NASAL SCH ×2 (09:00→20:38)
[2016-05-29] MEDS: ASPIRIN 81 MG TAB PO SCH (09:29)
[2016-05-29] MEDS: MULTIVITAMINS THERAPEUTIC TAB PO SCH (09:29)
[2016-05-29] MEDS: MAGNESIUM OXIDE 400 MG TAB PO SCH (09:29)
[2016-05-29] MEDS: TAMSULOSIN (SR) 0.4 MG CAP PO SCH ×2 (09:30→20:39)
[2016-05-29] MEDS: CHOLECALCIFEROL 1,000 UNIT TAB PO SCH (09:30)
[2016-05-29] MEDS: SENNA TAB PO SCH ×2 (09:30→20:39)
[2016-05-29] MEDS: predniSONE 20 MG TAB PO SCH (09:30)
[2016-05-29] MEDS: GUAIFENESIN LA 600 MG TABSR PO SCH ×3 (09:30→21:00)
[2016-05-29] MEDS: FINASTERIDE 5 MG TAB PO SCH (09:30)
[2016-05-29] MEDS: METOPROLOL (XL) 25 MG TAB PO SCH (09:33)
[2016-05-29] MEDS: ALBUTEROL/IPRATROPIUM (NEB) 3 ML AMP HHN PRN (09:43)
--- NOTE | 2016-05-29 10:49 | CONS ---
Date/Time of Note Date/Time of Note DATE: 05/29/16 TIME: 10:47 Assessment/Plan Assessment/Plan Additional Assessment/Plan 1. Acute hyperkalemia. resolved -now not a issue in house 2. Severe metabolic alkalosis with a bicarbonate of 39, which could be compensatory for his respiratory acidosis.PCO2 71 on ABG 3. Acute prerenal azotemia likely secondary to decreased p.o. intake. 4. 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 History of benign prostatic hypertrophy. 6. History of hypertension. 7. History of hyperlipidemia. 8. History of chronic obstructive pulmonary disease. 9. History of argyria skin disease. 10. 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 will continue to follow up Consultation Date/Type/Reason Admit Date/Time May 19, 2016 at 19:29 Initial Consult Date 05/20/16 Type of Consultation: NEPHROLOGY Reason for Consultation Hematuria, Urinary obstruction, Right kidney necrosis with UPJ obstruction Referring Provider: SMITA AGUILAR 24 HR Interval Summary Free Text/Dictation Discharge planning in process, No labs today to review, BP stable , pt does not want to have prostate biopsy Exam/Review of Systems Vital Signs Vitals Vital Signs Date Time Temp Pulse Resp B/P Pulse Ox O2 Delivery O2 Flow Rate FiO2 05/29/16 09:43 96 1.0 05/29/16 09:43 94 18 Nasal Cannula 05/29/16 07:40 98.0 103/54 05/29/16 00:45 30 Intake and Output 05/28/16 05/28/16 05/29/16 15:00 23:00 07:00 Intake Total 1280 ml 300 ml Output Total 575 ml 550 ml Balance 705 ml -250 ml Exam GENERAL: Awake, alert, in no distress. HEENT: Normal. Oropharynx clear. NECK: Supple, no JVD, no lymphadenopathy. LUNGS: Clear to auscultation. No basilar crackles present. HEART: S1, S2, tachycardia, no murmur. ABDOMEN: Soft, nontender, nondistended. Bowel sounds are present. EXTREMITIES: No clubbing, cyanosis, or edema., + ramos catheter NEUROLOGICAL: Nonfocal, intact. PSYCHIATRIC: Appropriate affect and mood. Results Result Diagram: 05/25/16 0620 Results 24 hrs Laboratory Tests Test 05/29/16 05:00 Arterial Blood HCO3 32.6 H Arterial Blood Base Excess 6.0 H Arterial Blood Oxygen Saturation 93.9 L [place] Test ACCEPTAB Arterial Blood Gas Puncture Site Right Radial Arterial Blood Carboxyhemoglobin 0.4 Arterial Blood Date Drawn 05/29/2016 5:06:27 AM Arterial Blood Methemoglobin 0.5 Arterial Blood pCO2 (Temp correct) 54.4 H Arterial Blood pH (Temp corrected) 7.395 Arterial Blood pO2 (Temp corrected) 68.7 L Blood Gas A-a O2 Differential 81.3 H Blood Gas Modality NASAL CANNULA Blood Gas Notified Time 05/29/2016 5:23:20 AM Blood Gas Notified Whom RTR Blood Gas Specimen Source Blood arterial Blood Gas Temperature 37.0 FiO2 30.0 Oxyhemoglobin Percent 93.1 Total Hemoglobin 15.0 Medications Medications Current Medications Lorazepam (Ativan) 0.5 mg Q6H PRN IV ANXIETY Last administered on 05/23/16 01: 16; Admin Dose 0.5 MG; Start 05/19/16 at 20:00 Ondansetron HCl (Zofran Inj) 4 mg Q6H PRN IV NAUSEA AND/OR VOMITING; Start at 20:00 Nitroglycerin (Nitroglycerin (Sl Tab) 0.4 Mg) 1 tab Q5M PRN SL CHEST PAIN; Start 05/19/16 at 20:00 Acetaminophen (Tylenol Tab) 650 mg Q6H PRN PO PAIN LEVEL 1-3 OR FEVER; Start at 20:00 Morphine Sulfate (morphine) 2 mg Q4H PRN IV PAIN LEVEL 7-10 Last administered on 05/24/16 03:59; Admin Dose 2 MG; Start 05/19/16 at 20:00 Docusate Sodium (Colace) 100 mg Q12H PRN PO CONSTIPATION; Start 05/19/16 at 20: 00 Famotidine (Pepcid) 20 mg Q12 PO Last administered on 05/28/16 21:26; Admin Dose 20 MG; Start 05/19/16 at 21:00 Aspirin (Aspirin) 81 mg DAILY PO Last administered on 05/29/16 09:29; Admin Dose 81 MG; Start 05/20/16 at 09:00 Atorvastatin Calcium (Lipitor) 10 mg QHS PO Last administered on 05/23/16 21: 13; Admin Dose 10 MG; Start 05/19/16 at 21:00 Cholecalciferol (Vitamin D) 1,000 unit DAILY PO Last administered on 05/29/16 09:30; Admin Dose 1,000 UNIT; Start 05/20/16 at 09:00 Fluticasone Propionate (Flonase 0.05% Nasal) 1 spray BID NASAL Last administered on 05/26/16 08:57; Admin Dose 1 SPRAY; Start 05/19/16 at 21:00 Guaifenesin (Robitussin Liquid Cup) 600 mg Q12 PRN PO COUGH; Start 05/19/16 at 20:00 Metoprolol Succinate (Toprol Xl) 25 mg DAILY PO Last administered on 05/29/16 09:33; Admin Dose 25 MG; Start 05/20/16 at 09:00 Multivitamins Therapeutic (Theragran) 1 tab DAILY PO Last administered on 09:29; Admin Dose 1 TAB; Start 05/20/16 at 09:00 Polyethylene Glycol (Miralax) 17 gm DAILY PO Last administered on 05/23/16 09: 49; Admin Dose 17 GM; Start 05/20/16 at 09:00 Salmeterol Xinafoate/ Fluticasone (Advair 500/50 Diskus) 1 inh BID INH Last administered on 05/28/16 21:27; Admin Dose 1 INH; Start 05/19/16 at 21:00 Senna (Senokot) 2 tab BID PO Last administered on 05/29/16 09:30; Admin Dose 2 TAB; Start 05/19/16 at 21:00 Zolpidem Tartrate (Ambien) 5 mg QHS PRN PO SLEEP; Start 05/19/16 at 20:00 Acetaminophen/ Hydrocodone Bitart ([place] (5/325)) 1 tab Q6H PRN PO MODERATE PAIN LEVEL 4-6 Last administered on 05/23/16 02:49; Admin Dose 1 TAB; Start at 20:00 Guaifenesin (Mucinex) 600 mg BID PO Last administered on 05/29/16 09:30; Admin Dose 600 MG; Start 05/20/16 at 21:00 Tamsulosin HCl (Flomax) 0.4 mg BID PO Last administered on 05/29/16 09:30; Admin Dose 0.4 MG; Start 05/21/16 at 21:00 Magnesium Oxide (Mag-Ox 400) 400 mg DAILY PO Last administered on 05/29/16 09: 29; Admin Dose 400 MG; Start 05/21/16 at 18:30 Finasteride (Proscar) 5 mg DAILY PO Last administered on 05/29/16 09:30; Admin Dose 5 MG; Start 05/23/16 at 09:00 Prednisone (Prednisone) 40 mg DAILY PO Last administered on 05/29/16 09:30; Admin Dose 40 MG; Start 05/23/16 at 15:00 Levofloxacin (Levaquin) 500 mg DAILY@06 PO Last administered on 05/29/16 05:36 ; Admin Dose 500 MG; Start 05/25/16 at 06:00 Montelukast Sodium (Singulair) 10 mg HS PO Last administered on 05/28/16 21:26 ; Admin Dose 10 MG; Start 05/27/16 at 21:00 Theophylline (Jamaal-24) 200 mg DAILY PO Last administered on 05/28/16 08:42; Admin Dose 200 MG; Start 05/27/16 at 09:00 Ipratropium [place] (Atrovent Nasal) 2 spray QID NASAL Last administered on 05/28 12:52; Admin Dose 2 SPRAY; Start 05/28/16 at 09:30 JANIS VAZQUEZ MD May 29, 2016 10:49
[2016-05-29] MEDS: SALMETEROL/FLUTICASONE 500/50 INHA INH SCH ×2 (11:38→20:37)
[2016-05-29] MEDS: IPRATROPIUM 0.03% 30 ML NASAL SPRAY NASAL SCH ×3 (11:38→21:00)
--- NOTE | 2016-05-29 13:29 | RADRPT ---
PROCEDURE: XR Chest. CLINICAL INDICATION: Shortness of breath. TECHNIQUE: Single frontal view. COMPARISON: 05/19/2016. FINDINGS: There is mild atelectasis at the lung bases. The lungs are otherwise clear. The heart size is normal. There is calcification in the aorta consistent with atherosclerosis. There are small bilateral pleural effusions. There is no pneumothorax. IMPRESSION: 1. Mild atelectasis at the lung bases. 2. Atherosclerosis. 3. Small bilateral pleural effusions. RPTAT: QQ .Josh Dupont MD, MD Date Time Electronically viewed and signed by .Josh Dupont MD, MD on 05/29/2016 13:28 .R/
[2016-05-29] MEDS: THEOPHYLLINE (SR) 200 MG CAPSR PO SCH (13:51)
--- NOTE | 2016-05-29 14:33 | PN ---
Date/Time of Note Date/Time of Note DATE: 05/29/16 TIME: 14:29 Assessment/Plan VTE Prophylaxis VTE Prophylaxis Intervention: heparin Lines/Catheters IV Catheter Type (from Nrs): Saline Lock Urinary Cath still in place: No Assessment/Plan Assessment/Plan 1. Acute COPD exacerbation, improving, on neb/theophyline/singular and prednisone 2. Acute on chronic respiratory failure, O2 3. Pulmonary Hypertension, COPD related 4. Rheumatoid Arthritis - continue with pain management 5. Argyria 6. BPH, improved urinary retention, on flomax and proscar 7. Right UPJ obstruction, chronic, no intervention per urology 8. GI ppx - pepcid 9. DVT ppx - heparin Subjective 24 Hr Interval Summary Free Text/Dictation less SOB No difficulty in urination Exam/Review of Systems Vital Signs Vitals Vital Signs Date Time Temp Pulse Resp B/P Pulse Ox O2 Delivery O2 Flow Rate FiO2 05/29/16 13:56 19 98 Nasal Cannula 1.0 05/29/16 09:43 94 05/29/16 07:40 98.0 103/54 05/29/16 00:45 30 Intake and Output 05/28/16 05/28/16 05/29/16 15:00 23:00 07:00 Intake Total 1280 ml 300 ml Output Total 575 ml 550 ml Balance 705 ml -250 ml Exam Constitutional: alert, oriented, well developed Psych: nl mood/affect, no complaints Head: atraumatic, normocephalic Eyes: EOMI, PERRL, nl conjunctiva, nl lids ENMT: nl external ears & nose, nl lips & teeth, nl nasal mucosa & septum Neck: non-tender, supple Respiratory: diminished breath sounds Cardiovascular: nl pulses, regular rate and rhythm, No S3, No S4, No bruits, No diastolic murmur, No edema, No gallop, No irregular rhythm, No jugular venous distention (JVD), No murmurs/extra sounds, No other, No rub, No systolic murmur Gastrointestinal: nl liver, spleen, non-tender, soft, No ascites, No bowel sounds, No distended, No firm, No hepatomegaly, No mass , No other, No rebound or guarding, No splenomegaly, No surgical scars, No tender Musculoskeletal: nl extremities to inspection Extremities: normal pulses, No calf tenderness, No clubbing, No cyanosis, No edema, No other, No palpable cord, No pitting pedal edema, No tenderness 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, nl mental status, nl speech, nl strength Skin: nl turgor Lymph: nl lymph nodes Results Result Diagram: 05/25/16 0620 Results 24 hrs Laboratory Tests Test 05/29/16 05:00 05/29/16 12:23 Arterial Blood HCO3 32.6 H Arterial Blood Base Excess 6.0 H Arterial Blood Oxygen Saturation 93.9 L [place] Test ACCEPTAB Arterial Blood Gas Puncture Site Right Radial Arterial Blood Carboxyhemoglobin 0.4 Arterial Blood Date Drawn 05/29/2016 5:06:27 AM Arterial Blood Methemoglobin 0.5 Arterial Blood pCO2 (Temp correct) 54.4 H Arterial Blood pH (Temp corrected) 7.395 Arterial Blood pO2 (Temp corrected) 68.7 L Blood Gas A-a O2 Differential 81.3 H Blood Gas Modality NASAL CANNULA Blood Gas Notified Time 05/29/2016 5:23:20 AM Blood Gas Notified Whom RTR Blood Gas Specimen Source Blood arterial Blood Gas Temperature 37.0 FiO2 30.0 Oxyhemoglobin Percent 93.1 Total Hemoglobin 15.0 Lab Scanned Report REFERENCE LAB Medications Medications Current Medications Lorazepam (Ativan) 0.5 mg Q6H PRN IV ANXIETY Last administered on 05/23/16 01: 16; Admin Dose 0.5 MG; Start 05/19/16 at 20:00 Ondansetron HCl (Zofran Inj) 4 mg Q6H PRN IV NAUSEA AND/OR VOMITING; Start at 20:00 Nitroglycerin (Nitroglycerin (Sl Tab) 0.4 Mg) 1 tab Q5M PRN SL CHEST PAIN; Start 05/19/16 at 20:00 Acetaminophen (Tylenol Tab) 650 mg Q6H PRN PO PAIN LEVEL 1-3 OR FEVER; Start at 20:00 Morphine Sulfate (morphine) 2 mg Q4H PRN IV PAIN LEVEL 7-10 Last administered on 05/24/16 03:59; Admin Dose 2 MG; Start 05/19/16 at 20:00 Docusate Sodium (Colace) 100 mg Q12H PRN PO CONSTIPATION; Start 05/19/16 at 20: 00 Famotidine (Pepcid) 20 mg Q12 PO Last administered on 05/28/16 21:26; Admin Dose 20 MG; Start 05/19/16 at 21:00 Aspirin (Aspirin) 81 mg DAILY PO Last administered on 05/29/16 09:29; Admin Dose 81 MG; Start 05/20/16 at 09:00 Atorvastatin Calcium (Lipitor) 10 mg QHS PO Last administered on 05/23/16 21: 13; Admin Dose 10 MG; Start 05/19/16 at 21:00 Cholecalciferol (Vitamin D) 1,000 unit DAILY PO Last administered on 05/29/16 09:30; Admin Dose 1,000 UNIT; Start 05/20/16 at 09:00 Fluticasone Propionate (Flonase 0.05% Nasal) 1 spray BID NASAL Last administered on 05/26/16 08:57; Admin Dose 1 SPRAY; Start 05/19/16 at 21:00 Guaifenesin (Robitussin Liquid Cup) 600 mg Q12 PRN PO COUGH; Start 05/19/16 at 20:00 Metoprolol Succinate (Toprol Xl) 25 mg DAILY PO Last administered on 05/29/16 09:33; Admin Dose 25 MG; Start 05/20/16 at 09:00 Multivitamins Therapeutic (Theragran) 1 tab DAILY PO Last administered on 09:29; Admin Dose 1 TAB; Start 05/20/16 at 09:00 Polyethylene Glycol (Miralax) 17 gm DAILY PO Last administered on 05/23/16 09: 49; Admin Dose 17 GM; Start 05/20/16 at 09:00 Salmeterol Xinafoate/ Fluticasone (Advair 500/50 Diskus) 1 inh BID INH Last administered on 05/29/16 11:38; Admin Dose 1 INH; Start 05/19/16 at 21:00 Senna (Senokot) 2 tab BID PO Last administered on 05/29/16 09:30; Admin Dose 2 TAB; Start 05/19/16 at 21:00 Zolpidem Tartrate (Ambien) 5 mg QHS PRN PO SLEEP; Start 05/19/16 at 20:00 Acetaminophen/ Hydrocodone Bitart ([place] (5/325)) 1 tab Q6H PRN PO MODERATE PAIN LEVEL 4-6 Last administered on 05/23/16 02:49; Admin Dose 1 TAB; Start at 20:00 Guaifenesin (Mucinex) 600 mg BID PO Last administered on 05/29/16 09:30; Admin Dose 600 MG; Start 05/20/16 at 21:00 Tamsulosin HCl (Flomax) 0.4 mg BID PO Last administered on 05/29/16 09:30; Admin Dose 0.4 MG; Start 05/21/16 at 21:00 Magnesium Oxide (Mag-Ox 400) 400 mg DAILY PO Last administered on 05/29/16 09: 29; Admin Dose 400 MG; Start 05/21/16 at 18:30 Finasteride (Proscar) 5 mg DAILY PO Last administered on 05/29/16 09:30; Admin Dose 5 MG; Start 05/23/16 at 09:00 Prednisone (Prednisone) 40 mg DAILY PO Last administered on 05/29/16 09:30; Admin Dose 40 MG; Start 05/23/16 at 15:00 Levofloxacin (Levaquin) 500 mg DAILY@06 PO Last administered on 05/29/16 05:36 ; Admin Dose 500 MG; Start 05/25/16 at 06:00 Montelukast Sodium (Singulair) 10 mg HS PO Last administered on 05/28/16 21:26 ; Admin Dose 10 MG; Start 05/27/16 at 21:00 Theophylline ([place]-24) 200 mg DAILY PO Last administered on 05/29/16 13:51; Admin Dose 200 MG; Start 05/27/16 at 09:00 Ipratropium [place] (Atrovent Nasal) 2 spray QID NASAL Last administered on 05/29 11:38; Admin Dose 2 SPRAY; Start 05/28/16 at 09:30 IGNACIO HENRIQUEZ MD May 29, 2016 14:33
--- NOTE | 2016-05-29 14:52 | PN ---
DATE: 05/29/2016 The patient remains stable this morning. No new events. Sleeping comfortably. PHYSICAL EXAMINATION: VITAL SIGNS: Temperature 98, pulse is 100, blood pressure 102/54, O2 saturation 96% on 1 liter nasa l cannula. NECK: Supple. No JVD or lymphadenopathy. CARDIAC: S1, S2, no added sounds or murmurs. CHEST: Diminished air entry bilaterally. ABDOMEN: Soft, nontender. No guarding or rebound. EXTREMITIES: No cyanosis, clubbing, edema. NEUROLOGIC: Grossly intact. IMPRESSION AND PLAN: 1. Acute on chronic hypercapnic respiratory failure. 2. History of elevated PSA/urinary retention. 3. Chronic obstructive pulmonary disease with exacerbation. 4. Pulmonary hypertension. PLAN: 1. Continue to ambulate. 2. Noninvasive positive pressure ventilation at night. 3. Discharge planning if okay from pulmonary standpoint. Dictated By: JARVIS INGRAM/LESLIE Conf#: [id number] DID#: [id number]
[2016-05-29] MEDS: ATORVASTATIN 10 MG TAB PO SCH ×2 (20:39→21:00)
[2016-05-29] MEDS: MONTELUKAST 10 MG TAB PO SCH (20:39)
[2016-05-29 20:50] VITALS: BP 125/72; RESP 18
--- NOTE | 2016-05-29 23:27 | PN ---
DATE: 05/29/2016 SUBJECTIVE: Urinary frequency and history of urinary retention. The patient states that he is void ing and he is comfortable. He is voiding quite often. OBJECTIVE: VITAL SIGNS: His temperature is 98.0, pulse 94, respirations 19, blood pressure 103/54. ABDOMEN: Soft. The patient is voiding each time around about 75 mL. However, the postvoid residual is small and, t herefore, patient is not in urinary retention. RECOMMENDATION: Therefore, the recommended course is to continue the patient to urinate and, as tommie g as he does not go in retention, we will not try to catheterize him. Dictated By: OSBALDO KRISHNA MD BB/LESLIE Conf#: [id number] DID#: [id number] CC: SMITA AGUILAR MD;*End*
[2016-05-30] MEDS: LEVALBUTEROL (NEB) 0.63 MG/3 ML AMP HHN SCH ×7 (00:39→23:12)
[2016-05-30] MEDS: IPRATROPIUM (NEB) 0.5 MG/2.5 ML AMP HHN SCH ×7 (00:39→23:12)
[2016-05-30] MEDS: ALBUTEROL/IPRATROPIUM (NEB) 3 ML AMP HHN PRN ×2 (05:51→08:50)
[2016-05-30 07:45] VITALS: BP 108/55; RESP 18
[2016-05-30] MEDS: MAGNESIUM OXIDE 400 MG TAB PO SCH (08:34)
[2016-05-30] MEDS: MULTIVITAMINS THERAPEUTIC TAB PO SCH (08:34)
[2016-05-30] MEDS: TAMSULOSIN (SR) 0.4 MG CAP PO SCH ×2 (08:34→20:19)
[2016-05-30] MEDS: ASPIRIN 81 MG TAB PO SCH (08:35)
[2016-05-30] MEDS: predniSONE 20 MG TAB PO SCH (08:35)
[2016-05-30] MEDS: SENNA TAB PO SCH ×2 (08:35→20:19)
[2016-05-30] MEDS: GUAIFENESIN LA 600 MG TABSR PO SCH ×2 (08:35→20:19)
[2016-05-30] MEDS: FINASTERIDE 5 MG TAB PO SCH (08:35)
[2016-05-30] MEDS: CALCIUM CARBONATE 750 MG CHEW TAB PO SCH ×3 (08:36→20:40)
[2016-05-30] MEDS: IPRATROPIUM 0.03% 30 ML NASAL SPRAY NASAL SCH ×4 (08:36→20:19)
[2016-05-30] MEDS: FAMOTIDINE 20 MG TAB PO SCH ×2 (08:36→20:48)
[2016-05-30] MEDS: SALMETEROL/FLUTICASONE 500/50 INHA INH SCH ×2 (08:37→20:20)
[2016-05-30] MEDS: FLUTICASONE 0.05% 16 GM NAS SPRAY NASAL SCH ×2 (08:37→20:48)
[2016-05-30] MEDS: POLYETHYLENE GLYCOL 17 GM PACKET PO SCH (08:38)
[2016-05-30] MEDS: METOPROLOL (XL) 25 MG TAB PO SCH (08:38)
[2016-05-30] MEDS: CHOLECALCIFEROL 1,000 UNIT TAB PO SCH (08:39)
[2016-05-30] MEDS: THEOPHYLLINE (SR) 200 MG CAPSR PO SCH (13:07)
--- NOTE | 2016-05-30 14:59 | PN ---
Date/Time of Note Date/Time of Note DATE: 05/30/16 TIME: 14:57 Assessment/Plan VTE Prophylaxis VTE Prophylaxis Intervention: heparin Lines/Catheters IV Catheter Type (from Nrs): Saline Lock Urinary Cath still in place: No Assessment/Plan Assessment/Plan 1. Acute COPD exacerbation, improving, on neb/theophyline/singular and prednisone 2. Acute on chronic respiratory failure, O2 3. Pulmonary Hypertension, COPD related 4. Rheumatoid Arthritis - continue with pain management 5. Argyria 6. BPH, improved urinary retention, on flomax and proscar 7. Right UPJ obstruction, chronic, no intervention per urology 8. GI ppx - pepcid 9. DVT ppx - heparin 10. D/C plan for tomorrow Subjective 24 Hr Interval Summary Free Text/Dictation less SOB Exam/Review of Systems Vital Signs Vitals Vital Signs Date Time Temp Pulse Resp B/P Pulse Ox O2 Delivery O2 Flow Rate FiO2 05/30/16 14:50 117 20 97 Nasal Cannula 1.0 05/30/16 07:45 97.8 108/55 05/29/16 00:45 30 Intake and Output 05/29/16 05/29/16 05/30/16 15:00 23:00 07:00 Intake Total 780 ml 600 ml Output Total 240 ml 400 ml Balance 540 ml 200 ml Exam Constitutional: alert, oriented, well developed Psych: nl mood/affect, no complaints Head: atraumatic, normocephalic Eyes: EOMI, PERRL, nl conjunctiva, nl lids ENMT: nl external ears & nose, nl lips & teeth, nl nasal mucosa & septum Neck: non-tender, supple Respiratory: diminished breath sounds Cardiovascular: nl pulses, regular rate and rhythm, No S3, No S4, No bruits, No diastolic murmur, No edema, No gallop, No irregular rhythm, No jugular venous distention (JVD), No murmurs/extra sounds, No other, No rub, No systolic murmur Gastrointestinal: nl liver, spleen, non-tender, soft, No ascites, No bowel sounds, No distended, No firm, No hepatomegaly, No mass , No other, No rebound or guarding, No splenomegaly, No surgical scars, No tender Musculoskeletal: nl extremities to inspection Extremities: normal pulses, No calf tenderness, No clubbing, No cyanosis, No edema, No other, No palpable cord, No pitting pedal edema, No tenderness 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, nl mental status, nl speech, nl strength Skin: nl turgor Medications Medications Current Medications Lorazepam (Ativan) 0.5 mg Q6H PRN IV ANXIETY Last administered on 05/23/16 01: 16; Admin Dose 0.5 MG; Start 05/19/16 at 20:00 Ondansetron HCl (Zofran Inj) 4 mg Q6H PRN IV NAUSEA AND/OR VOMITING; Start at 20:00 Nitroglycerin (Nitroglycerin (Sl Tab) 0.4 Mg) 1 tab Q5M PRN SL CHEST PAIN; Start 05/19/16 at 20:00 Acetaminophen (Tylenol Tab) 650 mg Q6H PRN PO PAIN LEVEL 1-3 OR FEVER; Start at 20:00 Morphine Sulfate (morphine) 2 mg Q4H PRN IV PAIN LEVEL 7-10 Last administered on 05/24/16 03:59; Admin Dose 2 MG; Start 05/19/16 at 20:00 Docusate Sodium (Colace) 100 mg Q12H PRN PO CONSTIPATION; Start 05/19/16 at 20: 00 Famotidine (Pepcid) 20 mg Q12 PO Last administered on 05/29/16 20:39; Admin Dose 20 MG; Start 05/19/16 at 21:00 Aspirin (Aspirin) 81 mg DAILY PO Last administered on 05/30/16 08:35; Admin Dose 81 MG; Start 05/20/16 at 09:00 Atorvastatin Calcium (Lipitor) 10 mg QHS PO Last administered on 05/23/16 21: 13; Admin Dose 10 MG; Start 05/19/16 at 21:00 Cholecalciferol (Vitamin D) 1,000 unit DAILY PO Last administered on 05/29/16 09:30; Admin Dose 1,000 UNIT; Start 05/20/16 at 09:00 Fluticasone Propionate (Flonase 0.05% Nasal) 1 spray BID NASAL Last administered on 05/29/16 20:38; Admin Dose 1 SPRAY; Start 05/19/16 at 21:00 Guaifenesin (Robitussin Liquid Cup) 600 mg Q12 PRN PO COUGH; Start 05/19/16 at 20:00 Metoprolol Succinate (Toprol Xl) 25 mg DAILY PO Last administered on 05/29/16 09:33; Admin Dose 25 MG; Start 05/20/16 at 09:00 Multivitamins Therapeutic (Theragran) 1 tab DAILY PO Last administered on 08:34; Admin Dose 1 TAB; Start 05/20/16 at 09:00 Polyethylene Glycol (Miralax) 17 gm DAILY PO Last administered on 05/23/16 09: 49; Admin Dose 17 GM; Start 05/20/16 at 09:00 Salmeterol Xinafoate/ Fluticasone (Advair 500/50 Diskus) 1 inh BID INH Last administered on 05/30/16 08:37; Admin Dose 1 INH; Start 05/19/16 at 21:00 Senna (Senokot) 2 tab BID PO Last administered on 05/30/16 08:35; Admin Dose 2 TAB; Start 05/19/16 at 21:00 Zolpidem Tartrate (Ambien) 5 mg QHS PRN PO SLEEP; Start 05/19/16 at 20:00 Acetaminophen/ Hydrocodone Bitart ([place] (5/325)) 1 tab Q6H PRN PO MODERATE PAIN LEVEL 4-6 Last administered on 05/23/16 02:49; Admin Dose 1 TAB; Start at 20:00 Guaifenesin (Mucinex) 600 mg BID PO Last administered on 05/30/16 08:35; Admin Dose 600 MG; Start 05/20/16 at 21:00 Tamsulosin HCl (Flomax) 0.4 mg BID PO Last administered on 05/30/16 08:34; Admin Dose 0.4 MG; Start 05/21/16 at 21:00 Magnesium Oxide (Mag-Ox 400) 400 mg DAILY PO Last administered on 05/30/16 08: 34; Admin Dose 400 MG; Start 05/21/16 at 18:30 Finasteride (Proscar) 5 mg DAILY PO Last administered on 05/30/16 08:35; Admin Dose 5 MG; Start 05/23/16 at 09:00 Prednisone (Prednisone) 40 mg DAILY PO Last administered on 05/30/16 08:35; Admin Dose 40 MG; Start 05/23/16 at 15:00 Montelukast Sodium (Singulair) 10 mg HS PO Last administered on 05/29/16 20:39 ; Admin Dose 10 MG; Start 05/27/16 at 21:00 Theophylline (Jamaal-24) 200 mg DAILY PO Last administered on 05/30/16 13:07; Admin Dose 200 MG; Start 05/27/16 at 09:00 Ipratropium [place] (Atrovent Nasal) 2 spray QID NASAL Last administered on 05/30 13:07; Admin Dose 2 SPRAY; Start 05/28/16 at 09:30 IGNACIO HENRIQUEZ MD May 30, 2016 14:58
--- NOTE | 2016-05-30 15:12 | CONS ---
Date/Time of Note Date/Time of Note DATE: 05/30/16 TIME: 15:10 Assessment/Plan Assessment/Plan Additional Assessment/Plan 1. Acute hyperkalemia. resolved - 2. Severe metabolic alkalosis with a bicarbonate of 39, which could be compensatory for his respiratory acidosis.PCO2 71 on ABG 3. Acute prerenal azotemia likely secondary to decreased p.o. intake. 4. 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 History of benign prostatic hypertrophy. 6. History of hypertension. 7. History of hyperlipidemia. 8. History of chronic obstructive pulmonary disease. 9. History of argyria skin disease. 10. 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 monitor electrolytes will continue to follow up Consultation Date/Type/Reason Admit Date/Time May 19, 2016 at 19:29 Initial Consult Date 05/20/16 Type of Consultation: NEPHROLOGY Referring Provider: SMITA AGUILAR 24 HR Interval Summary Free Text/Dictation no acute events, d/c planning in process, BP stable Exam/Review of Systems Vital Signs Vitals Vital Signs Date Time Temp Pulse Resp B/P Pulse Ox O2 Delivery O2 Flow Rate FiO2 05/30/16 14:50 117 20 97 Nasal Cannula 1.0 05/30/16 07:45 97.8 108/55 05/29/16 00:45 30 Intake and Output 05/29/16 05/29/16 05/30/16 15:00 23:00 07:00 Intake Total 780 ml 600 ml Output Total 240 ml 400 ml Balance 540 ml 200 ml Exam GENERAL: Awake, alert, in no distress. HEENT: Normal. Oropharynx clear. NECK: Supple, no JVD, no lymphadenopathy. LUNGS: Clear to auscultation. No basilar crackles present. HEART: S1, S2, tachycardia, no murmur. ABDOMEN: Soft, nontender, nondistended. Bowel sounds are present. EXTREMITIES: No clubbing, cyanosis, or edema., + ramos catheter NEUROLOGICAL: Nonfocal, intact. PSYCHIATRIC: Appropriate affect and mood. Medications Medications Current Medications Lorazepam (Ativan) 0.5 mg Q6H PRN IV ANXIETY Last administered on 05/23/16 01: 16; Admin Dose 0.5 MG; Start 05/19/16 at 20:00 Ondansetron HCl (Zofran Inj) 4 mg Q6H PRN IV NAUSEA AND/OR VOMITING; Start at 20:00 Nitroglycerin (Nitroglycerin (Sl Tab) 0.4 Mg) 1 tab Q5M PRN SL CHEST PAIN; Start 05/19/16 at 20:00 Acetaminophen (Tylenol Tab) 650 mg Q6H PRN PO PAIN LEVEL 1-3 OR FEVER; Start at 20:00 Morphine Sulfate (morphine) 2 mg Q4H PRN IV PAIN LEVEL 7-10 Last administered on 05/24/16 03:59; Admin Dose 2 MG; Start 05/19/16 at 20:00 Docusate Sodium (Colace) 100 mg Q12H PRN PO CONSTIPATION; Start 05/19/16 at 20: 00 Famotidine (Pepcid) 20 mg Q12 PO Last administered on 05/29/16 20:39; Admin Dose 20 MG; Start 05/19/16 at 21:00 Aspirin (Aspirin) 81 mg DAILY PO Last administered on 05/30/16 08:35; Admin Dose 81 MG; Start 05/20/16 at 09:00 Atorvastatin Calcium (Lipitor) 10 mg QHS PO Last administered on 05/23/16 21: 13; Admin Dose 10 MG; Start 05/19/16 at 21:00 Cholecalciferol (Vitamin D) 1,000 unit DAILY PO Last administered on 05/29/16 09:30; Admin Dose 1,000 UNIT; Start 05/20/16 at 09:00 Fluticasone Propionate (Flonase 0.05% Nasal) 1 spray BID NASAL Last administered on 05/29/16 20:38; Admin Dose 1 SPRAY; Start 05/19/16 at 21:00 Guaifenesin (Robitussin Liquid Cup) 600 mg Q12 PRN PO COUGH; Start 05/19/16 at 20:00 Metoprolol Succinate (Toprol Xl) 25 mg DAILY PO Last administered on 05/29/16 09:33; Admin Dose 25 MG; Start 05/20/16 at 09:00 Multivitamins Therapeutic (Theragran) 1 tab DAILY PO Last administered on 08:34; Admin Dose 1 TAB; Start 05/20/16 at 09:00 Polyethylene Glycol (Miralax) 17 gm DAILY PO Last administered on 05/23/16 09: 49; Admin Dose 17 GM; Start 05/20/16 at 09:00 Salmeterol Xinafoate/ Fluticasone (Advair 500/50 Diskus) 1 inh BID INH Last administered on 05/30/16 08:37; Admin Dose 1 INH; Start 05/19/16 at 21:00 Senna (Senokot) 2 tab BID PO Last administered on 05/30/16 08:35; Admin Dose 2 TAB; Start 05/19/16 at 21:00 Zolpidem Tartrate (Ambien) 5 mg QHS PRN PO SLEEP; Start 05/19/16 at 20:00 Acetaminophen/ Hydrocodone Bitart ([place] (5/325)) 1 tab Q6H PRN PO MODERATE PAIN LEVEL 4-6 Last administered on 05/23/16 02:49; Admin Dose 1 TAB; Start at 20:00 Guaifenesin (Mucinex) 600 mg BID PO Last administered on 05/30/16 08:35; Admin Dose 600 MG; Start 05/20/16 at 21:00 Tamsulosin HCl (Flomax) 0.4 mg BID PO Last administered on 05/30/16 08:34; Admin Dose 0.4 MG; Start 05/21/16 at 21:00 Magnesium Oxide (Mag-Ox 400) 400 mg DAILY PO Last administered on 05/30/16 08: 34; Admin Dose 400 MG; Start 05/21/16 at 18:30 Finasteride (Proscar) 5 mg DAILY PO Last administered on 05/30/16 08:35; Admin Dose 5 MG; Start 05/23/16 at 09:00 Prednisone (Prednisone) 40 mg DAILY PO Last administered on 05/30/16 08:35; Admin Dose 40 MG; Start 05/23/16 at 15:00 Montelukast Sodium (Singulair) 10 mg HS PO Last administered on 05/29/16 20:39 ; Admin Dose 10 MG; Start 05/27/16 at 21:00 Theophylline (Jamaal-24) 200 mg DAILY PO Last administered on 05/30/16 13:07; Admin Dose 200 MG; Start 05/27/16 at 09:00 Ipratropium [place] (Atrovent Nasal) 2 spray QID NASAL Last administered on 05/30 13:07; Admin Dose 2 SPRAY; Start 05/28/16 at 09:30 JANIS VAZQUEZ MD May 30, 2016 15:12
--- NOTE | 2016-05-30 18:47 | PN ---
DATE: SUBJECTIVE: The patient remains stable. No new events. Breathing has continued to improve. The p atient is now down to 1 liter oxygen. PHYSICAL EXAMINATION: VITAL SIGNS: Temperature 97, pulse 100, blood pressure 108/55, O2 saturation 96% on 1 liter nasal c annula. NECK: Supple. No JVD or lymphadenopathy. CARDIAC: S1, S2. No added sounds or murmurs. CHEST: Diminished air entry bilaterally. ABDOMEN: Soft, nontender. No guarding or rebound. EXTREMITIES: No cyanosis, clubbing, or edema. NEUROLOGIC: Grossly intact. No focal deficits. LABORATORY DATA: Labs within normal limits. IMPRESSION: 1. Resolved disease exacerbation. 2. Deconditioning. 3. History of rheumatoid arthritis. PLAN: 1. Anticipate discharge tomorrow to home. 2. Outpatient pulmonary followup. 2. Deep venous thrombosis and gastrointestinal prophylaxis. Dictated By: JARVIS INGRAM/LESLIE Conf#: [id number] DID#: [id number]
[2016-05-30] MEDS: MONTELUKAST 10 MG TAB PO SCH (20:19)
[2016-05-30 20:34] VITALS: BP 137/72; RESP 20
[2016-05-30] MEDS: ATORVASTATIN 10 MG TAB PO SCH (20:48)
[2016-05-31] MEDS: IPRATROPIUM (NEB) 0.5 MG/2.5 ML AMP HHN SCH ×5 (05:50→20:02)
[2016-05-31] MEDS: LEVALBUTEROL (NEB) 0.63 MG/3 ML AMP HHN SCH ×5 (05:50→20:02)
[2016-05-31 07:48] VITALS: BP 139/74; RESP 18
[2016-05-31] MEDS: TAMSULOSIN (SR) 0.4 MG CAP PO SCH ×2 (08:28→20:19)
[2016-05-31] MEDS: predniSONE 20 MG TAB PO SCH (08:28)
[2016-05-31] MEDS: ASPIRIN 81 MG TAB PO SCH (08:28)
[2016-05-31] MEDS: SALMETEROL/FLUTICASONE 500/50 INHA INH SCH ×2 (08:28→20:19)
[2016-05-31] MEDS: MAGNESIUM OXIDE 400 MG TAB PO SCH (08:28)
[2016-05-31] MEDS: FINASTERIDE 5 MG TAB PO SCH (08:29)
[2016-05-31] MEDS: THEOPHYLLINE (SR) 200 MG CAPSR PO SCH (08:29)
[2016-05-31] MEDS: MULTIVITAMINS THERAPEUTIC TAB PO SCH (08:29)
[2016-05-31] MEDS: GUAIFENESIN LA 600 MG TABSR PO SCH ×2 (08:29→20:19)
[2016-05-31] MEDS: SENNA TAB PO SCH ×2 (08:29→20:19)
[2016-05-31] MEDS: CHOLECALCIFEROL 1,000 UNIT TAB PO SCH (08:29)
[2016-05-31] MEDS: IPRATROPIUM 0.03% 30 ML NASAL SPRAY NASAL SCH ×4 (08:30→20:23)
[2016-05-31] MEDS: FAMOTIDINE 20 MG TAB PO SCH ×2 (08:31→20:09)
[2016-05-31] MEDS: METOPROLOL (XL) 25 MG TAB PO SCH (08:31)
[2016-05-31] MEDS: CALCIUM CARBONATE 750 MG CHEW TAB PO SCH ×3 (08:31→20:09)
[2016-05-31] MEDS: FLUTICASONE 0.05% 16 GM NAS SPRAY NASAL SCH ×2 (08:31→21:00)
[2016-05-31] MEDS: POLYETHYLENE GLYCOL 17 GM PACKET PO SCH (08:31)
[2016-05-31] MEDS: ALBUTEROL/IPRATROPIUM (NEB) 3 ML AMP HHN PRN ×3 (08:45→20:02)
--- NOTE | 2016-05-31 15:03 | CONS ---
Date/Time of Note Date/Time of Note DATE: 05/31/16 TIME: 15:00 Assessment/Plan Assessment/Plan Additional Assessment/Plan 1. Acute hyperkalemia. resolved - 2. Severe metabolic alkalosis with a bicarbonate of 39, which could be compensatory for his respiratory acidosis.PCO2 71 on ABG 3. Acute prerenal azotemia likely secondary to decreased p.o. intake. 4. 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 History of benign prostatic hypertrophy. 6. History of hypertension. 7. History of hyperlipidemia. 8. History of chronic obstructive pulmonary disease. 9. History of argyria skin disease. 10. 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 monitor electrolytes will continue to follow up Consultation Date/Type/Reason Admit Date/Time May 19, 2016 at 19:29 Initial Consult Date 05/20/16 Type of Consultation: NEPHROLOGY Reason for Consultation acute kidney injury, obstructive uropathy, hematuria Referring Provider: SMITA AGUILAR 24 HR Interval Summary Free Text/Dictation pt stable, afebrile, Exam/Review of Systems Vital Signs Vitals Vital Signs Date Time Temp Pulse Resp B/P Pulse Ox O2 Delivery O2 Flow Rate FiO2 05/31/16 13:50 96 1.0 05/31/16 13:47 98 18 Nasal Cannula 05/31/16 07:48 97.9 139/74 05/30/16 23:15 25 Intake and Output 05/30/16 05/30/16 05/31/16 15:00 23:00 07:00 Intake Total 780 ml 590 ml Output Total 750 ml 600 ml Balance 30 ml -10 ml Exam GENERAL: Awake, alert, in no distress. HEENT: Normal. Oropharynx clear. NECK: Supple, no JVD, no lymphadenopathy. LUNGS: Clear to auscultation. No basilar crackles present. HEART: S1, S2, tachycardia, no murmur. ABDOMEN: Soft, nontender, nondistended. Bowel sounds are present. EXTREMITIES: No clubbing, cyanosis, or edema., + ramos catheter NEUROLOGICAL: Nonfocal, intact. PSYCHIATRIC: Appropriate affect and mood. Medications Medications Current Medications Lorazepam (Ativan) 0.5 mg Q6H PRN IV ANXIETY Last administered on 05/23/16 01: 16; Admin Dose 0.5 MG; Start 05/19/16 at 20:00 Ondansetron HCl (Zofran Inj) 4 mg Q6H PRN IV NAUSEA AND/OR VOMITING; Start at 20:00 Nitroglycerin (Nitroglycerin (Sl Tab) 0.4 Mg) 1 tab Q5M PRN SL CHEST PAIN; Start 05/19/16 at 20:00 Acetaminophen (Tylenol Tab) 650 mg Q6H PRN PO PAIN LEVEL 1-3 OR FEVER; Start at 20:00 Morphine Sulfate (morphine) 2 mg Q4H PRN IV PAIN LEVEL 7-10 Last administered on 05/24/16 03:59; Admin Dose 2 MG; Start 05/19/16 at 20:00 Docusate Sodium (Colace) 100 mg Q12H PRN PO CONSTIPATION; Start 05/19/16 at 20: 00 Famotidine (Pepcid) 20 mg Q12 PO Last administered on 05/29/16 20:39; Admin Dose 20 MG; Start 05/19/16 at 21:00 Aspirin (Aspirin) 81 mg DAILY PO Last administered on 05/31/16 08:28; Admin Dose 81 MG; Start 05/20/16 at 09:00 Atorvastatin Calcium (Lipitor) 10 mg QHS PO Last administered on 05/23/16 21: 13; Admin Dose 10 MG; Start 05/19/16 at 21:00 Cholecalciferol (Vitamin D) 1,000 unit DAILY PO Last administered on 05/31/16 08:29; Admin Dose 1,000 UNIT; Start 05/20/16 at 09:00 Fluticasone Propionate (Flonase 0.05% Nasal) 1 spray BID NASAL Last administered on 05/29/16 20:38; Admin Dose 1 SPRAY; Start 05/19/16 at 21:00 Guaifenesin (Robitussin Liquid Cup) 600 mg Q12 PRN PO COUGH; Start 05/19/16 at 20:00 Metoprolol Succinate (Toprol Xl) 25 mg DAILY PO Last administered on 05/31/16 08:31; Admin Dose 25 MG; Start 05/20/16 at 09:00 Multivitamins Therapeutic (Theragran) 1 tab DAILY PO Last administered on 08:29; Admin Dose 1 TAB; Start 05/20/16 at 09:00 Polyethylene Glycol (Miralax) 17 gm DAILY PO Last administered on 05/23/16 09: 49; Admin Dose 17 GM; Start 05/20/16 at 09:00 Salmeterol Xinafoate/ Fluticasone (Advair 500/50 Diskus) 1 inh BID INH Last administered on 05/31/16 08:28; Admin Dose 1 INH; Start 05/19/16 at 21:00 Senna (Senokot) 2 tab BID PO Last administered on 05/31/16 08:29; Admin Dose 2 TAB; Start 05/19/16 at 21:00 Zolpidem Tartrate (Ambien) 5 mg QHS PRN PO SLEEP; Start 05/19/16 at 20:00 Acetaminophen/ Hydrocodone Bitart ([place] (5/325)) 1 tab Q6H PRN PO MODERATE PAIN LEVEL 4-6 Last administered on 05/23/16 02:49; Admin Dose 1 TAB; Start at 20:00 Guaifenesin (Mucinex) 600 mg BID PO Last administered on 05/31/16 08:29; Admin Dose 600 MG; Start 05/20/16 at 21:00 Tamsulosin HCl (Flomax) 0.4 mg BID PO Last administered on 05/31/16 08:28; Admin Dose 0.4 MG; Start 05/21/16 at 21:00 Magnesium Oxide (Mag-Ox 400) 400 mg DAILY PO Last administered on 05/31/16 08: 28; Admin Dose 400 MG; Start 05/21/16 at 18:30 Finasteride (Proscar) 5 mg DAILY PO Last administered on 05/31/16 08:29; Admin Dose 5 MG; Start 05/23/16 at 09:00 Prednisone (Prednisone) 40 mg DAILY PO Last administered on 05/31/16 08:28; Admin Dose 40 MG; Start 05/23/16 at 15:00 Montelukast Sodium (Singulair) 10 mg HS PO Last administered on 05/30/16 20:19 ; Admin Dose 10 MG; Start 05/27/16 at 21:00 Theophylline (Jamaal-24) 200 mg DAILY PO Last administered on 05/31/16 08:29; Admin Dose 200 MG; Start 05/27/16 at 09:00 Ipratropium [place] (Atrovent Nasal) 2 spray QID NASAL Last administered on 05/31 08:30; Admin Dose 2 SPRAY; Start 05/28/16 at 09:30 JANIS VAZQUEZ MD May 31, 2016 15:03
--- NOTE | 2016-05-31 15:08 | PN ---
Date/Time of Note Date/Time of Note DATE: 05/31/16 TIME: 15:06 Assessment/Plan VTE Prophylaxis VTE Prophylaxis Intervention: heparin Lines/Catheters IV Catheter Type (from Nrs): [place] Lock Urinary Cath still in place: No Assessment/Plan Assessment/Plan 1. Acute COPD exacerbation, improving, on neb/theophyline/singular and prednisone 2. Acute on chronic respiratory failure, O2 3. Pulmonary Hypertension, COPD related 4. Rheumatoid Arthritis - continue with pain management 5. Argyria 6. BPH, improved urinary retention, on flomax and proscar 7. Right UPJ obstruction, chronic, no intervention per urology 8. GI ppx - pepcid 9. DVT ppx - heparin 10. D/C plan for tomorrow, states the social service worker has not set up home care Subjective 24 Hr Interval Summary Free Text/Dictation breathing is ok Exam/Review of Systems Vital Signs Vitals Vital Signs Date Time Temp Pulse Resp B/P Pulse Ox O2 Delivery O2 Flow Rate FiO2 05/31/16 13:50 96 1.0 05/31/16 13:47 98 18 Nasal Cannula 05/31/16 07:48 97.9 139/74 05/30/16 23:15 25 Intake and Output 05/30/16 05/30/16 05/31/16 15:00 23:00 07:00 Intake Total 780 ml 590 ml Output Total 750 ml 600 ml Balance 30 ml -10 ml Exam Constitutional: alert, oriented, well developed Psych: nl mood/affect, no complaints Head: atraumatic, normocephalic Eyes: EOMI, PERRL, nl conjunctiva, nl lids ENMT: nl external ears & nose, nl lips & teeth, nl nasal mucosa & septum Neck: non-tender, supple Respiratory: clear to auscultation, diminished breath sounds Cardiovascular: nl pulses, regular rate and rhythm, No S3, No S4, No bruits, No diastolic murmur, No edema, No gallop, No irregular rhythm, No jugular venous distention (JVD), No murmurs/extra sounds, No other, No rub, No systolic murmur Gastrointestinal: nl liver, spleen, non-tender, soft, No ascites, No bowel sounds, No distended, No firm, No hepatomegaly, No mass , No other, No rebound or guarding, No splenomegaly, No surgical scars, No tender Musculoskeletal: nl extremities to inspection Extremities: normal pulses, No calf tenderness, No clubbing, No cyanosis, No edema, No other, No palpable cord, No pitting pedal edema, No tenderness Neurological: CHECKMAN II-XII intact, nl mental status, nl speech, nl strength Skin: nl turgor Medications Medications Current Medications Lorazepam (Ativan) 0.5 mg Q6H PRN IV ANXIETY Last administered on 05/23/16 01: 16; Admin Dose 0.5 MG; Start 05/19/16 at 20:00 Ondansetron HCl (Zofran Inj) 4 mg Q6H PRN IV NAUSEA AND/OR VOMITING; Start at 20:00 Nitroglycerin (Nitroglycerin (Sl Tab) 0.4 Mg) 1 tab Q5M PRN SL CHEST PAIN; Start 05/19/16 at 20:00 Acetaminophen (Tylenol Tab) 650 mg Q6H PRN PO PAIN LEVEL 1-3 OR FEVER; Start at 20:00 Morphine Sulfate (morphine) 2 mg Q4H PRN IV PAIN LEVEL 7-10 Last administered on 05/24/16 03:59; Admin Dose 2 MG; Start 05/19/16 at 20:00 Docusate Sodium (Colace) 100 mg Q12H PRN PO CONSTIPATION; Start 05/19/16 at 20: 00 Famotidine (Pepcid) 20 mg Q12 PO Last administered on 05/29/16 20:39; Admin Dose 20 MG; Start 05/19/16 at 21:00 Aspirin (Aspirin) 81 mg DAILY PO Last administered on 05/31/16 08:28; Admin Dose 81 MG; Start 05/20/16 at 09:00 Atorvastatin Calcium (Lipitor) 10 mg QHS PO Last administered on 05/23/16 21: 13; Admin Dose 10 MG; Start 05/19/16 at 21:00 Cholecalciferol (Vitamin D) 1,000 unit DAILY PO Last administered on 05/31/16 08:29; Admin Dose 1,000 UNIT; Start 05/20/16 at 09:00 Fluticasone Propionate (Flonase 0.05% Nasal) 1 spray BID NASAL Last administered on 05/29/16 20:38; Admin Dose 1 SPRAY; Start 05/19/16 at 21:00 Guaifenesin (Robitussin Liquid Cup) 600 mg Q12 PRN PO COUGH; Start 05/19/16 at 20:00 Metoprolol Succinate (Toprol Xl) 25 mg DAILY PO Last administered on 05/31/16 08:31; Admin Dose 25 MG; Start 05/20/16 at 09:00 Multivitamins Therapeutic (Theragran) 1 tab DAILY PO Last administered on 08:29; Admin Dose 1 TAB; Start 05/20/16 at 09:00 Polyethylene Glycol (Miralax) 17 gm DAILY PO Last administered on 05/23/16 09: 49; Admin Dose 17 GM; Start 05/20/16 at 09:00 Salmeterol Xinafoate/ Fluticasone (Advair 500/50 Diskus) 1 inh BID INH Last administered on 05/31/16 08:28; Admin Dose 1 INH; Start 05/19/16 at 21:00 Senna (Senokot) 2 tab BID PO Last administered on 05/31/16 08:29; Admin Dose 2 TAB; Start 05/19/16 at 21:00 Zolpidem Tartrate (Ambien) 5 mg QHS PRN PO SLEEP; Start 05/19/16 at 20:00 Acetaminophen/ Hydrocodone Bitart ([place] (5/325)) 1 tab Q6H PRN PO MODERATE PAIN LEVEL 4-6 Last administered on 05/23/16 02:49; Admin Dose 1 TAB; Start at 20:00 Guaifenesin (Mucinex) 600 mg BID PO Last administered on 05/31/16 08:29; Admin Dose 600 MG; Start 05/20/16 at 21:00 Tamsulosin HCl (Flomax) 0.4 mg BID PO Last administered on 05/31/16 08:28; Admin Dose 0.4 MG; Start 05/21/16 at 21:00 Magnesium Oxide (Mag-Ox 400) 400 mg DAILY PO Last administered on 05/31/16 08: 28; Admin Dose 400 MG; Start 05/21/16 at 18:30 Finasteride (Proscar) 5 mg DAILY PO Last administered on 05/31/16 08:29; Admin Dose 5 MG; Start 05/23/16 at 09:00 Prednisone (Prednisone) 40 mg DAILY PO Last administered on 05/31/16 08:28; Admin Dose 40 MG; Start 05/23/16 at 15:00 Montelukast Sodium (Singulair) 10 mg HS PO Last administered on 05/30/16 20:19 ; Admin Dose 10 MG; Start 05/27/16 at 21:00 Theophylline (Jamaal-24) 200 mg DAILY PO Last administered on 05/31/16 08:29; Admin Dose 200 MG; Start 05/27/16 at 09:00 Ipratropium [place] (Atrovent Nasal) 2 spray QID NASAL Last administered on 05/31 08:30; Admin Dose 2 SPRAY; Start 05/28/16 at 09:30 IGNACIO HENRIQUEZ MD May 31, 2016 15:08
--- NOTE | 2016-05-31 15:56 | PN ---
DATE: 05/31/2016 SUBJECTIVE: The patient has remained stable, no new events. PHYSICAL EXAMINATION: VITAL SIGNS: Temperature 98, pulse 86, blood pressure 139/74, O2 saturation 96% on 1 liter. NECK: Supple. No JVD or lymphadenopathy. CARDIAC: S1, S2, no added sounds or murmurs. CHEST: Diminished air entry bilaterally. ABDOMEN: Soft, nontender. No guarding or rebound. EXTREMITIES: No cyanosis, clubbing, edema. NEUROLOGIC: Grossly intact. IMPRESSION AND PLAN: 1. Chronic obstructive pulmonary disease with acute exacerbation. 2. Resolving hypoxemic respiratory failure. 3. History of rheumatoid arthritis. From a pulmonary standpoint, patient can be discharged home. Recommend outpatient pulmonary functio n testing and followup. Dictated By: JARVIS INGRAM/LESLIE Conf#: [id number] DID#: [id number]
--- NOTE | 2016-05-31 17:29 | PN ---
DATE: 05/31/2016 SUBJECTIVE: Urinary frequency, prior urinary retention. The patient is voiding well and he is very comfortable and happy and he is happy that he is going to be going home tomorrow. He did ask me wh at would happen if he goes home and about a week later if he cannot urinate, what should he do? I di scussed with him if he has a home health nurse visiting him, he should call the visiting nurse and s he could come in and check him. Also, she could call me and then discussed with me his condition an d then we could give her orders either to catheterize him or to teach him to do self-catheterization . OBJECTIVE VITAL SIGNS: His temperature is 97.9, pulse is 98, respiration 18, blood pressure 159/74. SUBJECTI VE: The patient is on ipratropium bromide which he refused today and levalbuterol he also refused t lorie. Ipratropium bromide, he refused it again and that also could be a factor in his urinary reten tion. Anyhow, if he could do well without them, that would be great. He is also on finasteride and tamsulosin twice a day and the finasteride 1 pill a day and he should continue these at home. Dictated By: OSBALDO FARRAR/LESLIE Conf#: [id number] DID#: [id number]
[2016-05-31] MEDS: ATORVASTATIN 10 MG TAB PO SCH (20:09)
[2016-05-31] MEDS: MONTELUKAST 10 MG TAB PO SCH (20:19)
[2016-05-31 20:21] VITALS: BP 125/71; RESP 18
[2016-06-01] MEDS: IPRATROPIUM (NEB) 0.5 MG/2.5 ML AMP HHN SCH ×5 (00:44→16:14)
[2016-06-01] MEDS: LEVALBUTEROL (NEB) 0.63 MG/3 ML AMP HHN SCH ×5 (00:44→16:14)
[2016-06-01 08:25] VITALS: BP 112/68; RESP 20
[2016-06-01] MEDS: CALCIUM CARBONATE 750 MG CHEW TAB PO SCH ×2 (08:35→12:51)
[2016-06-01] MEDS: SENNA TAB PO SCH (08:35)
[2016-06-01] MEDS: predniSONE 20 MG TAB PO SCH (08:35)
[2016-06-01] MEDS: FINASTERIDE 5 MG TAB PO SCH (08:36)
[2016-06-01] MEDS: MAGNESIUM OXIDE 400 MG TAB PO SCH (08:36)
[2016-06-01] MEDS: ASPIRIN 81 MG TAB PO SCH (08:36)
[2016-06-01] MEDS: TAMSULOSIN (SR) 0.4 MG CAP PO SCH (08:36)
[2016-06-01] MEDS: CHOLECALCIFEROL 1,000 UNIT TAB PO SCH (08:36)
[2016-06-01] MEDS: MULTIVITAMINS THERAPEUTIC TAB PO SCH (08:36)
[2016-06-01] MEDS: GUAIFENESIN LA 600 MG TABSR PO SCH (08:36)
[2016-06-01] MEDS: POLYETHYLENE GLYCOL 17 GM PACKET PO SCH (08:38)
[2016-06-01] MEDS: FAMOTIDINE 20 MG TAB PO SCH (08:38)
[2016-06-01] MEDS: FLUTICASONE 0.05% 16 GM NAS SPRAY NASAL SCH (08:38)
[2016-06-01] MEDS: SALMETEROL/FLUTICASONE 500/50 INHA INH SCH (08:38)
[2016-06-01] MEDS: THEOPHYLLINE (SR) 200 MG CAPSR PO SCH (08:40)
[2016-06-01] MEDS: METOPROLOL (XL) 25 MG TAB PO SCH (08:53)
--- NOTE | 2016-06-01 11:15 | CONS ---
Date/Time of Note Date/Time of Note DATE: 06/01/16 TIME: 11:15 Assessment/Plan Assessment/Plan Additional Assessment/Plan 1. Acute hyperkalemia. resolved - 2. Severe metabolic alkalosis with a bicarbonate of 39, which could be compensatory for his respiratory acidosis.PCO2 71 on ABG 3. Acute prerenal azotemia likely secondary to decreased p.o. intake. 4. 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 History of benign prostatic hypertrophy. 6. History of hypertension. 7. History of hyperlipidemia. 8. History of chronic obstructive pulmonary disease. 9. History of argyria skin disease. 10. 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 monitor electrolytes will continue to follow up Consultation Date/Type/Reason Admit Date/Time May 19, 2016 at 19:29 Initial Consult Date 05/20/16 Type of Consultation: NEPHROLOGY Referring Provider: SMITA AGUIALR 24 HR Interval Summary Free Text/Dictation no acute events,BP stable Exam/Review of Systems Vital Signs Vitals Vital Signs Date Time Temp Pulse Resp B/P Pulse Ox O2 Delivery O2 Flow Rate FiO2 06/01/16 08:25 98.1 89 20 112/68 99 06/01/16 00:44 1.0 05/31/16 20:04 Nasal Cannula 05/30/16 23:15 25 Intake and Output 05/31/16 05/31/16 06/01/16 15:00 23:00 07:00 Intake Total 1200 ml 640 ml Output Total 1050 ml 450 ml Balance 150 ml 190 ml Exam GENERAL: Awake, alert, in no distress. HEENT: Normal. Oropharynx clear. NECK: Supple, no JVD, no lymphadenopathy. LUNGS: Clear to auscultation. No basilar crackles present. HEART: S1, S2, tachycardia, no murmur. ABDOMEN: Soft, nontender, nondistended. Bowel sounds are present. EXTREMITIES: No clubbing, cyanosis, or edema., + ramos catheter NEUROLOGICAL: Nonfocal, intact. PSYCHIATRIC: Appropriate affect and mood. Medications Medications Current Medications Lorazepam (Ativan) 0.5 mg Q6H PRN IV ANXIETY Last administered on 05/23/16 01: 16; Admin Dose 0.5 MG; Start 05/19/16 at 20:00 Ondansetron HCl (Zofran Inj) 4 mg Q6H PRN IV NAUSEA AND/OR VOMITING; Start at 20:00 Nitroglycerin (Nitroglycerin (Sl Tab) 0.4 Mg) 1 tab Q5M PRN SL CHEST PAIN; Start 05/19/16 at 20:00 Acetaminophen (Tylenol Tab) 650 mg Q6H PRN PO PAIN LEVEL 1-3 OR FEVER; Start at 20:00 Morphine Sulfate (morphine) 2 mg Q4H PRN IV PAIN LEVEL 7-10 Last administered on 05/24/16 03:59; Admin Dose 2 MG; Start 05/19/16 at 20:00 Docusate Sodium (Colace) 100 mg Q12H PRN PO CONSTIPATION; Start 05/19/16 at 20: 00 Famotidine (Pepcid) 20 mg Q12 PO Last administered on 06/01/16 08:38; Admin Dose 20 MG; Start 05/19/16 at 21:00 Aspirin (Aspirin) 81 mg DAILY PO Last administered on 06/01/16 08:36; Admin Dose 81 MG; Start 05/20/16 at 09:00 Atorvastatin Calcium (Lipitor) 10 mg QHS PO Last administered on 05/23/16 21: 13; Admin Dose 10 MG; Start 05/19/16 at 21:00 Cholecalciferol (Vitamin D) 1,000 unit DAILY PO Last administered on 06/01/16 08:36; Admin Dose 1,000 UNIT; Start 05/20/16 at 09:00 Fluticasone Propionate (Flonase 0.05% Nasal) 1 spray BID NASAL Last administered on 06/01/16 08:38; Admin Dose 1 SPRAY; Start 05/19/16 at 21:00 Guaifenesin (Robitussin Liquid Cup) 600 mg Q12 PRN PO COUGH; Start 05/19/16 at 20:00 Metoprolol Succinate (Toprol Xl) 25 mg DAILY PO Last administered on 05/31/16 08:31; Admin Dose 25 MG; Start 05/20/16 at 09:00 Multivitamins Therapeutic (Theragran) 1 tab DAILY PO Last administered on 08:36; Admin Dose 1 TAB; Start 05/20/16 at 09:00 Polyethylene Glycol (Miralax) 17 gm DAILY PO Last administered on 06/01/16 08: 38; Admin Dose 17 GM; Start 05/20/16 at 09:00 Salmeterol Xinafoate/ Fluticasone (Advair 500/50 Diskus) 1 inh BID INH Last administered on 06/01/16 08:38; Admin Dose 1 INH; Start 05/19/16 at 21:00 Senna (Senokot) 2 tab BID PO Last administered on 06/01/16 08:35; Admin Dose 2 TAB; Start 05/19/16 at 21:00 Zolpidem Tartrate (Ambien) 5 mg QHS PRN PO SLEEP; Start 05/19/16 at 20:00 Acetaminophen/ Hydrocodone Bitart ([place] (5/325)) 1 tab Q6H PRN PO MODERATE PAIN LEVEL 4-6 Last administered on 05/23/16 02:49; Admin Dose 1 TAB; Start at 20:00 Guaifenesin (Mucinex) 600 mg BID PO Last administered on 06/01/16 08:36; Admin Dose 600 MG; Start 05/20/16 at 21:00 Tamsulosin HCl (Flomax) 0.4 mg BID PO Last administered on 06/01/16 08:36; Admin Dose 0.4 MG; Start 05/21/16 at 21:00 Magnesium Oxide (Mag-Ox 400) 400 mg DAILY PO Last administered on 06/01/16 08: 36; Admin Dose 400 MG; Start 05/21/16 at 18:30 Finasteride (Proscar) 5 mg DAILY PO Last administered on 06/01/16 08:36; Admin Dose 5 MG; Start 05/23/16 at 09:00 Prednisone (Prednisone) 40 mg DAILY PO Last administered on 06/01/16 08:35; Admin Dose 40 MG; Start 05/23/16 at 15:00 Montelukast Sodium (Singulair) 10 mg HS PO Last administered on 05/31/16 20:19 ; Admin Dose 10 MG; Start 05/27/16 at 21:00 Theophylline (Jamaal-24) 200 mg DAILY PO Last administered on 06/01/16 08:40; Admin Dose 200 MG; Start 05/27/16 at 09:00 Ipratropium [place] (Atrovent Nasal) 2 spray QID NASAL Last administered on 05/31 20:23; Admin Dose 2 SPRAY; Start 05/28/16 at 09:30 JANIS VAZQUEZ MD Jun 01, 2016 11:15
--- NOTE | 2016-06-01 12:55 | PN ---
DATE: 06/01/2016 SUBJECTIVE: The patient has remained stable, no events, comfortable this morning. PHYSICAL EXAMINATION: VITAL SIGNS: Temperature 98, pulse 89, blood pressure 112/68, O2 saturation 96% on 1 liter nasal ca nnula. NECK: Supple. No JVD or lymphadenopathy. CARDIAC: S1, S2, no added sounds or murmurs. CHEST: Diminished air entry bilaterally. ABDOMEN: Soft, nontender. No guarding or rebound. EXTREMITIES: No cyanosis, clubbing, edema. NEUROLOGIC: Grossly intact. IMPRESSION: 1. Acute on chronic hypercapnic respiratory failure. 2. Status post chronic obstructive pulmonary disease exacerbation. 3. History of argyria skin disease. PLAN: 1. The patient to take can be discharged from a pulmonary standpoint. 2. Will likely need urology followup for UPJ stenosis as an outpatient. Dictated By: JARVIS INGRAM/LESLIE Conf#: [id number] DID#: [id number]
[2016-06-01] MEDS ORDERED: PRED20TA PO (14:08)
[2016-06-01] MEDS ORDERED: PRED20 PO (14:08)
[2016-06-01] MEDS ORDERED: PRED10TA PO (14:08)
--- NOTE | 2016-06-01 14:40 | DS ---
Date/Time of Note Date/Time of Note DATE: 06/01/16 TIME: 14:23 Discharge Summary Admission/Discharge Info Admit Date/Time May 19, 2016 at 19:29 Discharge Date/Time Final Diagnosis 1. Acute COPD exacerbation, improving, follow up with PCP 2. Acute on chronic respiratory failure, on home O2 3. Pulmonary Hypertension, COPD related 4. Rheumatoid Arthritis - continue with pain management 5. Argyria 6. BPH, improved urinary retention, on flomax and proscar 7. Right UPJ obstruction, chronic, no intervention per urology Patient Condition: Stable Hx of Present Illness 70 yo male with a past medical history of COPD with emphysema, Pulmonary Hypertension, Rheumatoid Arthritis, Argyria, who was recently hospitalized here on 04/12/2016 for similar presentation of shortness of breath. For the last several days, the shortness of breath has progressively gotten worse. He is unable to speak in full sentences. Associated with this is nausea. He otherwise denies any chest pain, loss of consciousness, headaches, urinary/bowel irregularities, fevers, chills or other constitutional symptoms. He was taking levaquin at the outside facility, with no oral steroid therapy. ED course: patient was given continuous breathing treatments, and supplemental oxygen and dexamethasone Hospital Course For COPD patient is treated with steroid, nebulizer, antibiotics, and O2 plus theophyline/singular. Symptoms improved. Patient will be discharged with tapering dosage of prednisone and follow up with pulmonology. Patient had urinary retention that improved with proscar and flomax. Patient also has Severe right hydronephrosis with atrophy of the parenchyma and abrupt transition at the ureteropelvic junction, no intervention for this per urology. Home Meds Active Scripts Prednisone* (Prednisone*) 10 Mg Tab, 10 MG PO DAILY for 5 Days, TAB Prov:IGNACIO HENRIQUEZ MD 06/01/16 Prednisone* (Prednisone*) 20 Mg Tab, 20 MG PO DAILY for 3 Days, TAB Prov:IGNACIO HENRIQUEZ MD 06/01/16 Prednisone (Prednisone) 20 Mg Tab, 40 MG PO DAILY for 5 Days, TAB Prov:IGNACIO HENRIQUEZ MD 06/01/16 Zolpidem Tartrate* (Zolpidem Tartrate*) 5 Mg Tablet, 5 MG PO QHS Y for SLEEP for 30 Days, TAB Prov:LARA CHOWDHURY [employer] 04/18/16 Levalbuterol Hcl* (Xopenex*) 1.25 Mg/0.5 Ml Vial.neb, 1.25 MG HHN Q4H RESP THERAPY Y for SHORTNESS OF BREATH for 30 Days Prov:LARA CHOWDHURY [employer] 04/18/16 Ipratropium-Albuterol (Ipratropium-Albuterol) 0.5-3 Mg/3 Ml Ampul.neb, 3 ML HHN Q6HWA RESP THERAPY for 30 Days Prov:LARA CHOWDHURY [employer] 04/18/16 [Ipratropium 0.02% (Neb)] 0.5 MG/2.5 ML NEBU No Conflict Check, 0.5 MG HHN Q4H RESP THERAPY Y for SHORTNESS OF BREATH for 30 Days Prov:LARA CHOWDHURY [employer] 04/18/16 [Hydrocodone/Apap (5/325)] 1 TAB TAB No Conflict Check, 1 TAB PO Q6H Y for MODERATE PAIN LEVEL 4-6 for 30 Days Prov:LARA CHOWDHURY [employer] 04/18/16 Reported Medications Tamsulosin Hcl* (Tamsulosin Hcl*) 0.4 Mg Cap.er.24h, 0.4 MG PO HS, CAP 04/12/16 Sennosides* (Senna Lax*) 8.6 Mg Tablet, 2 TAB PO BID, TAB 04/12/16 Protein Supplement (Promod) 946 Ml Liquid, 30 ML PO BID 04/12/16 Multivitamins* (Theragran*) 1 Tab Tab, 1 TAB PO DAILY, TAB 04/12/16 Polyethylene Glycol* (Miralax*) 17 Gm Powd.pack, 17 GM PO DAILY, #30 PACKET 04/12/16 Metoprolol Succinate* (Toprol XL*) 25 Mg Tab.sr.24h, 25 MG PO DAILY, #30 TAB HOLD IF SBP<110, HR<60 04/12/16 Fluticasone Propionate (Flonase Allergy Relief) 9.9 Ml Eph[place]im.susp, 1 SPRAY NASAL BID, #1 BOTTLE TO EACH NOSTRIL 04/12/16 Cholecalciferol* (Vitamin D3*) 1,000 Unit Tablet, 1000 UNIT PO DAILY, TAB 04/12/16 Lactose-Free Food (Boost Plus) 237 Ml Liquid, 474 ML PO BID 04/12/16 Ipratropium Boswell (Ipratropium Boswell) 30 Ml [place]im, 2 SPRAY NS QID, SPRAY 04/12/16 Aspirin* (Aspirin* Chew) 81 Mg Tab.chew, 81 MG PO DAILY, TAB.CHEW 04/12/16 Atorvastatin Calcium (Atorvastatin Calcium) 10 Mg Tablet, 10 MG PO QHS, #30 TAB 04/12/16 Salmeterol Xinaf-Fluticasone* (Advair*) 500/50 Diskus Inhaler, 1 INH INHALATION BID, #1 INHALER 04/12/16 Discontinued Reported Medications Enoxaparin Sodium* (Lovenox*) 40 Mg/0.4 Ml Syringe, 40 MG SC DAILY, SYR 04/12/16 Guaifenesin* (Robitussin*) 100 Mg/5 Ml Syrup, 600 MG PO Q12 Y for COUGH, ML 04/12/16 Follow-up Plan PCP on week pulmonology one week urology two weeks IGNACIO HENRIQUEZ MD Jun 01, 2016 14:37
[2016-06-01] MEDS ORDERED: FINA5TAB4 PO (14:42)
[2016-06-01] MEDS ORDERED: TAMS-14 PO (14:42)
[2016-06-01 16:40] VITALS: BP 132/71; PULSE 95; RESP 18
== END 2016-06-01 17:16 | disposition home health service (06) | DRG 190 ==
LOC: E/R 15:19 → MS4 19:29 → PP2 05-26 20:59
PROVIDERS: ADMIT Family Medicine; ATTEND Family Medicine
DX: J44.0 Chronic obstructive pulmonary disease with (acute) lower respiratory infection (principal); J96.22 Acute and chronic respiratory failure with hypercapnia; E87.4 Mixed disorder of acid-base balance; I27.2 Other secondary pulmonary hypertension; N13.30 Unspecified hydronephrosis; N28.0 Ischemia and infarction of kidney; J44.1 Chronic obstructive pulmonary disease with (acute) exacerbation; Z66 Do not resuscitate; M06.9 Rheumatoid arthritis, unspecified; N40.1 Benign prostatic hyperplasia with lower urinary tract symptoms; R33.8 Other retention of urine; Z72.0 Tobacco use; T56.891S Toxic effect of other metals, accidental (unintentional), sequela; L81.8 Other specified disorders of pigmentation; J20.9 Acute bronchitis, unspecified; E87.5 Hyperkalemia; I12.9 Hypertensive chronic kidney disease with stage 1 through stage 4 chronic kidney disease, or unspecified chronic kidney disease; N18.2 Chronic kidney disease, stage 2 (mild); R97.20 Elevated prostate specific antigen [PSA]; J30.9 Allergic rhinitis, unspecified
CPT/HCPCS: 36415; 36600; 71010; 74176; 76775; 80048; 80053; 81001; 81003; 82550; 82553; 82570; 82803; 83735; 84153; 84154; 84300; 84443; 84484; 84560; 85025; 85610; 85730; 87081; 87086; 89190; 93005; 93306; 94640; 94644; 94660; 94664; 96374; 96375; A4310; J1100; J1650; J1956; J2060; J2270; J2920; J2930; J7030; J7512; Q9967